=== PATIENT | female | born 1950 | race Caucasian/White ===

== ENCOUNTER 2017-06-26 18:43 | Emergency (ER) | payer MEDICARE, OTHER, SELFPAY ==
[2017-06-26 19:15] VITALS: BP 104/64; PULSE 73; RESP 18; TEMP 36.8; O2SAT 97; BMI 24.7
--- NOTE | 2017-06-26 19:36 | XR_ITS ---
XR chest 2V HISTORY: Ke ITS.REASON: worsening cough, pain, feeling feverish, nonsmoker ORDERING PHYSICIAN: Mingo Hernandez PATIENT AGE: 66 years COMPARISON: None available FINDINGS: The cardiomediastinal silhouette and pulmonary vascularity are within normal limits. The lungs are clear without infiltrates, suspicious nodules, or pleural effusions. A faint nodular opacity overlies the left first rib anteriorly could be due to summation artifact. Follow-up may confirm. There is increased density left paratracheal region at 4 and may be due to thyroid enlargement No acute bony abnormalities. IMPRESSION: No acute finding. Mild deviation of the trachea on the left possibly related to thyroid enlargement or nodule Faint 7 mm nodular opacity left apex which may be related to summation artifact. Follow-up may confirm and exclude developing nodule
--- NOTE | 2017-06-26 20:04 | HMH.EDUTC ---
[facility] [place] Clinical Impression: Asthmatic bronchitis Qualifiers: Asthma severity: mild Asthma persistence: intermittent Asthma complication type: uncomplicated Qualified Code(s): J45.20 - Mild intermittent asthma, uncomplicated Disposition: Home, Self-Care Condition on Discharge: Good Instructions: DI for Acute Bronchitis Additional Instructions: * No sign of a bacterial infection. I understand you want amoxicillin and I will give it to you only because you requested it. If this is viral, will not help you feel better. start antibiotic today since you have one with you. The prescription was sent to [facility] for you to garbage pick up worker tomorrow. Be sure to complete entire prescription even if feeling better unless someone tells you otherwise. * Monitor Temp. Feeling feverish and having a fever are not the same thing. * humidifier/vaporizer/hot steamy shower * Mucinex during the day for your cough and cough suppressant only at night. not D or DM, just PLAIN MUCINEX. Be sure to drink lots of water. Insurance may not cover a prescription of mucinex. Might be cheaper to get 400mg tablets and take 2 tablets morning, midday and evening all with lots of water. * Avoid tessalon perles as your cough is productive. Use mucinex instead. * Start steroid tomorrow since we gave you the first dose in clinic. Helps with inflammation therefore, cough and wheezing. Follow directions on package. Rvwd side effects. Pt reports they have taken them before. if you notice they increase your PVCs, stop taking them immediately. Prescriptions: Amoxicillin [Amoxicillin 500mg Cap] 500 mg PO TID #30 cap predniSONE [Deltasone 10mg tablet] 10 mg PO BID #9 tab Referrals: Pedrito Alexander MD [Primary Care Provider] - (Return to ER/[facility] for new or worsening symptoms. otherwise follow up with Dr. Alexander if no noticeable improvement over the next 2-3 days. ) Time of Disposition: 20:12 Medical Decision Making Vital Signs: 06/26/17 19:15 Temperature 98.3 F Temperature Source Temporal Artery Scan Pulse Rate [Left Radial] 73 Respiratory Rate 18 Blood Pressure [Right Arm] 104/64 Blood Pressure Mean [Right Arm] 77 02 Sat by Pulse Oximetry 97 Oxygen Delivery Method Room Air Orders (Tests/Meds): ED MEDICATIONS Discontinued Medications Generic Name Dose Route Start Last Admin Trade Name Freq PRN Reason Stop Dose Admin Prednisone 10 mg 03/03/18 20:05 Deltasone 5mg Tablet PO 06/26/17 20:06 ONCE ONE ORDERS Category Date Time Status CXR 2 view (NOT portable) [XR chest 2V] Stat Exams 06/26/17 19:36 Taken - Radiology Data #1 Image(s): Chest Image Reviewed: Yes I reviewed the patient's radiology image w/the ED provider Preliminary Findings: Normal/NAD Rvwd w/ Dr. Tidwell, ER . Discussed HPI, PMHx, exam, VS, CXR. Suggest steroids and if pt wants, amoxicillin, give it. Have pt follow up with primary care. - Dawson Inquiry Pt receiving controlled substance: No [facility] [place] - General Stated complaint: Coughing and back pain Time Seen by Provider: 06/26/17 19:15 Mode of Arrival: Ambulatory Source of Information: Patient Limitations: No Limitations Description of Symptoms (Recalled from Triage Doc. by RN): PT C/O COUGH AND CONGESTION WITH SORE THROAT WITH BACK PAIN. HEENT Symptoms (Recalled from RN notes): Yes (SORE THROAT) Resp Symptoms (Recalled from RN notes): Yes (COUGH CONGESTION) Skin Symptoms (Recalled from RN notes): No MS Symptoms (Recalled from RN notes): Yes (BACK PAIN) Functional Status (Recalled from RN notes): NA - History of Present Illness Provider Complaint: c/o cough and pain right side of back with cough and deep breath. Started w/ nonprod cough approx 2 weeks ago. Seemed to get better with old prescription of tessalon perles. Started back Wednesday. Called PCP, Dr. alexander. He called in unknown prescription but patient didn't take it due to it containing decongestant. Dx PVCs Fall 2016 and that makes them worse
--- NOTE | 2017-06-26 20:09 | ED_ITS ---
[facility] [place] Impression: Asthmatic bronchitis Qualifiers: Asthma severity: mild Asthma persistence: intermittent Asthma complication type : uncomplicated Qualified Code(s): J45.20 - Mild intermittent asthma, uncomplicated Disposition: Home, Self-Care Condition on Discharge: Good Instructions: DI for Acute Bronchitis Additional Instructions: * No sign of a bacterial infection. I understand you want amoxicillin and I will give it to you only because you requested it. If this is viral, will not help you feel better. start antibiotic today since you have one with you. The prescription was sent to [facility] for you to merchandise pickup/receiving associate tomorrow. Be sure to complete entire prescription even if feeling better unless someone tells you otherwise. * Monitor Temp. Feeling feverish and having a fever are not the same thing. * humidifier/vaporizer/hot steamy shower * Mucinex during the day for your cough and cough suppressant only at night. not D or DM, just PLAIN MUCINEX. Be sure to drink lots of water. Insurance may not cover a prescription of mucinex. Might be cheaper to get 400mg tablets and take 2 tablets morning, midday and evening all with lots of water. * Avoid tessalon perles as your cough is productive. Use mucinex instead. * Start steroid tomorrow since we gave you the first dose in clinic. Helps with inflammation therefore, cough and wheezing. Follow directions on package. Rvwd side effects. Pt reports they have taken them before. if you notice they increase your PVCs, stop taking them immediately. Prescriptions: Amoxicillin [Amoxicillin 500mg Cap] 500 mg PO TID #30 cap predniSONE [Deltasone 10mg tablet] 10 mg PO BID #9 tab Referrals: Pedrito Cruz MD [Primary Care Provider] - (Return to ER/[facility] for new or worsening symptoms. otherwise follow up with Dr. Cruz if no noticeable improvement over the next 2-3 days. ) Time of Disposition: 20:12 Medical Decision Making Vital Signs: 06/26/17 19:15 Temperature 98.3 F Temperature Source Temporal Artery Scan Pulse Rate [Left Radial] 73 Respiratory Rate 18 Blood Pressure [Right Arm] 104/64 Blood Pressure Mean [Right Arm] 77 02 Sat by Pulse Oximetry 97 Oxygen Delivery Method Room Air Orders (Tests/Meds): ED MEDICATIONS Discontinued Medications Generic Name Dose Route Start Last Admin Trade Name Freq PRN Reason Stop Dose Admin Prednisone 10 mg 03/03/18 20:05 Deltasone 5mg Tablet PO 06/26/17 20:06 ONCE ONE ORDERS Category Date Time Status CXR 2 view (NOT portable) [XR chest 2V] Stat Exams 06/26/17 19:36 Taken - Radiology Data #1 Image(s): Chest Image Reviewed: Yes I reviewed the patient's radiology image w/the ED provider Preliminary Findings: Normal/NAD Rvwd w/ Dr. Tidwell, ER . Discussed HPI, PMHx, exam, VS, CXR. Suggest steroids and if pt wants, amoxicillin, give it. Have pt follow up with primary care. - Dawson Inquiry Pt receiving controlled substance: No [facility] [place] - General Stated complaint: Coughing and back pain Time Seen by Provider: 06/26/17 19:15 Mode of Arrival: Ambulatory Source of Information: Patient Limitations: No Limitations Description of Symptoms (Recalled from Triage Doc. by RN): PT C/O COUGH AND CONGESTION WITH SORE THROAT WITH BACK PAIN. HEENT Symptoms (Recalled from RN notes): Yes (SORE THROAT) Resp Symptoms (Recalled from RN notes): Yes (COUGH CONGESTION) Ski
[2017-06-26 20:18] VITALS: BP 106/78; PULSE 72; RESP 18; TEMP 36.9; O2SAT 98
== END 2017-06-26 20:20 | disposition home or self-care (01) ==
PROVIDERS: Emergency Provider Nurse Practitioner Family; Family Provider Family Medicine; PCP Family Medicine
DX: J45.20 Mild intermittent asthma, uncomplicated (principal); K21.9 Gastro-esophageal reflux disease without esophagitis; E78.5 Hyperlipidemia, unspecified; M54.9 Dorsalgia, unspecified; Z88.2 Allergy status to sulfonamides; Z88.1 Allergy status to other antibiotic agents; Z88.6 Allergy status to analgesic agent
CPT/HCPCS: G0463; 71046; 99202

== ENCOUNTER → 2017-09-21 10:06 | Outpatient (CLI) | payer MEDICARE, OTHER, SELFPAY ==
--- NOTE | 2017-09-21 10:19 | XR_ITS ---
XR hip RT 2-3V w/pelvis HISTORY: ITS.REASON: RT THIGH PAIN ORDERING PHYSICIAN: Pedrito Cruz MD PATIENT AGE: 67 years COMPARISON: None FINDINGS: No fracture or dislocation is evident. No significant degenerative change. No lytic or blastic change. Unremarkable soft tissues. There are multiple pelvic phleboliths. IMPRESSION: Negative right hip
--- NOTE | 2017-09-21 10:20 | XR_ITS ---
EXAM: XR lumbar spine min 4V HISTORY: ITS.REASON: RT INGUINAL PAIN ORDERING PHYSICIAN: Pedrito Cruz MD PATIENT AGE: 67 years COMPARISON: None FINDINGS: Normal alignment. No fracture or dislocation. There are moderate facet hypertrophic/sclerotic changes at L4-L5 and L5-S1.. The disc spaces are fairly well-preserved. No bony destructive process. 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
== END ==
PROVIDERS: PCP Family Medicine; Visit Provider Family Medicine
DX: M54.5 Low back pain (principal); R10.31 Right lower quadrant pain; M79.651 Pain in right thigh
CPT/HCPCS: 72110; 73502

== ENCOUNTER → 2018-05-31 16:19 | Outpatient (CLI) | payer MEDICARE, OTHER, SELFPAY | LOC: LAB 16:20 → LAB.DROPOF 16:20 | PROVIDERS: Visit Provider Urology | DX: N39.0 Urinary tract infection, site not specified (principal) | CPT/HCPCS: 87086 ==

== ENCOUNTER → 2019-05-30 09:58 | Outpatient (POV) | payer MEDICARE, OTHER, SELFPAY | PROVIDERS: Visit Provider Dermatology | DX: Z00.00 Encounter for general adult medical examination without abnormal findings (principal) ==

== ENCOUNTER → 2019-09-12 08:30 | Outpatient (POV) | payer MEDICARE, OTHER, SELFPAY | PROVIDERS: PCP Physician Assistant; Visit Provider Physician Assistant | DX: Z00.00 Encounter for general adult medical examination without abnormal findings (principal) ==

== ENCOUNTER → 2019-11-09 10:12 | Outpatient (CLI) | payer MEDICARE, OTHER, SELFPAY ==
[2019-11-10 14:13] LABS: Covid-19 Nasal PCR Sendout Lex NOT DETECTED
== END ==
PROVIDERS: PCP Family Medicine; Visit Provider Family Medicine
DX: Z03.818 Encounter for observation for suspected exposure to other biological agents ruled out (principal)
CPT/HCPCS: U0004

== ENCOUNTER → 2020-05-14 10:12 | Outpatient (POV) | payer MEDICARE, OTHER, SELFPAY | PROVIDERS: Visit Provider Otolaryngology | DX: Z00.00 Encounter for general adult medical examination without abnormal findings (principal) ==

== ENCOUNTER → 2020-06-25 09:21 | Outpatient (POV) | payer MEDICARE, OTHER, SELFPAY | PROVIDERS: Visit Provider Otolaryngology | DX: Z00.00 Encounter for general adult medical examination without abnormal findings (principal) ==

== ENCOUNTER → 2020-07-01 15:26 | Outpatient (CLI) | payer MEDICARE, OTHER, SELFPAY ==
--- NOTE | 2020-07-01 15:34 | XR_ITS ---
PROCEDURE: XR CHEST 2V CLINICAL HISTORY: COUGH COMPARISON: CT CHW CT CHEST W/ CONTRAST from 10/08/2015 CR CXR CHEST(2 VIEWS-NOT PORTABLE) from 06/23/2016 CR CXR2V XR chest 2V from 06/26/2017 CR Chest from 09/18/2018 FINDINGS: The cardiomediastinal silhouette and pulmonary vascularity are within normal limits. The lungs are clear without infiltrates, suspicious nodules, or pleural effusions. Degenerative changes thoracic spine with mild kyphosis IMPRESSION: No acute findings. Dictated by: Mejia Hanson MD 07/02/2020 07:22 Mejia Hanson MD in OV 07/02/2020 07:22
== END ==
PROVIDERS: PCP Family Medicine; Visit Provider Family Medicine
DX: R05 Cough (principal)
CPT/HCPCS: 71046

== ENCOUNTER → 2020-08-07 14:52 | Outpatient (CLI) | payer MEDICARE, OTHER, SELFPAY ==
[2020-08-07 16:05] LABS: Coronavirus 19 IgG Antibody Positive (Negative); Coronavirus 19 IgM Antibody Negative (Negative)
== END ==
PROVIDERS: Visit Provider Urology
DX: N81.10 Cystocele, unspecified (principal); R31.9 Hematuria, unspecified; Z01.812 Encounter for preprocedural laboratory examination; Z20.822 Contact with and (suspected) exposure to COVID-19
CPT/HCPCS: 36415; 86328

== ENCOUNTER 2020-08-09 08:17 | Day surgery (SDC) | payer MEDICARE, OTHER, SELFPAY ==
[2020-08-09 08:43] VITALS: BP 140/81; PULSE 70; RESP 14; TEMP 36.5; O2SAT 98
[2020-08-09 08:48] VITALS: BMI 24.3
[2020-08-09 09:43] VITALS: BP 109/75; PULSE 55; RESP 18; TEMP 37.1; O2SAT 100
[2020-08-09 09:55] VITALS: BP 109/75; PULSE 55; RESP 18; O2SAT 100
--- NOTE | 2020-08-09 12:43 | P.OP_ITS ---
Date of procedure: 08/09/20 Pre-op Diagnosis:: Gross hematuria Post-op Diagnosis:: Same Procedure performed:: Cystourethroscopy Surgeon:: Jorge Jones MD Anesthesia: local Estimated blood loss (mL): 0 Clinical Note:: Patient is a 70-year-old white female with some recent grossly bloody urine. She presents for urologic management. She has not noticed any gross hematuria s gopal her office visit last month. Operative findings:: Bladder and urethra were within normal limits. There is no evidence for her recent gross hematuria. She does have a pessary which may be causing some vaginal irritation. Operative note:: Patient taken to the cystoscopy suite after informed consent was obtained. On the stretcher she was placed in the frog-leg position. She was prepped and draped in the standard surgical fashion and 2% lidocaine placed into the urethra. After few minutes the flexible cystoscope passed into the urethral meatus and into the bladder without difficulty. The bladder was examined in a systematic fashion. There is no evidence of mucosal abnormalities, stones, trabeculation or cellules. The ureteral orifices were in their normal anatomic position and of normal size. There was clear efflux of urine noted from each orifice. Bladder neck showed no abnormalities and the urethra was normal as well. Vaginal examination revealed a pessary in its proper position and no evidence of any external lesions or irritation. Patient tolerated procedure well without complication. We discussed the findings today and if she should experience recurrent hematuria she is to let me know. Condition: stable Disposition: same day Specimens:: None Complications:: None
== END 2020-08-09 09:56 | disposition home or self-care (01) ==
LOC: OUTP 08:20
PROVIDERS: PCP Family Medicine; Visit Provider Urology
PROC: (CPT 52000; principal; 2020-08-09 09:00)
DX: R31.9 Hematuria, unspecified (principal); Z96.0 Presence of urogenital implants; E78.5 Hyperlipidemia, unspecified; K21.9 Gastro-esophageal reflux disease without esophagitis; J45.909 Unspecified asthma, uncomplicated; I49.9 Cardiac arrhythmia, unspecified; Z79.899 Other long term (current) drug therapy; Z88.2 Allergy status to sulfonamides; Z88.5 Allergy status to narcotic agent; Z88.1 Allergy status to other antibiotic agents; Z88.8 Allergy status to other drugs, medicaments and biological substances
CPT/HCPCS: 52000

== ENCOUNTER 2020-11-15 09:05 | Emergency (ER) | payer MEDICARE, OTHER, SELFPAY ==
[2020-11-15 09:19] VITALS: BP 117/79; PULSE 73; RESP 19; TEMP 36.8; O2SAT 100; BMI 24.3
--- NOTE | 2020-11-15 09:32 | HMH.EDUTC ---
[facility] [place] Disposition Clinical Impression: Encounter for laboratory testing for COVID-19 virus Disposition: Home, Self-Care Condition on Discharge: Good Instructions: DI for COVID-19 (Suspected or Confirmed ), Coronavirus Disease 2019, Preventing the Spread of Coronavirus Discharge Instructions Additional Instructions: *Monitor Temp, Over the counter Motrin or Tylenol as directed/as needed Tylenol every 4 hours and Motrin every 6 hours (as long as your family doctor has told you that you can take it) for fever or pain. and straight to ER if unable to lower temp less than 101.0 after medication given *Warm salt water gargles may help to soothe the throat *Throat Lozenges *Warm fluids like tea with honey may help to soothe the throat *Sleep elevated *Humidifier/Vaporizer Follow up IMMEDIATELY for new or worsening symptoms or no Noticeable improvement over the next 48-72 hours. 911 for difficulty breathing or swallowing You were tested for today for COVID19 your test result should be back in the next 24-48 hours, you may call to the [facility] to see if your test results are back in the next 48 hours [phone] [facility] hours are 9am-9pm You was given a handout with instructions for Self Quarantine and Self isolation for while you wait on test results and what to do if they are positive If you are positive the Health Dept will be contacting you also Referrals: Pedrito Cruz MD [Primary Care Provider] - As needed Time of Disposition: 09:35 Medical Decision Making - Dawson Inquiry Pt receiving controlled substance: No Dawson was queried for this patient: No Vital Signs: 11/15/20 09:19 Temperature 98.3 F Temperature Source Oral Pulse Rate [Left Radial] 73 Respiratory Rate 19 Blood Pressure [Left Arm] 117/79 Blood Pressure Mean [Left Arm] 91 Blood Pressure Source [Left Arm] Automatic Cuff Blood Pressure Position [Left Arm] Sitting 02 Sat by Pulse Oximetry 100 Oxygen Delivery Method Room Air Orders (Tests/Meds): ORDERS Category Date Time Status Covid-19 Nasal PCR ([facility]) Routine Lab 11/15/20 09:18 Received [facility] [place] HPI - General Stated complaint: covid test Time Seen by Provider: 11/15/20 09:32 Mode of Arrival: Ambulatory Source of Information: Patient Limitations: No Limitations Description of Symptoms (Recalled from Triage Doc. by RN): Pt requesting COVID test d/t symptomatic family testing positive. Pt denies symptoms at this time. HEENT Symptoms (Recalled from RN notes): No Resp Symptoms (Recalled from RN notes): No Skin Symptoms (Recalled from RN notes): No MS Symptoms (Recalled from RN notes): No Functional Status (Recalled from RN notes): n/a - History of Present Illness Provider Complaint: Patient state that she was around some family earlier this week and they have since tested positive for COVID States that she is not having any symptoms but she has family coming in this evenind and wanted to make sure that [facility] didnt have it - Related Data Home Medications Medication Instructions Recorded Confirmed ezetimibe 10 mg tablet 10 mg PO DAILY 05/31/18 08/09/20 lansoprazole 30 mg capsule,delayed 30 mg PO BID 05/31/18 08/09/20 release polyethylene glycol 3350 17 17 g PO DAILY 05/31/18 08/09/20 gram/dose oral powder vitamins A,C,X-qcaq-dfniza 14,320 1 cap PO BID 05/31/18 08/09/20 unit-226 mg-200 unit capsule Allergies Allergy/AdvReac Type Severity Reaction Status Date / Time Sulfa (Sulfonamide Allergy Severe I-HIVES Verified 08/09/20 08:42 Antibiotics) morphine Allergy Mild HYPER Verified 08/09/20 08:42 soap Allergy Mild RASH WITH Verified 08/09/20 08:42 DIAL SOAP acetaminophen [From [place]] Allergy Verified 08/09/20 08:42 amoxicillin [From Augmentin] Allergy Verified 08/09/20 08:42 clavulanic acid Allergy Verified 08/09/20 08:42 [From Augmentin] doxycycline Allergy Verified 08/09/20 08:42 hydrocodone [From [place]] Allergy Verified 08/09/20 08:42 prednisone AdvReac M
[2020-11-15 09:40] VITALS: BP 117/79; PULSE 73; RESP 19; TEMP 36.8; O2SAT 100
== END 2020-11-15 09:42 | disposition home or self-care (01) ==
PROVIDERS: Emergency Provider Nurse Practitioner; PCP Family Medicine
DX: Z20.822 Contact with and (suspected) exposure to COVID-19 (principal)
CPT/HCPCS: G0463; 99202; U0003

== ENCOUNTER 2020-12-04 10:47 | Emergency (ER) | payer MEDICARE, OTHER, SELFPAY ==
[2020-12-04 11:15] VITALS: BP 113/62; PULSE 84; RESP 19; TEMP 37; O2SAT 99; BMI 24.3
--- NOTE | 2020-12-04 11:20 | HMH.EDUTC ---
[facility] [place] Clinical Impression: Encounter for laboratory testing for COVID-19 virus Disposition: Home, Self-Care Condition on Discharge: Good Instructions: DI for COVID-19 (Suspected or Confirmed ), Coronavirus Disease 2019, Preventing the Spread of Coronavirus Discharge Instructions Additional Instructions: *Monitor Temp, Over the counter Motrin or Tylenol as directed/as needed Tylenol every 4 hours and Motrin every 6 hours (as long as your family doctor has told you that you can take it) for fever or pain. and straight to ER if unable to lower temp less than 101.0 after medication given *Warm salt water gargles may help to soothe the throat *Throat Lozenges *Warm fluids like tea with honey may help to soothe the throat *Sleep elevated *Humidifier/Vaporizer Follow up IMMEDIATELY for new or worsening symptoms or no Noticeable improvement over the next 48-72 hours. 911 for difficulty breathing or swallowing You were tested for today for COVID19 your test result should be back in the next 24-48 hours, you may call to the [facility] to see if your test results are back in the next 48 hours [phone] [facility] hours are 9am-9pm You was given a handout with instructions for Self Quarantine and Self isolation for while you wait on test results and what to do if they are positive If you are positive the Health Dept will be contacting you also Referrals: Pedrito Cruz MD [Primary Care Provider] - As needed Time of Disposition: 11:27 Medical Decision Making - Dawson Inquiry Pt receiving controlled substance: No Dawson was queried for this patient: No Vital Signs: 12/04/20 11:15 Temperature 98.6 F Temperature Source Oral Pulse Rate [Left] 84 Respiratory Rate 19 Blood Pressure [Right Arm] 113/62 Blood Pressure Mean [Right Arm] 79 02 Sat by Pulse Oximetry 99 Orders (Tests/Meds): ORDERS Category Date Time Status Covid-19 Nasal PCR ([facility]) Routine Lab 12/04/20 10:54 Ordered [facility] [place] HPI - General Stated complaint: covid exposure Time Seen by Provider: 12/04/20 11:20 Mode of Arrival: Ambulatory Source of Information: Patient Limitations: No Limitations Description of Symptoms (Recalled from Triage Doc. by RN): pt was directly exposed to covid last week. pt is asymptomatic. HEENT Symptoms (Recalled from RN notes): No Resp Symptoms (Recalled from RN notes): No Skin Symptoms (Recalled from RN notes): No MS Symptoms (Recalled from RN notes): No Functional Status (Recalled from RN notes): na - History of Present Illness Provider Complaint: Patient states that she was around family member last week that has since tested positive for COVID States that she has been having a runny nose and scratchy throat but thought it was her allergies but still wanted to come in and get tested for COVID - Related Data Home Medications Medication Instructions Recorded Confirmed ezetimibe 10 mg tablet 10 mg PO DAILY 05/31/18 08/09/20 lansoprazole 30 mg capsule,delayed 30 mg PO BID 05/31/18 08/09/20 release polyethylene glycol 3350 17 17 g PO DAILY 05/31/18 08/09/20 gram/dose oral powder vitamins A,C,S-tkdo-nlcmvk 14,320 1 cap PO BID 05/31/18 08/09/20 unit-226 mg-200 unit capsule Allergies Allergy/AdvReac Type Severity Reaction Status Date / Time Sulfa (Sulfonamide Allergy Severe I-HIVES Verified 12/04/20 11:20 Antibiotics) morphine Allergy Mild HYPER Verified 12/04/20 11:20 soap Allergy Mild RASH WITH Verified 12/04/20 11:20 DIAL SOAP acetaminophen [From [place]] Allergy Verified 12/04/20 11:20 amoxicillin [From Augmentin] Allergy Verified 12/04/20 11:20 clavulanic acid Allergy Verified 12/04/20 11:20 [From Aug[place]] doxycycline Allergy Verified 12/04/20 11:20 hydrocodone [From [place]] Allergy Verified 12/04/20 11:20 prednisone AdvReac Mild INCREASED Verified 12/04/20 11:20 HEART RATE - Worker's Comp Is this a Worker's Comp case?: No H History - Hepatitis A Screen D
[2020-12-04 11:30] VITALS: BP 111/69; PULSE 85; RESP 16; TEMP 36.8
== END 2020-12-04 11:32 | disposition home or self-care (01) ==
PROVIDERS: Emergency Provider Nurse Practitioner; PCP Family Medicine
DX: Z20.822 Contact with and (suspected) exposure to COVID-19 (principal); K21.9 Gastro-esophageal reflux disease without esophagitis; E78.5 Hyperlipidemia, unspecified; J45.909 Unspecified asthma, uncomplicated; Z88.2 Allergy status to sulfonamides; Z88.5 Allergy status to narcotic agent
CPT/HCPCS: G0463; 99202; U0003

== ENCOUNTER 2021-02-02 08:54 | Emergency (ER) | payer MEDICARE, OTHER, SELFPAY ==
[2021-02-02 08:55] VITALS: BP 137/79; PULSE 76; RESP 18; TEMP 36.8; O2SAT 100; BMI 24.3
[2021-02-02 09:20] LABS: UTC Strep Screen (Rapid) Negative (Negative)
--- NOTE | 2021-02-02 09:30 | HMH.EDUTC ---
[facility] [place] Clinical Impression: Pharyngitis Qualifiers: Pharyngitis/tonsillitis etiology: unspecified etiology Qualified Code(s): J02.9 - Acute pharyngitis, unspecified Disposition: Home, Self-Care Condition on Discharge: Good Instructions: Sore Throat, DI for Pharyngitis/Tonsillopharyngitis -- Adult Additional Instructions: Drink plenty of fluids. Take tylenol for pain or fever. Take the medications as directed. Follow up with your regular doctor. GO TO THE ER FOR ANY WORSENING SYMPTOMS Gargling with warm salt water can help soothe a sore throat and break down secretions. It?s also known to help kill bacteria in the throat. Make a saltwater solution with a half-teaspoon of salt in a full glass of warm water. Gargle it to help reduce swelling and keep the throat clean. This should be done every three hours or so. Humidify the air. Use a cool-air humidifier to eliminate dry air that may further irritate a sore throat, being sure to clean the humidifier regularly so it doesn't grow mold or bacteria. Or sit for several minutes in a steamy bathroom. Try comforting foods and beverage. Warm liquids ? broth, caffeine-free tea or warm water with honey ? and cold treats such as ice pops can soothe a sore throat. Drink fluids. Fluids keep the throat moist and prevent dehydration. Avoid caffeine and alcohol, which can dehydrate you. Prescriptions: Azithromycin [Z-Amarjit 250mg Tab*] 250 mg PO UD DOSE PK #6 tab Transmission Status: Received by [facility] #[id number] Referrals: Pedrito Cruz MD [Primary Care Provider] - Time of Disposition: 09:40 Medical Decision Making - Medical Records Medical records reviewed: No: I reviewed the patient's medical records. - Dawson Inquiry Pt receiving controlled substance: No Vital Signs: 02/02/21 08:55 02/02/21 09:43 Temperature 98.3 F 98.3 F Temperature Source Oral Pulse Rate 76 Pulse Rate [Left] 76 Respiratory Rate 18 18 Blood Pressure 137/79 Blood Pressure [Right Arm] 137/79 Blood Pressure Mean [Right Arm] 98 02 Sat by Pulse Oximetry 100 - Lab Data Lab results reviewed: Yes: I reviewed the patient's lab results. Lab Results 02/02/21 09:14: Strep Scn Rapid Clinic Negative Orders (Tests/Meds): ORDERS Category Date Time Status Strep Screen Confirmation Stat Micro 02/02/21 09:14 Received Medical Decision Narrative: She refused any steroids today. She states that they make her nervous and make her heart rate. So, alternative treatments for tonsil swelling were suggested. [facility] [place] HPI - General Stated complaint: sore throat, headache,ear ache Time Seen by Provider: 02/02/21 09:34 Mode of Arrival: Ambulatory Source of Information: Patient Limitations: No Limitations Description of Symptoms (Recalled from Triage Doc. by RN): pt c/o a sore throat, GUAMAN, ear aches and swollen lymph nodes HEENT Symptoms (Recalled from RN notes): Yes (sore throat, GUAMAN and ears aching) Resp Symptoms (Recalled from RN notes): No Skin Symptoms (Recalled from RN notes): No MS Symptoms (Recalled from RN notes): No Functional Status (Recalled from RN notes): na - History of Present Illness Provider Complaint: She states that she has been having a sore throat since yesterday. She also has had some right ear pain. She has been vaccinated against covid-19. She denies any fever/chills/body aches. - Related Data Home Medications Medication Instructions Recorded Confirmed ezetimibe 10 mg tablet 10 mg PO DAILY 05/31/18 08/09/20 lansoprazole 30 mg capsule,delayed 30 mg PO BID 05/31/18 08/09/20 release polyethylene glycol 3350 17 17 g PO DAILY 05/31/18 08/09/20 gram/dose oral powder vitamins A,C,A-ygpd-zvpcnk 14,320 1 cap PO BID 05/31/18 08/09/20 unit-226 mg-200 unit capsule Previous Rx's Medication Instructions Recorded Azithromycin [Z-Amarjit 250mg Tab*] 250 mg PO UD DOSE PK #6 tab 02/02/21 Allergies Allergy/AdvReac Type Severi
[2021-02-02 09:43] VITALS: BP 137/79; PULSE 76; RESP 18; TEMP 36.8
== END 2021-02-02 09:50 | disposition home or self-care (01) ==
PROVIDERS: Emergency Provider Nurse Practitioner Family; PCP Family Medicine
DX: J02.9 Acute pharyngitis, unspecified (principal); J45.909 Unspecified asthma, uncomplicated; Z85.9 Personal history of malignant neoplasm, unspecified; K21.9 Gastro-esophageal reflux disease without esophagitis; E78.5 Hyperlipidemia, unspecified; Z20.822 Contact with and (suspected) exposure to COVID-19
CPT/HCPCS: 87880; 99203; C9803; G0463; U0003; U0005

== ENCOUNTER → 2021-06-24 09:26 | Outpatient (CLI) | payer MEDICARE, OTHER, SELFPAY ==
--- NOTE | 2021-06-24 09:31 | CT_ITS ---
FINAL REPORT CLINICAL HISTORY: EPIGASTRIC PAIN,CHANGE IN STOOL,MID BACK PAIN. eval liver and pancreatic mass 10min delay due to kidney mass? COMPARISON: September 18, 2018 FINDINGS: CT OF THE ABDOMEN AND PELVIS WITH CONTRAST Axial CT images of the abdomen and pelvis were obtained after the administration of oral and iv contrast. Coronal reformatted images were also obtained and reviewed.This study was performed with techniques to keep radiation doses as low as reasonably achievable (ALARA). Individualized dose reduction techniques using automated exposure control or adjustment of mA and/or kV according to the patient's size were employed. Abdomen: There is small scarring in the lung bases. The heart is normal in size. There are multiple low-attenuation masses in the liver which are favored to represent cysts. The largest is in the anterior liver dome measuring 12 mm and is stable. There is no evidence of biliary ductal dilatation. The gallbladder is presumed to be surgically absent. The spleen is unremarkable. No adrenal mass is present. The pancreas has an unremarkable appearance without evidence of a mass or pancreatic ductal dilatation. There is a mass in the upper pole of the right kidney measuring 18 mm and is stable. This is consistent with a cyst. The aorta is normal in caliber. There are mild vascular calcifications. There is no free fluid or adenopathy. Pelvis: The appendix normal. There is evidence of hysterectomy. The urinary bladder is unremarkable. There is descending and sigmoid diverticulosis. There is no evidence adenopathy. There is no evidence of bowel obstruction. IMPRESSION: Multiple low-attenuation masses in the liver favored to represent cysts. No pancreatic mass or pancreatic ductal dilatation is identified. 18 mm cyst in the upper pole of the right kidney, stable. Reviewed, Interpreted and Dictated by Prosper Mojica III, MD Transcribed by Harika Camara Authenticated by Prosper Mojica III, MD on 06/24/2021 11:02:04 AM [facility]
== END ==
PROVIDERS: PCP Family Medicine; Visit Provider Family Medicine
DX: R10.13 Epigastric pain (principal); R10.2 Pelvic and perineal pain; R19.4 Change in bowel habit; M54.6 Pain in thoracic spine; Z90.710 Acquired absence of both cervix and uterus; Z90.49 Acquired absence of other specified parts of digestive tract
CPT/HCPCS: 74177; Q9967

== ENCOUNTER → 2021-08-28 11:16 | Outpatient (CLI) | payer MEDICARE, OTHER, SELFPAY ==
[2021-08-28 11:45] LABS: Basophils # 0.2 K/mm3 (0-0.2); Basophils % 3.3 % (0.1-2.0); Eosinophils # 0.1 K/mm3 (0.0-0.4); Eosinophils % 1.7 % (0.1-12.0); Hematocrit 49.2 % (37.0-47.0); Lymphocytes # 1.3 K/mm3 (0.7-4.5); Lymphocytes % 29.3 % (10-50); Mean Corpuscular HGB Conc 32.6 g/dL (31.8-35.4); Mean Corpuscular Hemoglobin 29.2 pg (27.0-31.2); Mean Corpuscular Volume 89.7 fl (81-99); Mean Platelet Volume 8.1 fl (7.4-10.4); Monocytes # 0.4 K/mm3 (0.1-1.0); Monocytes % 8.1 % (1.7-9.3); Neutrophils # 2.6 K/mm3 (1.8-7.8); Neutrophils % 57.6 % (37.0-80.0); Platelet Count 186 K/mm3 (142-424); Red Blood Count 5.49 M/mm3 (4.20-5.40); Red Cell Distribution Width 13.2 % (11.5-17.5); White Blood Count 4.5 K/mm3 (4.8-10.8)
--- NOTE | 2021-08-28 11:45 | ECG_ITS ---
APPROVED REPORT Exam: Resting ECG HR:65 bpm ECG Measurements Heart Rate 65 AXES GA 137 P 67 QRSd 80 QRS 71 QT 399 T 48 QTc 410 Conclusion SINUS RHYTHM LOW QRS VOLTAGE [QRS DEFLECTION < 0.5/1.0 mV IN LIMB/CHEST LEADS] Previously noted late R wave progression ABNORMAL ECG UNCONFIRMED REPORT Electronically signed by : Pedrito Horton MD 08/30/2021 09:07:23
[2021-08-28 11:50] LABS: Chloride 105 mmol/L (98-107); Potassium 4.8 mmoL/L (3.5-5.1); Sodium 138 mmol/L (136-145)
[2021-08-28 11:52] LABS: Alanine Aminotransferase 26 U/L (12-78); Aspartate Amino Transferase 34 U/L (14-36); Blood Urea Nitrogen 26 mg/dl (7-17); Estimated Glomerular Filt Rate 70 ml/min (>60); GFR (African American) 85 ML/MIN (>60)
[2021-08-28 11:53] LABS: Albumin Level 4.1 g/dl (3.5-5.0); Albumin/Globulin Ratio 1.4 (1.1-1.8); Alkaline Phosphatase 74 U/L (38-126); Anion Gap 7.8 mEq/L (5-15); Bilirubin,Total 0.5 mg/dl (0.2-1.3); Calcium 10.3 mg/dl (8.4-10.2); Carbon Dioxide 30 mmol/L (22.0-30.0); Globulin 2.9 g/dL (1.3-3.2); Glucose 111 mg/dl (74-100)
[2021-08-28 12:08] LABS: Troponin I < 0.01 ng/ml (0.00-0.034)
[2021-08-28 12:25] LABS: Thyroid Stimulating Hormone 1.53 uIU/mL (0.465-4.68)
== END ==
PROVIDERS: PCP Nurse Practitioner Family; Visit Provider Nurse Practitioner Family
DX: R07.9 Chest pain, unspecified (principal); R20.0 Anesthesia of skin
CPT/HCPCS: 36415; 80053; 84443; 84484; 85025; 93005

== ENCOUNTER → 2021-09-03 13:19 | Outpatient (CLI) | payer MEDICARE, OTHER, SELFPAY ==
--- NOTE | 2021-09-03 13:24 | US_ITS ---
FINAL REPORT CLINICAL HISTORY: Numbness bilateral toes, bilateral rest pain. Hyperlipidemia FINDINGS: Complete ankle/brachial indices was obtained. The right MAUREEN is 1.17. The left MAUREEN is 1.27. IMPRESSION: ABIs are within normal limits bilaterally. Reviewed, Interpreted and Dictated by Prosper Mojica III, MD Transcribed by Karely Dawn Authenticated by Prosper Mojica III, MD on 09/03/2021 03:21:13 PM [facility]
== END ==
PROVIDERS: PCP Nurse Practitioner Family; Visit Provider Nurse Practitioner Family
DX: I70.213 Atherosclerosis of native arteries of extremities with intermittent claudication, bilateral legs (principal); R20.0 Anesthesia of skin; M79.662 Pain in left lower leg; M79.661 Pain in right lower leg; Z82.49 Family history of ischemic heart disease and other diseases of the circulatory system
CPT/HCPCS: 93923

== ENCOUNTER → 2021-11-21 09:24 | Outpatient (CLI) | payer MEDICARE, OTHER, SELFPAY ==
[2021-11-21 10:32] LABS: Chol/HDL Ratio 4.9 (1-3.5); Cholesterol 233 mg/dl (140-200); HDL Cholesterol 48 mg/dl (40-60); Triglycerides 172 mg/dl (30-150); VLDL Cholesterol 34 mg/dL (0-40)
[2021-11-21 10:42] LABS: Direct LDL Cholesterol 139.41 mg/dL (100-129)
[2021-11-22 09:12] LABS: C-Reactive Protein, Cardiac 0.32 mg/L (0.00-3.00)
== END ==
PROVIDERS: PCP Internal Medicine Adolescent Medicine; Visit Provider Internal Medicine Cardiovascular Disease
DX: E78.5 Hyperlipidemia, unspecified (principal)
CPT/HCPCS: 36415; 80061; 86141

== ENCOUNTER → 2022-05-01 11:23 | Outpatient (CLI) | payer MEDICARE, OTHER, SELFPAY ==
[2022-05-01 12:25] LABS: Alanine Aminotransferase 23 U/L (12-78); Albumin Level 4.6 g/dl (3.5-5.0); Albumin/Globulin Ratio 1.7 (1.1-1.8); Alkaline Phosphatase 74 U/L (38-126); Anion Gap 8.4 mEq/L (5-15); Aspartate Amino Transferase 33 U/L (14-36); Bilirubin,Total 0.5 mg/dl (0.2-1.3); Blood Urea Nitrogen 21 mg/dl (7-17); Calcium 9.7 mg/dl (8.4-10.2); Carbon Dioxide 32 mmol/L (22.0-30.0); Chloride 103 mmol/L (98-107); Chol/HDL Ratio 5.3 (1-3.5); Cholesterol 248 mg/dl (140-200); Estimated Glomerular Filt Rate 70 ml/min (>60); GFR (African American) 85 ML/MIN (>60); Globulin 2.7 g/dL (1.3-3.2); Glucose 95 mg/dl (74-100); HDL Cholesterol 47 mg/dl (40-60); Potassium 4.4 mmoL/L (3.5-5.1); Sodium 139 mmol/L (136-145); Total Protein,Serum 7.3 g/dl (6.3-8.2); Triglycerides 221 mg/dl (30-150); VLDL Cholesterol 44 mg/dL (0-40)
[2022-05-01 12:36] LABS: Direct LDL Cholesterol 137.66 mg/dL (100-129)
== END ==
PROVIDERS: PCP Nurse Practitioner Family; Visit Provider Internal Medicine Cardiovascular Disease
DX: E78.2 Mixed hyperlipidemia (principal)
CPT/HCPCS: 36415; 80053; 80061

== ENCOUNTER 2022-06-02 13:40 | Emergency (ER) | payer MEDICARE, OTHER, SELFPAY ==
--- NOTE | 2022-06-02 15:11 | EXP.UTC ---
Discharge Plan Disposition Patient Disposition: Home, Self-Care Condition: Good Prescriptions Prescriptions: New cephalexin 500 mg capsule 500 mg PO TID Qty: 30 0RF No Action ezetimibe [Zetia] 10 mg tablet 10 mg PO DAILY lansoprazole [Prevacid] 30 mg capsule,delayed release(DR/EC) 30 mg PO BID polyethylene glycol 3350 [Miralax] 17 gram/dose powder 17 g PO DAILY PreserVision AREDS 14,320-226-200 blys-hw-fdft capsule 1 cap PO BID azithromycin 250 MG tablet 250 mg PO UD DOSE PK Qty: 6 0RF Rx Instructions: Take two (2) tablets today, then one (1) tablet days #2 thru #5 Referrals Follow up/Referrals: Negra Buckner APRN [Primary Care Provider] - See instructions Activity Restrictions/Add. Instructions Additional Instructions/Restrictions: Drink plenty of fluids. Take tylenol for pain or fever. Follow up with your regular doctor. GO TO THE ER FOR ANY WORSENING SYMPTOMS Clinical Impressions Clinical Impression: Acute viral syndrome Instructions Patient Instructions: Coronavirus Disease 2019, Preventing the Spread of Coronavirus Discharge Instructions Discharge ED Provider: Wing Joseph [facility] [place] General Stated complaint: Covid test sore throat headache Time Seen by Provider: 06/02/22 15:11 History of Present Illness Provider Complaint: She is here to be checked for covid-19. She has been having sinus congestion, very runny nose and she has felt bad for the past 5 days. She saw her pcp yesterday and received a decadron (steroid) im injection. She is here today to be checked for covid and to get a different steroid injection. Related Data Home Medications Medication Instructions Recorded Confirmed ezetimibe 10 mg tablet (Zetia) 10 mg PO DAILY Cholesterol 05/31/18 08/09/20 lansoprazole 30 mg capsule,delayed 30 mg PO BID GERD 05/31/18 08/09/20 release (Prevacid) polyethylene glycol 3350 17 17 g PO DAILY constipation 05/31/18 08/09/20 gram/dose oral powder (Miralax) vitamins A,C,R-pbjl-rrlphm 4,296 1 cap PO BID Supplement 05/31/18 08/09/20 mcg-226 mg-90 mg capsule (PreserVision AREDS) Previous Rx's Medication Instructions Recorded azithromycin 250 mg tablet 250 mg PO UD DOSE PK #6 tabs 02/02/21 cephalexin 500 mg capsule 500 mg PO TID #30 caps 06/02/22 Allergies Allergy/AdvReac Type Severity Reaction Status Date / Time Sulfa (Sulfonamide Allergy Severe I-HIVES Verified 06/02/22 15:45 Antibiotics) morphine Allergy Mild HYPER Verified 06/02/22 15:45 soap Allergy Mild RASH WITH Verified 06/02/22 15:45 DIAL SOAP acetaminophen [From Downey] Allergy Verified 06/02/22 15:45 amoxicillin [From Augmentin] Allergy Verified 06/02/22 15:45 clavulanic acid Allergy Verified 06/02/22 15:45 [From Augmentin] doxycycline Allergy Verified 06/02/22 15:45 hydrocodone [From Downey] Allergy Verified 06/02/22 15:45 prednisone AdvReac Mild INCREASED Verified 06/02/22 15:45 HEART RATE PFSH PFS Disclaimer: The information contained in this section may have been updated after the patient was seen, as this information can be updated by other users. Social History Smoking Status: Never smoker alcohol intake: never substance use type: denies use current occupational status: retired Travel in the last 8 weeks: None household members: none housing: house caffeine: Yes ROS Obtained: Yes All systems reviewed & no additional complaints except as documented Constitutional Constitutional: Reports poor appetite Eyes Eyes: Reports system reviewed and no additional complaints, except as documented ENT Ears, Nose, Mouth, and Throat: Reports as per HPI Cardiovascular Cardiovascular: Reports system reviewed and no additional complaints, except as documented and Denies chest pain Respiratory Respiratory: Denies shortness of breath, Denies chest congestion, Reports
[2022-06-02 15:15] VITALS: BP 140/83; PULSE 70; RESP 20; TEMP 36.7; O2SAT 98; BMI 23.9
[2022-06-02 15:27] LABS: UTC Influenza A Antigen Negative (Negative); UTC Influenza B Antigen Negative (Negative)
[2022-06-02 16:28] VITALS: BP 140/83; PULSE 70; RESP 20; TEMP 36.7; O2SAT 98
== END 2022-06-02 16:27 | disposition home or self-care (01) ==
PROVIDERS: Emergency Provider Nurse Practitioner Family; PCP Nurse Practitioner Family
DX: B34.9 Viral infection, unspecified (principal); J02.9 Acute pharyngitis, unspecified; R51.9 Headache, unspecified
CPT/HCPCS: 87804; 96372; 99212; 99213; C9803; G0463; J1030; U0003; U0005

== ENCOUNTER 2022-07-15 10:55 | Emergency (ER) | payer MEDICARE, OTHER, SELFPAY ==
[2022-07-15 11:21] VITALS: BP 152/77; PULSE 61; RESP 20; TEMP 37; O2SAT 100; BMI 23.9
--- NOTE | 2022-07-15 11:27 | CT_ITS ---
FINAL REPORT TECHNIQUE: Thin section axial CT with IV contrast supplemented with multiplanar reconstruction under CT angiogram protocol. This study was performed with techniques to keep radiation doses as low as reasonably achievable (ALARA). Individualized dose reduction techniques using automated exposure control or adjustment of mA and/or kV according to the patient''s size were employed. NASCET criteria was utilized during interpretation. CLINICAL HISTORY: dizziness headache FINDINGS: The carotid bifurcations are widely patent. No cervical mass or adenopathy is identified. IMPRESSION: No evidence of significant carotid stenosis. Reviewed, Interpreted and Dictated by Tavon Ibarra MD Transcribed by Karely Dawn Authenticated and [facility]
--- NOTE | 2022-07-15 11:27 | CT_ITS ---
FINAL REPORT TECHNIQUE: Multiple axial CT angiography images were performed from the foramen magnum to the vertex before and during IV contrast administration. This study was performed with techniques to keep radiation doses as low as reasonably achievable (ALARA). Individualized dose reduction techniques using automated exposure control or adjustment of mA and/or kV according to the patient's size were employed. CLINICAL HISTORY: headache dizziness FINDINGS: There are normal intracranial branching patterns. No segmental stenosis is identified. IMPRESSION: No intracranial vascular abnormality. Reviewed, Interpreted and Dictated by Tavon Ibarra MD Transcribed by Karely Dawn Authenticated and [facility]
--- NOTE | 2022-07-15 11:28 | CT_ITS ---
FINAL REPORT TECHNIQUE: Axial CT images were performed through the head. Coronal reformatted images were submitted. This study was performed with techniques to keep radiation doses as low as reasonably achievable (ALARA). Individualized dose reduction techniques using automated exposure control or adjustment of mA and/or kV according to the patient's size were employed. CLINICAL HISTORY: headache, dizziness FINDINGS: There is mild atrophy. The ventricles are normal in size. There is no evidence of hemorrhage. There is no mass or edema identified. There is no abnormal extra-axial fluid seen. There is moderate abnormal attenuation in the right mastoid air cells consistent with chronic mastoiditis. IMPRESSION: No acute intracranial process. Chronic mastoiditis. Reviewed, Interpreted and Dictated by Tavon Ibarra MD Transcribed by Karely Dawn Authenticated and [facility]
--- NOTE | 2022-07-15 11:37 | HMH.EDGENADL ---
Discharge Plan Disposition Patient Disposition: Home, Self-Care Prescriptions Prescriptions: New ondansetron 4 mg tablet,disintegrating 4 mg PO Q8H PRN (Reason: Nausea) Qty: 15 0RF No Action ezetimibe [Zetia] 10 mg tablet 10 mg PO DAILY lansoprazole [Prevacid] 30 mg capsule,delayed release(DR/EC) 30 mg PO BID polyethylene glycol 3350 [Miralax] 17 gram/dose powder 17 g PO DAILY PreserVision AREDS 14,320-226-200 xcyv-sb-okpq capsule 1 cap PO BID azithromycin 250 MG tablet 250 mg PO UD DOSE PK Qty: 6 0RF Rx Instructions: Take two (2) tablets today, then one (1) tablet days #2 thru #5 cephalexin 500 mg capsule 500 mg PO TID Qty: 30 0RF Referrals Follow up/Referrals: Pedrito Horton MD [Primary Care Provider] - See instructions Activity Restrictions/Add. Instructions Additional Instructions/Restrictions: Return for worsening pain vomiting or any other concerns within 8 hours otherwise follow-up with your primary care physician within next few days Clinical Impressions Clinical Impression: Dizziness Discharge ED Provider: Johnny Montoya General Adult HPI General Chief complaint: Dizziness Stated complaint: AO@home 07/14 inhaled bleach, dizzy, headache Time Seen by Provider: 07/15/22 11:00 Mode of Arrival: Ambulatory Source of Information: Patient Limitations: No Limitations Description of Symptoms (Recalled from ER Triage Doc. by RN): pt to ed c/o quarter size rash to the right thigh and dizziness. pt states her basement was treated with bleach for mold yesterday and she is allergic to bleach. pt states she did not stay overnight in her home and was not directly exposed. History of Present Illness HPI narrative: 71-year-old female presents with dizziness and headache for 1 day. She says her basement was being treated with bleach for mold yesterday and she was allergic to breathe bleach and may have, through the vents. She does not have a difficulty breathing or wheezing however had his rash on her leg that has now resolved and since then has had lightheadedness. She feels more lightheaded when she sits up and she has a dull frontal headache. No numbness weakness or tingling arms or legs no vision changes. No chest pain. She does have mild epigastric pain however has history of gastritis. Related Data Home Medications Medication Instructions Recorded Confirmed ezetimibe 10 mg tablet (Zetia) 10 mg PO DAILY Cholesterol 05/31/18 08/09/20 lansoprazole 30 mg capsule,delayed 30 mg PO BID GERD 05/31/18 08/09/20 release (Prevacid) polyethylene glycol 3350 17 17 g PO DAILY constipation 05/31/18 08/09/20 gram/dose oral powder (Miralax) vitamins A,C,N-uwne-igiyab 4,296 1 cap PO BID Supplement 05/31/18 08/09/20 mcg-226 mg-90 mg capsule (PreserVision AREDS) Previous Rx's Medication Instructions Recorded azithromycin 250 mg tablet 250 mg PO UD DOSE PK #6 tabs 02/02/21 cephalexin 500 mg capsule 500 mg PO TID #30 caps 06/02/22 ondansetron 4 mg disintegrating 4 mg PO Q8H PRN Nausea #15 tabs 07/15/22 tablet Allergies Allergy/AdvReac Type Severity Reaction Status Date / Time Sulfa (Sulfonamide Allergy Severe I-HIVES Verified 06/02/22 15:45 Antibiotics) morphine Allergy Mild HYPER Verified 06/02/22 15:45 soap Allergy Mild RASH WITH Verified 06/02/22 15:45 DIAL SOAP acetaminophen [From Deputy] Allergy Verified 06/02/22 15:45 amoxicillin [From Augmentin] Allergy Verified 06/02/22 15:45 clavulanic acid Allergy Verified 06/02/22 15:45 [From Augmentin] doxycycline Allergy Verified 06/02/22 15:45 hydrocodone [From Deputy] Allergy Verified 06/02/22 15:45 prednisone AdvReac Mild INCREASED Verified 06/02/22 15:45 [facility] Disclaimer: The information contained in this section may have been updated after the patient was seen, as this information can be updated by other users. Social History (Reviewed 06/02/22 @ 16:26 by William
[2022-07-15 11:40] LABS: Basophils # 0.1 K/mm3 (0-0.2); Basophils % 1.4 % (0.1-2.0); Eosinophils # 0.1 K/mm3 (0.0-0.4); Eosinophils % 0.9 % (0.1-12.0); Hematocrit 49.9 % (37.0-47.0); Lymphocytes # 1.2 K/mm3 (0.7-4.5); Lymphocytes % 21.2 % (10-50); Mean Corpuscular HGB Conc 32.1 g/dL (31.8-35.4); Mean Corpuscular Hemoglobin 28.5 pg (27.0-31.2); Mean Corpuscular Volume 88.8 fl (81-99); Monocytes # 0.4 K/mm3 (0.1-1.0); Monocytes % 6.4 % (1.7-9.3); Neutrophils # 3.8 K/mm3 (1.8-7.8); Neutrophils % 70.2 % (37.0-80.0); Platelet Count 204 K/mm3 (142-424); Red Blood Count 5.62 M/mm3 (4.20-5.40); Red Cell Distribution Width 13.3 % (11.5-17.5); White Blood Count 5.5 K/mm3 (4.8-10.8)
[2022-07-15 11:45] LABS: Chloride 102 mmol/L (98-107); Potassium 4.2 mmoL/L (3.5-5.1); Sodium 138 mmol/L (136-145)
[2022-07-15 11:48] LABS: Alanine Aminotransferase 33 U/L (12-78); Albumin Level 4.4 g/dl (3.5-5.0); Albumin/Globulin Ratio 1.5 (1.1-1.8); Alkaline Phosphatase 78 U/L (38-126); Anion Gap 10.2 mEq/L (5-15); Aspartate Amino Transferase 37 U/L (14-36); Bilirubin,Total 0.4 mg/dl (0.2-1.3); Blood Urea Nitrogen 17 mg/dl (7-17); Carbon Dioxide 30 mmol/L (22.0-30.0); Creatinine Clearance Estimated 48 mL/min (50-200); Estimated Glomerular Filt Rate 98 ml/min (>60); GFR (African American) 119 ML/MIN (>60); Glucose 102 mg/dl (74-100); Lipase 210 U/L (23-300); Total Protein,Serum 7.4 g/dl (6.3-8.2)
--- NOTE | 2022-07-15 11:54 | ECG_ITS ---
APPROVED REPORT Exam: Resting ECG HR:57 bpm ECG Measurements Heart Rate 57 AXES MO 147 P 40 QRSd 80 QRS -17 QT 415 T 51 QTc 410 Conclusion SINUS BRADYCARDIA with short MO interval LEFT ATRIAL abnormality LOW QRS VOLTAGE IN PRECORDIAL LEADS [QRS DEFLECTION < 1.0 mV IN CHEST LEADS] Late R wave progression BORDERLINE ECG UNCONFIRMED REPORT Electronically signed by : Pedrito Horton MD 07/17/2022 16:34:41
[2022-07-15 12:00] VITALS: BP 122/70; PULSE 61; RESP 20; O2SAT 98
[2022-07-15 12:01] LABS: Troponin I < 0.01 ng/ml (0.00-0.034)
[2022-07-15 12:22] VITALS: BP 140/74; PULSE 68; O2SAT 96
[2022-07-15 13:00] VITALS: BP 122/72
--- NOTE | 2022-07-15 13:24 | PC.NURSE ---
PATIENT ASSISTED TO BATHROOM AND RETURNED TO BED. WARM BLANKET GIVEN. DAUGHTER IN LAW JUST ARRIVED AND SITTING IN ROOM
[2022-07-15 13:30] VITALS: BP 118/71; PULSE 84; RESP 18; O2SAT 95
[2022-07-15 13:37] VITALS: BP 118/79; PULSE 69; RESP 17; TEMP 36.6; O2SAT 98
== END 2022-07-15 13:39 | disposition home or self-care (01) ==
PROVIDERS: Emergency Provider Emergency Medicine; PCP Internal Medicine Adolescent Medicine
DX: R42 Dizziness and giddiness (principal); T59.4X1A Toxic effect of chlorine gas, accidental (unintentional), initial encounter; R51.9 Headache, unspecified
CPT/HCPCS: 70450; 70496; 70498; 80053; 83690; 84484; 85025; 93005; 96361; 96374; 99285; Q9967

== ENCOUNTER → 2022-08-28 11:02 | Outpatient (CLI) | payer MEDICARE, OTHER, SELFPAY ==
--- NOTE | 2022-08-28 11:08 | XR_ITS ---
FINAL REPORT CLINICAL HISTORY: CHRONIC COUGH COMPARISON: 07/01/2020 FINDINGS: TWO-VIEW CHEST The heart size is normal. The mediastinum is normal. The lungs are clear. There is no pneumothorax. IMPRESSION: No acute cardiopulmonary process. Reviewed, Interpreted and Dictated by Tavon Ibarra MD Transcribed by Karely Dawn Authenticated and [facility]
== END ==
PROVIDERS: PCP Nurse Practitioner Family; Visit Provider Nurse Practitioner Family
DX: R05.3 Chronic cough (principal)
CPT/HCPCS: 71046

== ENCOUNTER → 2022-09-02 08:12 | Outpatient (CLI) | payer MEDICARE, OTHER, SELFPAY | PROVIDERS: PCP Nurse Practitioner Family; Visit Provider Nurse Practitioner Family | DX: R05.3 Chronic cough (principal) | CPT/HCPCS: 94060 ==

== ENCOUNTER → 2022-11-03 09:05 | Outpatient (CLI) | payer MEDICARE, OTHER, SELFPAY ==
--- NOTE | 2022-11-03 09:09 | XR_ITS ---
FINAL REPORT CLINICAL HISTORY: THORACIC BACK PAIN FINDINGS: THORACIC SPINE Three views demonstrate no acute fracture. There is mild and moderate degenerative change with osteophytes. There is moderate thoracic kyphosis. IMPRESSION: Mild and moderate degenerative change with osteophytes. Moderate thoracic kyphosis. Reviewed, Interpreted and Dictated by Prosper Mojica III, MD Transcribed by Stacy Velasquez Authenticated and [facility]
== END ==
PROVIDERS: PCP Nurse Practitioner Family; Visit Provider Nurse Practitioner Family
DX: M54.6 Pain in thoracic spine (principal)
CPT/HCPCS: 72072

== ENCOUNTER → 2022-11-10 12:59 | Outpatient (CLI) | payer MEDICARE, OTHER, SELFPAY ==
--- NOTE | 2022-11-10 | CA_ITS ---
FINAL REPORT TECHNIQUE: Espinoza scale, color and spectral doppler images of the bilateral carotid arteries were obtained. CLINICAL HISTORY: .DIZZINESS COMPARISON: None FINDINGS: Peak systolic velocity in the right internal carotid artery is 86 cm/sec. The internal carotid to common carotid artery ratio is 1.39. There is less than 50% carotid artery stenosis and no significant plaque formation. The right vertebral artery is normal in direction. Peak systolic velocity in the left internal carotid artery is 98 cm/sec. The internal carotid to common carotid artery ratio is 1.28. There is less than 50% carotid artery stenosis and no significant plaque formation. The left vertebral artery is normal in direction. IMPRESSION: Less than 50% bilateral carotid artery stenosis. Normal peak systolic velocities and normal internal to common carotid artery ratios bilaterally. Reviewed, Interpreted and Dictated by Bianca Mcdonough MD Transcribed by Rachel Becerril Authenticated and [facility]
--- NOTE | 2022-11-10 | US_ITS ---
FINAL REPORT CLINICAL HISTORY: claudication COMPARISON: None FINDINGS: ANKLE-BRACHIAL PRESSURE INDICES Pressure indices are as follows: RIGHT LOWER EXTREMITY: Ankle-brachial pressure index: 1.3 Comments: Normal LEFT LOWER EXTREMITY: Ankle-brachial pressure index: 1.3 Comments: Normal IMPRESSION: No evidence of significant obstructive peripheral vascular disease of the lower extremities Reviewed, Interpreted and Dictated by Bianca Mcdonough MD Transcribed by Rachel Becerril Authenticated and [facility]
== END ==
PROVIDERS: PCP Nurse Practitioner Family; Visit Provider Nurse Practitioner Family
DX: R42 Dizziness and giddiness (principal); M79.661 Pain in right lower leg; M79.662 Pain in left lower leg; I70.213 Atherosclerosis of native arteries of extremities with intermittent claudication, bilateral legs
CPT/HCPCS: 93880; 93923

== ENCOUNTER → 2022-12-15 08:52 | Outpatient (CLI) | payer MEDICARE, OTHER, SELFPAY ==
[2022-12-15 09:53] LABS: Chloride 104 mmol/L (98-107); Potassium 4.4 mmoL/L (3.5-5.1); Sodium 141 mmol/L (136-145)
[2022-12-15 09:56] LABS: Alanine Aminotransferase 39 U/L (12-78); Albumin Level 3.7 g/dl (3.5-5.0); Albumin/Globulin Ratio 1.4 (1.1-1.8); Alkaline Phosphatase 84 U/L (38-126); Anion Gap 9.4 mEq/L (5-15); Aspartate Amino Transferase 31 U/L (14-36); Bilirubin,Total 0.4 mg/dl (0.2-1.3); Blood Urea Nitrogen 21 mg/dl (7-17); Carbon Dioxide 32 mmol/L (22.0-30.0); Cholesterol 178 mg/dl (140-200); Estimated Glomerular Filt Rate 70 ml/min (>60); GFR (African American) 85 ML/MIN (>60); Globulin 2.6 g/dL (1.3-3.2); Total Protein,Serum 6.3 g/dl (6.3-8.2); Triglycerides 147 mg/dl (30-150); VLDL Cholesterol 29 mg/dL (0-40)
[2022-12-15 09:57] LABS: Calcium 9.8 mg/dl (8.4-10.2); Chol/HDL Ratio 3.9 (1-3.5); Glucose 91 mg/dl (74-100); HDL Cholesterol 46 mg/dl (40-60)
[2022-12-15 10:07] LABS: Direct LDL Cholesterol 97.67 mg/dL (100-129)
== END ==
PROVIDERS: PCP Nurse Practitioner Family; Visit Provider Physician Assistant
DX: E78.2 Mixed hyperlipidemia (principal)
CPT/HCPCS: 36415; 80053; 80061

== ENCOUNTER → 2023-01-21 12:15 | Outpatient (CLI) | payer MEDICARE, OTHER, SELFPAY | PROVIDERS: PCP Internal Medicine; Visit Provider Internal Medicine | DX: J02.9 Acute pharyngitis, unspecified (principal) | CPT/HCPCS: 87070 ==

== ENCOUNTER → 2023-02-03 12:48 | Outpatient (CLI) | payer MEDICARE, OTHER, SELFPAY ==
[2023-02-03 10:44] LABS: Basophils # 0.1 K/mm3 (0-0.2); Basophils % 1.3 % (0.1-2.0); Eosinophils # 0.1 K/mm3 (0.0-0.4); Eosinophils % 1.3 % (0.1-12.0); Hematocrit 49.7 % (37.0-47.0); Hemoglobin 16.3 g/dL (12.2-16.2); Lymphocytes # 1.9 K/mm3 (0.7-4.5); Lymphocytes % 41.6 % (10-50); Mean Corpuscular HGB Conc 32.8 g/dL (31.8-35.4); Mean Corpuscular Hemoglobin 29.7 pg (27.0-31.2); Mean Corpuscular Volume 90.5 fl (81-99); Mean Platelet Volume 9.2 fl (7.4-10.4); Monocytes # 0.4 K/mm3 (0.1-1.0); Monocytes % 8.5 % (1.7-9.3); Neutrophils # 2.2 K/mm3 (1.8-7.8); Neutrophils % 47.4 % (37.0-80.0); Platelet Count 221 K/mm3 (142-424); Red Blood Count 5.49 M/mm3 (4.20-5.40); Red Cell Distribution Width 13.6 % (11.5-17.5); White Blood Count 4.5 K/mm3 (4.8-10.8)
[2023-02-03 12:30] LABS: Alanine Aminotransferase 31 U/L (12-78); Albumin Level 4.8 g/dl (3.5-5.0); Albumin/Globulin Ratio 1.4 (1.1-1.8); Alkaline Phosphatase 77 U/L (38-126); Anion Gap 13.9 mEq/L (5-15); Aspartate Amino Transferase 40 U/L (14-36); Bilirubin,Total 0.5 mg/dl (0.2-1.3); Blood Urea Nitrogen 22 mg/dl (7-17); Calcium 10.1 mg/dl (8.4-10.2); Carbon Dioxide 32 mmol/L (22.0-30.0); Chloride 101 mmol/L (98-107); Cholesterol 272 mg/dl (140-200); Estimated Glomerular Filt Rate 82 ml/min (>60); GFR (African American) 99 ML/MIN (>60); Globulin 3.5 g/dL (1.3-3.2); Glucose 88 mg/dl (74-100); HDL Cholesterol 54 mg/dl (40-60); Potassium 4.9 mmoL/L (3.5-5.1); Sodium 142 mmol/L (136-145); Total Protein,Serum 8.3 g/dl (6.3-8.2); Triglycerides 197 mg/dl (30-150); VLDL Cholesterol 39 mg/dL (0-40)
[2023-02-03 12:41] LABS: Direct LDL Cholesterol 156.93 mg/dL (100-129)
[2023-02-03 12:45] LABS: 25-OH Vitamin D, Total 34.5 ng/mL (30-100)
[2023-02-03 13:01] LABS: Thyroid Stimulating Hormone 2.74 uIU/mL (0.465-4.68)
[2023-02-03 13:38] LABS: Hemoglobin A1C 5.7 % (4.0-6.0)
== END ==
PROVIDERS: PCP Internal Medicine; Visit Provider Internal Medicine
DX: E55.9 Vitamin D deficiency, unspecified (principal); E78.5 Hyperlipidemia, unspecified; Z13.29 Encounter for screening for other suspected endocrine disorder; J02.9 Acute pharyngitis, unspecified; R73.9 Hyperglycemia, unspecified; Z68.23 Body mass index [BMI] 23.0-23.9, adult
CPT/HCPCS: 80053; 80061; 82306; 83036; 84439; 84443; 85025

== ENCOUNTER → 2023-03-12 12:11 | Outpatient (CLI) | payer MEDICARE, OTHER, SELFPAY ==
--- NOTE | 2023-03-12 12:22 | XR_ITS ---
FINAL REPORT CLINICAL HISTORY: thoracic back pain FINDINGS: THORACIC SPINE Two views demonstrate no acute fracture. The disc spaces are well preserved. There is no malalignment. IMPRESSION: No acute process. Reviewed, Interpreted and Dictated by Tavon Ibarra MD Transcribed by Karely Dawn Authenticated and [facility]
--- NOTE | 2023-03-12 12:22 | XR_ITS ---
FINAL REPORT CLINICAL HISTORY: cevicalgia FINDINGS: CERVICAL SPINE Three views demonstrate no acute fracture. The disc spaces are well preserved. There is no malalignment. IMPRESSION: No acute process. Reviewed, Interpreted and Dictated by Tavon Ibarra MD Transcribed by Karely Dawn Authenticated and [facility]
[2023-03-12 14:35] LABS: Basophils # 0.1 K/mm3 (0-0.2); Basophils % 1.1 % (0.1-2.0); Eosinophils # 0.1 K/mm3 (0.0-0.4); Eosinophils % 1.3 % (0.1-12.0); Hematocrit 51.5 % (37.0-47.0); Hemoglobin 16.4 g/dL (12.2-16.2); Lymphocytes # 1.4 K/mm3 (0.7-4.5); Lymphocytes % 29.2 % (10-50); Mean Corpuscular HGB Conc 31.9 g/dL (31.8-35.4); Mean Corpuscular Hemoglobin 29.4 pg (27.0-31.2); Mean Corpuscular Volume 92.2 fl (81-99); Mean Platelet Volume 9.2 fl (7.4-10.4); Monocytes # 0.4 K/mm3 (0.1-1.0); Monocytes % 8.3 % (1.7-9.3); Neutrophils % 60.1 % (37.0-80.0); Platelet Count 186 K/mm3 (142-424); Red Blood Count 5.58 M/mm3 (4.20-5.40); Red Cell Distribution Width 13.4 % (11.5-17.5); White Blood Count 4.9 K/mm3 (4.8-10.8)
[2023-03-12 17:31] LABS: Chloride 103 mmol/L (98-107); Sodium 138 mmol/L (136-145)
[2023-03-12 17:32] LABS: Potassium 4.7 mmoL/L (3.5-5.1)
[2023-03-12 17:34] LABS: Alanine Aminotransferase 33 U/L (12-78); Alkaline Phosphatase 80 U/L (38-126); Anion Gap 10.7 mEq/L (5-15); Aspartate Amino Transferase 42 U/L (14-36); Bilirubin,Total 0.5 mg/dl (0.2-1.3); Blood Urea Nitrogen 25 mg/dl (7-17); Carbon Dioxide 29 mmol/L (22.0-30.0); Estimated Glomerular Filt Rate 82 ml/min (>60); GFR (African American) 99 ML/MIN (>60)
[2023-03-12 17:35] LABS: Albumin Level 4.6 g/dl (3.5-5.0); Albumin/Globulin Ratio 1.6 (1.1-1.8); Calcium 9.8 mg/dl (8.4-10.2); Globulin 2.9 g/dL (1.3-3.2); Glucose 104 mg/dl (74-100); Magnesium 2.5 mg/dl (1.6-2.3); Total Protein,Serum 7.5 g/dl (6.3-8.2)
== END ==
PROVIDERS: PCP Nurse Practitioner Family; Visit Provider Nurse Practitioner Family
DX: M54.2 Cervicalgia (principal); M54.6 Pain in thoracic spine; M79.10 Myalgia, unspecified site; E87.5 Hyperkalemia; D72.819 Decreased white blood cell count, unspecified
CPT/HCPCS: 72040; 72072; 80053; 83735; 85025

== ENCOUNTER 2023-04-27 14:21 | Outpatient (POV) | payer MEDICARE, OTHER, SELFPAY | END 2023-04-27 23:59 | disposition home or self-care (01) | LOC: SC 14:22 | PROVIDERS: PCP Nurse Practitioner Family; Visit Provider Dermatology | DX: Z00.00 Encounter for general adult medical examination without abnormal findings (principal) ==

== ENCOUNTER 2023-05-26 08:39 | Outpatient (CLI) | payer MEDICARE, OTHER, SELFPAY ==
[2023-05-26 08:43] LABS: MANUAL DIFFERENTIAL MANUAL DIFFERENTIAL (MANUAL DIFF)
[2023-05-26 08:59] LABS: Basophils # 0.1 K/mm3 (0-0.2); Basophils % 2.3 % (0.1-2.0); Eosinophils # 0.1 K/mm3 (0.0-0.4); Eosinophils % 2.6 % (0.1-12.0); Hematocrit 47.4 % (37.0-47.0); Hemoglobin 15.9 g/dL (12.2-16.2); Lymphocytes # 2.4 K/mm3 (0.7-4.5); Lymphocytes % 46.8 % (10-50); Mean Corpuscular HGB Conc 33.6 g/dL (31.8-35.4); Mean Corpuscular Volume 89.4 fl (81-99); Mean Platelet Volume 8.1 fl (7.4-10.4); Monocytes # 0.4 K/mm3 (0.1-1.0); Monocytes % 7.2 % (1.7-9.3); Neutrophils # 2.1 K/mm3 (1.8-7.8); Neutrophils % 41.2 % (37.0-80.0); Platelet Count 193 K/mm3 (142-424); Red Cell Distribution Width 12.9 % (11.5-17.5); White Blood Count 5.1 K/mm3 (4.8-10.8)
[2023-05-26 09:41] LABS: Lymphocytes % 44 % (10-50); Monocytes % 5 % (2-9); Neutrophils % 46 % (42-76); Platelet Estimate Normal; RBC Morphology Normal; Total Cells Counted 100
[2023-05-26 09:52] LABS: Chloride 104 mmol/L (98-107); Potassium 4.4 mmoL/L (3.5-5.1); Sodium 139 mmol/L (136-145)
[2023-05-26 09:55] LABS: Alanine Aminotransferase 27 U/L (12-78); Albumin/Globulin Ratio 1.5 (1.1-1.8); Alkaline Phosphatase 70 U/L (38-126); Anion Gap 8.4 mEq/L (5-15); Aspartate Amino Transferase 33 U/L (14-36); Bilirubin,Total 0.6 mg/dl (0.2-1.3); Blood Urea Nitrogen 15 mg/dl (7-17); Carbon Dioxide 31 mmol/L (22.0-30.0); Estimated Glomerular Filt Rate 82 ml/min (>60); GFR (African American) 99 ML/MIN (>60); Globulin 2.6 g/dL (1.3-3.2); Total Protein,Serum 6.6 g/dl (6.3-8.2)
[2023-05-26 09:56] LABS: Calcium 10.1 mg/dl (8.4-10.2); Glucose 95 mg/dl (74-100)
[2023-05-28 08:44] LABS: Peripheral Smear Review Scanned Result
== END 2023-05-26 23:59 ==
LOC: LAB 08:40
PROVIDERS: PCP Nurse Practitioner Family; Visit Provider Nurse Practitioner Family
DX: R05.1 Acute cough (principal); D72.819 Decreased white blood cell count, unspecified; R74.8 Abnormal levels of other serum enzymes; R71.8 Other abnormality of red blood cells
CPT/HCPCS: 36415; 80053; 85007; 85014; 85018; 85048; 85049; 87070; 87205

== ENCOUNTER 2023-05-28 12:48 | Outpatient (CLI) | payer MEDICARE, OTHER, SELFPAY ==
[2023-05-28] MEDS: ALBUTEROL 0.083% 2.5 MG/3 ML NEB IH (13:30)
== END 2023-05-28 23:59 ==
LOC: RT 12:49
PROVIDERS: PCP Nurse Practitioner Family; Visit Provider Nurse Practitioner Family
DX: R05.1 Acute cough (principal)
CPT/HCPCS: 94060; 94640

== ENCOUNTER 2023-06-08 15:00 | Outpatient (CLI) | payer MEDICARE, OTHER, SELFPAY ==
[2023-06-20 09:28] LABS: Magnesium,RBC 6.7
== END 2023-06-08 23:59 ==
LOC: LAB.DROPOF 07-29 10:14
PROVIDERS: PCP Nurse Practitioner Family; Visit Provider Nurse Practitioner Family
DX: R25.3 Fasciculation (principal)
CPT/HCPCS: 83735

== ENCOUNTER 2023-06-09 09:03 | Outpatient (CLI) | payer MEDICARE, OTHER, SELFPAY ==
--- NOTE | 2023-06-09 09:07 | XR_ITS ---
FINAL REPORT CLINICAL HISTORY: cough, left sided chest pain COMPARISON: 08/28/2022 FINDINGS: Two views of the chest were obtained. The heart size and pulmonary vascularity are within normal limits. The mediastinum is normal. Mild right base opacities are favored to represent atelectasis. There is no pneumothorax. The bony thorax is intact. IMPRESSION: Mild right base opacities favor atelectasis. Reviewed, Interpreted and Dictated by Prosper Mojica III, MD Transcribed by Rachel Becerril Authenticated and [facility]
== END 2023-06-09 23:59 ==
PROVIDERS: PCP Nurse Practitioner Family; Visit Provider Nurse Practitioner Family
DX: R05.9 Cough, unspecified (principal); R07.89 Other chest pain
CPT/HCPCS: 71046

== ENCOUNTER 2023-06-17 06:09 | Outpatient (CLI) | payer MEDICARE, OTHER, SELFPAY ==
--- NOTE | 2023-06-17 06:15 | CT_ITS ---
FINAL REPORT TECHNIQUE: Axial images were obtained from the lung apex to the mid abdomen by computed tomography. Coronal reformatted images were obtained. This study was performed with techniques to keep radiation doses as low as reasonably achievable, (ALARA). Individualized dose reduction techniques using automated exposure control or adjustment of mA and/or kV according to the patient''s size were employed. CLINICAL HISTORY: Cough COMPARISON: None FINDINGS: There is no mediastinal mass or adenopathy. The heart size is normal. There is no pericardial or pleural effusion. Calcified granulomas are noted in the anterior left upper lobe. There is minimal scarring at the lung bases. There is a linear density along the minor fissure best seen on image 115 of series 3 which appears to represent scarring on the coronal images. Limited images of the upper abdomen demonstrate a small sliding-type hiatal hernia. There are benign-appearing cysts in the anterior right lobe of the liver measuring up to 1.3 cm. IMPRESSION: No acute process. Reviewed, Interpreted and Dictated by Tavon Ibarra MD Transcribed by Rachel Becerril Authenticated and [facility]
== END 2023-06-17 23:59 ==
LOC: RAD 06:10
PROVIDERS: PCP Nurse Practitioner Family; Visit Provider Nurse Practitioner Family
DX: R05.9 Cough, unspecified (principal)
CPT/HCPCS: 71250

== ENCOUNTER 2023-11-30 09:30 | Outpatient (CLI) | payer MEDICARE, OTHER, SELFPAY ==
[2023-11-30 09:56] LABS: Basophils # 0.1 K/mm3 (0-0.2); Eosinophils # 0.1 K/mm3 (0.0-0.4); Eosinophils % 1.3 % (0.1-12.0); Hematocrit 49.3 % (37.0-47.0); Lymphocytes # 1.9 K/mm3 (0.7-4.5); Lymphocytes % 40.4 % (10-50); Mean Corpuscular HGB Conc 32.4 g/dL (31.8-35.4); Mean Corpuscular Hemoglobin 30.6 pg (27.0-31.2); Mean Corpuscular Volume 94.3 fl (81-99); Mean Platelet Volume 8.4 fl (7.4-10.4); Monocytes # 0.4 K/mm3 (0.1-1.0); Monocytes % 8.9 % (1.7-9.3); Neutrophils # 2.3 K/mm3 (1.8-7.8); Neutrophils % 47.5 % (37.0-80.0); Platelet Count 194 K/mm3 (142-424); Red Blood Count 5.22 M/mm3 (4.20-5.40); Red Cell Distribution Width 13.5 % (11.5-17.5); White Blood Count 4.8 K/mm3 (4.8-10.8)
[2023-11-30 11:07] LABS: Alanine Aminotransferase 39 U/L (12-78); Albumin Level 3.9 g/dl (3.5-5.0); Albumin/Globulin Ratio 1.4 (1.1-1.8); Alkaline Phosphatase 56 U/L (38-126); Anion Gap 9.3 mEq/L (5-15); Aspartate Amino Transferase 44 U/L (14-36); Bilirubin,Total 0.5 mg/dl (0.2-1.3); Blood Urea Nitrogen 28 mg/dl (7-17); Calcium 9.7 mg/dl (8.4-10.2); Carbon Dioxide 31 mmol/L (22.0-30.0); Chloride 106 mmol/L (98-107); Estimated Glomerular Filt Rate 82 ml/min (>60); GFR (African American) 99 ML/MIN (>60); Globulin 2.7 g/dL (1.3-3.2); Glucose 96 mg/dl (74-100); Magnesium 2.5 mg/dl (1.6-2.3); Potassium 4.3 mmoL/L (3.5-5.1); Sodium 142 mmol/L (136-145); Total Protein,Serum 6.6 g/dl (6.3-8.2)
[2023-11-30 11:20] LABS: 25-OH Vitamin D, Total 32.4 ng/mL (30-100)
== END 2023-11-30 23:59 | disposition home or self-care (01) ==
LOC: LAB 09:33
PROVIDERS: PCP Nurse Practitioner Family; Visit Provider Nurse Practitioner Family
DX: E55.9 Vitamin D deficiency, unspecified (principal); J45.21 Mild intermittent asthma with (acute) exacerbation; R25.3 Fasciculation; R74.8 Abnormal levels of other serum enzymes; R10.31 Right lower quadrant pain
CPT/HCPCS: 36415; 80053; 82306; 83735; 85025

== ENCOUNTER 2023-12-07 07:52 | Outpatient (CLI) | payer MEDICARE, OTHER, SELFPAY ==
--- NOTE | 2023-12-07 07:55 | US_ITS ---
FINAL REPORT CLINICAL HISTORY: Right lower abdominal/pelvic pain COMPARISON: None FINDINGS: Sonographic images of the abdomen were obtained. The liver has an unremarkable appearance with normal echogenicity. The gallbladder is surgically absent. There is no evidence of biliary ductal dilatation. The common hepatic duct measures 6 mm, which is normal for patient's age. The pancreas is partially obscured. The spleen size is normal. The right kidney measures 10.3 cm in length. The left kidney measures 10.3 cm in length. There is a 3.1 cm right renal cyst. There is no evidence of hydronephrosis. The aorta has an unremarkable appearance. Limited images of the inferior vena cava are unremarkable. IMPRESSION: Right renal cyst. Reviewed, Interpreted and Dictated by Prosper Mojica III, MD Transcribed by Rachel Becerril Authenticated and [facility]
--- NOTE | 2023-12-07 08:47 | MR_ITS ---
FINAL REPORT CLINICAL HISTORY: New onset frontal headache FINDINGS: Multiplanar MR imaging of the brain was performed without contrast. There is mild age-appropriate atrophy. There are scattered foci of increased T2 signal in the cerebral white matter that have a nonspecific appearance but likely represent mild chronic ischemic/gliotic changes. There is no evidence of intracranial hemorrhage or mass. No abnormal ventricular dilatation is identified. No abnormal extra-axial fluid collection is seen. No abnormality is seen on the diffusion weighted images. The posterior fossa and brainstem are unremarkable. Normal major vessel vascular flow voids are seen. IMPRESSION: Age-appropriate atrophy and mild chronic ischemic/gliotic changes. No acute intracranial abnormality. Reviewed, Interpreted and Dictated by Prosper Mojica III, MD Transcribed by Karely Dawn Authenticated and [facility]
== END 2023-12-07 23:59 | disposition home or self-care (01) ==
LOC: RAD 07:55
PROVIDERS: PCP Nurse Practitioner Family; Visit Provider Nurse Practitioner Family
DX: R10.31 Right lower quadrant pain (principal); R51.9 Headache, unspecified
CPT/HCPCS: 70551; 76700

== ENCOUNTER 2024-02-01 09:21 | Outpatient (CLI) | payer MEDICARE, OTHER, SELFPAY ==
[2024-02-01 10:24] LABS: Chol/HDL Ratio 4.3 (1-3.5); Cholesterol 200 mg/dl (140-200); HDL Cholesterol 47 mg/dl (40-60); Triglycerides 120 mg/dl (30-150); VLDL Cholesterol 24 mg/dL (0-40)
[2024-02-01 10:35] LABS: Direct LDL Cholesterol 111.59 mg/dL (100-129)
== END 2024-02-01 23:59 | disposition home or self-care (01) ==
LOC: LAB 09:29
PROVIDERS: PCP Nurse Practitioner Family
DX: E78.2 Mixed hyperlipidemia (principal)
CPT/HCPCS: 36415; 80061

== ENCOUNTER 2024-03-20 13:52 | Outpatient (CLI) | payer MEDICARE, OTHER, SELFPAY ==
[2024-03-20 13:30] LABS: Basophils # 0.1 K/mm3 (0-0.2); Basophils % 1.4 % (0.1-2.0); Eosinophils # 0.1 K/mm3 (0.0-0.4); Eosinophils % 1.2 % (0.1-12.0); Hematocrit 46.8 % (37.0-47.0); Hemoglobin 16.1 g/dL (12.2-16.2); Lymphocytes # 1.5 K/mm3 (0.7-4.5); Lymphocytes % 29.2 % (10-50); Mean Corpuscular HGB Conc 34.4 g/dL (31.8-35.4); Mean Corpuscular Hemoglobin 30.2 pg (27.0-31.2); Mean Platelet Volume 9.6 fl (7.4-10.4); Monocytes # 0.4 K/mm3 (0.1-1.0); Monocytes % 8.6 % (1.7-9.3); Neutrophils % 59.5 % (37.0-80.0); Platelet Count 168 K/mm3 (142-424); Red Blood Count 5.32 M/mm3 (4.20-5.40); Red Cell Distribution Width 13.3 % (11.5-17.5); White Blood Count 5.1 K/mm3 (4.8-10.8)
[2024-03-20 14:12] LABS: Albumin Level 4.4 g/dl (3.5-5.0); Chloride 103 mmol/L (98-107); Sodium 141 mmol/L (136-145)
[2024-03-20 14:13] LABS: Potassium 4.4 mmoL/L (3.5-5.1)
[2024-03-20 14:15] LABS: Alanine Aminotransferase 36 U/L (12-78); Albumin/Globulin Ratio 1.6 (1.1-1.8); Alkaline Phosphatase 64 U/L (38-126); Amylase 67 U/L (30-110); Anion Gap 13.4 mEq/L (5-15); Aspartate Amino Transferase 39 U/L (14-36); Bilirubin,Total 0.6 mg/dl (0.2-1.3); Blood Urea Nitrogen 16 mg/dl (7-17); Calcium 9.9 mg/dl (8.4-10.2); Carbon Dioxide 29 mmol/L (22.0-30.0); Estimated Glomerular Filt Rate 82 ml/min (>60); GFR (African American) 99 ML/MIN (>60); Globulin 2.7 g/dL (1.3-3.2); Glucose 84 mg/dl (74-100); Lipase 209 U/L (23-300); Total Protein,Serum 7.1 g/dl (6.3-8.2)
== END 2024-03-20 23:59 | disposition home or self-care (01) ==
LOC: LAB.DROPOF 13:52
PROVIDERS: PCP Nurse Practitioner Family; Visit Provider Nurse Practitioner Family
DX: R11.2 Nausea with vomiting, unspecified (principal)
CPT/HCPCS: 80053; 82150; 83690; 85025

== ENCOUNTER 2024-03-21 09:36 | Outpatient (CLI) | payer MEDICARE, OTHER, SELFPAY | END 2024-03-21 23:59 | disposition home or self-care (01) | LOC: LAB 09:37 | PROVIDERS: PCP Nurse Practitioner Family; Visit Provider Nurse Practitioner Family | DX: R05.1 Acute cough (principal) | CPT/HCPCS: 87070; 87205 ==

== ENCOUNTER 2024-05-15 10:26 | Outpatient (CLI) | payer MEDICARE, OTHER, SELFPAY ==
--- NOTE | 2024-05-15 10:27 | CT_ITS ---
FINAL REPORT TECHNIQUE: Multiple axial CT sections were performed through the temporal bones appear coronal reconstruction images were performed.This study was performed with techniques to keep radiation doses as low as reasonably achievable (ALARA). Individualized dose reduction techniques using automated exposure control or adjustment of mA and/or kV according to the patient's size were employed. CLINICAL HISTORY: chronic mastoiditis FINDINGS: FINDINGS: RIGHT TEMPORAL BONE: There is abnormal soft tissue in the right mastoid air cells. The middle ear cavity is well-pneumatized. The ossicles are unremarkable. The scutum is intact. Incidental note is made of moderately advanced changes of osteoarthritis at the right temporomandibular joint. LEFT TEMPORAL BONE: The mastoid air cells are normally pneumatized. The ossicles are unremarkable. The middle ear cavity is well-pneumatized. The scutum is intact. 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 Reviewed, Interpreted and Dictated by Tavon Ibarra MD Transcribed by Ne Wiley Authenticated and [facility]
== END 2024-05-15 23:59 | disposition home or self-care (01) ==
LOC: RAD 10:27
PROVIDERS: PCP Nurse Practitioner Family; Visit Provider Nurse Practitioner
DX: H70.11 Chronic mastoiditis, right ear (principal)
CPT/HCPCS: 70486

== ENCOUNTER 2024-06-11 19:10 | Observation (INO) | payer MEDICARE, OTHER, SELFPAY ==
[2024-06-11 19:19] VITALS: BP 109/41; PULSE 65; RESP 18; TEMP 36.8; O2SAT 100; BMI 23.0
[2024-06-11 19:49] LABS: Basophils # 0.1 K/mm3 (0-0.2); Basophils % 0.5 % (0.1-2.0); Eosinophils # 0.2 K/mm3 (0.0-0.4); Eosinophils % 1.7 % (0.1-12.0); Hematocrit 31.4 % (37.0-47.0); Hemoglobin 9.8 g/dL (12.2-16.2); Lymphocytes # 1.4 K/mm3 (0.7-4.5); Lymphocytes % 14.8 % (10-50); Mean Corpuscular HGB Conc 31.2 g/dL (31.8-35.4); Mean Corpuscular Hemoglobin 28.2 pg (27.0-31.2); Mean Corpuscular Volume 90.2 fl (81-99); Mean Platelet Volume 9.7 fl (7.4-10.4); Monocytes # 0.9 K/mm3 (0.1-1.0); Monocytes % 9.6 % (1.7-9.3); Neutrophils # 6.7 K/mm3 (1.8-7.8); Neutrophils % 72.9 % (37.0-80.0); Platelet Count 418 K/mm3 (142-424); Red Blood Count 3.48 M/mm3 (4.20-5.40); Red Cell Distribution Width 14.6 % (11.5-17.5); White Blood Count 9.2 K/mm3 (4.8-10.8)
--- NOTE | 2024-06-11 19:53 | CT_ITS ---
PROCEDURE INFORMATION: Exam: CTA Neck With Contrast Exam date and time: 06/11/2024 8:13 PM Age: 73 years old Clinical indication: Other: Intermittent b/l blurry vision TECHNIQUE: Imaging protocol: Computed tomographic angiography of the neck with contrast. Exam focused on the cervical segments of the vasculature. 3D rendering (Not supervised by radiologist): MIP and/or 3D reconstructed images were created by the technologist. Radiation optimization: All CT scans at this facility use at least one of these dose optimization techniques: automated exposure control; mA and/or kV adjustment per patient size (includes targeted exams where dose is matched to clinical indication); or iterative reconstruction. Contrast material: ISOVUE 370; Contrast volume: 80 ml; Contrast route: INTRAVENOUS (IV); COMPARISON: CT ANGIO NECK 07/15/2022 12:15 PM FINDINGS: Right common carotid artery: No stenosis. No dissection or occlusion. Right internal carotid artery: No stenosis of the extracranial segment. No dissection or occlusion. Right external carotid artery: Minimal atherosclerotic narrowing at the origin without flow-limiting stenosis. Left common carotid artery: Minimal atherosclerosis at the carotid bulb without flow-limiting dependent stenosis. No dissection or occlusion. Left internal carotid artery: No stenosis of the extracranial segment. No dissection or occlusion. Left external carotid artery: No occlusion or stenosis of the origin. Right vertebral artery: No stenosis. No dissection or occlusion. Left vertebral artery: Dominant vessel. No stenosis. No dissection or occlusion. Lymph nodes: Calcified prevascular mediastinal lymph node. Soft tissues: Unremarkable. Bones/joints: No acute fracture. Median sternotomy. Partially visualized loculated thin-walled substernal gas and fluid collection. IMPRESSION: 1. No flow-limiting stenosis or occlusion. No dissection. 2. Partially visualized loculated thin-walled substernal gas and fluid collection. Recommend dedicated CT chest further evaluation. REFERENCES: NASCET CRITERIA. The degree of stenosis in the cervical segment of the internal carotid artery is based on NASCET criteria. Normal is no stenosis. Mild is less than 50% stenosis. Moderate is 50-69% stenosis. Severe is 70% to 99% stenosis. Total occlusion is no detectable patent lumen.
--- NOTE | 2024-06-11 19:53 | CT_ITS ---
PROCEDURE INFORMATION: Exam: CT Head Without Contrast Exam date and time: 06/11/2024 8:11 PM Age: 73 years old Clinical indication: Other: Intermittent b/l blurry vision; Additional info: Intermittant bilateral blurry vision TECHNIQUE: Imaging protocol: Computed tomography of the head without contrast. Radiation optimization: All CT scans at this facility use at least one of these dose optimization techniques: automated exposure control; mA and/or kV adjustment per patient size (includes targeted exams where dose is matched to clinical indication); or iterative reconstruction. COMPARISON: MR HEAD/BRAIN WO CON 12/07/2023 8:50 AM FINDINGS: Brain: No acute intracranial hemorrhage, midline shift, or mass effect. Diffuse brain parenchymal volume loss. Mild hypodensities within the cerebral white matter most consistent with chronic small-vessel ischemic changes. Cerebral ventricles: No ventriculomegaly. Paranasal sinuses: Visualized sinuses are unremarkable. No fluid levels. Mastoid air cells: Chronic moderate right mastoid effusion. Bones: Unremarkable. No acute fracture. Soft tissues: Unremarkable. IMPRESSION: No acute intracranial findings.
--- NOTE | 2024-06-11 19:53 | CT_ITS ---
PROCEDURE INFORMATION: Exam: CTA Abdomen and Pelvis With Contrast Exam date and time: 06/11/2024 8:19 PM Age: 73 years old Clinical indication: Other: Bright red blood per rectum TECHNIQUE: Imaging protocol: Computed tomographic angiography of the abdomen and pelvis with contrast. Exam focused on the arteries. 3D rendering (Not supervised by radiologist): MIP and/or 3D reconstructed images were created by the technologist. Radiation optimization: All CT scans at this facility use at least one of these dose optimization techniques: automated exposure control; mA and/or kV adjustment per patient size (includes targeted exams where dose is matched to clinical indication); or iterative reconstruction. Contrast material: ISOVUE 370; Contrast volume: 80 ml; Contrast route: INTRAVENOUS (IV); COMPARISON: CT ABDOMEN PELVIS W CON 06/24/2021 9:52 AM FINDINGS: Lungs: Mild bibasilar atelectasis. Pleural spaces: Trace right pleural effusion. Heart: Status post mitral valve repair. Mild cardiomegaly. Diaphragm: Small hiatal hernia. Aorta: No aortic aneurysm. No aortic dissection. Celiac trunk and mesenteric arteries: No occlusion or significant stenosis. Renal arteries: No occlusion or significant stenosis. Right iliac arteries: No occlusion or significant stenosis. Left iliac arteries: No occlusion or significant stenosis. Liver: Unchanged 1.2 cm cyst in the medial segment of the left hepatic lobe. Unchanged subcentimeter low-density lesions in the right hepatic lobe which are too small to characterize. Gallbladder and biliary ducts: Status post cholecystectomy. No significant biliary ductal dilitation. Pancreas: Unremarkable. No mass. No ductal dilation. Spleen: Unremarkable. No splenomegaly. Adrenal glands: Unremarkable. No mass. Kidneys and ureters: Unchanged 1.4 cm right upper pole simple renal cyst. No other renal lesions. No hydronephrosis. Stomach and bowel: Distal colonic diverticulosis without diverticulitis. No dilated or thickened bowel loops. No evidence of active bleeding. Appendix: No evidence of appendicitis. Intraperitoneal space: Unremarkable. No free air. No significant fluid collection. Lymph nodes: Unremarkable. No enlarged lymph nodes. Urinary bladder: Unremarkable. No mass. Reproductive: Status post hysterectomy. No adnexal masses. Bones/joints: Status post sternotomy. Lumbar spine facet arthropathy. Mild degenerative change of the bilateral hips and sacroiliac joints. Soft tissues: Unremarkable. IMPRESSION: 1. No evidence of active GI bleeding. 2. No acute intra-abdominal findings.
--- NOTE | 2024-06-11 19:53 | CT_ITS ---
PROCEDURE INFORMATION: Exam: CTA Head With Contrast, Arteriography Exam date and time: 06/11/2024 8:13 PM Age: 73 years old Clinical indication: Other: Intermittent b/l blurry vision TECHNIQUE: Imaging protocol: Computed tomographic angiography of the head with contrast. Exam focused on the arteries. 3D rendering (Not supervised by radiologist): MIP and/or 3D reconstructed images were created by the technologist. Radiation optimization: All CT scans at this facility use at least one of these dose optimization techniques: automated exposure control; mA and/or kV adjustment per patient size (includes targeted exams where dose is matched to clinical indication); or iterative reconstruction. Contrast material: ISOVUE 370; Contrast volume: 80 ml; Contrast route: INTRAVENOUS (IV); COMPARISON: CT ANGIO HEAD 06/11/2024 8:13 PM FINDINGS: ANTERIOR CIRCULATION: Right internal carotid artery: Minimal atherosclerotic narrowing of the intracranial segment without flow-limiting stenosis. No aneurysm. Right middle cerebral artery: No occlusion or significant stenosis. No aneurysm. Right anterior cerebral artery: No occlusion or significant stenosis. No aneurysm. Left internal carotid artery: Minimal atherosclerotic narrowing of the intracranial segment without flow-limiting stenosis. No aneurysm. Left middle cerebral artery: No occlusion or significant stenosis. No aneurysm. Left anterior cerebral artery: No occlusion or significant stenosis. No aneurysm. POSTERIOR CIRCULATION: Right vertebral artery: No occlusion or significant stenosis. No aneurysm. Left vertebral artery: No occlusion or significant stenosis. No aneurysm. Basilar artery: No occlusion or significant stenosis. No aneurysm. Right posterior cerebral artery: No occlusion or significant stenosis. No aneurysm. Left posterior cerebral artery: No occlusion or significant stenosis. No aneurysm. Brain: No definite mass, mass effect, or midline shift. Cerebral ventricles: No ventriculomegaly. Bones/joints: Unremarkable. No acute fracture. Soft tissues: Unremarkable. IMPRESSION: No large vessel stenosis or occlusion.
[2024-06-11 19:54] LABS: Albumin Level 4.1 g/dl (3.5-5.0); Chloride 102 mmol/L (98-107); Sodium 138 mmol/L (136-145)
--- NOTE | 2024-06-11 19:56 | PC.NURSE ---
Spoke with jadyn mccallum in [place], [place] about obtaining discharge notes, reports, and paperwork from this facility. they are faxing it at this time.
--- NOTE | 2024-06-11 19:57 | HMH.EDGENADL ---
Discharge Plan Disposition Patient Disposition: Admitted Clinical Impressions Clinical Impression: GI bleed, Post-operative state, Blurry vision Discharge ED Provider: Rylan Celaya General Adult HPI General Chief complaint: Abdominal Pain Stated complaint: [facility] sent for bloody stool,blurred vis Time Seen by Provider: 06/11/24 19:20 Mode of Arrival: Ambulatory Source of Information: Patient Limitations: No Limitations Description of Symptoms (Recalled from ER Triage Doc. by RN): Patient presents ambulatory to triage. States she had an open mitral valve replacement on May.[address] [facility]. States she was originally seen in [place], but no providers would perform the repair. Patient states her case was complicated by Atrial Fibrillation. States she was started on Eliquis. States yesterday she had diarrhea yesterday and once this morning. States this evening, she had a bowel movement and noted bright red blood in her stool. Denies nausea and vomiting. Denied fever. States she was discharged home yesterday. Drove half way home yesterday and finished today. Patient endorses incisional pain from her sternotomy, but denies cardiac chest pain. History of Present Illness HPI narrative: Patient is a 73-year-old female past medical history of recent open mitral valve annuloplasty at [facility], paroxysmal atrial fibrillation started on anticoagulant recently discharged home 2 days ago who presents to the emergency department for evaluation of multiple complaints. The most concerning to her is that she has had 2 bloody bowel movements upon arrival home, there is blood in the water in the bowl however the stool appears normal. She has never had this happen before. She has been compliant with her anticoagulants. Over the last week in the hospital she has had intermittent blurry vision for which they did not do anything for). She had intermittent headache previously but does not have any currently. She wears corrective vision with glasses. No focal weakness, no blurry vision currently. No difficulty of speech. No other acute complaints at this time. No trauma. Related Data Home Medications ?Medication ?Instructions ?Recorded ?Confirmed ezetimibe 10 mg tablet (Zetia) 10 mg PO DAILY Cholesterol 05/31/18 04/07/24 polyethylene glycol 3350 17 17 g PO DAILY constipation 05/31/18 04/07/24 gram/dose oral powder (Miralax) sodium chloride 5 % eye drops 1 drp ophthalmic (eye) HS 01/21/23 04/07/24 (Sissy 128) rosuvastatin 20 mg tablet 20 mg PO DAILY 03/20/24 04/07/24 sucralfate 1 gram tablet 1 g PO BID 03/20/24 04/07/24 Previous Rx's ?Medication ?Instructions ?Recorded lansoprazole 30 mg delayed 30 mg PO BID 90 days #180 tabs 04/28/24 release,disintegrating tablet (Prevacid SoluTab) azelastine 137 mcg (0.1 %) nasal 1 spray intranasal ONCE nasal 05/02/24 spray inflamation #30 mL Allergies Allergy/AdvReac Type Severity Reaction Status Date / Time Sulfa (Sulfonamide Allergy Severe I-HIVES Verified 05/02/24 09:37 Antibiotics) cephalexin Allergy Mild Verified 05/02/24 09:37 morphine Allergy Mild HYPER Verified 05/02/24 09:37 soap Allergy Mild RASH WITH Verified 05/02/24 09:37 DIAL SOAP acetaminophen (From [place]) Allergy Verified 05/02/24 09:37 amoxicillin (From Augmentin) Allergy Verified 05/02/24 09:37 clavulanic acid (From Allergy Verified 05/02/24 09:37 Augmentin) doxycycline Allergy Verified 05/02/24 09:37 hydrocodone (From [place]) Allergy Verified 05/02/24 09:37 azithromycin AdvReac Intermediate Verified 05/02/24 09:37 prednisone AdvReac Mild INCREASED Verified 05/02/24 09:37 HEART RATE PFSH PFS Disclaimer: The information contained in this section may have been updated after the patient was seen, as this information can be updated by other users. Medical History (Updated 06/11/24 @ 22:02 by Rylan Celaya MD) Irritation of nose Otalgia, right ear Tinnitus Otalgia, bilateral Reactive airway disease Reactive airway disease with acute exacerbation Surgical History (Updated 06/11/24 @ 22:02 by Rylan Celaya MD) S/P colonoscopic polypectomy H/O breast biopsy History of repair of hiatal hernia History of hysterectomy History of cholecystectomy Family History Mother Stroke Congestive heart failure Father Heart attack Social History Smoking Status: Never smoker alcohol intake: never substance use type: denies use current occupational status: retired Travel in the last 8 weeks: None household members: none housing: house caffeine: Yes Have you lived/traveled outside [place] in past 30 days?: No Contact w/someone who lives/traveled outside US past 30 days?: No Exposure to someone with infectious disease in past 14 days?: No Do you have a fever (greater than 100.4 F or 38 C)?: No Have you tested positive for COVID-19: No Exposed to someone with COVID-19 in past 14 days?: No Do you have a sore throat?: No Do you have a cough?: No Do you have any weakness?: No Do you have any diarrhea?: No Are you experiencing any unusual bleeding?: No Do you have any muscle aches/pain?: No Do you have any abdominal pain?: No Are you experiencing loss of taste or smell?: No Other Medical History Have you received the Flu Vaccine for this season: Yes Have you received the Pneumonia Vaccine: No ROS Obtained: Yes Systems reviewed as appropriate & no additional complaints except as documented Physical Exam General General appearance: alert and in no apparent distress Head Head exam: atraumatic and normocephalic Eye Eye exam: Present PERRL and EOMI ENT ENT exam: Present mucous membranes moist Neck Neck exam: Present normal inspection Chest Chest inspection: Present normal inspection and symmetric chest wall rise Respiratory Respiratory exam: Present normal lung sounds bilaterally; Absent respiratory distress Cardiovascular Cardiovascular exam: Present regular rate and normal rhythm Abdominal Exam Abdominal exam: Present soft; Absent tenderness, guarding or rebound Bimanual exam: Present other ([employer]ch[employer] present, sacral wound dressing in place, no bleeding external hemorrhoids.) Extremities Exam Extremities exam: Present normal inspection Neurological Exam Neurological exam: Present alert Psychiatric Psychiatric exam: Present normal affect Skin Skin exam: Present warm and dry Medical Decision Making Medical Records Screening: Per USPSTF and CDC recommendations, given the prevalence of disease in our region, it is our hospital?s policy to screen for HIV and viral Hepatitis for all patients aged 18 and over and those with ongoing risk factors. [place] Inquiry Pt receiving controlled substance: No Vital Signs: 06/11/24 19:19 Temperature 98.3 F Temperature Source Oral Pulse Rate [Radial] 65 Respiratory Rate 18 Blood Pressure [R Arm] 109/41 L Blood Pressure Mean [R Arm] 63 Blood Pressure Source [R Arm] Automatic Cuff 02 Sat by Pulse Oximetry 100 Oxygen Delivery Method Room Air Lab Data Lab Results 06/11/24 19:40: WBC 9.2, RBC 3.48 L, Hgb 9.8 L, Hct 31.4 L, MCV 90.2, MCH 28.2, MCHC 31.2 L, RDW 14.6, Plt Count 418, MPV 9.7, Neut % (Auto) 72.9, Lymph % (Auto) 14.8, [place] % (Auto) 9.6 H, Eos % (Auto) 1.7, Baso % (Auto) 0.5, Neut # (Auto) 6.7, Lymph # (Auto) 1.4, [place] # (Auto) 0.9, Eos # (Auto) 0.2, Baso # (Auto) 0.1, Sodium 138, Potassium 3.7, Chloride 102, Carbon Dioxide 29, Anion Gap 10.7, BUN 28 H, Creatinine 0.80, Estimated Creat Clear 45, Estimated GFR 70, Est GFR ( Amer) 85, Glucose 110 H, Calcium 9.2, Total Bilirubin 0.2, AST 30, ALT 35, Alkaline Phosphatase 76, Total Protein 6.6, Albumin 4.1, Globulin 2.5, Albumin/Globulin Ratio 1.6, HCV Ab SONIA w/Rflx PCR Qn Negative, HIV Ag/Ab Combo Qual Negative 06/11/24 20:05: Blood Type A Positive, Antibody Screen Negative 06/11/24 19:40 06/11/24 19:40 Orders (Tests/Meds): ED MEDICATIONS Discontinued Medications Generic Name Dose Route Start Last Admin Trade Name Freq PRN Reason Stop Dose Admin Iopamidol 80 ml 06/11/24 20:09 06/11/24 20:11 Iopamidol-370 (76%);100ml Bottle IV 06/11/24 20:10 80 ml ONCE ONE Administration Iopamidol 80 ml 06/11/24 20:11 06/11/24 20:12 Iopamidol-370 (76%);100ml Bottle IV 06/11/24 20:12 80 ml ONCE ONE Administration Sodium Chloride 50 ml 06/11/24 20:09 06/11/24 20:11 0.9 % Sodium Chloride 50 Ml Vial IV 06/11/24 20:10 50 ml ONCE ONE Administration Sodium Chloride 10 ml 06/11/24 20:09 06/11/24 20:11 Sodium Chloride 0.9% 10ml Syr (Rad Only) IV 06/11/24 20:10 10 ml ONCE ONE Administration Sodium Chloride 50 ml 06/11/24 20:11 06/11/24 20:12 0.9 % Sodium Chloride 50 Ml Vial IV 06/11/24 20:12 50 ml ONCE ONE Administration ORDERS Category Date Time Status Type and Screen Stat BBK 06/11/24 20:[address] angio abdomen pelvis Stat Cat Scan 06/11/24 19:[address] angio head Stat Cat Scan 06/11/24 19:[address] angio neck Stat Cat Scan 06/11/24 19:[address] head/brain wo con Stat Cat Scan 06/11/24 19:53 Completed CBC w/Auto Diff [Complete Blood Count Auto Diff] Stat Lab 06/11/24 19:40 Completed CMP [Comprehensive Metabolic Panel] Stat Lab 06/11/24 19:40 Completed Diarrhea 23 Panel, PCR Stat Lab 06/11/24 20:56 Ordered HIV Combo Stat Lab 06/11/24 19:40 Completed Hepatitis C Ab Qual. W/ RFX Stat Lab 06/11/24 19:40 Completed Medical Decision Narrative: In summary patient is 73-year-old female past medical history described above who presents emergency department for evaluation of bright red blood per rectum in the setting of recent open mitral valve replacement on anticoagulation. Patient is hemodynamically stable nontoxic-appearing upon arrival, afebrile. Differential diagnosis includes medication adverse reaction, infectious colitis, among others. With respect to this workup be conducted with hematologic labs CTA of the abdomen and pelvis. With the specter of blurry vision she does not have any currently, it is bilateral per report and she has a nonfocal neurologic exam currently. Screening for critical posterior circulation problems will be conducted with noncontrasted CT scan head and CT of the head and neck. Type and screen will be obtained. Initial workup reviewed by me, patient has acute anemia however has undergone recent major surgery so unknown new baseline postop from 2 weeks ago. Clinically she is not in hemorrhagic shock as her pulse is in the 60s and 70s, she appears well compensated currently although she is beta blocked which may be masking her blood loss. This also may be contributing to her intermittent blurry vision. She has type and screen but will defer transfusion at this time. No MARTIN or critical electrolyte abnormality. Noncontrasted CT scan of the head no acute intracranial findings. CTA head and neck no flow limiting stenosis, there is a partially visualized thin-walled substernal gas and fluid collection, I suspect that this is routine postoperative findings therefore additional contrast dedicated imaging will be deferred at this time given that her chest pain is no worse than normal and she was just discharged 48 hours ago. The case was discussed with Dr. Mullen regarding management, he agrees she is appropriate for this institution from a cardiac standpoint. We will hold Eliquis for now. She does not have any clinical signs of decompensated GI bleed I will hold off discussion with gastroenterology and they can consult in the morning. CTA abdomen pelvis no acute intra-abdominal findings or active GI bleed. Given this case discussed with hospital medicine regarding management patient be admitted to their service for continued evaluation at this time. Critical Care Critical Care Time Critical Care Time: No
[2024-06-11 19:58] LABS: Alanine Aminotransferase 35 U/L (12-78); Alkaline Phosphatase 76 U/L (38-126); Aspartate Amino Transferase 30 U/L (14-36); Bilirubin,Total 0.2 mg/dl (0.2-1.3); Blood Urea Nitrogen 28 mg/dl (7-17); Calcium 9.2 mg/dl (8.4-10.2); Carbon Dioxide 29 mmol/L (22.0-30.0); Creatinine Clearance Estimated 45 mL/min (50-200); Estimated Glomerular Filt Rate 70 ml/min (>60); GFR (African American) 85 ML/MIN (>60); Glucose 110 mg/dl (74-100); Total Protein,Serum 6.6 g/dl (6.3-8.2)
--- NOTE | 2024-06-11 20:08 | PC.NURSE ---
Patient to radiology
[2024-06-11 20:09] LABS: Anion Gap 10.7 mEq/L (5-15); Potassium 3.7 mmoL/L (3.5-5.1)
[2024-06-11] MEDS: 0.9 % SODIUM CHLORIDE 50 ML VIAL IV ×2 (20:11→20:12)
[2024-06-11] MEDS: SODIUM CHLORIDE 0.9% 10ML SYR (RAD ONLY) 10 ML IV (20:11)
[2024-06-11] MEDS: IOPAMIDOL-370 (76%);100ML BOTTLE 80 ML IV ×2 (20:11→20:12)
[2024-06-11 20:18] LABS: Albumin/Globulin Ratio 1.6 (1.1-1.8); Globulin 2.5 g/dL (1.3-3.2)
[2024-06-11 20:59] LABS: HIV Combo NEGATIVE (Negative)
[2024-06-11 21:08] LABS: Hepatitis C Ab Qual. W/ RFX NEGATIVE (Negative)
[2024-06-11 21:59] VITALS: PULSE 66; RESP 17; O2SAT 96
[2024-06-11 22:02] LABS: Microscopic, Urine URINE MICROSCOPIC (MICROSCOPIC)
[2024-06-11 22:11] LABS: Appearance,Urine CLEAR (Clear); Bilirubin,Urine Negative (Negative); Blood, Urine 1+ (Negative); Color,Urine YELLOW (Yellow); Glucose,Urine (UA) Negative (Negative); Ketones,Urine Negative (Negative); Leukocyte Esterase,Urine TRACE (Negative); Nitrate,Urine Negative (Negative); PH,Urine 6.5 (5.0-8.5); Protein,Urine Negative (Negative); Specific Gravity, Urine <= 1.005 (1.005-1.030); Urobilinogen,Urine 0.2 EU/dl (0.2)
[2024-06-11 22:23] LABS: Bacteria,Urine Trace /lpf
--- NOTE | 2024-06-11 22:42 | PC.NURSE ---
Patient arrived to floor via wheelchair from ED at 22:42.
[2024-06-11 22:45] VITALS: BP 108/52; PULSE 61; RESP 20; TEMP 37.2; O2SAT 97
--- NOTE | 2024-06-11 22:54 | P.HP_ITS ---
<Statement entered by Gage Goetz MD - 06/13/24 14:24> I personally examined the patient and agree with the plan of care outlined by the ASSISTANT ACTIVITIES DIRECTOR. History of Present Illness *Admission Date: 06/11/24 *Reason for visit:: Bright Red Blood Per Rectum *History of present illness: This is a 73-year-old female with past medical history of mitral valve regurgitation who recently underwent mitral valve repair at the [facility] in [facility] on 05/30/2024. Hospitalization was complicated with new onset A-fib with RVR. During hospitalization she was placed on metoprolol amiodarone and Eliquis for treatment for A-fib. She reports that she was discharged today and as soon as she got home from the hospital noticed bright red blood per rectum. She reports 2 episodes of this. Bright red blood mixed with some stool noted. She also reports some dizziness and blurry vision over the course of the last day or 2. Also reports diarrhea last night prior to discharge. Last dose of Eliquis at 10 AM on 06/11/2024 Emergency department workup mostly unremarkable except for mild anemia with a hemoglobin of 9. On our records, hemoglobin was 16 in February 2024. On discharge summary from the [facility], noted to have ABLA secondary to valve replacement but no hemoglobin/hematocrit value noted on discharge summary. Other than mild transient dizziness, and BRBPR, patient has no other complaints. Endorses chest soreness from sternotomy wire which is approximated and intact. Given the above-mentioned problems, she is admitted to the hospitalist [facility] Disclaimer: The information contained in this section may have been updated after the patient was seen, as this information can be updated by other users. Medical History (Updated 06/11/24 @ 23:18 by VU Choe) Irritation of nose Otalgia, right ear Tinnitus Otalgia, bilateral Reactive airway disease Reactive airway disease with acute exacerbation Surgical History (Updated 06/11/24 @ 22:02 by Rylan Celaya MD) S/P colonoscopic polypectomy H/O breast biopsy History of repair of hiatal hernia History of hysterectomy History of cholecystectomy Family History Mother Stroke Congestive heart failure Father Heart attack Social History Smoking Status: Never smoker alcohol intake: never substance use type: denies use current occupational status: retired Travel in the last 8 weeks: None household members: none housing: house caffeine: Yes Have you lived/traveled outside US in past 30 days?: No Contact w/someone who lives/traveled outside US past 30 days?: No Exposure to someone with infectious disease in past 14 days?: No Do you have a fever (greater than 100.4 F or 38 C)?: No Have you tested positive for COVID-19: No Exposed to someone with COVID-19 in past 14 days?: No Do you have a sore throat?: No Do you have a cough?: No Do you have any weakness?: No Do you have any diarrhea?: No Are you experiencing any unusual bleeding?: No Do you have any muscle aches/pain?: No Do you have any abdominal pain?: No Are you experiencing loss of taste or smell?: No Other Medical History Have you received the Flu Vaccine for this season: Yes Have you received the Pneumonia Vaccine: No Review of Systems Review of Systems Review of systems:: pertinent systems reviewed and negative unless documented below Review of systems (narrative): Negative except for HPI Meds Home Medications and Allergies Home Medications ?Medication ?Instructions ?Recorded ?Confirmed ?Type ezetimibe 10 mg tablet (Zetia) 10 mg PO DAILY Cholesterol 05/31/18 04/07/24 History polyethylene glycol 3350 17 17 g PO DAILY constipation 05/31/18 04/07/24 History gram/dose oral powder (Miralax) sodium chloride 5 % eye drops 1 drp ophthalmic (eye) HS 01/21/23 04/07/24 History (Sissy 128) rosuvastatin 20 mg tablet 20 mg PO DAILY 03/20/24 04/07/24 History sucralfate 1 gram tablet 1 g PO BID 03/20/24 04/07/24 History lansoprazole 30 mg delayed 30 mg PO BID 90 days #180 tabs 04/28/24 Rx release,disintegrating tablet (Prevacid SoluTab) azelastine 137 mcg (0.1 %) nasal 1 spray intranasal ONCE nasal 05/02/24 05/02/24 Rx spray inflamation #30 mL New Prescriptions to Start Prescriptions: Allergies Allergy/AdvReac Type Severity Reaction Status Date / Time Sulfa (Sulfonamide Allergy Severe I-HIVES Verified 05/02/24 09:37 Antibiotics) cephalexin Allergy Mild Verified 05/02/24 09:37 morphine Allergy Mild HYPER Verified 05/02/24 09:37 soap Allergy Mild RASH WITH Verified 05/02/24 09:37 DIAL SOAP acetaminophen (From [place]) Allergy Verified 05/02/24 09:37 amoxicillin (From Augmentin) Allergy Verified 05/02/24 09:37 clavulanic acid (From Allergy Verified 05/02/24 09:37 Augmentin) doxycycline Allergy Verified 05/02/24 09:37 hydrocodone (From [place]) Allergy Verified 05/02/24 09:37 azithromycin AdvReac Intermediate Verified 05/02/24 09:37 prednisone AdvReac Mild INCREASED Verified 05/02/24 09:37 HEART RATE Exam Data for Last 24 hours Vital signs and Labs for Last 24 Hours: Temp Pulse Resp BP Pulse Ox O2 Del Method 98.3 F 65 18 109/41 L 100 Room Air 06/11/24 19:19 06/11/24 19:19 06/11/24 19:19 06/11/24 19:19 06/11/24 19:19 06/11/24 19:19 Laboratory Results - last 24 hr 06/11/24 19:40: WBC 9.2, RBC 3.48 L, Hgb 9.8 L, Hct 31.4 L, MCV 90.2, MCH 28.2, MCHC 31.2 L, RDW 14.6, Plt Count 418, MPV 9.7, Neut % (Auto) 72.9, Lymph % (Auto) 14.8, [place] % (Auto) 9.6 H, Eos % (Auto) 1.7, Baso % (Auto) 0.5, Neut # (Auto) 6.7, Lymph # (Auto) 1.4, [place] # (Auto) 0.9, Eos # (Auto) 0.2, Baso # (Auto) 0.1, Sodium 138, Potassium 3.7, Chloride 102, Carbon Dioxide 29, Anion Gap 10.7, BUN 28 H, Creatinine 0.80, Estimated Creat Clear 45, Estimated GFR 70, Est GFR ( Amer) 85, Glucose 110 H, Calcium 9.2, Total Bilirubin 0.2, AST 30, ALT 35, Alkaline Phosphatase 76, Total Protein 6.6, Albumin 4.1, Globulin 2.5, Albumin/Globulin Ratio 1.6, HCV Ab SONIA w/Rflx PCR Qn Negative, HIV Ag/Ab Combo Qual Negative 06/11/24 20:05: Blood Type A Positive, Antibody Screen Negative 06/11/24 21:58: Urine Color Yellow, Urine Appearance Clear, Urine pH 6.5, Ur Specific [place] <= 1.005, Urine Protein Negative, Urine Glucose (UA) Negative, Urine Ketones Negative, Urine Blood 1+ A, Urine Nitrate Negative, Urine Bilirubin Negative, Urine Urobilinogen 0.2, Ur Leukocyte Esterase Trace, Urine RBC 5-10, Urine WBC 3-5, Ur Squamous Epith Cells 3-5, Urine Bacteria Trace I & O for Last 24 hours: Intake & Output 06/08/24 06/09/24 06/10/24 06/11/24 23:59 23:59 23:59 23:59 Weight 58.967 kg Constitutional Constitutional: no acute distress *Routine HEENT Exam Head: Present normocephalic Eye: Present EOMI and PERRL ENT: Present mucous membranes moist *Routine Neck Exam Neck: Present supple; Absent lymphadenopathy *Routine Respiratory Exam Respiratory: Present CTA bilaterally *Routine Cardiovascular Exam Cardiovascular: Present RRR *Routine Abdominal Exam Abdominal: Present soft and normoactive bowel sounds; Absent tenderness *Routine Rectal Exam Rectal:: deferred *Routine Genitalia Exam Genitalia:: deferred *Routine Extremities Exam Extremities: Absent cyanosis, clubbing or edema *Routine Skin Exam Comments: Sternotomy incision noted with edges approximated *Routine Neurological Exam Neurological: Present alert and oriented X3 Assessment and Plan *Assessment and plan (1) Hematochezia: Status: Acute Category: Medical Code(s): K92.1 - Melena (2) Mitral regurgitation: Status: Acute Category: Medical Code(s): I34.0 - Nonrheumatic mitral (valve) insufficiency (3) Anemia: Status: Acute Category: Medical Code(s): D64.9 - Anemia, unspecified (4) Atrial fibrillation: Status: Acute Category: Medical Code(s): I48.91 - Unspecified atrial fibrillation Plan #Hematochezia Patient reports 2 episodes of BRBPR at home. No witnessed episodes here. Patient does have pictures of blood that is mixed with stool. Small amount enough to cover the bottom of the toilet Denies any abdominal pain. CTA negative. Recently started on Eliquis for atrial fibrillation, last dose 06/11/2024 at 10 AM Will hold Eliquis now GI consult in a.m. N.p.o. Maintenance IV fluids Hemodynamically stable at this time. Lactic acid negative. Patient is very anxious about having procedures done this shortly after having mitral valve repair. Request that we speak with her surgeons at the [facility] tomorrow before deciding course of action. Will relay to dayshift attending. Cardiology consult for a.m. to evaluate for medical optimization for possible GI procedure #Atrial fibrillation Currently normal sinus rhythm with a heart rate of 60 Continue patient's amiodarone and metoprolol Hold Eliquis at this time surveillance monitor #Anemia Hemoglobin of 9.6 with prior baseline here of 16 Discharge summary without labs noted. Will get last set of labs/records from the [facility] now Transfuse trigger for hemoglobin less than 8 Spoke at length about blood transfusion with patient and although she is anxious about receiving them if needed, understands that receiving blood products will be cardioprotective as well as aid in overall outcome of lower GI bleed
[2024-06-11 22:56] VITALS: BP 105/54; PULSE 61; RESP 16; TEMP 36.9; O2SAT 95; BMI 23.0
[2024-06-11 23:41] VITALS: PULSE 60
[2024-06-12] VITALS (7 sets, daily range): BP systolic 88–116; BP diastolic 36–66; PULSE 56–126; RESP 16–18; TEMP 36.6–36.8; O2SAT 96–100; BMI 23.0
[2024-06-12 01:58] LABS: Basophils # 0.1 K/mm3 (0-0.2); Basophils % 0.8 % (0.1-2.0); Eosinophils # 0.2 K/mm3 (0.0-0.4); Eosinophils % 2.1 % (0.1-12.0); Hemoglobin 8.9 g/dL (12.2-16.2); Lymphocytes # 1.3 K/mm3 (0.7-4.5); Mean Corpuscular HGB Conc 31.8 g/dL (31.8-35.4); Mean Corpuscular Hemoglobin 28.2 pg (27.0-31.2); Mean Corpuscular Volume 88.6 fl (81-99); Mean Platelet Volume 10.2 fl (7.4-10.4); Monocytes # 0.7 K/mm3 (0.1-1.0); Monocytes % 10.2 % (1.7-9.3); Neutrophils % 68.3 % (37.0-80.0); Platelet Count 365 K/mm3 (142-424); Red Blood Count 3.16 M/mm3 (4.20-5.40); Red Cell Distribution Width 14.6 % (11.5-17.5); White Blood Count 7.3 K/mm3 (4.8-10.8)
--- NOTE | 2024-06-12 04:19 | PC.NURSE ---
Addendum entered by Charito Yates RN 06/12/24 06:07: Late Entry (for 05:32): Blood bank notified about patient's request to postpone blood transfusion. Current Entry: Thus far, patient has not reported having an urge to defecate (stool sample remains uncollected thus far). However, patient reports passing gas and has voided a couple times this shift. Auscultation of her bowels and lungs were within normal findings upon assessment this shift. Heart auscultation irregular. Monitoring on telemetry. Admission assessment and home medication reconciliation was completed during this shift. Home medications in patient room drawer. Patient requires standby assistance during ambulation in room/to the bathroom due to reported dizziness. Sternal incision from recent mitral valve procedure ([facility] visit) was observed this shift and is intact. Patient has been using a pillow to splint her chest during coughing and while raising upright in bed. She has a pressure area on her bottom; dressing in place. She has remained NPO since arrival to the second floor. Call light within reach. Visitor remains at the bedside. Addendum entered by Charito Yates RN 06/12/24 05:55: Fresh set of vital signs taken and documented accordingly. Addendum entered by Charito Yates RN 06/12/24 05:32: Kash WOMACK notified me [id number] at this time that the patient requested to postpone [her] blood transfusion for dayshift. I followed up with the patient and she stated to me directly that she wanted to postpone the transfusion because she wants [facility] to be consulted before proceeding with the additional interventions. Patient is currently resting supine in bed without further complaints. Addendum entered by Charito Yates RN 06/12/24 05:12: Informed consent obtained from the patient, I as a witness at the bedside. Charge nurse (Venecia Bueno RN) obtained a larger-bore IV site in the right antecubital (20G). Patient hooked to automatic datascope on her left side for vital sign monitoring. Kash WOMACK currently at the bedside consulting with the patient per patient request and anxiety. Original Note: Patient's blood pressure taken via automatic datascope for the 04:00 vital sign assessment was 92/36. I proceeded to take a manual blood pressure reading, and it was 91/42. Kash WOMACK was paged at 04:05 to notify her about the hypotensive blood pressure readings. Kash WOMACK consulted the patient at the bedside at this time about receiving blood products. She stated to me [id number] that she is going to go ahead and order 1 unit of blood to be administered, because the patient appears symptomatic and anxious about her [the patient's] situation. Pending new orders. Type/cross match previously performed per Blood Bank. Informed consent to be obtained.
[2024-06-12 04:56] LABS: Basophils # 0.1 K/mm3 (0-0.2); Basophils % 0.7 % (0.1-2.0); Eosinophils # 0.2 K/mm3 (0.0-0.4); Eosinophils % 1.8 % (0.1-12.0); Hematocrit 27.9 % (37.0-47.0); Hemoglobin 8.9 g/dL (12.2-16.2); Lymphocytes # 1.4 K/mm3 (0.7-4.5); Lymphocytes % 16.8 % (10-50); Mean Corpuscular HGB Conc 31.9 g/dL (31.8-35.4); Mean Corpuscular Hemoglobin 28.4 pg (27.0-31.2); Mean Corpuscular Volume 89.1 fl (81-99); Mean Platelet Volume 10.3 fl (7.4-10.4); Monocytes # 0.8 K/mm3 (0.1-1.0); Monocytes % 9.6 % (1.7-9.3); Neutrophils # 5.8 K/mm3 (1.8-7.8); Neutrophils % 70.5 % (37.0-80.0); Platelet Count 376 K/mm3 (142-424); Red Blood Count 3.13 M/mm3 (4.20-5.40); Red Cell Distribution Width 14.6 % (11.5-17.5); White Blood Count 8.2 K/mm3 (4.8-10.8)
[2024-06-12 05:04] LABS: Chloride 106 mmol/L (98-107); Sodium 136 mmol/L (136-145)
[2024-06-12 05:05] LABS: Potassium 3.8 mmoL/L (3.5-5.1)
[2024-06-12 05:08] LABS: Anion Gap 7.8 mEq/L (5-15); Blood Urea Nitrogen 19 mg/dl (7-17); Calcium 8.9 mg/dl (8.4-10.2); Carbon Dioxide 26 mmol/L (22.0-30.0); Creatinine Clearance Estimated 45 mL/min (50-200); Estimated Glomerular Filt Rate 82 ml/min (>60); GFR (African American) 99 ML/MIN (>60); Glucose 93 mg/dl (74-100)
[2024-06-12] MEDS: AMIODARONE 200MG TABLET 200 MG PO (08:40)
[2024-06-12] MEDS: METOPROLOL SUCCINATE XL 25MG TABLET 25 MG PO (08:40)
--- NOTE | 2024-06-12 09:27 | HMH.PHAINT1 ---
Pharmacy Intervention Comments: MEDICATION RECONCILIATION COMPLETED ON PATIENT USING EXTERNAL FILL HISTORY FROM PHARMACY, LIST FROM PCP OFFICE, AND LIST FROM [facility]. -SALIMA JOVEL, PHARMD
--- NOTE | 2024-06-12 12:56 | P.CONCA_ITS ---
History of Present Illness History of Present Illness Consult date: 06/12/24 Requesting physician: Radha Hewitt Consult reason: pre-op evaluation Chief complaint: BRBPR History of present illness: 73-year-old white female typically follows with Dr. Sutton with [facility] in [facility]. Patient was just discharged from [facility] yesterday after a 2-week admission for mitral valve disease. Patient had severe prolapse in the P2 segment requiring thoracotomy with ring annuloplasty. Successful surgery but she did develop postoperative atrial fibrillation and was started on metoprolol amiodarone and Eliquis. She had a pre-surgical left heart cath which showed nonobstructive disease and she also has normal ejection fraction. As mentioned patient was on her way home from discharge yesterday when she felt GI distress. At home she had some loose stools and bright red blood per rectum. She does admit to prior internal hemorrhoids. She presented to the emergency department here for evaluation. On arrival she has hemoglobin of 8.9. Patient's family who is with her pulled up records from [facility] and said it was 8.8 prior to discharge yesterday. She is in no distress and denies abdominal discomfort at this time. She has not had a bowel movement since admission. Her Eliquis is on hold. We are consulted to evaluate whether she would be acceptable risk for colonoscopy if deemed necessary by GI. Patient denies orthopnea, she has no lower extremity edema. Her [facility] cardiology records were reviewed in detail. [facility] Disclaimer: The information contained in this section may have been updated after the patient was seen, as this information can be updated by other users. Medical History UTI (urinary tract infection) Irritation of nose Otalgia, right ear Tinnitus Otalgia, bilateral Reactive airway disease Reactive airway disease with acute exacerbation Surgical History H/O mitral valve repair S/P colonoscopic polypectomy H/O breast biopsy History of repair of hiatal hernia History of hysterectomy History of cholecystectomy Family History Mother Stroke Congestive heart failure Father Heart attack Social History Smoking Status: Never smoker alcohol intake: never substance use type: denies use current occupational status: retired Travel in the last 8 weeks: None household members: none housing: house caffeine: Yes Have you lived/traveled outside US in past 30 days?: No Contact w/someone who lives/traveled outside US past 30 days?: No Exposure to someone with infectious disease in past 14 days?: No Do you have a fever (greater than 100.4 F or 38 C)?: No Have you tested positive for COVID-19: No Exposed to someone with COVID-19 in past 14 days?: No Do you have a sore throat?: No Do you have a cough?: No Do you have any weakness?: No Do you have any diarrhea?: No Are you experiencing any unusual bleeding?: No Do you have any muscle aches/pain?: No Do you have any abdominal pain?: No Are you experiencing loss of taste or smell?: No Review of Systems Constitutional Constitutional: Denies fatigue and Denies weakness Eyes Eyes: Denies loss of vision ENT Ears, Nose, Mouth, and Throat: Denies hearing loss and Denies vertigo *Cardiovascular Cardiovascular: Denies chest pain, Denies dyspnea and Denies syncope *Respiratory Respiratory: Denies cough and Denies dyspnea *Gastrointestinal Gastrointestinal: Denies change in stool character, Reports diarrhea, Reports hematochezia, Denies nausea and Denies vomiting *Musculoskeletal Musculoskeletal: Denies muscle weakness Integumentary/Breasts Skin/Breast: Denies changing lesions *Neurologic Neurologic: Denies loss of vision, Denies syncope, Denies vertigo and Denies weakness Endocrine Endocrine: Denies fatigue Exam Data for Last 24 hours Vital signs and Labs for Last 24 Hours: Temp Pulse Resp BP Pulse Ox O2 Del Method 98.3 F 69 16 106/61 L 96 Room Air 06/12/24 08:00 06/12/24 08:00 06/12/24 08:00 06/12/24 08:00 06/12/24 08:00 06/12/24 06:45 Laboratory Results - last 24 hr 06/11/24 19:40: WBC 9.2, RBC 3.48 L, Hgb 9.8 L, Hct 31.4 L, MCV 90.2, MCH 28.2, MCHC 31.2 L, RDW 14.6, Plt Count 418, MPV 9.7, Neut % (Auto) 72.9, Lymph % (Auto) 14.8, [place] % (Auto) 9.6 H, Eos % (Auto) 1.7, Baso % (Auto) 0.5, Neut # (Auto) 6.7, Lymph # (Auto) 1.4, [place] # (Auto) 0.9, Eos # (Auto) 0.2, Baso # (Auto) 0.1, Sodium 138, Potassium 3.7, Chloride 102, Carbon Dioxide 29, Anion Gap 10.7, BUN 28 H, Creatinine 0.80, Estimated Creat Clear 45, Estimated GFR 70, Est GFR ( Amer) 85, Glucose 110 H, Calcium 9.2, Total Bilirubin 0.2, AST 30, ALT 35, Alkaline Phosphatase 76, Total Protein 6.6, Albumin 4.1, Globulin 2.5, Albumin/Globulin Ratio 1.6, HCV Ab SONIA w/Rflx PCR Qn Negative, HIV Ag/Ab Combo Qual Negative 06/11/24 20:05: Blood Type A Positive, Antibody Screen Negative, Crossmatch ( AHG) See Detail 06/11/24 21:58: Urine Color Yellow, Urine Appearance Clear, Urine pH 6.5, Ur Specific [place] <= 1.005, Urine Protein Negative, Urine Glucose (UA) Negative, Urine Ketones Negative, Urine Blood 1+ A, Urine Nitrate Negative, Urine Bilirubin Negative, Urine Urobilinogen 0.2, Ur Leukocyte Esterase Trace, Urine RBC 5-10, Urine WBC 3-5, Ur Squamous Epith Cells 3-5, Urine Bacteria Trace 06/12/24 01:50: WBC 7.3, RBC 3.16 L, Hgb 8.9 L, Hct 28.0 L, MCV 88.6, MCH 28.2, MCHC 31.8, RDW 14.6, Plt Count 365, MPV 10.2, Neut % (Auto) 68.3, Lymph % (Auto) 18.0, [place] % (Auto) 10.2 H, Eos % (Auto) 2.1, Baso % (Auto) 0.8, Neut # (Auto) 5.0, Lymph # (Auto) 1.3, [place] # (Auto) 0.7, Eos # (Auto) 0.2, Baso # (Auto) 0.1 06/12/24 04:20: WBC 8.2, RBC 3.13 L, Hgb 8.9 L, Hct 27.9 L, MCV 89.1, MCH 28.4, MCHC 31.9, RDW 14.6, Plt Count 376, MPV 10.3, Neut % (Auto) 70.5, Lymph % (Auto) 16.8, [place] % (Auto) 9.6 H, Eos % (Auto) 1.8, Baso % (Auto) 0.7, Neut # (Auto) 5.8, Lymph # (Auto) 1.4, [place] # (Auto) 0.8, Eos # (Auto) 0.2, Baso # (Auto) 0.1, Sodium 136, Potassium 3.8, Chloride 106, Carbon Dioxide 26, Anion Gap 7.8, BUN 19 H D, Creatinine 0.70, Estimated Creat Clear 45, Estimated GFR 82, Est GFR ( Amer) 99, Glucose 93, Calcium 8.9, Blood Type Confirm A Positive I & O for Last 24 hours: Intake & Output 06/09/24 06/10/24 06/11/24 06/12/24 23:59 23:59 23:59 23:59 Intake Total 0 / 0 Output Total 0 / 0 300 / 300 Balance 0 / 0 -300 / -300 Weight 130 lb 1.6 oz 130 lb 1.6 oz Constitutional Constitutional: no acute distress and cooperative *Routine HEENT Exam Eye: Present PERRL *Routine Respiratory Exam Respiratory: Present CTA bilaterally; Absent accessory muscle use, wheezes or crackles *Routine Cardiovascular Exam Cardiovascular: Present RRR, Normal S1 and Normal S2; Absent murmur, gallop or rubs *Routine Abdominal Exam Abdominal: Present soft and normoactive bowel sounds; Absent tenderness *Routine Extremities Exam Extremities: Present pulses intact; Absent cyanosis or edema *Routine Skin Exam Skin: Present intact; Absent erythema or wounds *Routine Neurological Exam Neurological: Present alert and oriented X3 Routine Psychiatric Exam Psychiatric: Present cooperative Meds Home Medications and Allergies Home Medications ?Medication ?Instructions ?Recorded ?Confirmed ?Type ezetimibe 10 mg tablet (Zetia) 10 mg PO DAILY 05/31/18 06/11/24 History polyethylene glycol 3350 17 17 g PO DAILY 05/31/18 06/11/24 History gram/dose oral powder (Miralax) sodium chloride 5 % eye drops 1 drp ophthalmic (eye) HS 01/21/23 06/11/24 History (Sissy 128) rosuvastatin 20 mg tablet 20 mg PO DAILY 03/20/24 06/11/24 History sucralfate 1 gram tablet 1 g PO BID 03/20/24 06/11/24 History lansoprazole 30 mg delayed 30 mg PO BID 90 days #180 tabs 04/28/24 06/11/24 Rx release,disintegrating tablet (Prevacid SoluTab) amiodarone 200 mg tablet 200 mg PO DAILY 06/11/24 06/11/24 History apixaban 5 mg tablet (Eliquis) 5 mg PO BID 06/11/24 06/11/24 History aspirin 81 mg chewable tablet 81 mg PO DAILY 06/11/24 06/11/24 History metoprolol succinate 25 mg 25 mg PO DAILY 06/11/24 06/11/24 History tablet,extended release 24 hr azelastine 137 mcg (0.1 %) nasal 1 spray intranasal DAILY 06/12/24 06/12/24 History spray New Prescriptions to Start Prescriptions: Allergies Allergy/AdvReac Type Severity Reaction Status Date / Time Sulfa (Sulfonamide Allergy Severe I-HIVES Verified 05/02/24 09:37 Antibiotics) cephalexin Allergy Mild Verified 05/02/24 09:37 morphine Allergy Mild HYPER Verified 05/02/24 09:37 soap Allergy Mild RASH WITH Verified 05/02/24 09:37 DIAL SOAP acetaminophen (From [place]) Allergy Verified 05/02/24 09:37 amoxicillin (From Augmentin) Allergy Verified 05/02/24 09:37 clavulanic acid (From Allergy Verified 05/02/24 09:37 Augmentin) doxycycline Allergy Verified 05/02/24 09:37 hydrocodone (From [place]) Allergy Verified 05/02/24 09:37 azithromycin AdvReac Intermediate Verified 05/02/24 09:37 prednisone AdvReac Mild INCREASED Verified 05/02/24 09:37 HEART RATE Assessment and Plan *Assessment and plan (1) Atrial fibrillation: Status: Acute Category: Medical Code(s): I48.91 - Unspecified atrial fibrillation (2) Mitral regurgitation: Status: Acute Category: Medical Code(s): I34.0 - Nonrheumatic mitral (valve) insufficiency (3) Post-operative state: Status: Acute Category: Surgical Code(s): Z98.890 - Other specified postprocedural states (4) GI bleed: Status: Acute Category: Medical Code(s): K92.2 - Gastrointestinal hemorrhage, unspecified Plan Pre-Op -Patient is acceptable risk from CV standpoint for colonoscopy and EGD if GI decides to proceed with this Status post mitral valve ring repair 05/2024 -Op report reviewed, she had excellent results and normal postop echo -She has no murmur on exam, she is euvolemic Paroxysmal atrial fibrillation -New diagnosis post thoracotomy -Sinus rhythm here, continue amiodarone and metoprolol -Hold Eliquis with active GI bleeding GI bleed -Bright red blood per rectum with history of internal hemorrhoids, likely exacerbated by initiation of Eliquis -Further plans per GI-consider colonoscopy versus reducing or holding Eliquis
--- NOTE | 2024-06-12 16:32 | P.CONS_ITS ---
History of Present Illness *Admission Date: 06/11/24 *History of present illness: This is a 73-year-old female with past medical history of mitral valve regurgitation who recently underwent mitral valve repair at the [facility] in [facility] on 05/30/2024. Hospitalization was complicated with new onset A-fib with RVR. During hospitalization she was placed on metoprolol amiodarone and Eliquis for treatment for A-fib. She reports that she was discharged today and as soon as she got home from the hospital noticed bright red blood per rectum. She reports 2 episodes of this. Bright red blood mixed with some stool noted. She also reports some dizziness and blurry vision over the course of the last day or 2. Also reports diarrhea last night prior to discharge. Last dose of Eliquis at 10 AM on 06/11/2024 Emergency department workup mostly unremarkable except for mild anemia with a hemoglobin of 9. On our records, hemoglobin was 16 in February 2024. On discharge summary from the [facility], noted to have ABLA secondary to valve replacement but no hemoglobin/hematocrit value noted on discharge summary. Other than mild transient dizziness, and BRBPR, patient has no other complaints. Endorses chest soreness from sternotomy wire which is approximated and intact. Given the above-mentioned problems, she is admitted to the hospitalist The patient reports no abdominal pain. Her last colonoscopy was in [place] (Dr. Mejia) 3 years ago. [facility] Disclaimer: The information contained in this section may have been updated after the patient was seen, as this information can be updated by other users. Medical History UTI (urinary tract infection) Irritation of nose Otalgia, right ear Tinnitus Otalgia, bilateral Reactive airway disease Reactive airway disease with acute exacerbation Surgical History H/O mitral valve repair S/P colonoscopic polypectomy H/O breast biopsy History of repair of hiatal hernia History of hysterectomy History of cholecystectomy Family History Mother Stroke Congestive heart failure Father Heart attack Social History Smoking Status: Never smoker alcohol intake: never substance use type: denies use current occupational status: retired Travel in the last 8 weeks: None household members: none housing: house caffeine: Yes Have you lived/traveled outside US in past 30 days?: No Contact w/someone who lives/traveled outside US past 30 days?: No Exposure to someone with infectious disease in past 14 days?: No Do you have a fever (greater than 100.4 F or 38 C)?: No Have you tested positive for COVID-19: No Exposed to someone with COVID-19 in past 14 days?: No Do you have a sore throat?: No Do you have a cough?: No Do you have any weakness?: No Do you have any diarrhea?: No Are you experiencing any unusual bleeding?: No Do you have any muscle aches/pain?: No Do you have any abdominal pain?: No Are you experiencing loss of taste or smell?: No Review of Systems Constitutional Constitutional: Denies weakness Eyes Eyes: Denies loss of vision ENT Ears, Nose, Mouth, and Throat: Denies vertigo *Cardiovascular Cardiovascular: Denies syncope *Neurologic Neurologic: Denies loss of vision, Denies syncope, Denies vertigo and Denies weakness Meds Home Medications and Allergies Home Medications ?Medication ?Instructions ?Recorded ?Confirmed ?Type ezetimibe 10 mg tablet (Zetia) 10 mg PO DAILY 05/31/18 06/11/24 History polyethylene glycol 3350 17 17 g PO DAILY 05/31/18 06/11/24 History gram/dose oral powder (Miralax) sodium chloride 5 % eye drops 1 drp ophthalmic (eye) HS 01/21/23 06/11/24 History (Sissy 128) rosuvastatin 20 mg tablet 20 mg PO DAILY 03/20/24 06/11/24 History sucralfate 1 gram tablet 1 g PO BID 03/20/24 06/11/24 History lansoprazole 30 mg delayed 30 mg PO BID 90 days #180 tabs 04/28/24 06/11/24 Rx release,disintegrating tablet (Prevacid SoluTab) amiodarone 200 mg tablet 200 mg PO DAILY 06/11/24 06/11/24 History apixaban 5 mg tablet (Eliquis) 5 mg PO BID 06/11/24 06/11/24 History aspirin 81 mg chewable tablet 81 mg PO DAILY 06/11/24 06/11/24 History metoprolol succinate 25 mg 25 mg PO DAILY 06/11/24 06/11/24 History tablet,extended release 24 hr azelastine 137 mcg (0.1 %) nasal 1 spray intranasal DAILY 06/12/24 06/12/24 History spray New Prescriptions to Start Prescriptions: Allergies Allergy/AdvReac Type Severity Reaction Status Date / Time Sulfa (Sulfonamide Allergy Severe I-HIVES Verified 05/02/24 09:37 Antibiotics) cephalexin Allergy Mild Verified 05/02/24 09:37 morphine Allergy Mild HYPER Verified 05/02/24 09:37 soap Allergy Mild RASH WITH Verified 05/02/24 09:37 DIAL SOAP acetaminophen (From [place]) Allergy Verified 05/02/24 09:37 amoxicillin (From Augmentin) Allergy Verified 05/02/24 09:37 clavulanic acid (From Allergy Verified 05/02/24 09:37 Augmentin) doxycycline Allergy Verified 05/02/24 09:37 hydrocodone (From [place]) Allergy Verified 05/02/24 09:37 azithromycin AdvReac Intermediate Verified 05/02/24 09:37 prednisone AdvReac Mild INCREASED Verified 05/02/24 09:37 HEART RATE Exam (Inpt) Vital signs and Labs for Last 24 Hours: Temp Pulse Resp BP Pulse Ox O2 Del Method 98.2 F 56 L 16 88/43 L 99 Room Air 06/12/24 16:00 06/12/24 16:00 06/12/24 16:00 06/12/24 16:00 06/12/24 16:00 06/12/24 16:00 Laboratory Results - last 24 hr 06/11/24 19:40: WBC 9.2, RBC 3.48 L, Hgb 9.8 L, Hct 31.4 L, MCV 90.2, MCH 28.2, MCHC 31.2 L, RDW 14.6, Plt Count 418, MPV 9.7, Neut % (Auto) 72.9, Lymph % (Auto) 14.8, [place] % (Auto) 9.6 H, Eos % (Auto) 1.7, Baso % (Auto) 0.5, Neut # (Auto) 6.7, Lymph # (Auto) 1.4, [place] # (Auto) 0.9, Eos # (Auto) 0.2, Baso # (Auto) 0.1, Sodium 138, Potassium 3.7, Chloride 102, Carbon Dioxide 29, Anion Gap 10.7, BUN 28 H, Creatinine 0.80, Estimated Creat Clear 45, Estimated GFR 70, Est GFR ( Amer) 85, Glucose 110 H, Calcium 9.2, Total Bilirubin 0.2, AST 30, ALT 35, Alkaline Phosphatase 76, Total Protein 6.6, Albumin 4.1, Globulin 2.5, Albumin/Globulin Ratio 1.6, HCV Ab SONIA w/Rflx PCR Qn Negative, HIV Ag/Ab Combo Qual Negative 06/11/24 20:05: Blood Type A Positive, Antibody Screen Negative, Crossmatch (AHG) See Detail 06/11/24 21:58: Urine Color Yellow, Urine Appearance Clear, Urine pH 6.5, Ur Specific [place] <= 1.005, Urine Protein Negative, Urine Glucose (UA) Negative, Urine Ketones Negative, Urine Blood 1+ A, Urine Nitrate Negative, Urine Bilirubin Negative, Urine Urobilinogen 0.2, Ur Leukocyte Esterase Trace, Urine RBC 5-10, Urine WBC 3-5, Ur Squamous Epith Cells 3-5, Urine Bacteria Trace 06/12/24 01:50: WBC 7.3, RBC 3.16 L, Hgb 8.9 L, Hct 28.0 L, MCV 88.6, MCH 28.2, MCHC 31.8, RDW 14.6, Plt Count 365, MPV 10.2, Neut % (Auto) 68.3, Lymph % (Auto) 18.0, [place] % (Auto) 10.2 H, Eos % (Auto) 2.1, Baso % (Auto) 0.8, Neut # (Auto) 5.0, Lymph # (Auto) 1.3, [place] # (Auto) 0.7, Eos # (Auto) 0.2, Baso # (Auto) 0.1 06/12/24 04:20: WBC 8.2, RBC 3.13 L, Hgb 8.9 L, Hct 27.9 L, MCV 89.1, MCH 28.4, MCHC 31.9, RDW 14.6, Plt Count 376, MPV 10.3, Neut % (Auto) 70.5, Lymph % (Auto) 16.8, [place] % (Auto) 9.6 H, Eos % (Auto) 1.8, Baso % (Auto) 0.7, Neut # (Auto) 5.8, Lymph # (Auto) 1.4, [place] # (Auto) 0.8, Eos # (Auto) 0.2, Baso # (Auto) 0.1, Sodium 136, Potassium 3.8, Chloride 106, Carbon Dioxide 26, Anion Gap 7.8, BUN 19 H D, Creatinine 0.70, Estimated Creat Clear 45, Estimated GFR 82, Est GFR ( Amer) 99, Glucose 93, Calcium 8.9, Blood Type Confirm A Positive I & O for Labs for Last 24 Hours: Intake & Output 06/09/24 06/10/24 06/11/24 06/12/24 23:59 23:59 23:59 23:59 Intake Total 0 / 0 Output Total 0 / 0 300 / 300 Balance 0 / 0 -300 / -300 Weight 130 lb 1.6 oz 130 lb 1.6 oz GI: Present soft Comments:: Normoactive bowel sounds, soft, nontender, nondistended Results Labs 06/12/24 04:20 06/12/24 04:20 Labs: Laboratory Results - last 24 hr 06/11/24 19:40: WBC 9.2, RBC 3.48 L, Hgb 9.8 L, Hct 31.4 L, MCV 90.2, MCH 28.2, MCHC 31.2 L, RDW 14.6, Plt Count 418, MPV 9.7, Neut % (Auto) 72.9, Lymph % (Auto) 14.8, [place] % (Auto) 9.6 H, Eos % (Auto) 1.7, Baso % (Auto) 0.5, Neut # (Auto) 6.7, Lymph # (Auto) 1.4, [place] # (Auto) 0.9, Eos # (Auto) 0.2, Baso # (Auto) 0.1, Sodium 138, Potassium 3.7, Chloride 102, Carbon Dioxide 29, Anion Gap 10.7, BUN 28 H, Creatinine 0.80, Estimated Creat Clear 45, Estimated GFR 70, Est GFR ( Amer) 85, Glucose 110 H, Calcium 9.2, Total Bilirubin 0.2, AST 30, ALT 35, Alkaline Phosphatase 76, Total Protein 6.6, Albumin 4.1, Globulin 2.5, Albumin/Globulin Ratio 1.6, HCV Ab SONIA w/Rflx PCR Qn Negative, HIV Ag/Ab Combo Qual Negative 06/11/24 20:05: Blood Type A Positive, Antibody Screen Negative, Crossmatch (AHG) See Detail 06/11/24 21:58: Urine Color Yellow, Urine Appearance Clear, Urine pH 6.5, Ur Specific [place] <= 1.005, Urine Protein Negative, Urine Glucose (UA) Negative, Urine Ketones Negative, Urine Blood 1+ A, Urine Nitrate Negative, Urine Bilirubin Negative, Urine Urobilinogen 0.2, Ur Leukocyte Esterase Trace, Urine RBC 5-10, Urine WBC 3-5, Ur Squamous Epith Cells 3-5, Urine Bacteria Trace 06/12/24 01:50: WBC 7.3, RBC 3.16 L, Hgb 8.9 L, Hct 28.0 L, MCV 88.6, MCH 28.2, MCHC 31.8, RDW 14.6, Plt Count 365, MPV 10.2, Neut % (Auto) 68.3, Lymph % (Auto) 18.0, [place] % (Auto) 10.2 H, Eos % (Auto) 2.1, Baso % (Auto) 0.8, Neut # (Auto) 5.0, Lymph # (Auto) 1.3, [place] # (Auto) 0.7, Eos # (Auto) 0.2, Baso # (Auto) 0.1 06/12/24 04:20: WBC 8.2, RBC 3.13 L, Hgb 8.9 L, Hct 27.9 L, MCV 89.1, MCH 28.4, MCHC 31.9, RDW 14.6, Plt Count 376, MPV 10.3, Neut % (Auto) 70.5, Lymph % (Auto) 16.8, [place] % (Auto) 9.6 H, Eos % (Auto) 1.8, Baso % (Auto) 0.7, Neut # (Auto) 5.8, Lymph # (Auto) 1.4, [place] # (Auto) 0.8, Eos # (Auto) 0.2, Baso # (Auto) 0.1, Sodium 136, Potassium 3.8, Chloride 106, Carbon Dioxide 26, Anion Gap 7.8, BUN 19 H D, Creatinine 0.70, Estimated Creat Clear 45, Estimated GFR 82, Est GFR ( Amer) 99, Glucose 93, Calcium 8.9, Blood Type Confirm A Positive Assessment and Plan *Assessment and plan (1) Hematochezia: Status: Acute Category: Medical Code(s): K92.1 - Melena (2) GI bleed: Status: Acute Category: Medical Code(s): K92.2 - Gastrointestinal hemorrhage, unspecified (3) Anemia associated with acute blood loss: Status: Acute Category: Medical Code(s): D62 - Acute posthemorrhagic anemia Plan 1. Hematochezia. The patient is on Eliquis and this bleeding is new. She did have some bleeding many many years ago but not like this. I do suspect diverticular hemorrhage. Colonic diverticular bleeding is the most common cause of brisk rectal bleeding accounting for 30-50% of cases of significant rectal bleeding. Bleeding from diverticulosis occurs in approximately 15% of patients that have diverticulosis. In this 15 % of patients the bleeding is massive in approximately one third. This subset of persons are hospitalized and often require medical and frequently surgical intervention. Many patients with diverticular hemorrhage are older in age and often have other contributing medical conditions. Bleeding does stop spontaneously in 75% of cases but there is still an appreciable risk of rebleeding in the future which is approximately 25-30%. I do feel that colonoscopy should be performed for this and other potential etiologies. This may help with any recurrent hemorrhage. During active bleeding, it is best to consider CTA to look for bleeding blush and sometimes requirement of interventional radiology with [facility]. The patient has been cleared by cardiology. She is still not certain that she wants to move forward with this but I would recommend diagnostic etiology to ascertain etiology and risk stratification.
[2024-06-12 17:48] LABS: Hematocrit 31.9 % (37.0-47.0)
[2024-06-12 17:58] LABS: Hemoglobin 10.1 g/dL (12.2-16.2)
[2024-06-12] MEDS: PEG-ELECTROLYTE SOLN 4000ML BOTTLE 2000 ML PO ×2 (18:08→23:25)
--- NOTE | 2024-06-12 18:16 | EXP.PN ---
Subjective *Date: 06/12/24 *Time: 18:16 Interval history: No further episodes of bleeding today. Patient adamantly refused colonoscopy today, but agreeable to it after speaking to her son and [facility]. N.p.o. at midnight for colonoscopy in the morning. Exam Data for Last 24 hours Vital signs and Labs for Last 24 Hours: Temp Pulse Resp BP Pulse Ox O2 Del Method 98.2 F 56 L 16 88/43 L 99 Room Air 06/12/24 16:00 06/12/24 16:00 06/12/24 16:00 06/12/24 16:00 06/12/24 16:00 06/12/24 16:00 Laboratory Results - last 24 hr 06/11/24 19:40: WBC 9.2, RBC 3.48 L, Hgb 9.8 L, Hct 31.4 L, MCV 90.2, MCH 28.2, MCHC 31.2 L, RDW 14.6, Plt Count 418, MPV 9.7, Neut % (Auto) 72.9, Lymph % (Auto) 14.8, [place] % (Auto) 9.6 H, Eos % (Auto) 1.7, Baso % (Auto) 0.5, Neut # (Auto) 6.7, Lymph # (Auto) 1.4, [place] # (Auto) 0.9, Eos # (Auto) 0.2, Baso # (Auto) 0.1, Sodium 138, Potassium 3.7, Chloride 102, Carbon Dioxide 29, Anion Gap 10.7, BUN 28 H, Creatinine 0.80, Estimated Creat Clear 45, Estimated GFR 70, Est GFR ( Amer) 85, Glucose 110 H, Calcium 9.2, Total Bilirubin 0.2, AST 30, ALT 35, Alkaline Phosphatase 76, Total Protein 6.6, Albumin 4.1, Globulin 2.5, Albumin/Globulin Ratio 1.6, HCV Ab SONIA w/Rflx PCR Qn Negative, HIV Ag/Ab Combo Qual Negative 06/11/24 20:05: Blood Type A Positive, Antibody Screen Negative, Crossmatch (AHG) See Detail 06/11/24 21:58: Urine Color Yellow, Urine Appearance Clear, Urine pH 6.5, Ur Specific [place] <= 1.005, Urine Protein Negative, Urine Glucose (UA) Negative, Urine Ketones Negative, Urine Blood 1+ A, Urine Nitrate Negative, Urine Bilirubin Negative, Urine Urobilinogen 0.2, Ur Leukocyte Esterase Trace, Urine RBC 5-10, Urine WBC 3-5, Ur Squamous Epith Cells 3-5, Urine Bacteria Trace 06/12/24 01:50: WBC 7.3, RBC 3.16 L, Hgb 8.9 L, Hct 28.0 L, MCV 88.6, MCH 28.2, MCHC 31.8, RDW 14.6, Plt Count 365, MPV 10.2, Neut % (Auto) 68.3, Lymph % (Auto) 18.0, [place] % (Auto) 10.2 H, Eos % (Auto) 2.1, Baso % (Auto) 0.8, Neut # (Auto) 5.0, Lymph # (Auto) 1.3, [place] # (Auto) 0.7, Eos # (Auto) 0.2, Baso # (Auto) 0.1 06/12/24 04:20: WBC 8.2, RBC 3.13 L, Hgb 8.9 L, Hct 27.9 L, MCV 89.1, MCH 28.4, MCHC 31.9, RDW 14.6, Plt Count 376, MPV 10.3, Neut % (Auto) 70.5, Lymph % (Auto) 16.8, [place] % (Auto) 9.6 H, Eos % (Auto) 1.8, Baso % (Auto) 0.7, Neut # (Auto) 5.8, Lymph # (Auto) 1.4, [place] # (Auto) 0.8, Eos # (Auto) 0.2, Baso # (Auto) 0.1, Sodium 136, Potassium 3.8, Chloride 106, Carbon Dioxide 26, Anion Gap 7.8, BUN 19 H D, Creatinine 0.70, Estimated Creat Clear 45, Estimated GFR 82, Est GFR ( Amer) 99, Glucose 93, Calcium 8.9, Blood Type Confirm A Positive 06/12/24 16:52: Hgb 10.1 L D, Hct 31.9 L I & O for Last 24 hours: Intake & Output 06/09/24 06/10/24 06/11/24 06/12/24 23:59 23:59 23:59 23:59 Intake Total 0 / 0 Output Total 0 / 0 300 / 300 Balance 0 / 0 -300 / -300 Weight 59.012 kg 59.012 kg Constitutional Constitutional: no acute distress *Routine HEENT Exam Head: Present normocephalic Eye: Present EOMI and PERRL ENT: Present mucous membranes moist *Routine Neck Exam Neck: Present supple; Absent lymphadenopathy *Routine Respiratory Exam Respiratory: Present CTA bilaterally *Routine Cardiovascular Exam Cardiovascular: Present RRR *Routine Abdominal Exam Abdominal: Present soft and normoactive bowel sounds; Absent tenderness *Routine Extremities Exam Extremities: Absent cyanosis, clubbing or edema *Routine Skin Exam Skin: Present warm; Absent rash *Routine Neurological Exam Neurological: Present alert and oriented X3 Assessment and Plan *Assessment and plan (1) Hematochezia: Status: Acute Category: Medical Code(s): K92.1 - Melena (2) Mitral regurgitation: Status: Acute Category: Medical Code(s): I34.0 - Nonrheumatic mitral (valve) insufficiency (3) Anemia: Status: Acute Category: Medical Code(s): D64.9 - Anemia, unspecified (4) Atrial fibrillation: Status: Acute Category: Medical Code(s): I48.91 - Unspecified atrial fibrillation Plan Clarissa Celaya is a 73-year-old female who was recently discharged from [facility] s/p mitral valve repair and started on Eliquis for new onset A-fib, presented with 2 episodes of hematochezia at home, and admitted for acute on chronic anemia. #Hematochezia #Acute on chronic anemia Patient reports 2 episodes of BRBPR at home. No witnessed episodes here. Patient does have pictures of blood that is mixed with stool. Small amount enough to cover the bottom of the toilet Denies any abdominal pain. CTA negative. Recently started on Eliquis for atrial fibrillation, last dose 06/11/2024 at 10 AM ? Initial hemoglobin 9.8, 8.9 today. However, 16.1 in February 2024. Obtained OSH records, no hemoglobin level stated. ? However, given significant drop over 3 months, GI was consulted and recommended colonoscopy. Cardiology consulted, patient is acceptable risk for colonoscopy. ? Patient initially refused colonoscopy, adamantly stating that since she has not had any bleeding today and that CTA was negative that she does not have a bleed. However, after speaking to her son and then to [facility] patient was agreeable to colonoscopy tomorrow. ? N.p.o. at midnight, bowel prep overnight. ? IV Protonix 40 mg twice daily for now, though patient refused. ? Transfuse hemoglobin if less than 7. 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
--- NOTE | 2024-06-12 22:19 | PC.NURSE ---
Addendum entered by Charito Yates RN 06/12/24 23:21: Kash WOMACK was paged at this time to obtain an order for Zofran. Patient requested to take Zofran before finishing the rest of her GoLytely bowel prep in case it makes [her] sick. Original Note: Informed consent for anticipated colonoscopy in the morning has been obtained and signed by the patient, I as a witness. Patient does not have any further questions or concerns regarding procedure at this time. Second half of GoLytely bowel prep (2000 mL) will be resumed at around 23:30 this shift per BANNER order. NPO after midnight. Patient reports having multiple bowel movements today, denies visible blood in stool.
[2024-06-12] MEDS: ONDANSETRON 4MG/2ML VIAL 4 MG IV (23:25)
[2024-06-13] VITALS (19 sets, daily range): BP systolic 87–134; BP diastolic 42–78; PULSE 60–71; RESP 14–17; TEMP 36.4–37; O2SAT 95–100; BMI 23.4
--- NOTE | 2024-06-13 04:48 | PC.NURSE ---
Patient remains alert and oriented x4. She was observed to have eyes closed, respirations even and unlabored on room air, and no apparent distress for the majority of the night. She was up to the chair earlier yesterday evening; her visitor has remained at the bedside. Auscultation of her heart (appeared regular, normal sinus rhythm on telemetry), lungs (although diminished), and bowels were within normal findings this shift. She has had multiple, loose bowel movements, denying any visible blood. Patient continues to use a pillow for splinting her sternal incision. She refused her Protonix dose this shift; stating that she is afraid to take a new medication due to her plethora of allergies and fear. GoLytely bowel prep consumed, pre-medicated with Zofran. She has not had any other complaints this shift. At this time, the patient is resting in bed. Vital signs stable. No acute changes noted thus far. Call light within reach.
[2024-06-13 05:51] LABS: Basophils # 0.1 K/mm3 (0-0.2); Basophils % 1.3 % (0.1-2.0); Eosinophils # 0.1 K/mm3 (0.0-0.4); Eosinophils % 2.4 % (0.1-12.0); Hematocrit 29.7 % (37.0-47.0); Hemoglobin 9.5 g/dL (12.2-16.2); Lymphocytes # 1.1 K/mm3 (0.7-4.5); Lymphocytes % 20.9 % (10-50); Mean Corpuscular Hemoglobin 28.7 pg (27.0-31.2); Mean Corpuscular Volume 89.7 fl (81-99); Mean Platelet Volume 9.9 fl (7.4-10.4); Monocytes # 0.7 K/mm3 (0.1-1.0); Monocytes % 12.1 % (1.7-9.3); Neutrophils # 3.3 K/mm3 (1.8-7.8); Neutrophils % 62.6 % (37.0-80.0); Platelet Count 388 K/mm3 (142-424); Red Blood Count 3.31 M/mm3 (4.20-5.40); Red Cell Distribution Width 14.6 % (11.5-17.5); White Blood Count 5.4 K/mm3 (4.8-10.8)
[2024-06-13 06:00] LABS: Albumin Level 3.7 g/dl (3.5-5.0); Chloride 107 mmol/L (98-107); Potassium 4.3 mmoL/L (3.5-5.1); Sodium 141 mmol/L (136-145)
[2024-06-13 06:02] LABS: Alanine Aminotransferase 43 U/L (12-78); Aspartate Amino Transferase 52 U/L (14-36); Blood Urea Nitrogen 13 mg/dl (7-17); Creatinine Clearance Estimated 46 mL/min (50-200); Estimated Glomerular Filt Rate 82 ml/min (>60); GFR (African American) 99 ML/MIN (>60)
[2024-06-13 06:03] LABS: Albumin/Globulin Ratio 1.6 (1.1-1.8); Alkaline Phosphatase 81 U/L (38-126); Anion Gap 9.3 mEq/L (5-15); Bilirubin,Total 0.4 mg/dl (0.2-1.3); Calcium 9.2 mg/dl (8.4-10.2); Carbon Dioxide 29 mmol/L (22.0-30.0); Globulin 2.3 g/dL (1.3-3.2); Glucose 90 mg/dl (74-100); Magnesium 2.3 mg/dl (1.6-2.3)
--- NOTE | 2024-06-13 06:39 | PC.NURSE ---
Patient left floor with pre-op at 06:59.
--- NOTE | 2024-06-13 06:57 | EXP.ANES.CKL ---
[facility] Disclaimer: The information contained in this section may have been updated after the patient was seen, as this information can be updated by other users. Medical History UTI (urinary tract infection) Irritation of nose Otalgia, right ear Tinnitus Otalgia, bilateral Reactive airway disease Reactive airway disease with acute exacerbation Surgical History H/O mitral valve repair S/P colonoscopic polypectomy H/O breast biopsy History of repair of hiatal hernia History of hysterectomy History of cholecystectomy Family History Mother Stroke Congestive heart failure Father Heart attack Social History Smoking Status: Never smoker alcohol intake: never substance use type: denies use current occupational status: retired Travel in the last 8 weeks: None household members: none housing: house caffeine: Yes Have you lived/traveled outside US in past 30 days?: No Contact w/someone who lives/traveled outside US past 30 days?: No Exposure to someone with infectious disease in past 14 days?: No Do you have a fever (greater than 100.4 F or 38 C)?: No Have you tested positive for COVID-19: No Exposed to someone with COVID-19 in past 14 days?: No Do you have a sore throat?: No Do you have a cough?: No Do you have any weakness?: No Do you have any diarrhea?: No Are you experiencing any unusual bleeding?: No Do you have any muscle aches/pain?: No Do you have any abdominal pain?: No Are you experiencing loss of taste or smell?: No [facility] Anesthesia Checklist Patient Identification Patient Identification: Arm Band, Family and Verbal (Name & ) Structural Data Admitted From: Inpatient (-[id number]) Planned Operative Procedure/s: Colonoscopy Consent for Planned Operative Procedure(s) Verified: Yes Verified Documents: Surgical Consent and History and Physical NPO Status Verified Time NPO: 04:30 Chart Verification Results Verified: CBC, BMP, ECG and Chest Xray Additional verifications Patient : No Anesthesia Reactions: No Cardiovascular Assessment Heart Sounds: S1 & S2 Pulse Rhythm: Irregular Peripheral Edema: No Airway Assessment Mallampati Score:: Class II C-Spine Mobility Assessed: Yes (Limited flexion & extension) TMJ Mobility Assessed: Yes Dentition: Good Dentition (Nothing loose per pt.) Neurological Assessment Level of Consciousness: Awake, Alert, Appropriate and Follows Commands Hx Seizures: No Numbness or tingling in extremities: No Anesthesia Plan Anesthesia Risk discussed: Yes Anesthesia Plan: Verified ASA Class: III Anesthesia Type: MAC
--- NOTE | 2024-06-13 07:19 | P.PCN_ITS ---
[facility] Procedure Note Date: 06/13/24 Time: 07:45 Procedure Note:: Colonoscopy Procedure Report: Colonoscopy with cold snare polypectomy Endoscopist: Andreas Marin II, MD Referring physician: IVONE Harrington/Sherwin Wilson MD, [address] [facility], [place], [address] Date of Procedure: June 13, 2024 Equipment: Olympus 190 variable stiffness pediatric colonoscope Sedation: MAC sedation Indication: Mrs. Clement is a 73-year-old female who is hospitalized after GI bleeding. The patient did have mitral valve regurgitation and recently underwent mitral valve repair at [facility] on 05/30/2024. She did have a new onset of atrial fibrillation and was placed on metoprolol, amiodarone and Eliquis. On her way home driving from [place], she got very close to home and felt the urge to have diarrhea. When she got home she passed a large amount of bright red blood/hematochezia. She had no abdominal pain. She had a second bout where she passed blood with stool. The patient did come to the hospital emergency department. Her hemoglobin and hematocrit were 9.8 and 31.4. Her hemoglobin and hematocrit were 16.1 and 46.8 on 03/20/2024. Her abdominal CT scan/CTA did not show any evidence of active GI bleeding and there was distal colonic diverticulosis without diverticulitis. The patient's last colonoscopy was 2 to 3 years ago ([facility]) and she does have a personal history of adenomatous polyps. The patient has had no further bleeding since hospital admission. She reports no change in bowel habits. Procedure: Prior to the procedure, a history and physical exam was performed, and patient's medications and allergies were reviewed. The risks, benefits and alternatives of the sedation and procedure were discussed with the patient. All questions were answered and informed consent was obtained. The patient was brought to the procedure room. Patient identification and proposed procedure were verified by the physician and the nurse. The patient was placed in a left lateral decubitus position and the scope was passed under direct vision. Throughout the procedure, the patient's blood pressure, pulse, and oxygen saturations were monitored continuously. The colonoscopy was accomplished without difficulty. The patient tolerated the procedure well. Findings: On digital rectal examination there was normal rectal tone. There were no external hemorrhoids. The colonoscope was introduced through the anal canal to the rectum and advanced to the cecum. The ileocecal valve and appendiceal orifice were identified. The scope was advanced a short distance into the ileum which appeared grossly normal. The scope was then withdrawn into the colon. The cecum, ascending and transverse colon and mucosa were grossly normal. There were scattered diverticuli throughout the colon but more predominantly in the descending and sigmoid colon (LEFT colon). There were 2 diminutive polyps (ascending x 1 (4 mm) and sigmoid x 1 (3 mm)). These were both removed via cold snare polypectomy. The rectum itself was normal. Upon retroflexion within the rectum there were grade 1-2 internal hemorrhoids. The preparation was excellent throughout with [place] Preparation Score of 9. The cecal time was 12 minutes. Impression: 1. Diminutive colonic polyps x 2 2. Pandiverticulosis 3. Grade 1-2 internal hemorrhoids Plan: I do strongly suspect that the patient had a diverticular hemorrhage based upon colonoscopy findings. Colonic diverticular bleeding is the most common cause of brisk rectal bleeding accounting for 30-50% of cases of significant rectal bleeding. Bleeding from diverticulosis occurs in approximately 15% of patients that have diverticulosis. In this 15 % of patients the bleeding is massive in approximately one third. Many patients with diverticular hemorrhage are older in age and often have other contributing medical conditions and this patient had been on Eliquis. Bleeding does stop spontaneously in 75% of cases but there is still an appreciable risk of rebleeding in the future which is approximately 25- 30%.
--- NOTE | 2024-06-13 08:25 | PC.NURSE ---
pt returned from surgery.
--- NOTE | 2024-06-13 08:39 | PC.NURSE ---
spoke to hospitalist regarding pt request for breakfast tray. dietary will bring it up.
[2024-06-13] MEDS: AMIODARONE 200 MG PO (09:25)
[2024-06-13] MEDS: PAT OWN MED ***METOPROLOL SUCCINATE XL 25MG 25 MG PO (09:26)
[2024-06-13] MEDS: PANTOPRAZOLE 40MG VIAL 40 MG IV ×2 (09:59→21:08)
--- NOTE | 2024-06-13 10:32 | PC.NURSE ---
pt ambulated to the bathroom and back. gait steady.
--- NOTE | 2024-06-13 12:17 | P.PN_ITS ---
Subjective Subjective Date: 06/13/24 Time: 09:30 Interval history: Colonoscopy yesterday noted hemorrhoids, diverticula, no further bleeding. Hgb up over night. Pt asymptomatic. Exam Data for Last 24 hours Vital signs and Labs for Last 24 Hours: Temp Pulse Resp BP Pulse Ox O2 Del Method O2 Flow Rate 97.9 F 67 16 96/50 L 99 Room Air 5 06/13/24 11:06/13/24 11:06/13/24 11:06/13/24 11:06/13/24 11:06/13/24 11:06/13/24 07:22 Laboratory Results - last 24 hr 06/12/24 16:52: Hgb 10.1 L D, Hct 31.9 L 06/13/24 05:38: WBC 5.4 D, RBC 3.31 L, Hgb 9.5 L, Hct 29.7 L, MCV 89.7, MCH 28.7, MCHC 32.0, RDW 14.6, Plt Count 388, MPV 9.9, Neut % (Auto) 62.6, Lymph % (Auto) 20.9, [place] % (Auto) 12.1 H, Eos % (Auto) 2.4, Baso % (Auto) 1.3, Neut # (Auto) 3.3, Lymph # (Auto) 1.1, [place] # (Auto) 0.7, Eos # (Auto) 0.1, Baso # (Auto) 0.1, Sodium 141, Potassium 4.3, Chloride 107, Carbon Dioxide 29, Anion Gap 9.3, BUN 13 D, Creatinine 0.70, Estimated Creat Clear 46, Estimated GFR 82, Est GFR ( Amer) 99, Glucose 90, Calcium 9.2, Magnesium 2.3, Total Bilirubin 0.4, AST 52 H D, ALT 43, Alkaline Phosphatase 81, Total Protein 6.0 L, Albumin 3.7, Globulin 2.3, Albumin/Globulin Ratio 1.6 I & O for Last 24 hours: Intake & Output 06/10/24 06/11/24 06/12/24 06/13/24 23:59 23:59 23:59 23:59 Intake Total 480 / 2680 2200 / 2200 Output Total 0 / 0 300 / 300 0 / 0 Balance 0 / 0 180 / 2380 2200 / 2200 Weight 130 lb 1.6 oz 130 lb 1.6 oz 132 lb 8 oz Constitutional Constitutional: no acute distress and cooperative *Routine HEENT Exam Eye: Present PERRL *Routine Respiratory Exam Respiratory: Present CTA bilaterally; Absent accessory muscle use, wheezes or crackles *Routine Cardiovascular Exam Cardiovascular: Present RRR, Normal S1 and Normal S2; Absent murmur, gallop or rubs *Routine Abdominal Exam Abdominal: Present soft; Absent tenderness *Routine Extremities Exam Extremities: Present pulses intact; Absent cyanosis or edema *Routine Skin Exam Skin: Present intact; Absent erythema or wounds *Routine Neurological Exam Neurological: Present alert and oriented X3 Routine Psychiatric Exam Psychiatric: Present cooperative Progress Note: A&P Assessment and plan (1) Hematochezia: Status: Acute (2) Mitral regurgitation: Status: Acute (3) Anemia: Status: Acute (4) Atrial fibrillation: Status: Acute Assessment and Plan Assessment and Plan for All Diagnoses:: GI bleed -Bright red blood per rectum with history of internal hemorrhoids, likely exacerbated by initiation of Eliquis -Colonoscopy today: Colonic polyps, saleem diverticulitis, grade 1-2 internal hemorrhoids. GI doctor suspects the patient had a diverticular hemorrhage based on these findings. She has an appreciable risk of rebleeding in the future which is approximately 25 to 30%. -I discussed with patient her [id number] score of 3 (female, age) carries a 3.2% yearly risk of CVA. -I discussed in detail with patient and her family that she has 3 choices: Resume Eliquis 5mg BID and monitor for bleeding, try reduced dose of 2.5mg BID and monitor for bleeding, or hold OAC. After all questions answered, patient and her family would like to try Eliquis 2.5mg BID for now and will f/u with her Senior Games Technician, Dr. Sutton after discharge to make a buttermaker plan. Status post mitral valve ring repair 05/2024 -Op report reviewed, she had excellent results and normal postop echo -She has no murmur on exam, she is euvolemic Paroxysmal atrial fibrillation -New diagnosis post thoracotomy 05/2024 -Sinus rhythm here, continue amiodarone and metoprolol -Resume Eliquis at 2.5mg BID dosing as discussed above. *Pt is CV stable for DC home. She needs Eliquis 2.5mg BID at discharge and close f/u with her Senior Games Technician Dr. Sutton in [place]. Please advise if we can be of further assistance this admission. Thank you.
--- NOTE | 2024-06-13 17:43 | P.PN_ITS ---
Subjective *Date: 06/13/24 *Time: 19:42 Interval history: Denies any chest pain. Went down for colonoscopy today. Found to have no active bleeding. Colonoscopy positive for diverticuli and hemorrhoids. Hemoglobin remained stable. Stable on room air. Tolerating p.o. intake after colonoscopy. Discussed resuming anticoagulation. Will monitor overnight. Medical Exam Vital signs and Labs for Last 24 Hours: Vital Signs Temp Pulse Pulse Resp BP Pulse Ox O2 Del Method 06/13/24 17:00 Room Air 06/13/24 16:00 97.6 F 60 14 109/52 L 98 Room Air 06/13/24 15:00 Room Air 06/13/24 13:00 Room Air 06/13/24 12:20 97.8 F 68 16 103/78 L 99 06/13/24 11:25 97.9 F 67 16 96/50 L 99 Room Air 06/13/24 11:00 Room Air 06/13/24 10:25 68 16 105/55 L 99 Room Air 06/13/24 09:55 65 16 102/51 L 97 Room Air 06/13/24 09:25 97.6 F 66 16 122/65 99 Room Air 06/13/24 09:10 66 14 123/59 L 99 Room Air 06/13/24 09:00 Room Air 06/13/24 09:00 67 99 Room Air 06/13/24 08:55 65 14 126/61 98 Room Air 06/13/24 08:40 67 16 126/57 L 99 Room Air 06/13/24 08:25 97.9 F 66 16 120/63 99 Room Air 06/13/24 08:11 64 16 98/56 L 100 Room Air 06/13/24 08:01 67 16 117/48 L 100 Room Air 06/13/24 07:51 98.1 F 62 17 87/42 L 100 Room Air 06/13/24 07:22 Nasal Cannula 06/13/24 05:00 Room Air 06/13/24 04:00 65 06/13/24 04:00 97.8 F 71 14 134/68 97 Room Air 06/13/24 03:00 Room Air 06/13/24 01:00 Room Air 06/13/24 00:00 65 06/13/24 00:00 98.6 F 65 16 108/52 L 95 Room Air 06/12/24 23:00 Room Air 06/12/24 21:00 Room Air 06/12/24 20:00 63 18 100 Room Air 06/12/24 20:00 60 06/12/24 20:00 97.8 F 63 18 116/66 100 Room Air 06/12/24 18:41 Room Air O2 Flow Rate 06/13/24 17:00 06/13/24 16:00 06/13/24 15:00 06/13/24 13:00 06/13/24 12:20 06/13/24 11:25 06/13/24 11:00 06/13/24 10:25 06/13/24 09:55 06/13/24 09:25 06/13/24 09:10 06/13/24 09:00 06/13/24 09:00 06/13/24 08:55 06/13/24 08:40 06/13/24 08:25 06/13/24 08:11 06/13/24 08:01 06/13/24 07:51 06/13/24 07:22 5 06/13/24 05:00 06/13/24 04:00 06/13/24 04:00 06/13/24 03:00 06/13/24 01:00 06/13/24 00:00 06/13/24 00:00 06/12/24 23:00 06/12/24 21:00 06/12/24 20:00 06/12/24 20:00 06/12/24 20:00 06/12/24 18:41 Intake and Output 06/13/24 06/13/24 06/13/24 07:59 15:59 23:59 Intake Total 2200 / 2480 280 / 2480 Output Total 0 / 200 200 / 200 0 / 200 Balance 2200 / 2280 80 / 2280 0 / 2280 Intake: Intake, Oral Amount 2200 / 2480 280 / 2480 Output: Output, Urine Amount 0 / 200 200 / 200 0 / 200 Other: Number of Unmeasured Voids 1 Number of Bowel Movements 1 Weight 60.101 kg Patient Weight 06/13/24 23:59 Weight 60.101 kg Laboratory Results - last 24 hr 06/12/24 16:52: Hgb 10.1 L D, Hct 31.9 L 06/13/24 05:38: WBC 5.4 D, RBC 3.31 L, Hgb 9.5 L, Hct 29.7 L, MCV 89.7, MCH 28.7, MCHC 32.0, RDW 14.6, Plt Count 388, MPV 9.9, Neut % (Auto) 62.6, Lymph % (Auto) 20.9, [place] % (Auto) 12.1 H, Eos % (Auto) 2.4, Baso % (Auto) 1.3, Neut # (Auto) 3.3, Lymph # (Auto) 1.1, [place] # (Auto) 0.7, Eos # (Auto) 0.1, Baso # (Auto) 0.1, Sodium 141, Potassium 4.3, Chloride 107, Carbon Dioxide 29, Anion Gap 9.3, BUN 13 D, Creatinine 0.70, Estimated Creat Clear 46, Estimated GFR 82, Est GFR ( Amer) 99, Glucose 90, Calcium 9.2, Magnesium 2.3, Total Bilirubin 0.4, AST 52 H D, ALT 43, Alkaline Phosphatase 81, Total Protein 6.0 L, Albumin 3.7, Globulin 2.3, Albumin/Globulin Ratio 1.6 I & O for Labs for Last 24 Hours: Intake & Output 06/10/24 06/11/24 06/12/24 06/13/24 23:59 23:59 23:59 23:59 Intake Total 480 / 2680 2480 / 2480 Output Total 0 / 0 300 / 300 200 / 200 Balance 0 / 0 180 / 2380 2280 / 2280 Weight 59.012 kg 59.012 kg 60.101 kg Constitutional: Present no acute distress, average body habitus and cooperative Head: Present atraumatic ENT: Present normal exam Respiratory: Present normal respiratory effort; Absent rhonchi, wheezes or crackles Cardiac: Present Reg Rate and Rhythm Comment:: Healing midsternal scar GI: Present soft and normal bowel sounds; Absent distention or tenderness Extremities: Present normal inspection and full ROM Skin: Present intact; Absent erythema Neuro: Present Grossly Intact, alert, awake, oriented x 3 and moves all extremities Assessment and Plan *Assessment and plan (1) Hematochezia: Status: Acute Category: Medical Code(s): K92.1 - Melena (2) Mitral regurgitation: Status: Acute Category: Medical Code(s): I34.0 - Nonrheumatic mitral (valve) insufficiency (3) Anemia: Status: Acute Category: Medical Code(s): D64.9 - Anemia, unspecified (4) Atrial fibrillation: Status: Acute Category: Medical Code(s): I48.91 - Unspecified atrial fibrillation (5) H/O mitral valve replacement: Status: Acute Category: Surgical Code(s): Z95.2 - Presence of prosthetic heart valve Plan Clarissa Clement is a 73-year-old female who was recently discharged from [facility] s/p mitral valve repair and started on Eliquis for new onset A-fib, presented with 2 episodes of hematochezia at home, and admitted for acute on c hronic anemia. Taken for colonoscopy today. Found to have no active bleeding. Will monitor overnight. If hemoglobin remained stable, plan to discharge in the morning. Problems addressed as follows: #Hematochezia #Acute on chronic anemia -Prior to admission patient reported 2 episodes of bright red blood per rectum. -No further bleeding since admission - Recently started on Eliquis for atrial fibrillation, last dose 06/11/2024 at 10 AM ? Initial hemoglobin 9.8, 9.5 today. No transfusion during admission. Transfusion threshold hemoglobin less than 7. - GI took patient for colonoscopy today, found to have diverticuli and hemorrhoids. Suspect hemorrhoids are the source of bleeding. ? IV Protonix 40 mg twice daily for now along with sucralfate 4 times a day -Resume Eliquis. Monitor for bleeding. CBC, CMP, magnesium ordered for the morning. If hemoglobin stable, will discharge tomorrow #Atrial fibrillation, paroxysmal #Mitral valve ring/status post mitral valve ring repair 05/2024 -Cardiology consult, assisting with care. Recommend resuming Eliquis at 2.5 mg twice daily and following with her java enterprise architect (Dr. Sutton) after discharge to discuss further long-term plan - her [id number] score of 3 (female, age) carries a 3.2% yearly risk of CVA. -Follow with [facility] and her PCP per their recommendations for postop management - Sinus rhythm here, continue amiodarone and metoprolol Full code DVT prophylaxis: Eliquis 2.5 mg twice daily
--- NOTE | 2024-06-13 18:39 | PC.NURSE ---
pt has done well today. I have educated her on medications. She has ambulated multiple times independently. denies any pain.
[2024-06-13] MEDS: APIXABAN 5MG TABLET 2.5 MG PO (21:07)
[2024-06-13] MEDS: SODIUM CHLORIDE 0.9% 10ML VIAL 10 ML IV (21:08)
[2024-06-14] VITALS: BP 106/57; PULSE 60; PULSE 61; RESP 16; TEMP 36.4; O2SAT 94
[2024-06-14 04:00] VITALS: BP 107/56; PULSE 63; PULSE 70; RESP 16; TEMP 36.8; O2SAT 94; BMI 22.8
--- NOTE | 2024-06-14 05:19 | PC.NURSE ---
Pt is alert and oriented x4 and currently tolerating RA well. Pt is NSR on telemetry. This nurse did change dressing to pt coccyx. Pt denies pain and did ambulate multiple times at the beginning of this shift.
[2024-06-14 07:03] LABS: Basophils # 0.1 K/mm3 (0-0.2); Basophils % 1.3 % (0.1-2.0); Eosinophils # 0.2 K/mm3 (0.0-0.4); Eosinophils % 3.4 % (0.1-12.0); Hemoglobin 9.2 g/dL (12.2-16.2); Lymphocytes % 21.4 % (10-50); Mean Corpuscular HGB Conc 31.7 g/dL (31.8-35.4); Mean Corpuscular Hemoglobin 28.4 pg (27.0-31.2); Mean Corpuscular Volume 89.5 fl (81-99); Mean Platelet Volume 9.9 fl (7.4-10.4); Monocytes # 0.6 K/mm3 (0.1-1.0); Monocytes % 13.3 % (1.7-9.3); Neutrophils # 2.8 K/mm3 (1.8-7.8); Neutrophils % 60.2 % (37.0-80.0); Platelet Count 340 K/mm3 (142-424); Red Blood Count 3.24 M/mm3 (4.20-5.40); Red Cell Distribution Width 14.6 % (11.5-17.5); White Blood Count 4.7 K/mm3 (4.8-10.8)
[2024-06-14 07:11] LABS: Albumin Level 3.3 g/dl (3.5-5.0); Chloride 105 mmol/L (98-107)
[2024-06-14 07:12] LABS: Sodium 139 mmol/L (136-145)
[2024-06-14 07:14] LABS: Alanine Aminotransferase 31 U/L (12-78); Alkaline Phosphatase 71 U/L (38-126); Aspartate Amino Transferase 32 U/L (14-36); Bilirubin,Total 0.2 mg/dl (0.2-1.3); Blood Urea Nitrogen 14 mg/dl (7-17); Carbon Dioxide 31 mmol/L (22.0-30.0); Creatinine Clearance Estimated 45 mL/min (50-200); Estimated Glomerular Filt Rate 70 ml/min (>60); GFR (African American) 85 ML/MIN (>60)
[2024-06-14 07:15] LABS: Albumin/Globulin Ratio 1.4 (1.1-1.8); Calcium 8.9 mg/dl (8.4-10.2); Globulin 2.3 g/dL (1.3-3.2); Glucose 93 mg/dl (74-100); Magnesium 2.2 mg/dl (1.6-2.3); Total Protein,Serum 5.6 g/dl (6.3-8.2)
--- NOTE | 2024-06-14 07:38 | P.DS_ITS ---
General Admission date:: 06/11/24 Discharge date: 06/14/24 HPI HPI HPI: This is a 73-year-old female with past medical history of mitral valve regurgitation who recently underwent mitral valve repair at the [facility] in [facility] on 05/30/2024. Hospitalization was complicated with new onset A-fib with RVR. During hospitalization she was placed on metoprolol amiodarone and Eliquis for treatment for A-fib. She reports that she was discharged today and as soon as she got home from the hospital noticed bright red blood per rectum. She reports 2 episodes of this. Bright red blood mixed with some stool noted. She also reports some dizziness and blurry vision over the course of the last day or 2. Also reports diarrhea last night prior to discharge. Last dose of Eliquis at 10 AM on 06/11/2024 Emergency department workup mostly unremarkable except for mild anemia with a hemoglobin of 9. On our records, hemoglobin was 16 in February 2024. On discharge summary from the [facility], noted to have ABLA secondary to valve replacement but no hemoglobin/hematocrit value noted on discharge summary. Other than mild transient dizziness, and BRBPR, patient has no other complaints. Endorses chest soreness from sternotomy wire which is approximated and intact. Given the above-mentioned problems, she is admitted to the hospitalist The patient reports no abdominal pain. Her last colonoscopy was in [place] (Dr. Mejia) 3 years ago. Hospital Course Hospital Course Hospital Course: Clarissa Clement is a 73-year-old female who was recently discharged from [facility] s/p mitral valve repair and started on Eliquis for new onset A-fib, presented with 2 episodes of hematochezia at home, and admitted for acute on chronic anemia. Taken for colonoscopy during admission, found to have no active bleeding. Did have diverticuli, hemorrhoids, and some small polyps. Monitored overnight for stability of hemoglobin. Cardiology was consulted and assisted with care as well along with GI. Stable to discharge home with further management as an outpatient. Problems addressed as follows: #Hematochezia #Acute on chronic anemia -Prior to admission patient reported 2 episodes of bright red blood per rectum. No further bleeding since admission. Recently started on Eliquis for atrial fibrillation, last dose 06/11/2024 at 10 AM. Initial hemoglobin 9.8. remained stable between 9.2 and 9.5 during admission. No transfusions needed. GI was consulted and took patient for colonoscopy where she was found to have diverticuli, hemorrhoids, and small polyps. Suspect hemorrhoids are the source of her bleeding. Plan to continue pantoprazole during admission, transition back to lansoprazole at discharge per her home regimen. Okay to resume her Eliquis at a decreased dose. No signs of bleeding during admission. Follow-up as an outpatient for further management #Atrial fibrillation, paroxysmal #Mitral valve ring/status post mitral valve ring repair 05/2024 -Cardiology consulted, Recommend resuming Eliquis at 2.5 mg twice daily and following with her seismic computer (Dr. Sutton) after discharge to discuss further long-term plan. Her [id number] score of 3 (female, age) carries a 3.2% yearly risk of CVA. Follow with [facility] and her PCP per their recommendations for postop management. Sinus rhythm here, continue amiodarone and metoprolol Exam Data for Last 24 hours Vital signs and Labs for Last 24 Hours: Temp Pulse Resp BP Pulse Ox O2 Del Method O2 Flow Rate 98.2 F 63 16 107/56 L 94 L Room Air 5 06/14/24 04:00 06/14/24 04:00 06/14/24 04:00 06/14/24 04:00 06/14/24 04:00 06/14/24 06:39 06/13/24 07:22 Laboratory Results - last 24 hr 06/14/24 06:39: WBC 4.7 L, RBC 3.24 L, Hgb 9.2 L, Hct 29.0 L, MCV 89.5, MCH 28.4, MCHC 31.7 L, RDW 14.6, Plt Count 340, MPV 9.9, Neut % (Auto) 60.2, Lymph % (Auto) 21.4, [place] % (Auto) 13.3 H, Eos % (Auto) 3.4, Baso % (Auto) 1.3, Neut # (Auto) 2.8, Lymph # (Auto) 1.0, [place] # (Auto) 0.6, Eos # (Auto) 0.2, Baso # (Auto) 0.1, Sodium 139, Potassium 4.0, Chloride 105, Carbon Dioxide 31 H, Anion Gap 7.0, BUN 14, Creatinine 0.80, Estimated Creat Clear 45, Estimated GFR 70, Est GFR ( Amer) 85, Glucose 93, Calcium 8.9, Magnesium 2.2, Total Bilirubin 0.2, AST 32 D, ALT 31 D, Alkaline Phosphatase 71, Total Protein 5.6 L, Albumin 3.3 L D, Globulin 2.3, Albumin/Globulin Ratio 1.4 I & O for Last 24 hours: Intake & Output 06/11/24 06/12/24 06/13/24 06/14/24 23:59 23:59 23:59 23:59 Intake Total 480 / 2680 2840 / 3080 240 / 240 Output Total 0 / 0 300 / 300 200 / 200 0 / 0 Balance 0 / 0 180 / 2380 2640 / 2880 240 / 240 Weight 59.012 kg 59.012 kg 60.101 kg 58.559 kg Constitutional Constitutional: no acute distress, thin, chronically ill appearing and cooperative *Routine HEENT Exam Head: Present normocephalic Eye: Present EOMI and PERRL ENT: Present mucous membranes moist *Routine Neck Exam Neck: Present supple; Absent lymphadenopathy Routine Chest/Breast/Axilla Exam Comments: Healing sternotomy scar *Routine Respiratory Exam Respiratory: Present CTA bilaterally *Routine Cardiovascular Exam Cardiovascular: Present RRR and murmur *Routine Abdominal Exam Abdominal: Present soft and normoactive bowel sounds; Absent tenderness *Routine Rectal Exam Patient deferred: visual exam *Routine Exam Patient deferred: external exam *Routine Extremities Exam Extremities: Absent cyanosis, clubbing or edema *Routine Skin Exam Skin: Present warm; Absent rash *Routine Neurological Exam Neurological: Present alert, oriented X3 and moving all extremities; Absent altered mental status Results Data Completed and Pending Labs on day of discharge: Labs from last 24 hours 06/14/24 06:39 WBC 4.7 L RBC 3.24 L Hgb 9.2 L Hct 29.0 L MCV 89.5 MCH 28.4 MCHC 31.7 L RDW 14.6 Plt Count 340 MPV 9.9 Neut % (Auto) 60.2 Lymph % (Auto) 21.4 [place] % (Auto) 13.3 H Eos % (Auto) 3.4 Baso % (Auto) 1.3 Neut # (Auto) 2.8 Lymph # (Auto) 1.0 [place] # (Auto) 0.6 Eos # (Auto) 0.2 Baso # (Auto) 0.1 Sodium 139 Potassium 4.0 Chloride 105 Carbon Dioxide 31 H Anion Gap 7.0 BUN 14 Creatinine 0.80 Estimated Creat Clear 45 Estimated GFR 70 Est GFR ( Amer) 85 Glucose 93 Calcium 8.9 Magnesium 2.2 Total Bilirubin 0.2 AST 32 D ALT 31 D Alkaline Phosphatase 71 Total Protein 5.6 L Albumin 3.3 L D Globulin 2.3 Albumin/Globulin Ratio 1.4 DS: Diagnosis Discharge Diagnosis (1) Hematochezia: Status: Acute Code(s): K92.1 - Melena (2) Mitral regurgitation: Status: Acute Code(s): I34.0 - Nonrheumatic mitral (valve) insufficiency (3) Anemia: Status: Acute Code(s): D64.9 - Anemia, unspecified (4) Atrial fibrillation: Status: Acute Code(s): I48.91 - Unspecified atrial fibrillation (5) H/O mitral valve replacement: Status: Acute Code(s): Z95.2 - Presence of prosthetic heart valve Meds Home Medications and Allergies Home Medications ?Medication ?Instructions ?Recorded ?Confirmed ?Type ezetimibe 10 mg tablet (Zetia) 10 mg PO DAILY 05/31/18 06/11/24 History polyethylene glycol 3350 17 17 g PO DAILY 05/31/18 06/11/24 History gram/dose oral powder (Miralax) sodium chloride 5 % eye drops 1 drp ophthalmic (eye) HS 01/21/23 06/11/24 History (Sissy 128) rosuvastatin 20 mg tablet 20 mg PO DAILY 03/20/24 06/11/24 History sucralfate 1 gram tablet 1 g PO BID 03/20/24 06/11/24 History lansoprazole 30 mg delayed 30 mg PO BID 90 days #180 tabs 04/28/24 06/11/24 Rx release,disintegrating tablet (Prevacid SoluTab) amiodarone 200 mg tablet 200 mg PO DAILY 06/11/24 06/11/24 History aspirin 81 mg chewable tablet 81 mg PO DAILY 06/11/24 06/11/24 History metoprolol succinate 25 mg 25 mg PO DAILY 06/11/24 06/11/24 History tablet,extended release 24 hr azelastine 137 mcg (0.1 %) nasal 1 spray intranasal DAILY 06/12/24 06/12/24 History spray apixaban 5 mg tablet (Eliquis) 2.5 mg (1/2 x 5 mg) PO BID 30 days 06/14/24 06/11/24 Rx #0 tabs New Prescriptions to Start Prescriptions: Allergies Allergy/AdvReac Type Severity Reaction Status Date / Time Sulfa (Sulfonamide Allergy Severe I-HIVES Verified 05/02/24 09:37 Antibiotics) cephalexin Allergy Mild Verified 05/02/24 09:37 morphine Allergy Mild HYPER Verified 05/02/24 09:37 soap Allergy Mild RASH WITH Verified 05/02/24 09:37 DIAL SOAP acetaminophen (From [place]) Allergy Verified 05/02/24 09:37 amoxicillin (From Augmentin) Allergy Verified 05/02/24 09:37 clavulanic acid (From Allergy Verified 05/02/24 09:37 Augmentin) doxycycline Allergy Verified 05/02/24 09:37 hydrocodone (From [place]) Allergy Verified 05/02/24 09:37 azithromycin AdvReac Intermediate Verified 05/02/24 09:37 prednisone AdvReac Mild INCREASED Verified 05/02/24 09:37 HEART RATE Discharge Plan Disposition Patient Disposition: Home, Self-Care Condition: Fair Follow up Plan Follow up with: Andreas Marin II, MD [Staff Physician] - 07/13/24 11:00 am Wing Sanabria MD [Referring] - 07/07/24 2:45 pm Jeane Hodge APRN [Primary Care Provider] - 06/21/24 11:30 am Prescriptions/Medication Reconciliation: Continued ezetimibe [Zetia] 10 mg tablet 10 mg PO DAILY polyethylene glycol 3350 [Miralax] 17 gram/dose powder 17 g PO DAILY rosuvastatin 20 mg tablet 20 mg PO DAILY sucralfate 1 gram tablet 1 g PO BID sodium chloride [Sissy 128] 5 % drops 1 drp ophthalmic (eye) HS lansoprazole [Prevacid SoluTab] 30 mg tablet,disintegrat, delay rel 30 mg PO BID 90 Days Qty: 180 2RF amiodarone 200 mg Tablet 200 mg PO DAILY aspirin 81 mg Tablet,Chewable 81 mg PO DAILY metoprolol succinate 25 mg Tablet Extended Release 24 Hr 25 mg PO DAILY azelastine 137 mcg (0.1 %) spray,non-aerosol 1 spray intranasal DAILY Rx Instructions: administer into each nostril Changed Eliquis 5 mg Tablet 2.5 mg PO BID 30 Days Qty: 0 0RF Problem Reconciliation Problems Reviewed?: Yes Patient Discharge Instructions ACTIVITY: Continue current activity DIET: continue same diet Patient Instructions: DI for Diverticulitis, DI for Gastrointestinal Bleeding Print Language: Urdu Providers Primary Care Provider: Jeane Hodge Admit Provider: Gage Goetz Attending Provider: Gage Goetz
[2024-06-14 07:47] VITALS: BP 114/53; PULSE 67; RESP 18; TEMP 36.6; O2SAT 99
[2024-06-14 08:00] VITALS: PULSE 70
[2024-06-14] MEDS: PANTOPRAZOLE 40MG VIAL 40 MG IV (09:18)
[2024-06-14] MEDS: APIXABAN 5MG TABLET 2.5 MG PO (09:18)
[2024-06-14] MEDS: SODIUM CHLORIDE 0.9% 10ML VIAL 10 ML IV (09:18)
[2024-06-14] MEDS: AMIODARONE 200 MG PO (09:36)
[2024-06-14] MEDS: PAT OWN MED ***METOPROLOL SUCCINATE XL 25MG 25 MG PO (09:37)
--- NOTE | 2024-06-15 10:31 | SW/DCPLANNER ---
Spoke with patient on the phone. Patient stated that she is doing well. Patient stated that she is aware of her upcoming appointments. Patient stated that her appointments were written down in her book. Patient stated that she would prefer to see Dr. Hodge and let her look at her bedsore than to let Dr Barnes look at it. Patient stated that she has no concerns or questions at this time and that she didnt have nay new medicine prescribed to her. Sushil Schroeder
== END 2024-06-14 10:37 | disposition home or self-care (01) ==
LOC: ER 19:32 → 2ND 22:00
PROVIDERS: Internal Medicine Gastroenterology; Nurse Practitioner Acute Care; Admitting Provider Student in an Organized Health Care Education/Training Program; Emergency Provider Emergency Medicine; PCP Nurse Practitioner Family; Visit Provider Student in an Organized Health Care Education/Training Program
PROC: 0DJD8ZZ Inspection of Lower Intestinal Tract, Via Natural or Artificial Opening Endoscopic (ICD-10-PCS; CPT 45378; principal; 2024-06-13 07:30)
DX: K92.1 Melena (principal); K92.2 Gastrointestinal hemorrhage, unspecified; D62 Acute posthemorrhagic anemia; I34.0 Nonrheumatic mitral (valve) insufficiency; I48.0 Paroxysmal atrial fibrillation; D64.9 Anemia, unspecified; Z95.2 Presence of prosthetic heart valve; Z98.890 Other specified postprocedural states; Z79.82 Long term (current) use of aspirin; Z79.899 Other long term (current) drug therapy; Z82.3 Family history of stroke; Z82.49 Family history of ischemic heart disease and other diseases of the circulatory system; Z90.49 Acquired absence of other specified parts of digestive tract
CPT/HCPCS: 45385; 36415; 70450; 70496; 70498; 74174; 80048; 80053; 81001; 83735; 85014; 85018; 85025; 86803; 86850; 87086; 87389; 88305; 99285; G0378; J2405; Q9967

== ENCOUNTER 2024-06-21 12:40 | Outpatient (CLI) | payer MEDICARE, OTHER, SELFPAY ==
--- NOTE | 2024-06-21 12:45 | XR_ITS ---
FINAL REPORT CLINICAL HISTORY: s/p Open heart surgery COMPARISON: 06/09/2023 FINDINGS: 2 views of the chest were obtained . The heart is normal in size. There has been interval mitral valve replacement. The mediastinum is within normal limits. The lungs are clear. There is no effusion pneumothorax. Osseous structures are unremarkable. IMPRESSION: Postoperative changes without acute cardiopulmonary process. Reviewed, Interpreted and Dictated by Belinda Srivastava MD Transcribed by Mimi Bar Authenticated and [facility]
[2024-06-21 13:06] LABS: Basophils # 0.1 K/mm3 (0-0.2); Basophils % 1.3 % (0.1-2.0); Eosinophils # 0.2 K/mm3 (0.0-0.4); Eosinophils % 2.9 % (0.1-12.0); Hematocrit 37.9 % (37.0-47.0); Hemoglobin 11.7 g/dL (12.2-16.2); Lymphocytes # 1.3 K/mm3 (0.7-4.5); Lymphocytes % 22.9 % (10-50); Mean Corpuscular HGB Conc 30.9 g/dL (31.8-35.4); Mean Corpuscular Hemoglobin 27.5 pg (27.0-31.2); Mean Corpuscular Volume 89.2 fl (81-99); Mean Platelet Volume 10.4 fl (7.4-10.4); Monocytes # 0.6 K/mm3 (0.1-1.0); Monocytes % 10.6 % (1.7-9.3); Neutrophils # 3.4 K/mm3 (1.8-7.8); Neutrophils % 62.1 % (37.0-80.0); Platelet Count 297 K/mm3 (142-424); Red Blood Count 4.25 M/mm3 (4.20-5.40); Red Cell Distribution Width 14.2 % (11.5-17.5); White Blood Count 5.5 K/mm3 (4.8-10.8)
[2024-06-21 13:30] LABS: Albumin Level 4.3 g/dl (3.5-5.0); Chloride 103 mmol/L (98-107)
[2024-06-21 13:31] LABS: Potassium 4.3 mmoL/L (3.5-5.1); Sodium 140 mmol/L (136-145)
[2024-06-21 13:33] LABS: Alanine Aminotransferase 33 U/L (12-78); Anion Gap 12.3 mEq/L (5-15); Aspartate Amino Transferase 36 U/L (14-36); Blood Urea Nitrogen 16 mg/dl (7-17); Carbon Dioxide 29 mmol/L (22.0-30.0); Estimated Glomerular Filt Rate 82 ml/min (>60); GFR (African American) 99 ML/MIN (>60)
[2024-06-21 13:34] LABS: Albumin/Globulin Ratio 1.9 (1.1-1.8); Alkaline Phosphatase 84 U/L (38-126); Bilirubin,Total 0.5 mg/dl (0.2-1.3); Calcium 9.6 mg/dl (8.4-10.2); Globulin 2.3 g/dL (1.3-3.2); Glucose 102 mg/dl (74-100); Iron 46 ug/dL (37-170); Total Protein,Serum 6.6 g/dl (6.3-8.2)
[2024-06-21 13:43] LABS: Total Iron Binding Capacity 342 ug/dL (265-497)
[2024-06-21 13:51] LABS: Free T4 (Free Thyroxine) 1.44 ng/dl (0.78-2.19)
[2024-06-21 14:05] LABS: Thyroid Stimulating Hormone 2.56 uIU/mL (0.465-4.68)
[2024-06-21 14:09] LABS: Ferritin 97.3 ng/ml (11.1-264)
== END 2024-06-21 23:59 | disposition home or self-care (01) ==
LOC: LAB 12:42
PROVIDERS: PCP Internal Medicine; Visit Provider Internal Medicine
DX: Z13.29 Encounter for screening for other suspected endocrine disorder (principal); Z95.2 Presence of prosthetic heart valve; D62 Acute posthemorrhagic anemia; D64.9 Anemia, unspecified
CPT/HCPCS: 36415; 71046; 80053; 82728; 83540; 83550; 84439; 84443; 85025

== ENCOUNTER 2024-06-23 11:44 | Outpatient (CLI) | payer MEDICARE, OTHER, SELFPAY ==
--- NOTE | 2024-06-23 11:50 | ECG_ITS ---
APPROVED REPORT Exam: Resting ECG HR:65 bpm ECG Measurements Heart Rate 65 AXES [place] 147 P 78 QRSd 86 QRS 89 QT 405 T 67 QTc 416 Conclusion SINUS RHYTHM NONSPECIFIC T-WAVE ABNORMALITY BORDERLINE ECG UNCONFIRMED REPORT Electronically signed by : Pedrito Horton MD 06/24/2024 13:28:00
== END 2024-06-23 23:59 | disposition home or self-care (01) ==
LOC: RT 11:45
PROVIDERS: PCP Internal Medicine; Visit Provider Internal Medicine
DX: R94.31 Abnormal electrocardiogram [ECG] [EKG] (principal); Z95.2 Presence of prosthetic heart valve
CPT/HCPCS: 93005

== ENCOUNTER 2024-07-12 15:00 | Outpatient (CLI) | payer MEDICARE, OTHER, SELFPAY ==
[2024-07-12 17:17] LABS: Basophils # 0.1 K/mm3 (0-0.2); Basophils % 1.2 % (0.1-2.0); Eosinophils # 0.1 K/mm3 (0.0-0.4); Eosinophils % 1.5 % (0.1-12.0); Hematocrit 41.4 % (37.0-47.0); Hemoglobin 13.1 g/dL (12.2-16.2); Lymphocytes # 1.1 K/mm3 (0.7-4.5); Lymphocytes % 16.8 % (10-50); Mean Corpuscular HGB Conc 31.6 g/dL (31.8-35.4); Mean Corpuscular Hemoglobin 27.5 pg (27.0-31.2); Mean Corpuscular Volume 86.8 fl (81-99); Mean Platelet Volume 11.6 fl (7.4-10.4); Monocytes # 0.8 K/mm3 (0.1-1.0); Monocytes % 12.2 % (1.7-9.3); Neutrophils # 4.4 K/mm3 (1.8-7.8); Neutrophils % 67.8 % (37.0-80.0); Platelet Count 249 K/mm3 (142-424); Red Blood Count 4.77 M/mm3 (4.20-5.40); White Blood Count 6.5 K/mm3 (4.8-10.8)
[2024-07-12 18:22] LABS: Free T4 (Free Thyroxine) 1.46 ng/dl (0.78-2.19)
[2024-07-12 18:36] LABS: Thyroid Stimulating Hormone 2.19 uIU/mL (0.465-4.68)
[2024-07-12 19:28] LABS: Iron 42 ug/dL (37-170)
[2024-07-12 19:37] LABS: Total Iron Binding Capacity 380 ug/dL (265-497)
== END 2024-07-12 23:59 | disposition home or self-care (01) ==
LOC: LAB.DROPOF 07-13 12:50
PROVIDERS: PCP Internal Medicine; Visit Provider Internal Medicine
DX: Z13.29 Encounter for screening for other suspected endocrine disorder (principal); D50.9 Iron deficiency anemia, unspecified
CPT/HCPCS: 83540; 83550; 84439; 84443; 85025

== ENCOUNTER 2024-07-25 09:58 | Outpatient (RCR) | payer MEDICARE, OTHER, SELFPAY | END 2024-10-12 11:00 | disposition home or self-care (01) | LOC: CR 09:58 | PROVIDERS: Visit Provider Internal Medicine Cardiovascular Disease | DX: I48.91 Unspecified atrial fibrillation (principal); I34.0 Nonrheumatic mitral (valve) insufficiency; Z95.2 Presence of prosthetic heart valve | CPT/HCPCS: 93798 ==

== ENCOUNTER 2024-08-29 11:10 | Outpatient (CLI) | payer MEDICARE, OTHER, SELFPAY ==
[2024-08-29 11:14] LABS: Hemoglobin 15.1 g/dL (12.2-16.2); Mean Corpuscular Hemoglobin 26.5 pg (27.0-31.2); Mean Corpuscular Volume 82.6 fl (81-99); Red Blood Count 5.69 M/mm3 (4.20-5.40); White Blood Count 5.8 K/mm3 (4.8-10.8)
[2024-08-29 11:15] LABS: Basophils # 0.1 K/mm3 (0-0.2); Basophils % 1.2 % (0.1-2.0); Eosinophils # 0.1 Kmm3 (0.0-0.4); Immature Granulocytes # 0.01 10^3uL; Immature Granulocytes % 0.2 %; Lymphocytes # 1.3 K/mm3 (0.7-4.5); Lymphocytes % 22.9 % (10-50); Mean Corpuscular HGB Conc 32.1 g/dL (31.8-35.4); Mean Platelet Volume 10.4 fl (7.4-10.4); Monocytes # 0.6 K/mm3 (0.1-1.0); Monocytes % 9.5 % (1.7-9.3); Neutrophils # 3.8 K/mm3 (1.8-7.8); Neutrophils % 65.2 % (37.0-80.0); Nucleated Red Blood Cells # 0 10^3/uL; Nucleated Red Blood Cells % 0 %; Platelet Count 211 K/mm3 (142-424); Red Cell Distribution Width 16.3 % (11.5-17.5); Red Cell Distribution Width-SD 48.7 fL
[2024-08-29 11:30] LABS: Chloride 104 mmol/L (98-107)
[2024-08-29 11:31] LABS: Albumin Level 4.7 g/dl (3.5-5.0); Potassium 4.4 mmoL/L (3.5-5.1); Sodium 138 mmol/L (136-145)
[2024-08-29 11:33] LABS: Alanine Aminotransferase 51 U/L (12-78); Alkaline Phosphatase 69 U/L (38-126); Anion Gap 7.4 mEq/L (5-15); Aspartate Amino Transferase 47 U/L (14-36); Bilirubin,Total 0.5 mg/dl (0.2-1.3); Blood Urea Nitrogen 24 mg/dl (7-17); Carbon Dioxide 31 mmol/L (22.0-30.0); Estimated Glomerular Filt Rate 70 ml/min (>60); GFR (African American) 84 ML/MIN (>60)
[2024-08-29 11:34] LABS: Albumin/Globulin Ratio 1.7 (1.1-1.8); Chol/HDL Ratio 2.8 (1-3.5); Cholesterol 174 mg/dl (140-200); Globulin 2.8 g/dL (1.3-3.2); Glucose 99 mg/dl (74-100); HDL Cholesterol 62 mg/dl (40-60); Magnesium 2.3 mg/dl (1.6-2.3); Total Protein,Serum 7.5 g/dl (6.3-8.2); Triglycerides 110 mg/dl (30-150); VLDL Cholesterol 22 mg/dL (0-40)
[2024-08-29 12:07] LABS: Thyroid Stimulating Hormone 3.15 uIU/mL (0.465-4.68)
[2024-08-29 12:12] LABS: Ferritin 29.8 ng/ml (11.1-264)
[2024-08-29 12:22] LABS: Troponin I < 0.01 ng/ml (0.00-0.034)
[2024-08-29 13:19] LABS: Direct LDL Cholesterol 84.76 mg/dL (100-129)
[2024-08-29 14:59] LABS: Hemoglobin A1C 5.4 % (4.0-6.0)
== END 2024-08-29 23:59 | disposition home or self-care (01) ==
LOC: LAB.DROPOF 11:10
PROVIDERS: PCP Nurse Practitioner Family; Visit Provider Nurse Practitioner Family
DX: D64.9 Anemia, unspecified (principal); R07.9 Chest pain, unspecified; E78.5 Hyperlipidemia, unspecified; R73.9 Hyperglycemia, unspecified; I48.91 Unspecified atrial fibrillation
CPT/HCPCS: 80053; 80061; 82728; 83036; 83735; 84443; 84481; 84484; 85025

== ENCOUNTER 2024-09-20 08:42 | Outpatient (CLI) | payer MEDICARE, OTHER, SELFPAY ==
--- NOTE | 2024-09-20 09:00 | CA_ITS ---
FINAL REPORT TECHNIQUE: Espinoza scale, color and spectral doppler images of the bilateral carotid arteries were obtained. CLINICAL HISTORY: DIZZINESS,RUBI,HLD COMPARISON: 11/10/2022 FINDINGS: Peak systolic velocity in the right internal carotid artery is 65 cm/sec. The internal carotid to common carotid artery ratio is 1.2. There is no significant carotid artery stenosis and mild plaque formation. The right vertebral artery is normal in direction. Peak systolic velocity in the left internal carotid artery is 72 cm/sec. The internal carotid to common carotid artery ratio is 1.3. There is mild carotid artery stenosis and no significant plaque formation. The left vertebral artery is normal in direction. IMPRESSION: No ultrasound evidence of hemodynamically significant carotid artery stenosis. Normal peak systolic velocities and normal internal to common carotid artery ratios bilaterally. Reviewed, Interpreted and Dictated by Tavon Ibarra MD Transcribed by Vivi Molina Authenticated and [facility]
--- NOTE | 2024-09-20 12:05 | XR_ITS ---
FINAL REPORT CLINICAL HISTORY: cough, post mitral valve repair COMPARISON: 06/21/2024 FINDINGS: CHEST 2 VIEWS PA AND LATERAL The heart is normal in size. The mediastinum is unremarkable. The lungs are clear. Midline row of skin nasra are identified. There is no pneumothorax. IMPRESSION: No acute process. Reviewed, Interpreted and Dictated by Tavon Ibarra MD Transcribed by Karely Dawn Authenticated and . [facility]
== END 2024-09-20 23:59 | disposition home or self-care (01) ==
PROVIDERS: PCP Nurse Practitioner Family; Visit Provider Nurse Practitioner Family
DX: H53.139 Sudden visual loss, unspecified eye (principal); E78.5 Hyperlipidemia, unspecified; I65.29 Occlusion and stenosis of unspecified carotid artery; R05.1 Acute cough; Z98.890 Other specified postprocedural states
CPT/HCPCS: 71046; 93880

== ENCOUNTER 2024-09-20 14:29 | Outpatient (CLI) | payer MEDICARE, OTHER, SELFPAY ==
[2024-09-20 12:58] LABS: Coronavirus 19, PCR Not Detected (NotDetected); Influenza A, PCR Not Detected (NotDetected); Influenza B, PCR Not Detected (NotDetected); Respiratory Syncytial Virus Not Detected (NotDetected)
[2024-09-20 18:13] LABS: Human Rhinovirus Detected (NotDetected)
== END 2024-09-20 23:59 | disposition home or self-care (01) ==
LOC: LAB.DROPOF 14:29
PROVIDERS: PCP Nurse Practitioner Family; Visit Provider Nurse Practitioner Family
DX: R50.9 Fever, unspecified (principal)
CPT/HCPCS: 87631

== ENCOUNTER 2024-10-09 08:45 | Outpatient (CLI) | payer MEDICARE, OTHER, SELFPAY ==
--- OUTSIDE RECORDS SUMMARY | 2024-10-09 08:48 | XMS_ITS | Encounter Summary ---
Author Organization Healthcare Address [address] [place] [address] Care Team Providers Care Arborist Climber Name Role Phone Pcp, No Primary Care Provider Unavailabl e Encounter Details Date Type Department Care Team (Late st Contact Info) Description 07/17/2024 Ophth Exam [facility] [address] [place] [phone] Eh Tamez MD [address] [place] [id number] Social History Tobacco Use Types Packs/Day Years Used Date Smoking Tobacco: Never Assessed Comments Unknown Sex and Gender Information Value Date Recorded Sex Assigned at Not on file Legal Sex Female 6:40 PM EDT Gender Identity Not on file Sexual Orientation Not on file documented as of this encounter Functional Status * Calculated C-SSRS Risk Score (Lifetime/Recent) Answer Date of Assessment Author No Risk Indicated 07/17/2024 7:25 PM EDT Jackie Cooley RN * Question Answer Date of Assessment Author 1. Wish to be (Past 1 Month) No 025 7:25 PM EDT Jackie Cooley RN 2. Non-Specific Active Suici janessa Thoughts (Past 1 Month) No 07/17/2024 7:25 PM EDT Duong Cooley RN 6. Suicidal Behavior (Lifetime) No 7:25 PM EDT Jackie Cooley RN documented as of this encounter Plan of Treatment Not on file documented as of this encounter Visit Diagnoses Not on filedocumented in this encounter Care Teams Arborist Climber Relationship Specialty Start Date End Date Pcp, No [address] [place] [address] PCP - General Family Medicine 07/17/24 documented as of this encounter
--- OUTSIDE RECORDS SUMMARY | 2024-10-09 08:48 | XMS_ITS ---
Laboratory report Created on: September 01, 2024 REGIS SHELLEY : 1950 Sex: Female Author Organization Unknown PROBLEMS Problems List Code Description RESULTS Laboratory Orders Date Order Code Test 2024-08-29 [id number] TRIIODOTHYRONINE (T3), FREE Laboratory Results Date LOINC Test Value Unit Reference Range Interpre tation 2024-08-29 3051-0 TRIIODOTHYRONINE (T3), FREE 3 PG/ML 2.0-4.4
--- OUTSIDE RECORDS SUMMARY | 2024-10-09 08:48 | XMS_ITS | Clinical Summary ---
Author Organization [facility] Address [address] 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 Phone Pcp, No Primary Care Provider Unavailabl e Allergies Active Allergy Reactions Criticality Noted Date Comments Acetaminophen Unknown - Patient states they do not know rxn details,Other - please document in the comment field Low 08/13/2023 Amoxicillin Anxiety Low 08/13/2023 Amoxicillin-Pot Clavulanate Nausea And Vomiting,Vomiting 01/22/2017 Vomiting Headache Continuous sneezing Vomiting Headache Continuous sneezing Azithromycin Anxiety,Hallucinat ions High 08/13/2023 Hyper Cephalexin Unknown - Patient states they do not know rxn details Low 12/31/2022 UTI, Blood in stool Clavulanic Acid Anxiety,Hallucinat ions Medium 08/13/2023 Dexlansoprazole Other - please document in the comment field Low 12/14/2023 Worked but had side effects of leg pain Doxycycline Rash Low 01/22/2017 Blood in stool Garlic Cough,Other - please document in the comment field Medium 06/02/2024 anything with garlic Hydrocodone Rash Low 01/11/2020 Hyper Hydrocodone-Acetaminophen Itching,Nausea And Vomiting,Vomiting Medium 06/23/2018 Morphine Rash Low 06/30/2012 Hypersensitivity Prednisone Other - please document in the comment field,Palpitations Low 06/30/2012 Heart racing Soap Rash Low 08/13/2023 Sulfa Drugs Hives High 06/30/2012 Encounters Date Type Department Care Team Description [facility] [address] [place] [phone] None, None 07/17/2024 7:17 PM EDT - 07/18/2024 12:08 AM EDT Emergency [facility] Emergency Department [address] [place] [address] Cameron Huang MD Grace, Patrick M, MD Visual disturbance of one eye (Primary Dx) Discharge Disposition: Home or Self Care 07/17/2024 Ophth Exam [facility] [address] [place] [phone] Eh Tamez MD 07/17/2024 Travel from Last 3 Months Social History Tobacco Use Types Packs/Day Years Used Date Smoking Tobacco: Never Assessed Comments Unknown Sex and Gender Information Value Date Recorded Sex Assigned at Not on file Legal Sex Female 6:40 PM EDT Gender Identity Not on file Sexual Orientation Not on file Last Filed Vital Signs Vital Sign Reading Time Taken Comments Blood Pressure 129/85 07/18/2024 12:07 AM EDT Pulse 64 07/18/2024 12:07 AM EDT Temperature 36.7 C (98.1 F) 07/18/2024 12:07 AM EDT Respiratory Rate 16 07/18/2024 12:07 AM EDT Oxygen Saturation 97% 07/18/2024 12:07 AM EDT Inhaled Oxygen Concentration - - Weight 54 kg (119 lb 0.8 oz) 07/17/2024 7:26 PM EDT Height 160 cm (5' 3 ) 07/17/2024 7:26 PM EDT Body Mass Index 21.09 07/17/2024 7:26 PM EDT Plan of Treatment Health Maintenance Due Date Last Done Comments [facility]-Depression Screening 1950 [facility]-Medicare Annual Wellness (AWV) 1950 [facility]-/Child/Adol SDOH Screenings 1950 [facility]- SDOH Screenings 1966 [facility]-Adult SDOH Screenings 1966 [facility]-Pneumococcal Vaccine: 50+ Years (1 of 1 - PCV) 1998 [facility]-Zoster Vaccines (1 of 2) 1998 [facility]-DTaP,Tdap,and Td Vaccines (1 - Tdap) 02/28/2004 02/27/2004, 06/27/1996 [facility]-Bone Density Scan 07/08/2023 07/07/2021 [facility]-RSV Vaccine: 60+ Years or (1 - 1-dose 75+ series) 07/21/2023 [id number] Vaccine ( season) 2023 05/19/2023, 01/28/2022, 03/12/2021, Additional history exists [facility]-Influenza Vaccine (Season Ended) 2024 02/17/2020 [facility]-Hepatitis C Screening Completed 07/17/2024 HPV Vaccines Aged Out No longer eligi ble based on patient's age to complete this topic [facility]-HIB Vaccines Aged Out No longer e ligible based on patient's age to complete this topic [facility]-Hepatitis A Vaccines Aged Out No longer eligible based on patient's age to complete this topic [facility]-IPV Vaccines Aged Out No longer e ligible based on patient's age to complete this topic [facility]-Rotavirus Vaccines Aged Out No lo nger eligible based on patient's age to complete this topic Procedures Procedure Name Priority Date/Time Associated Diagnosis Comments CT ANGIO NECK STAT 07/17/2024 7:[address] ANGIO HEAD STAT 07/17/2024 7:[address] HEAD WO IV CONTRAST STAT 7:47 PM EDT ED HIV 1/2 ANTIBODY/ANTIGEN SCREEN WITH REFLEX TO HIV I/II DIFFERENTIATION STAT 07/17/2024 6:53 PM EDT ED PROTOCOL HIV 1/2 ANTIBODY/ANTIGEN SCREEN W/REFLEX TO HIV 1/2 ANTIBODY DIFFERENTIATION STAT 07/17/2024 6:53 PM EDT HEPATITIS C ANTIBODY - ED W/REFLEX TO HCV QUANT PCR STAT 07/17/2024 6:53 PM EDT CBC WITH AUTO DIFFERENTIAL STAT 07/17/2024 6:53 PM EDT BASIC METABOLIC PANEL, PLASMA STAT 07/17/2024 6:53 PM EDT from Last 3 Months Results * CT Angio Neck (07/17/2024 7:47 PM EDT) Anatomical Region Laterality Modality Carotid Artery Computed Tomogra phy Impressions 07/17/2024 9:14 PM EDT 1. No acute intracranial abnormality. 2. CTA of the head and neck without evidence of significant extracranial or intracranial arterial stenosis, or acute large artery occlusion. 3. Right mastoid effusion. The right middle ear cavity remains aerated. Correlate for any focal symptoms. CRITICAL RESULT: No. COMMUNICATION: Per this written report. Drafted by Tuan Matta MD on 07/17/2024 9:06 PM Final report signed by Tuan Matta MD on 07/17/2024 9:14 PM Narrative 07/17/2024 9:14 PM EDT CLINICAL INDICATION: Neuro deficit, acute, stroke suspected TECHNIQUE: Routine contiguous axial CT images of the head were obtained without contrast administration. Contrast-enhanced CT angiogram of the head and neck was obtained after administration of intravenous iodinated contrast using 0.6 mm axial slice thickness with multiplanar reformations and maximum intensity projections. In addition, 3D images were created and reviewed. AI Utilization: None Total DLP (Dose-Length Product): 1128.43 mGy.cm (accession [id number]), 1128.43 mGy.cm (accession [id number]), 1128.43 mGy.cm (accession [id number]). Please note: The reported value represents the total of one or more individual components during the CT acquisition on this date and at this time, and as such, the same value may appear in more than one CT report depending on the interpreting/reporting physicians. COMPARISON: None. FINDINGS: CT Head without: The CSF spaces appear clear. No midline shift, or attenuation of the basilar cisterns. Chronic appearing cerebral and cerebellar volume loss. Mild periventricular white matter microvascular changes. No evidence of acute large territory infarct. No acute intracranial hemorrhage. The calvarium and the skull base are without acute findings. Right mastoid effusion, right middle ear cavity remains aerated. Left mastoid, middle ear cavity, and the paranasal sinuses are aerated. Extracranial soft tissues without acute findings. CTA Head: There is normal vascular anatomy. Mild calcific atherosclerotic disease of the carotid siphons without significant stenosis. There is no evidence of significant arterial stenosis, occlusion, dissection, or pseudoaneurysm. The intracranial venous structures are also fairly well opacified and appear patent. CTA Neck: There is normal vascular anatomy. There is no evidence of significant arterial stenosis, occlusion, dissection, or pseudoaneurysm. There is 0% stenosis of the ICA origins by NASCET criteria. Procedure Note Tuan Matta MD - 07/17/2024 CLINICAL INDICATION: Neuro deficit, acute, stroke suspected TECHNIQUE: Routine contiguous axial CT images of the head were obtained withoutcontrast administration. Contrast-enhanced CT angiogram of the head and neck was obtained afteradministration of intravenous iodinated contrast using 0.6 mm axial slicethickness with multiplanar reformations and maximum intensity projections.In addition, 3D images were created and reviewed. AI Utilization: None Total DLP (Dose-Length Product): 1128.43 mGy.cm (accession [id number]),1128.43 mGy.cm (accession [id number]), 1128.43 mGy.cm (accession [id number]).Please note: The reported value represents the total of one or moreindividual components during the CT acquisition on this date and at thistime, and as such, the same value may appear in more than one CT reportdepending on the interpreting/reporting physicians. COMPARISON: None. FINDINGS: CT Head without: The CSF spaces appear clear. No midline shift, or attenuation of the basilar cisterns. Chronic appearing cerebral and cerebellar volume loss. Mild periventricular white matter microvascular changes. No evidence of acute large territory infarct. No acute intracranial hemorrhage. The calvarium and the skull base are without acute findings. Right mastoid effusion, right middle ear cavity remains aerated. Left mastoid, middle ear cavity, and the paranasal sinuses are aerated. Extracranial soft tissues without acute findings. CTA Head: There is normal vascular anatomy. Mild calcific atherosclerotic disease ofthe carotid siphons without significant stenosis. There is no evidence ofsignificant arterial stenosis, occlusion, dissection, or pseudoaneurysm.The intracranial venous structures are also fairly well opacified andappear patent. CTA Neck: There is normal vascular anatomy. There is no evidence of significantarterial stenosis, occlusion, dissection, or pseudoaneurysm. There is 0%stenosis of the ICA origins by NASCET criteria. IMPRESSION: 1. No acute intracranial abnormality. 2. CTA of the head and neck without evidence of significant extracranialor intracranial arterial stenosis, or acute large artery occlusion. 3. Right mastoid effusion. The right middle ear cavity remains aerated.Correlate for any focal symptoms. CRITICAL RESULT: No. COMMUNICATION: Per this written report. Drafted by Tuan Matta MD on 07/17/2024 9:06 PM Final report signed by Tuan Matta MD on 07/17/2024 9:14 PM us Yin Johnson IMG CT PROCEDURES Final Result * CT Head wo IV Contrast (07/17/2024 7:47 PM EDT) Anatomical Region Laterality Modality Head Computed Tomogra phy Impressions 07/17/2024 9:14 PM EDT 1. No acute intracranial abnormality. 2. CTA of the head and neck without evidence of significant extracranial or intracranial arterial stenosis, or acute large artery occlusion. 3. Right mastoid effusion. The right middle ear cavity remains aerated. Correlate for any focal symptoms. CRITICAL RESULT: No. COMMUNICATION: Per this written report. Drafted by Tuan Matta MD on 07/17/2024 9:06 PM Final report signed by Tuan Matta MD on 07/17/2024 9:14 PM Narrative 07/17/2024 9:14 PM EDT CLINICAL INDICATION: Neuro deficit, acute, stroke suspected TECHNIQUE: Routine contiguous axial CT images of the head were obtained without contrast administration. Contrast-enhanced CT angiogram of the head and neck was obtained after administration of intravenous iodinated contrast using 0.6 mm axial slice thickness with multiplanar reformations and maximum intensity projections. In addition, 3D images were created and reviewed. AI Utilization: None Total DLP (Dose-Length Product): 1128.43 mGy.cm (accession [id number]), 1128.43 mGy.cm (accession [id number]), 1128.43 mGy.cm (accession [id number]). Please note: The reported value represents the total of one or more individual components during the CT acquisition on this date and at this time, and as such, the same value may appear in more than one CT report depending on the interpreting/reporting physicians. COMPARISON: None. FINDINGS: CT Head without: The CSF spaces appear clear. No midline shift, or attenuation of the basilar cisterns. Chronic appearing cerebral and cerebellar volume loss. Mild periventricular white matter microvascular changes. No evidence of acute large territory infarct. No acute intracranial hemorrhage. The calvarium and the skull base are without acute findings. Right mastoid effusion, right middle ear cavity remains aerated. Left mastoid, middle ear cavity, and the paranasal sinuses are aerated. Extracranial soft tissues without acute findings. CTA Head: There is normal vascular anatomy. Mild calcific atherosclerotic disease of the carotid siphons without significant stenosis. There is no evidence of significant arterial stenosis, occlusion, dissection, or pseudoaneurysm. The intracranial venous structures are also fairly well opacified and appear patent. CTA Neck: There is normal vascular anatomy. There is no evidence of significant arterial stenosis, occlusion, dissection, or pseudoaneurysm. There is 0% stenosis of the ICA origins by NASCET criteria. Procedure Note Tuan Matta MD - 07/17/2024 CLINICAL INDICATION: Neuro deficit, acute, stroke suspected TECHNIQUE: Routine contiguous axial CT images of the head were obtained withoutcontrast administration. Contrast-enhanced CT angiogram of the head and neck was obtained afteradministration of intravenous iodinated contrast using 0.6 mm axial slicethickness with multiplanar reformations and maximum intensity projections.In addition, 3D images were created and reviewed. AI Utilization: None Total DLP (Dose-Length Product): 1128.43 mGy.cm (accession [id number]),1128.43 mGy.cm (accession [id number]), 1128.43 mGy.cm (accession [id number]).Please note: The reported value represents the total of one or moreindividual components during the CT acquisition on this date and at thistime, and as such, the same value may appear in more than one CT reportdepending on the interpreting/reporting physicians. COMPARISON: None. FINDINGS: CT Head without: The CSF spaces appear clear. No midline shift, or attenuation of the basilar cisterns. Chronic appearing cerebral and cerebellar volume loss. Mild periventricular white matter microvascular changes. No evidence of acute large territory infarct. No acute intracranial hemorrhage. The calvarium and the skull base are without acute findings. Right mastoid effusion, right middle ear cavity remains aerated. Left mastoid, middle ear cavity, and the paranasal sinuses are aerated. Extracranial soft tissues without acute findings. CTA Head: There is normal vascular anatomy. Mild calcific atherosclerotic disease ofthe carotid siphons without significant stenosis. There is no evidence ofsignificant arterial stenosis, occlusion, dissection, or pseudoaneurysm.The intracranial venous structures are also fairly well opacified andappear patent. CTA Neck: There is normal vascular anatomy. There is no evidence of significantarterial stenosis, occlusion, dissection, or pseudoaneurysm. There is 0%stenosis of the ICA origins by NASCET criteria. IMPRESSION: 1. No acute intracranial abnormality. 2. CTA of the head and neck without evidence of significant extracranialor intracranial arterial stenosis, or acute large artery occlusion. 3. Right mastoid effusion. The right middle ear cavity remains aerated.Correlate for any focal symptoms. CRITICAL RESULT: No. COMMUNICATION: Per this written report. Drafted by Tuan Matta MD on 07/17/2024 9:06 PM Final report signed by Tuan Matta MD on 07/17/2024 9:14 PM us Yin Johnson IMG CT PROCEDURES Final Result * CT Angio Head (07/17/2024 7:47 PM EDT) Anatomical Region Laterality Modality [place] of [place] Computed Tomogr aphy Impressions 07/17/2024 9:14 PM EDT 1. No acute intracranial abnormality. 2. CTA of the head and neck without evidence of significant extracranial or intracranial arterial stenosis, or acute large artery occlusion. 3. Right mastoid effusion. The right middle ear cavity remains aerated. Correlate for any focal symptoms. CRITICAL RESULT: No. COMMUNICATION: Per this written report. Drafted by Tuan Matta MD on 07/17/2024 9:06 PM Final report signed by Tuan Matta MD on 07/17/2024 9:14 PM Narrative 07/17/2024 9:14 PM EDT CLINICAL INDICATION: Neuro deficit, acute, stroke suspected TECHNIQUE: Routine contiguous axial CT images of the head were obtained without contrast administration. Contrast-enhanced CT angiogram of the head and neck was obtained after administration of intravenous iodinated contrast using 0.6 mm axial slice thickness with multiplanar reformations and maximum intensity projections. In addition, 3D images were created and reviewed. AI Utilization: None Total DLP (Dose-Length Product): 1128.43 mGy.cm (accession [id number]), 1128.43 mGy.cm (accession [id number]), 1128.43 mGy.cm (accession [id number]). Please note: The reported value represents the total of one or more individual components during the CT acquisition on this date and at this time, and as such, the same value may appear in more than one CT report depending on the interpreting/reporting physicians. COMPARISON: None. FINDINGS: CT Head without: The CSF spaces appear clear. No midline shift, or attenuation of the basilar cisterns. Chronic appearing cerebral and cerebellar volume loss. Mild periventricular white matter microvascular changes. No evidence of acute large territory infarct. No acute intracranial hemorrhage. The calvarium and the skull base are without acute findings. Right mastoid effusion, right middle ear cavity remains aerated. Left mastoid, middle ear cavity, and the paranasal sinuses are aerated. Extracranial soft tissues without acute findings. CTA Head: There is normal vascular anatomy. Mild calcific atherosclerotic disease of the carotid siphons without significant stenosis. There is no evidence of significant arterial stenosis, occlusion, dissection, or pseudoaneurysm. The intracranial venous structures are also fairly well opacified and appear patent. CTA Neck: There is normal vascular anatomy. There is no evidence of significant arterial stenosis, occlusion, dissection, or pseudoaneurysm. There is 0% stenosis of the ICA origins by NASCET criteria. Procedure Note Tuan Matta MD - 07/17/2024 CLINICAL INDICATION: Neuro deficit, acute, stroke suspected TECHNIQUE: Routine contiguous axial CT images of the head were obtained withoutcontrast administration. Contrast-enhanced CT angiogram of the head and neck was obtained afteradministration of intravenous iodinated contrast using 0.6 mm axial slicethickness with multiplanar reformations and maximum intensity projections.In addition, 3D images were created and reviewed. AI Utilization: None Total DLP (Dose-Length Product): 1128.43 mGy.cm (accession [id number]),1128.43 mGy.cm (accession [id number]), 1128.43 mGy.cm (accession [id number]).Please note: The reported value represents the total of one or moreindividual components during the CT acquisition on this date and at thistime, and as such, the same value may appear in more than one CT reportdepending on the interpreting/reporting physicians. COMPARISON: None. FINDINGS: CT Head without: The CSF spaces appear clear. No midline shift, or attenuation of the basilar cisterns. Chronic appearing cerebral and cerebellar volume loss. Mild periventricular white matter microvascular changes. No evidence of acute large territory infarct. No acute intracranial hemorrhage. The calvarium and the skull base are without acute findings. Right mastoid effusion, right middle ear cavity remains aerated. Left mastoid, middle ear cavity, and the paranasal sinuses are aerated. Extracranial soft tissues without acute findings. CTA Head: There is normal vascular anatomy. Mild calcific atherosclerotic disease ofthe carotid siphons without significant stenosis. There is no evidence ofsignificant arterial stenosis, occlusion, dissection, or pseudoaneurysm.The intracranial venous structures are also fairly well opacified andappear patent. CTA Neck: There is normal vascular anatomy. There is no evidence of significantarterial stenosis, occlusion, dissection, or pseudoaneurysm. There is 0%stenosis of the ICA origins by NASCET criteria. IMPRESSION: 1. No acute intracranial abnormality. 2. CTA of the head and neck without evidence of significant extracranialor intracranial arterial stenosis, or acute large artery occlusion. 3. Right mastoid effusion. The right middle ear cavity remains aerated.Correlate for any focal symptoms. CRITICAL RESULT: No. COMMUNICATION: Per this written report. Drafted by Tuan Matta MD on 07/17/2024 9:06 PM Final report signed by Tuan Matta MD on 07/17/2024 9:14 PM Yin Johnson IM CT PROCEDURES Final Result * ED HIV 1/2 Antibody/Antigen Screen w/Reflex to HIV 1/2 Differentiation (07/17/2024 6:53 PM EDT) HIV 1 & 2 Antibody/Antigen Screen Non Reactive Non Reactive 07/17/2024 7:52 PM EDT [facility] Comment:Screening for HIV 1 & 2 antibodies, and P24 antigen is NONREACTIVE. No confirmatory testing is required. Blood Venous blood specimen / Unknown Venipuncture / Unknown 07/17/2024 6:53 PM EDT 07/17/2024 7:10 PM EDT us Yin Johnson LAB BLOOD ORDERABLES Final Resul t Performing Organization Address City/[facility]/ZIP Co de Phone Number [facility] [address] [place] [address] * Hepatitis C Antibody - ED (07/17/2024 6:53 PM EDT) Pathologist [facility] Hepatitis C Antibody Negative Negative 07/17/2024 7:52 PM EDT [facility] Blood Venous blood specimen / Unknown Venipuncture / Unknown 07/17/2024 6:53 PM EDT 07/17/2024 7:11 PM EDT us Yin Johnson LAB BLOOD ORDERABLES Final Resul t Performing Organization Address City/[facility] Co de Phone Number [facility] [address] [place] [address] * CBC w/diff (07/17/2024 6:53 PM EDT) [facility] WBC Count 5.62 3.70 - 10.30 10*3/uL LAB HEMATOLOGY METHOD 07/17/2024 7:07 PM EDT [facility] RBC Count 5.00 3.90 - 5.20 10*6/uL LAB HEMATOLOGY METHOD 07/17/2024 7:07 PM EDT [facility] HGB 13.3 11.2 - 15.7 g/dL LAB HEMATOLOGY METHOD 07/17/2024 7:07 PM EDT [facility] HCT 42.3 34.0 - 45.0 % LAB HEMATOLOGY METHOD 07/17/2024 7:07 PM EDT [facility] Platelet Count 235 155 - 369 10*3/uL LAB HEMATOLOGY METHOD 07/17/2024 7:07 PM EDT [facility] MCV 85 79 - 98 fL LAB HEMATOLOGY METHOD 07/17/2024 7:07 PM EDT [facility] MCH 26.6 26.0 - 32.0 pg LAB HEMATOLOGY METHOD 07/17/2024 7:07 PM EDT [facility] MCHC 31.4 30.7 - 35.5 g/dL LAB HEMATOLOGY METHOD 07/17/2024 7:07 PM EDT [facility] RDW 14.1 11.5 - 14.5 % LAB HEMATOLOGY METHOD 07/17/2024 7:07 PM EDT [facility] MPV 10.7 8.8 - 12.5 fL LAB HEMATOLOGY METHOD 07/17/2024 7:07 PM EDT [facility] nRBC 0.0 <=0.0 per 100 WBCs LAB HEMATOLOGY METHOD 07/17/2024 7:07 PM EDT [facility] Differential Type Automated LAB HEMATOLOGY METHOD 07/17/2024 7:07 PM EDT [facility] Neutrophils % 48 % LAB HEMATOLOGY METHOD 07/17/2024 7:07 PM EDT [facility] Lymphocytes % 37 % LAB HEMATOLOGY METHOD 07/17/2024 7:07 PM EDT [facility] Monocytes % 12 % LAB HEMATOLOGY METHOD 07/17/2024 7:07 PM EDT [facility] Eosinophils % 2 % LAB HEMATOLOGY METHOD 07/17/2024 7:07 PM EDT [facility] Basophils % 1 % LAB HEMATOLOGY METHOD 07/17/2024 7:07 PM EDT [facility] Immature Granulocytes % 0 % LAB HEMATOLOGY METHOD 07/17/2024 7:07 PM EDT [facility] Neutrophils Absolute 2.71 1.60 - 6.10 10*3/uL LAB HEMATOLOGY METHOD 07/17/2024 7:07 PM EDT [facility] Lymphocytes Absolute 2.05 1.20 - 3.90 10*3/uL LAB HEMATOLOGY METHOD 07/17/2024 7:07 PM EDT [facility] Monocytes Absolute 0.66 0.30 - 0.90 10*3/uL LAB HEMATOLOGY METHOD 07/17/2024 7:07 PM EDT [facility] Eosinophils Absolute 0.10 0.00 - 0.50 10*3/uL LAB HEMATOLOGY METHOD 07/17/2024 7:07 PM EDT [facility] Basophils Absolute 0.08 0.00 - 0.10 10*3/uL LAB HEMATOLOGY METHOD 07/17/2024 7:07 PM EDT [facility] Immature Granulocytes Absolute 0.02 0.00 - 0.06 10*3/uL LAB HEMATOLOGY METHOD 07/17/2024 7:07 PM EDT [facility] Blood Venous blood specimen / Unknown Venipuncture / Unknown 07/17/2024 6:53 PM EDT 07/17/2024 7:04 PM EDT Narrative [facility] - 07/17/2024 7:07 PM EDT Therapeutic decision making should be based on absolute values, rather than percentages. us Yin Johnson LAB BLOOD ORDERABLES Final Resul t [facility] [address] [place] [address] * BMP (07/17/2024 6:53 PM EDT) Glucose, Plasma 92 74 - 99 mg/dL 07/17/2024 7:24 PM EDT [facility] BUN, Plasma 23 8 - 23 mg/dL 07/17/2024 7:24 PM EDT [facility] Creatinine, Plasma 0.84 0.60 - 1.10 mg/dL 07/17/2024 7:24 PM EDT [facility] BUN/Creatinine Ratio 27 07/17/2024 7:24 PM EDT [facility] Sodium, Plasma 140 136 - 145 mmol/L 07/17/2024 7:24 PM EDT [facility] Potassium, Plasma 4.6 3.6 - 4.9 mmol/L 07/17/2024 7:24 PM EDT [facility] Chloride, Plasma 102 97 - 107 mmol/L 07/17/2024 7:24 PM EDT [facility] CO2, Plasma 28 22 - 29 mmol/L 07/17/2024 7:24 PM EDT [facility] Anion Gap 10 6 - 16 mmol/L 07/17/2024 7:24 PM EDT [facility] Total Calcium, Plasma 10.1 8.9 - 10.2 mg/dL 07/17/2024 7:24 PM EDT [facility] eGFRcr 72.6 mL/min/1.7 3m*2 07/17/2024 7:24 PM EDT [facility] Comment:Reported eGFRcr in m L/min/1.73m2 is based the CKD-EPI 2020 equation that does not use a race coefficient. 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
--- OUTSIDE RECORDS SUMMARY | 2024-10-09 08:49 | XMS_ITS | Data Portability ---
Author Organization ILEANA - ELLEN Walls [facility] Address [address] [facility] [address] [place] [address] Care Team Providers Care Avionics Systems Repairer Name Role Phone EMILIANA BARROS Business Practices Officer KIM GARVIN Neurologist GISELA FERMIN Referring Provider [phone] RHODA TURK Primary Care Provider Assessment No assessment recorded. Plan of Treatment Reminders Order Date Submit Date Provider Last Modified By Organization Details Last Modified Time Details Appointments None recorded. Lab None recorded. Referral None recorded. Procedures None recorded. Surgeries None recorded. Imaging None recorded. Medication Orders ipratropium bromide 42 mcg (0.06 %) nasal spray 2023 024 [facility] #[id number], [address] [place], [id number], 4 16:26:51 levofloxaci n 500 mg tablet 2023 024 [place] [employer] #[id number], [address], [place], [id number], 4 13:07:11 Patient TargetsNo targets recorded. Patient Instructions Encounter Date Encounter Id Patient Instructions Last Modified By Organization Details Last Modified Time 03/09/2023 [id number] 1. Audiogram obtained in office today. He has slight asymmetry mild-moderate loss with type C tympanograms bilaterally ,results discussed with patient. 2. Recommended RMT Tube Placement in Office Full risks, complications, and benefits of non-operative intervention have been thoroughly discussed. Understanding was expressed, informed consent given, and we will proceed with the discussed treatment plan. There were no questions for me at the end of the office visit. 3. F/u for In Office RMT Tube Placement michael Not available 03/09/2023 17:40:54 I had a long discussion with and Mrs. Clement regarding goals, risks, potential complications as well as proposed benefits regarding the ear tube placement. Possible operative/postoper ative complications we discussed included, but were not limited to: postoperative infection, bleeding, failure to correct problem, retention of tubes, tympanic membrane damage including possible perforation and potential anesthesia issues. They stated understanding and would like to proceed. michael Not available 03/09/2023 17:41:53 04/06/2023 [id number] 1. Right myringotomy with tube (Paparella) placement performed in office today. Full risks, complications, and benefits of operative versus non-operative intervention have been thoroughly discussed. Understanding was expressed, informed consent given, and we will proceed with the discussed operative treatment plan. There were no questions for me at the end of the office visit. 2. Follow up in 2-3 months. [email or web address] Not available 04/06/2023 10:10:29 Reason for Referral None Reported. Results Created Date Observation Date Name Description Value Unit Range Abnormal Flag Note LastModifiedBy Organization Detail LastModifiedTime 03/11/2003/09/2023 audio gram No observ ation record ed. BARCODE Not Available 2022 08:39:49 03/11/20 23 07/15/2022 CT, head + neck, w/o contr ast No observ ation record ed. BARCODE Not Available 2022 09:17:10 06/11/19 24 06/09/2023 XR, chest , 2 view No observ ation record ed. [email or web address] [facility] (Med Record) [address], [place], [address], 06/11/2023 11:05:50 06/24/19 24 06/17/2023 CT, chest , w/o contr ast No observ ation record ed. [email or web address] [place] [address], [place], [address], 06/25/2023 08:53:57 Result Notes None recorded. Problems Name Problem SNOMED Code Status Onset Date Resolution Date Notes Provider Name and Address Organization Details Recorded Time Neuropath y 698820191 Active 2014 From Automated Load;Provi brittany: Michelle, Quinton;Sta tus: Active Not Available [facility] 6 09:01:13 Pain of temporoma ndibular joint 45263834 Active 2015 From Automated Load;Provi brittany: Emiliana Barros;St atus: Active Not Available [facility] 6 09:01:13 Xerostomi a 27540864 Active 2015 From Automated Load;Provi brittany: Emiliana Barros;St atus: Active Not Available [facility] 6 09:01:13 Sj gren's syndrome 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 Procedures Surgical History Date Name Laterality Status Provider Name and Address Organization Details Recorded Time 024 Airway Resistance completed Yoly Hanna [facility] 08/20/2023 13:38:12 024 Diffusion Capacity completed Yoly TEJEDA Cary [facility] 08/20/2023 13:38:08 024 Lung Volumes, Plethysmography completed Yoly TEJEDA Valerio [facility] 08/20/2023 13:38:10 024 Spirometry completed Yoly TEJEDA Valerio [facility] 08/20/2023 13:38:07 024 Pulmonary Function Testing completed AMMON Troy MD [facility] [place], [address], [facility] 08/20/2023 13:45:28 024 Nasolaryngoscopy completed EMILIANA BARROS MD [facility] [place], [address], [facility] 05/25/2023 16:26:40 023 Tympanostomy w/Tube, local completed Wendi Ferro [facility] 04/06/2023 10:01:22 023 Tympanogram completed PIHLLIP WALLIS, [facility] [address] [place] [address] [place], [address], [facility] 03/09/2023 15:34:03 023 Audiogram completed PHILLIP WALLIS, [facility] [address] [place] [address], [address], [facility] 03/09/2023 15:34:01 023 Nasolaryngoscopy completed EMILIANA BARROS MD [facility] [place], [address], [facility] 05/05/2022 17:21:30 018 Electromyography (EMG) with Nerve Conduction Study (NCV) completed KIM GARVIN MD [facility] [place], [address], [facility] 03/28/2018 09:01:23 018 Laryngoscopy Flex completed EMILIANA BARRSO MD [facility] [place], [address], [facility] 06/28/2017 09:51:23 018 Tympanostomy w/Tube, local completed EMILIANA BARROS MD [facility] [place], [address], [facility] 05/31/2017 11:34:03 018 Nasopharyngoscopy completed EMILIANA BARROS MD [address] [place] [address], [address], [facility] 05/19/2017 11:05:05 017 Injection Joint/Bursa, Major, w/o US completed ERIC REY MD [address] [place], [address], [facility] 10/06/2016 09:45:44 Hernia repair w/mesh completed Yelitza enne [facility] 05/19/2017 10:51:40 Total hysterectomy completed Cheyen ne [facility] 05/19/2017 10:51:52 Cholecystectomy completed Precious Johnson [facility] 03/02/2019 14:05:47 Imaging Results None recorded. Procedure Notes None recorded. Medical Equipment None Reported. Allergies Allergen ID Allergen Name Allergen Category Reaction Reaction Severity Criticality Documentation Date Start Date Code Code System Note Provider Name and Address Organization Details Recorded Time prednison e medicatio n Not available Not available Not available 03/19/20162013 8640 RxNorm Comme nt: Creat ed By: Adal wooten;C reate d Date: 2013 2:24: 15 PM; Not Available [facility] 6 12:12:25 440558 Substance with sulfonami de structure and antibacte rial mechanism of action (substanc e) medicatio n Not available Not available Not available 03/20/20162013 57003 8003 SNOMED Comme nt: Creat ed By: Adal Cano any;C reate d Date: 2013 2:23: 40 PM; Not Available [facility] 6 02:54:37 632123 morphine sulfate medicatio n Not available Not available Not available 03/20/20162013 89076 RxNorm Comme nt: Creat ed By: Adal wooten;C reate d Date: 2013 2:24: 33 PM; Not Available [facility] 6 10:25:04 326005 doxycycli ne Not available Not available Not available Not available 03/02/2019 3640 RxNorm Precious Johnson [facility] 9 14:03:57 356063 hydrocodo ne Not available Not available Not available Not available 03/02/2019 5489 Rx[facility] 9 14:04:12 275226 amoxicill in medicatio n Not available Not available Not available 03/02/2019 723 RxNorm [facility] 9 14:04:20 Medications Name Sig Start Date Stop Date Status Note LastModified by Organization Details LastModified Time Depo-Medr ol 40 mg/mL suspensio n for injection Take 1 mL by injectio n route. 06/28 completed Not Available Not Available Not Available sucralfat e 1 gram tablet Take 1 tablet every day by oral route. 03/02 completed Not Available Not Available Not Available Floxin 0.3 % ear drops INSTILL 3 DROPS INTO AFFECTED EAR(S) BY OTIC ROUTE 2 TIMES PER DAY for 7 days 06/28 completed Not Available Not Available Not Available Eye-Vites tablet Take by oral route. 02/28 completed Not Available Not Available Not Available Salagen (pilocarp ine) 5 mg tablet Three times a day 10/06 completed Duration : 90 days;Jeremias quency: tid;Medi cation Descript ion: pilocarp ine; Dosage:1 ; Route:or al; refills: 3; Quantity :90 tablet Not Available Not Available Not Available pravastat in 20 mg tablet Take 1 tablet every day by oral route. active Not Available Not Available No t Available levofloxa stacy 500 mg tablet Take 1 tablet every 24 hours by oral route for 7 days. 08/19 completed Not Available Not Available Not Available ipratropi um bromide 42 mcg (0.06 %) nasal spray spray 2 sprays in each nostril up to qid prn 2023 active Not Available Not Available Not Avai lable Tums 200 mg (as calcium carbonate 500 mg) chewable tablet 02/28 completed Medicati on Descript ion: calcium carbonat e; Route:or al; refills: 0; Quantity :3 tablet, chewable Not Available Not Available Not Available ezetimibe 10 mg tablet Take 1 tablet every day by oral route. active Not Available Not Available No t Available lansopraz ole 30 mg delayed release,d isintegra ting tablet Take 1 tablet every day by oral route. 05/05 completed Not Available Not Available Not Available Vytorin 10 mg-40 mg tablet Daily 02/28 completed Frequenc y: daily;Me dication Descript ion: ezetimib e-simvas tatin; Dosage:1 ; Route:or al; refills: 0 Not Available Not Available Not Available Vitamin D3 active Not Available Not Available Not Available Miralax active Medicati on Descript ion: polyethy li glycol 3350; Route:or al; refills: 0 Not Available Not Available Not Available Tums Extra Strength Smoothies active Not Available Not Available No t Available Calcium 500 + D (D3) 02/28 completed Not Available Not Available Not Available Vagifem 10 mcg vaginal tablet Every week 03/09 completed Frequenc y: Every week;Med ication Descript ion: estradio l topical; Dosage:1 ; Route:va ginal; refills: 0 Not Available Not Available Not Available Dexilant 60 mg capsule, delayed release Take 1 capsule every day by oral route for 56 days. active Not Available Not Available No t Available nitrofura ntoin 100 mg tablet Take 1 tablet twice a day by oral route. 03/02 completed Not Available Not Available Not Available PreserVis ion AREDS-2 active Not Available Not Available Not Available Flonase Allergy Relief 50 mcg/actua tion nasal spray,fabian pension 2 sprays each nostril once daily 2022 active not using currentl y Not Available Not Available Not Available Vitals Date Recorded Systolic blood pressure Diastolic blood pressure Provider Name and Address Organization Details Last Updated DateTime 05/25/2023 126 mm[Hg] 73 mm[Hg] Delores Riley [facility] 05/25/2023 14:47:08 Date Recorded Body height Body mass index (BMI) Body weight Provider Name and Address Organization Details Last Updated DateTime 05/25/2023 160.02 cm 24.1 kg/m2 47391.56 g Ifrah Hayes [facility] 05/25/2023 14:41:13 Date Recorded Body height Body mass index (BMI) Body weight Oxygen saturation Oxygen saturation in Arterial blood by Pulse oximetry Heart rate Systolic blood pressure Diastolic blood pressure Provider Name and Address Organization Details Last Updated DateTime 4 156.21 cm 25.1 kg/m2 41608.9 7 g 99 % 99 % 64 /min 126 mm[Hg] 79 mm[Hg] Yoly Driscoll [facility] 4 13:10:39 Date Recorded Body height Body mass index (BMI) Body weight Body temperature Heart rate Systolic blood pressure Diastolic blood pressure Provider Name and Address Organization Details Last Updated DateTime 3 160.02 cm 24.5 kg/m2 39125.5 5 g 97 [degF] 60 /min 131 mm[Hg] 74 mm[Hg] Wendi Ferro [facility] 3 15:50:13 Date Recorded Body height Body mass index (BMI) Body weight Body temperature Heart rate Systolic blood pressure Diastolic blood pressure Provider Name and Address Organization Details Last Updated DateTime 3 160.02 cm 24.2 kg/m2 82629.6 6 g 97 [degF] 65 /min 106 mm[Hg] 75 mm[Hg] Esperanza Clearyden [facility] 3 09:35:02 Social History Question Answer Notes LastModified by Organizat ion Details LastModified Time Tobacco Smoking Status Never Smoker [facility] 10/06/2016 09:28:54 Live Alone Or With Others? With Others Information not available 03/09/2018 Marital Status elsa Informat ion not available 03/09/2018 What Was The Date Of Your Most Recent Tobacco Screening? 03/09/2018 Information n ot available 06/13/2019 Sex: Unknown Functional Status Question Answer Note LastModified by Organization D etails LastModified Time What is your level of alcohol consumption? None [email or web address] Information not available 02/28/2018 What is your occupation? Retired Information not available 03/09/2018 Mental Status None recorded. Family History Relationship Description Onset Age of this Age Resolved Age Notes LastModified by Organization Details LastModified Time Sister Diabetes mellitus cethington Not available 05/19 10:51:22 Sister [facility] Not available 08:05:22 Sister Hypertensive disorder inefordner Not available 08:05:38 Mother Alzheimer's disease inefordner Not available 08:05:19 Mother Cerebrovascu lar accident ineedgertonner Not available 03/09/2018 08:05:44 Father Heart disease inefordner Not available 08:05:32 Brother Heart disease awinefordner Not available 08:05:32 Brother Hypertensive disorder awineedgertonner Not available 08:05:38 Medical History Condition Response Diabetes N Bleeding Disorder N Arthritis Y Kidney Stones Y High Cholesterol Y Emphysema N Heart Disease Y Acid Reflux (GERD) Y Rheumatoid Arthritis N Hypertension N Asthma N COPD N Gynecological HistoryNo gynecological history recorded. Obstetrics History GPAL:G 0 P 0 0 0 0 Past Encounters Encounter ID Performer Location Encounter Start Date Encounter Closed Date Diagnosis/Indication Diagnosis SNOMED-CT Code Diagnosis ICD10 Code Diagnosis Note [id number] [facility] [place] [address] 07/27/2016 22:29:03 07/27/2016 22:29:03 [id number] ERIC REY MD [facility] [address] [place] [address] 10/06/2016 09:22:40 10/06/2016 10:02:20 Greater trochanteric pain syndrome 3814484 M70.62 very symptomati c , left hip .unable to sleep on her sides.loca l care has failed to help. I injected the bursa with 40 mg depomedrol w/o complicati ons.exerci ses reviewed. 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 She has a biopsy proven Positive focus score with h/o sicca symptoms, h/o puntal plugs in eyes. we are holding off on the Plaquenil , with h/o macular degenerati on. Obtain the labs , ESR /CBC . Other issues nodule, so far benign in the thyroid , lung , kidney and breast . Clinically , no lymphadeno surjit . [id number] ERIC REY MD [facility] [place] [address] 04/05/2017 09:24:01 04/05/2017 10:07:52 Primary Sj gren's syndrome 758874258 M35.00 Primary sjogren's syndrome. She has a biopsy proven Positive focus score with h/o sicca symptoms, h/o puntal plugs in eyes. we are holding off on the Plaquenil , with h/o macular degenerati on. The sicca symptoms are controlled on OTC meds.No adenopathy noted. MSK is stable.ski n is stable. Continue to hold of katy DMARDS with PAC's avoid the cholinergi c drugs. Other issues:nod ule, so far benign in the thyroid , lung , kidney and breast . PAC's followed by cardiology . Hip bursitis- post steroid injection and stable. [id number] EMILIANA BARROS MD ENT [place] [address] 05/19/2017 10:35:56 05/19/2017 11:59:40 Unilateral chronic serous otitis 649622058 H65.21 causing a conductive component to her hearing loss on that side. Nasopharyn goscopy performed to rule out a nasopharyn x neoplasm which was not present. I recommend an ear tube placement. She agrees. We'll schedule that next week. Mixed cond uctive and sensorineural hearing loss of right ear 6734466454 9105 H90.A31 audiogram reviewed Sensorineu ral hearing loss in left ear 9270178924 9109 H90.A22 [id number] PHILLIP MARTI ENT [place] [address] 05/19/2017 11:17:25 05/19/2017 12:03:51 Mixed conductive AND sensorineural hearing loss 19763747 H90.A31 [id number] EMILIANA BARROS MD ENT SB [address] [place] [address] 1 05/31/2017 10:40:44 05/31/2017 11:40:12 Unilateral chronic serous otitis 700621828 H65.21 right side. tube placed today. floxin otic. f/u 1 mo [id number] [place] [address] [place], [place] [address] 06/28/2017 09:22:53 06/28/2017 11:19:19 Unilateral chronic serous otitis 033344100 H65.21 tube placed on the right side about a month ago. Hearing improved. Audiogram performed and reviewed. Improvemen t in the conductive component to the hearing loss on the right side. Follow-up 6 months Throat irritation 452685 007 R07.0 with cough likely secondary to postnasal drainage. Improving with prednisone . Continue. Laryngeal and hypopharyn geal exam is normal [id number] PHILLIP MARTI ENT [facility] [address] [place] [address] 1 06/28/2017 09:51:26 06/28/2017 10:39:26 Mixed conductive AND sensorineural hearing loss 33345666 H90.A31 [id number] ERIC REY MD RHEUMATOL OGY [place] [address] 1 10/22/2017 10:00:44 10/25/2017 09:39:58 Generalized osteoarthritis 610029375 M15.9 chronic diffuse. no synovitis. ROM is fair. strength is good. maintain symptomati c care. hold off on steroid injections . Greater tr ochanteric pain syndrome 9115844 M70.62 chronic. seems to be fair. once again, no indication s for repeat steroid injection. exercises reviewed. Primary Sj gren's syndrome 558793496 M35.00 Primary sjogren's syndrome. She has a biopsy proven Positive focus score with h/o sicca symptoms, h/o puntal plugs in eyes. we are holding off on the Plaquenil , with h/o macular degenerati on. Other issues nodule, so far benign in the thyroid , lung , kidney and breast . Clinically , no lymphadeno surjit . overall, continue to follow clinically . repeat labs. [id number] EMILIANA BARROS MD ENT [address] [place], [place] [address] 12/31/2017 08:51:52 12/31/2017 10:06:00 Unilateral chronic serous otitis 129123565 H65.21 resolved with tube placement in May. Tube has now extruded and tympanic membrane looks normal. No fluid present. Follow-up as needed [id number] ERIC REY MD [facility] [address] [place] [address] 02/28/2018 08:52:45 02/28/2018 09:56:05 Generalized osteoarthritis 849853895 M15.9 chronic diffuse process, but age appropriat e. No features of inflammato ry process. modest reduction in hips again normal for the age. maintain symptomati c care. No indication s for steroid injections . Greater tr ochanteric pain syndrome 9705793 M70.62 chronic and seems to be fair. once again, no indication s for repeat steroid injection. exercises reviewed. 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 She has a biopsy proven Positive focus score with h/o sicca symptoms, h/o puntal plugs in eyes. No synovitis. No effusions. No adenopathy . I do not see indication s for the Plaquenil , with h/o macular degenerati on. Other issues : thyroid nodules. she has some features suggestive of peripheral neuropathy .Question of right lumbar radiculopa thy.I think would benefit from a NCV studies lower extremitie s.she is also having polyuria, and diabetic evaluation might be worth while. Would suggest to fu with her PCP to go over these concerns. [id number] KIM GARVIN MD NEUROLOGY [facility] [address] [place] [address] 03/09/2018 07:46:28 03/09/2018 08:51:47 Pain in right lower limb 271165473 M79.512 [id number] KIM GARVIN MD NEUROLOGY [facility] [address] [place] [address] 03/28/2018 08:24:43 03/28/2018 09:58:50 Lumbar radiculopathy 277077045 M54.16 [id number] JESSE AMADO MD SURGERY SCHEDULE [address] [place] [address] 06/08/2018 08:35:48 06/08/2018 08:39:16 [id number] WYATT ADAMES MD [facility] [address] [place] [address] 03/02/2019 13:30:11 03/13/2019 13:35:34 Cystocele 330050253 N81.10 [id number] [place] [address] [place] [address] 05/05/2022 15:11:50 05/05/2022 17:22:08 Otalgia of right ear 0017758854 H92.01 Exam is normal. Has a history of needing tubes for fluid. May be having eustachian tube spasms. Nasolaryng oscopy performed, no abnormalit ies causing referred otalgia. Will try Flonase daily. F/u 1mo Pain in throat 583239122 R07.0 likely secondary to post-nasal drainage and right ETD Dysfunctio n of right eustachian tube 5525039647 518146 H69.91 [id number] [place] [address] [place] [address] 06/16/2022 10:05:56 06/16/2022 10:31:51 Otalgia of right ear 7918829069 H92.01 Has a history of needing tubes for fluid. Exam is normal with no fluid present. Did not use Flonase but resolved on its own. F/u prn Dysfunctio n of right eustachian tube 2594338216 176674 H69.91 [id number] MD ILEANA BULL III ENT [address] [place] [address] 03/09/2023 14:38:08 03/10/2023 07:43:13 Referred otalgia of right ear 9165977806 565111 H92.01 Pain in throat 629628038 R07.0 Chronic cough 50018854 R 05.3 Chronic ri ght mastoiditis 2720791719 197454 H70.11 Asymmetric al sensorineural hearing loss 435881812 H90.5 Retraction of tympanic membrane 91509102 H73.899 right [id number] FELICITY LINDA ER, AUD, CCA-[facility] OR E[facility] [address] [place] [address] 03/09/2023 15:28:20 03/09/2023 16:07:20 Otalgia of right ear 3506521929 H92.01 Dysfunctio n of bilateral eustachian tubes 5069299872 262356 H69.93 Bilateral tinnitus 75504 38601 102 H93.13 [id number] HANG PRIEST III, MD [place] ENT [address] [place] [address] 04/06/2023 08:49:35 04/06/2023 10:27:00 Pain in throat 426542346 R07.0 Chronic cough 37364442 R 05.3 Chronic ri ght mastoiditis 9229465613 231420 H70.11 Asymmetric al sensorineural hearing loss 018868157 H90.5 Retraction of tympanic membrane 57587528 H73.891 Ear pressu re sensation 308601760 H93.8X9 Dysfunctio n of bilateral eustachian tubes 6192519117 820011 H69.93 04/06/2023 - RMT performed in office. Bilateral tinnitus 99315 79150 102 H93.13 Serous heron tis media of right ear 8768960852 874409 H65.91 04/06/2023 - RMT performed in office. Referred o talgia of right ear 5260778453 159340 H92.01 [id number] EMILIANA BARROS MD ENT [address] [place] [address] 05/25/2023 14:10:32 05/26/2023 07:31:31 Serous otitis media of right ear [id number] H65.91 Right myringotom y with tube (Paparella ) placement performed by Dr. Priest 04/06/23 for this. Tube is in good position. She had the impression that placing the tube was the source of her cough and drainage. Would have no connection to her cough and drainage although she noticed it worsened after tube was placed. Cough [id number] R05.9 Nasolaryng oscopy performed, no obvious infection. May have a low-grade sinus infection or bronchitis . Will do Atrovent for drainage. Rx 1 week of levofloxac in. Recommend consulting w/ pulmonary if not improved. [id number] NIGEL YUMIKO MARTIN MD PULMONARY [address] [facility], [address] [place] [address] 08/20/2023 12:57:00 08/20/2023 14:14:30 Cough [id number] R05.9 Chronic cough which is primarily nocturnal and postprandi al in this patient with known history of reflux disease, hiatal hernia and a previous diagnosis of gastritis. Etiology likely secondary to persistent refractory gastroesop hageal reflux disease. Favor continuati on of protopop inhibitor therapy, no indication for inhaler therapy at this time. We have also discussed the importance of reflux precaution s and a reflux diet. I have also discussed with her the fact that she would benefit from a repeat gastrointe stinal evaluation and likely a repeat endoscopy/ H. pylori testing. I plan to see her back in reevaluati on in [facility] 3 to 4 months Health Concerns Section Related Observation LastModified by Organization Detai ls LastModified Time None Recorded Concern Status LastModified by Organization Details LastModified Time None Recorded Advance Directives Directive None Recorded Payers Insurance Date Sequence Insurance Name Policy Number Policy Caballero Covered Member ID Caballero Member ID Guarantor Name 08/17/2023 1 [place] Clarissa P Gaunce [id number] Clarissa P Gaunce 04/21/2018 2 () [id number] Clarissa P Gaunce 06/23/2023 1 [place] Clarissa P Gaunce [id number] Clarissa P Gaunce 08/21/2023 2 () Clarissa P Gaunce [id number] Clarissa P Gaunce Notes Date Note Type Note Provider Name and Address Organization Details Recorded Time 03/09/2023 text/html Clarissa comes in t luis for consultation at the request of for an evaluation of otalgia and dizziness. She reports having pain that shoots down the right side of her neck. She also has a sore throat about 3 times per week since she had Covid in November. She does has chronic cough that has lasted for years. She does also have chronic mastoiditis. She does often have phlegm in her throat. She often does have post nasal drainage. 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 She did have a tube placed in her right ear in the past and had great results while it was placed. HANG PRIEST III, MD [address] [place] [address], [phone], [facility] 03/09/2023 17:41:57 04/06/2023 text/html Clarissa is a 72 ye ar old female who visits us in office today to follow up on her right ear. Clarissa states that she continues to have pain and pressure in her right ear today. She is interested in having a tube placed in order to relieve her symptoms. HANG PRIEST III, MD [address] [place] [address], [phone], [facility] 04/06/2023 10:16:45 05/25/2023 text/html Ref: Rhodaanibal huynh, APRNChief Complaint: CoughTimin04/06/23D uration:Location:[facility] rity:Quality: productiveContext: Right myringotomy with tube (Paparella) placement performed for serous R OM 04/06/[address] 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 She has been coughing for several years. She states that her cough is mostly occurring at night and after meals especially heavy meals. She does not drink alcoholic beverages or caffeinated beverages but she does admit that heavier meals tend to aggravate her cough. Her cough is generally productive of clear secretions especially in the diamond sorter hours. She denies any fever, chills, any unintended weight loss or other constitutional complaints. She does not have any significant purulent sputum production, hemoptysis, wheezes associated with her cough. She does not have any sudden hearing difficulties. She does not have any chest pains or anginal equivalents and she denies any lower extremity edema, orthopnea or paroxysmal nocturnal dyspnea. She has had gastritis in the past and has a hiatal hernia for which she underwent a hernia repair. Unfortunately, a recent CT scan of the chest shows a persistent sliding small hiatal hernia. There is no evidence of cardiopulmonary disease. PFTs are normal. She is currently on 40 bronchodilator therapy but does not abide by reflux precautions and/or a reflux diet AMMON TREJO MD [address] [place] [address], [phone], [facility] 08/20/2023 13:59:06 OBGyn Episode No OBEpisode recorded.
--- NOTE | 2024-10-09 09:00 | MR_ITS ---
FINAL REPORT CLINICAL HISTORY: Transient vision loss, worse in the right eye COMPARISON: None FINDINGS: Multiple projection images of the brain arterial vasculature were obtained without and with contrast. raw data images were also reviewed. The internal carotid arteries are patent. The middle cerebral arteries and visualized proximal branches are patent. The anterior cerebral arteries are patent. The intracranial vertebral arteries are patent. The basilar artery is patent. The posterior cerebral arteries are patent. No evidence of segmental stenosis. No evidence of aneurysm. IMPRESSION: No major vessel occlusion. Reviewed, Interpreted and Dictated by Tavon Ibarra MD Transcribed by Rachel Becerril Authenticated and [facility]
[2024-10-09 09:12] LABS: Blood Urea Nitrogen 23 mg/dl (7-17); Estimated Glomerular Filt Rate 70 ml/min (>60); GFR (African American) 84 ML/MIN (>60)
[2024-10-09] MEDS: 0.9 % SODIUM CHLORIDE 50 ML VIAL IV (09:42)
[2024-10-09] MEDS: GADOTERIDOL INJ 10ML SYRINGE 10 ML IV (09:42)
== END 2024-10-09 23:59 | disposition home or self-care (01) ==
LOC: RAD 08:46
PROVIDERS: PCP Nurse Practitioner Family; Visit Provider Nurse Practitioner Family
DX: H53.129 Transient visual loss, unspecified eye (principal)
CPT/HCPCS: 36415; 70546; 82565; 84520; A9576

== ENCOUNTER 2024-11-10 11:13 | Outpatient (CLI) | payer MEDICARE, OTHER, SELFPAY ==
--- OUTSIDE RECORDS SUMMARY | 2017-06-17 09:00 | XMS_ITS | Encounter Summary ---
Author Organization [facility] Address [address] [place] [address] Care Team Providers Care Powersaw Supervisor Name Role Phone Pedrito Cruz MD Primary Care Provider + Reason for Visit * Diagnostic Imaging (Routine) - Closed Specialty Diagnoses / Procedures Referred By Tamika t Referred To Contact Radiology Diagnoses Solitary thyroid nodule Procedures US Thyroid Gloria Smith MD [address] [address] Phone: tel: fax: [facility] ENDOCRINOLOG[facility] [address] [phone] Phone: tel: fax: Referral ID Status Reason Start Date Expiration Date Visits Re quested Visits Authorized [id number] Closed 06/17/2017 06/17/2018 1 1 Encounter Details Date Type Department Care Team (Latest Contact Info) Description 06/17/2017 8:00 AM EST Hospital Encounter [facility] ENDOCRINOLOG[facility] [address] [phone] Solitary thyroid nodule Social History [...] Description 01/05/2025 11:15 AM EDT Office Visit [facility] CARDIOLOGY [address] [address] [place] [address] Wing Sanabria MD [address] [facility] [address] [place] [address] documented as of this encounter Procedures Procedure [...] nodule documented in this encounter Care Teams Powersaw Supervisor Relationship Specialty Start Date End Date Pedrito Cruz MD PCP - General 06/10/15 11/19/21 documented as of this encounter
--- OUTSIDE RECORDS SUMMARY | 2018-06-23 11:08 | XMS_ITS | Encounter Summary ---
Author Organization [facility] Address [address] [place] [address] Care Team Providers Care Computer Systems Security Analyst Name Role Phone Pedrito Cruz MD Primary Care Provider + Reason for Visit * Diagnostic Imaging (Routine) - Closed Specialty Diagnoses / Procedures Referred By Contac t Referred To Contact Radiology Diagnoses Solitary thyroid nodule Procedures US Thyroid Gloria Smith MD [address] [address] Phone: tel: fax: [facility] ENDOCRINOLOGY [address] [phone] Phone: tel: fax: Referral ID Status Reason Start Date Expiration Date Visits Re quested Visits Authorized [id number] Closed 06/23/2018 06/23/2019 1 1 Encounter Details Date Type Department Care Team (Late st Contact Info) Description 06/23/2018 10:08 AM EST Hospital Encounter [facility] ENDOCRINOLOGY [facility] [phone] Social History Tobacco Use Types Packs/Day [...] Description 01/05/2025 11:15 AM EDT Office Visit [facility] CARDIOLOGY [address] [facility] [address] [place] [address] Wing Sanabria MD 1720 [facility] [address] [place] [address] documented as of this encounter Procedures Procedure [...] on filedocumented in this encounter Care Teams Computer Systems Security Analyst Relationship Specialty Start Date End Date Pedrito Cruz MD PCP - General 06/10/15 11/19/21 documented as of this encounter
--- OUTSIDE RECORDS SUMMARY | 2019-06-28 10:02 | XMS_ITS | Encounter Summary ---
[facility] Address [address] [place] [address] Care Team Providers Care Ammonia Box Tender Name Role Phone Pedrito Cruz MD Primary Care Provider + Reason for Visit * Diagnostic Imaging (Routine) - Closed Specialty Diagnoses / Procedures Referred By Contac t Referred To Contact Radiology Diagnoses Solitary thyroid nodule Procedures US Thyroid Gloria Smith MD 3087 [facility] [address] [place] [address] Phone: tel: fax: [facility] ENDOCRINOLOGY [address] [address] Phone: tel: fax: Referral ID Status Reason Start Date Expiration Date Visits Re quested Visits Authorized [id number] Closed 06/28/2019 06/27/2020 1 1 Encounter Details Date Type Department Care Team (Late st Contact Info) Description 06/28/2019 9:02 AM EST Hospital Encounter [facility] ENDOCRINOLOGY [address] [phone] Social History Tobacco Use Types [...] Description 01/05/2025 11:15 AM EDT Office Visit [facility] [address] [facility] [address] [place] [address] Wing Sanabria MD 1720 [facility] [address] [place] [address] documented as of this encounter Procedures Procedure [...] on filedocumented in this encounter Care Teams Am[place]ia Box Tender Relationship Specialty Start Date End Date Pedrito Cruz MD PCP - General 06/10/15 11/19/21 documented as of this encounter
--- OUTSIDE RECORDS SUMMARY | 2020-08-14 10:02 | XMS_ITS | Encounter Summary ---
[facility] Address [address] [place] [address] Care Team Providers Care Tool Chaser Name Role Phone Pedrito Cruz MD Primary Care Provider + Reason for Visit * Diagnostic Imaging (Routine) - Closed Specialty Diagnoses / Procedures Referred By Contac t Referred To Contact Radiology Diagnoses Solitary thyroid nodule Procedures US Thyroid Gloria Smith MD [address] [place] [address] Phone: tel: fax: [facility] ENDOCRINOLOGY [address] [place] [address] Phone: tel: fax: Referral ID Status Reason Start Date Expiration Date Visits Re quested Visits Authorized [id number] Closed 08/14/2020 08/14/2021 1 1 Encounter Details Date Type Department Care Team (Late st Contact Info) Description 08/14/2020 10:02 AM EDT Hospital Encounter [facility] [address] [facility] [address] [place] [phone] Social History Tobacco Use Types Packs/Day [...] Description 01/05/2025 11:15 AM EDT Office Visit [facility]IOLOGY [address] [place] [address] Wing Sanabria MD [address] [place] [address] documented as of this encounter Procedures Procedure [...] on filedocumented in this encounter Care Teams Tool Chaser Relationship Specialty Start Date End Date Pedrito Cruz MD PCP - General 06/10/15 11/19/21 documented as of this encounter
--- OUTSIDE RECORDS SUMMARY | 2021-07-07 10:24 | XMS_ITS | Encounter Summary ---
Author Organization [facility] Address [address] [place] [address] Care Team Providers Care Precipitation Equipment Tender Name Role Phone Pedrito Cruz MD Primary Care Provider + Reason for Referral * Diagnostic Imaging (Routine) - Closed Specialty Diagnoses / Procedures Referred By Contact Referred To Contact Obstetrics and Gynecology Diagnoses Osteopenia after menopause Screening for osteoporosis Procedures DEXA Bone Density Axial Vinicius Lantigua MD [address] [facility] [address] [place] [address] Phone: tel: fax: [facility] OBGYN [address] [facility] [address] [place] [address] Phone: tel: fax: Referral ID Status Reason Start Date Expiration Date Visits Re quested Visits Authorized [id number] Closed 07/07/2021 07/07/2022 1 1 Reason for Visit * Diagnostic Imaging (Routine) - Closed Specialty Diagnoses / Procedures Referred By Contact Referred To Contact Obstetrics and Gynecology Diagnoses Osteopenia after menopause Screening for osteoporosis Procedures DEXA Bone Density Axial Vinicius Lantigua MD [address] [facility] [address] [place] [address] Phone: tel: fax: [facility] OBGYN [address] [facility] [address] [place] [address] Phone: tel: fax: Referral ID Status Reason Start Date Expiration Date Visits Re quested Visits Authorized [id number] Closed 07/07/2021 07/07/2022 1 1 Encounter Details Date Type Department Care Team (Latest Contact Info) Description 07/07/2021 10:24 AM EDT Hospital Encounter [facility] OBGYN [address] [facility] [address] [place] [address] Osteopenia after menopause; Screening for osteoporosis Social [...] Description 01/05/2025 11:15 AM EDT Office Visit [facility] CARDIOLOGY [address]20 [facility] [address] [place] [address] Wing Sanabria MD [address] [facility] [address] [place] [address] documented as of this encounter Procedures Procedure [...] osteoporosis documented in this encounter Care Teams Precipitation Equipment Tender Relationship Specialty Start Date End Date Pedrito Cruz MD PCP - General 06/10/15 11/19/21 documented as of this encounter
--- OUTSIDE RECORDS SUMMARY | 2021-07-08 09:07 | XMS_ITS | Encounter Summary ---
[facility] [address] [place] [address] Care Team Providers Care Slumber Room Attendant Name Role Phone Pedrito Cruz MD Primary Care Provider + Encounter Details Date Type Department Care Team (Late st Contact Info) Description 07/08/2021 9:07 AM EDT Hospital Encounter [facility] PULMONARY & CRITICAL CARE MEDICINE [address] [place] [phone] Social History Tobacco Use Types Packs/Day Years [...] Department Care Team (Late Contact Info) Description 01/05/2025 11:15 AM EDT Office Visit [facility] CARDIOLOGY [address] [facility] [address] [place] [address] Wing Sanabria MD [address] [facility] [address] [place] [address] documented as of this encounter Procedures Procedure [...] on filedocumented in this encounter Care Teams Slumber Room Attendant Relationship Specialty Start Date End Date Pedrito Cruz MD PCP - General 06/10/15 11/19/21 documented as of this encounter
--- OUTSIDE RECORDS SUMMARY | 2021-09-12 11:17 | XMS_ITS | Encounter Summary ---
[facility] Address [address] [place] [address] Care Team Providers Care Wastewater Analyst Name Role Phone Pedrito Cruz MD Primary Care Provider + Reason for Visit * Diagnostic Imaging (Routine) - Closed Specialty Diagnoses / Procedures Referred By Contprice t Referred To Contact Radiology Diagnoses Thyroid nodule Procedures US Thyroid Gloria Smith MD [address] [place] [address] Phone: tel: fax: [facility] ENDOCRINOLOGY [address] [facility] [address] [place] [phone] Phone: tel: fax: Referral ID Status Reason Start Date Expiration Date Visits Re quested Visits Authorized [id number] Closed 09/12/2021 09/12/2022 1 1 Encounter Details Date Type Department Care Team (Late st Contact Info) Description 09/12/2021 11:17 AM EDT Hospital Encounter [facility] ENDOCRINOLOGY [address] [facility] [address] [place] [phone] Social History Tobacco Use Types Packs/Day [...] Visit [facility] CARDIOLOGY [address] [facility] [address] [place] [address] Wing Sanabria MD 1720 [facility] [address] [place] [address] documented as of this encounter Procedures Procedure [...] on filedocumented in this encounter Care Teams Wastewater Analyst Relationship Specialty Start Date End Date Pedrito Cruz MD PCP - General 06/10/15 11/19/21 documented as of this encounter
--- OUTSIDE RECORDS SUMMARY | 2022-12-31 10:05 | XMS_ITS | Encounter Summary ---
Author Organization [facility] Address [address] [place] [address] Care Team Providers Care Turkey Boner Name Role Phone NaveenCandidaJeanejudi SHRESTHA Primary Care Provider [phone] Reason for Visit * Diagnostic Imaging (Routine) - Closed Specialty Diagnoses / Procedures Referred By Tamika bush Referred To Contact Radiology Diagnoses Thyroid nodule Procedures US Thyroid Gloria Smith MD [address] [place] [address] Phone: tel: fax: [facility] ENDOCRINOLOG[facility] [address] [phone] Phone: tel: fax: Referral ID Status Reason Start Date Expiration Date Visits Re quested Visits Authorized [id number] Closed 12/31/2022 12/31/2023 1 1 Encounter Details Date Type Department Care Team (Late st Contact Info) Description 12/31/2022 10:05 AM EDT Hospital Encounter [facility] ENDOCRINOLOG[facility] [address] [place] [phone] Social History Tobacco Use Types Packs/Day [...] Description 01/05/2025 11:15 AM EDT Office Visit [facility] [address] [place] [address] Wing Sanabria MD [address] [place] [address] documented as of this encounter Procedures Procedure [...] on filedocumented in this encounter Care Teams Turkey Boner Relationship Specialty Start Date End Date Jeane Hodge APRN PCP - General Internal Medicine 12/10/22 04/06/23 documented as of this encounter
--- OUTSIDE RECORDS SUMMARY | 2024-01-05 10:12 | XMS_ITS | Encounter Summary ---
Author Organization [facility] Address [address] [place] [address] Care Team Providers Care Truck Mechanic Apprentice Name Role Phone Jeane Hodge HENRIETTA Primary Care Provider [phone] Reason for Visit * Diagnostic Imaging (Routine) - Closed Specialty Diagnoses / Procedures Referred By Tamika bush Referred To Contact Radiology Diagnoses Thyroid nodule Procedures US Thyroid Gloria Smith MD [address] [employer] [address] [place] [address] Phone: tel: fax: Referral ID Status Reason Start Date Expiration Date Visits Re quested Visits Authorized [id number] Closed 01/05/2024 01/04/2025 1 1 Encounter Details Date Type Department Care Team (Late st Contact Info) Description 01/05/2024 10:12 AM EDT Hospital Encounter [facility] ENDOCRINOLOGY [address] [place] [phone] Social History Tobacco Use Types Packs/Day Years [...] [facility] CARDIOLOGY [address] [place] [address] Wing Sanabria MD [address] [place] [address] documented as of this encounter Procedures Procedure [...] on filedocumented in this encounter Care Teams Truck Mechanic Apprentice Relationship Specialty Start Date End Date Jeane Hodge APRN [address] [place] [address] PCP - General Internal Medicine 04/07/23 07/06/24 documented as of this encounter
--- OUTSIDE RECORDS SUMMARY | 2024-11-10 11:15 | XMS_ITS | Encounter Summary ---
[facility] Address [address] [place] [address] Care Team Providers Care Theatrical Performer Name Role Phone Fracisco Barnes Primary Care Provider + Reason for Visit * Reason Onset Date Comments Results 09/27/2024 Encounter Details Date Type Department Care Team (Late st Contact Info) Description 09/27/2024 Results Follow-Up [facility] [address] [facility] [address] [place] [address] Mary Duarte, ANNABELLE Results Social History Tobacco Use Types Packs/Day Years [...] on file documented as of this encounter Miscellaneous Notes * Telephone Encounter - Mary Duarte, ANNABELLE - 09/27/2024 2:53 PM EDT ----- Message from Tova Klein sent at 09/27/2024 12:18 PM EDT ----- Holter did not show any atrial fibrillation. Remain off metoprolol and amiodarone and Eliquis. ----- Message ----- From: Wing Sanabria MD Sent: 09/22/2024 8:53 AM EDT To: Tova Klein APRN Pt called informed of the above results, verbalized understanding. documented in this encounter Plan of Treatment Upcoming Encounters Date Type Department Care Team (Late st Contact Info) Description 01/05/2025 11:15 AM EDT Office Visit [facility] [address] [facility] [address] [place] [address] Wing Sanabria MD [address] [facility] [address] [address] documented as of this encounter Visit Diagnoses Not on filedocumented in this encounter Care Teams Theatrical Performer Relationship Specialty Start Date End Date Fracisco Barnes DO [address] [place] [address] [place] [address] PCP - General Internal Medicine 07/07/24 documented as of this encounter
--- NOTE | 2024-11-10 11:16 | XR_ITS ---
FINAL REPORT CLINICAL HISTORY: Chest pain Patient states checking for loose sternal wire & eval of lungs COMPARISON: 09/20/2024 FINDINGS: CHEST 2 VIEWS No acute pulmonary density is evident. There is no evidence of effusion or other pleural disease. The heart and mediastinum are unremarkable. There are surgical changes of mitral valve replacement. The sternotomy wires remain intact, similar in appearance to prior exam. IMPRESSION: Postsurgical changes as above. Sternotomy wires remain intact, similar in appearance to prior exam. Reviewed, Interpreted and Dictated by Belinda Srivastava MD Transcribed by Dara Gaona Authenticated and [facility]
--- OUTSIDE RECORDS SUMMARY | 2024-11-10 11:16 | XMS_ITS | Clinical Summary ---
Author Organization [facility] Address [address] [place] [address] Care Team Providers Care Plant Tender Name Role Phone Pcp, No Primary Care [...] Low 08/13/2023 [facility] Hives High 06/30/2012 Social History Tobacco Use Types Packs/Day Years [...] Screening 1950 [facility]-Medicare Annual Wellness (AWV) 1948 [facility]-Infant/Child/Adol SDOH Screenings 1948 [facility]- SDOH Screenings 1966 [facility]-Adult SDOH Screenings 1966 [facility]-Pneumococcal Vaccine: 50+ Years (1 of 1 - PCV) 1998 [facility]-Zoster Vaccines (1 of 2) 1998 [facility]-DTaP,Tdap,and Td Vaccines (1 - Tdap) 02/28/2004 02/27/2004, 06/27/1996 [facility]-Bone Density Scan 07/08/2023 07/07/2021 [facility]-RSV Vaccine: 60+ Years or (1 - 1-dose 75+ series) 07/21/2023 [id number] Vaccine ( - season) 2023 05/19/2023, 01/28/2022, 03/12/2021, Additional history exists [facility]-Influenza Vaccine (#1) 2024 02/17/2020 [facility]-Hepatitis C Screening Completed 07/17/2024 [...] Procedure Name Priority Date/Time Associated Diagnosis Comments HEPATITIS C ANTIBODY - ED W/REFLEX TO HCV QUANT PCR STAT 07/17/2024 6:53 PM EDT from Last 3 Months or Most Recently Relevant to Health Maintenance Results * Hepatitis C Antibody - ED (07/17/2024 6:53 PM EDT) Hepatitis C Antibody Negative Negative 07/17/2024 7:52 PM EDT [facility] Blood Venous blood specimen / Unknown Venipuncture / Unknown 07/17/2024 6:53 PM EDT 07/17/2024 7:11 PM EDT us Yin Johnson LAB BLOOD ORDERABLES Final Resul t [facility] [address] [place] [address] from Last 3 Months or Most Recently Relevant to [place] [address] [place] [id number] MEDICARE [facility] Care Teams Plant Tender Relationship Specialty Start Date End Date Pcp, [place] [address] PCP - General Family Medicine 07/17/24
--- OUTSIDE RECORDS SUMMARY | 2024-11-10 11:16 | XMS_ITS | Encounter Summary ---
Author Organization [facility] Address [address] [place] [address] Care Team Providers Care Underwriting Internship Name Role Phone Pcp, No Primary Care Provider Unavailabl e Encounter Details Date Type Department Care Team (Late st Contact Info) Description 07/17/2024 Ophth Exam [facility] [address] [place] [phone] Eh Tamez MD [address] [place] [address] Social History Tobacco Use Types Packs/Day [...] on filedocumented in this encounter Care Teams Underwriting Internship Relationship Specialty Start Date End Date Pcp, No [address] [place] [address] PCP - General Family Medicine 07/17/24 documented as of this encounter
--- OUTSIDE RECORDS SUMMARY | 2024-11-10 11:16 | XMS_ITS | Clinical Summary ---
Author Organization [facility] Address [address] [place] [address] Care Team Providers Care Part Time Receptionist Name Role Phone Wing Sanabria MD Unavailable [phone] Social History Tobacco Use Types Packs/Day Years Used Date Smoking Tobacco: Never Assessed Comments Unknown Sex and Gender Information Value Date Recorded Sex Assigned at Not on file Legal Sex Female 8:48 AM EST Gender Identity Not on file Sexual Orientation Not on file Plan of Treatment Health Maintenance Due Date Last Done Comments Lipid Monitoring 1965 Tetanus Vaccination (Every 10 Years) 1966 Hepatitis C Virus (HCV) Screening 1969 Pneumococcal Vaccine: 50+ Ye ars (1 of 1 - PCV) 1998 Zoster-RZV(Shingrix) (1 of 2) 1998 Fall Risk Assessment 2013 RSV Vaccines (1 - 1-dose 75+ series) 07/21/2023 COVID-19 Vaccine ( - 2023- season) 2023 Advance Care Planning 04/26/2024 Depression Screening 04/26/2024 Influenza Vaccination (#1) 2024 Osteoporosis Screening 07/07/2026 07/07/2021, 2021 Insurance [place] [id number] MEDICARE Care Teams Part Time Receptionist Relationship Specialty Start Date End Date Wing Sanabria MD [address] [place] [address] Cardiology 04/13/24
--- OUTSIDE RECORDS SUMMARY | 2024-11-10 11:16 | XMS_ITS | Encounter Summary ---
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
--- OUTSIDE RECORDS SUMMARY | 2024-11-10 11:16 | XMS_ITS | Clinical Summary ---
Author Organization [facility] Address [address] [place] [address] Care Team Providers Care Rn House Supervisor Name Role Phone Fracisco Barnes Primary Care Provider + Allergies Active Allergy Reactions Criticality Noted Date Comments Acetaminophen Irritability,Mental Status Change 08/13/2023 Amoxicillin Irritability 08/13/2023 Amoxicillin-Pot Clavulanate Nausea And Vomiting 01/22/2017 Vomiting Headache Continuous sneezing Azithromycin Irritability,Mental Status Change High 08/13/2023 Hyper Cephalexin Other (See Comments) Low 12/31/2022 UTI, Blood in stool Clavulanic Acid Irritability,Mental Status Change 08/13/2023 Dexlansoprazole Other (See Comments) 12/14/2023 Worked but had side effects of leg pain Doxycycline Other (See Comments) 01/22/2017 Blood in stool Garlic Cough,Other (See Comments) Medium 06/02/2024 anything with garlic Garlic Oil GI Intolerance Medium 06/02/2024 anything with garlic Hydrocodone Other (See Comments) 01/11/2020 Hyper Hydrocodone-Acetaminophe n Itching,Nausea And Vomiting 06/23/2018 Morphine Other (See Comments) Low 06/30/2012 Hypersensitivity Prednisone Palpitations Low 01/22/2017 Soap Rash Low 08/13/2023 Sulfa Antibiotics Hives High 01/22/2017 Medications polyethylene glycol (MIRALAX) powder Take 17 g by mouth Daily. Active lansoprazole (PREVACID SOLUTAB) 30 MG disintegrating tablet 2 (Two) Times a Day. Active sodium chloride (SETH 128) 2 % ophthalmic solution Administer 1 drop to both eyes As Needed. Active budesonide-formote rol (Symbicort) 160-4.5 MCG/ACT inhaler Inhale 2 puffs. 4 025 Active albuterol sulfate HFA 108 (90 Base) MCG/ACT inhaler Inhale 2 puffs Every 4 (Four) Hours As Needed for Wheezing. Active rosuvastatin (CRESTOR) 20 MG tablet Take 1 tablet by mouth Daily. 90 tablet 3 4 Active ezetimibe (ZETIA) 10 MG tablet Take 1 tablet by mouth Daily. 90 tablet 3 5 Active acetaminophen (TYLENOL) 325 MG tablet Take 1-2 tablets by mouth Every 6 (Six) Hours As Needed. 5 Active ondansetron ODT (ZOFRAN-ODT) 4 MG disintegrating tablet Take 1 tablet by mouth Every 8 (Eight) Hours As Needed. 5 Active sucralfate (CARAFATE) 1 g tablet Take 1 tablet by mouth 2 (Two) Times a Day Before Meals. 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 FNA 2015 - benign ([facility]) Prediabetes 03/23/2016 Renal cyst 03/12/2016 Lung nodules 03/10/2016 Thyroid nodule 03/10/2016 Sjogren's syndrome 05/21/2015 Xerostomia 05/07/2015 Resolved Problems Problem Noted Date Diagnosed Date Resolved Date Female dyspareunia 07/07/2021 Screening for osteoporosis 07/07/2021 1 06/04/2023 Vaginal vault prolapse 02/20/202004/03 Pelvic pressure in female 02/20/2020 Prediabetes 06/17/2017 04/03/2024 PVC (premature ventricular contraction) 02/11/2017 04/03/2024 Hypoglycemia 03/10/2016 04/03/2024 JOHNSON (dyspnea on exertion) 03/10/2016 Arthralgia of temporomandibular joint 05/07/2015 04/03/2024 Elbow joint pain 04/15/2015 04/03/2024 Lack of energy 04/15/2015 04/03/2024 Neuropathy 04/15/2015 04/03/2024 Abnormal liver enzymes 01/01/201404/03 Encounters Date Type Department Care Team Description 09/27/2024 Results Follow-Up [facility] [address] [facility] [address] [place] [address] Mary Duarte RN Results 09/04/2024 10:30 AM EDT Ancillary Procedure [facility] [address] [facility] [address] [place] [address] Paroxysmal atrial fibrillation, post-operative 05/202409/04/2024 Travel 08/24/2024 Telephone [facility] [address] [facility] [address] [place] [address] Wing Sanabria MD Advice Only 08/14/2024 1:00 PM EDT Office Visit [facility] [address] [facility] [address] [place] [address] Tova Klein APRN S/P mitral valve repair (Primary Dx); Paroxysmal atrial fibrillation, post-operative 05/2024; Nonrheumatic mitral valve regurgitation 08/14/2024 Travel from Last 3 Months Immunizations Immunization Administration Dates Next Due FLUAD TRI 65YR+ 02/17/2020 Family History Medical History Relation Name Comments Heart attack Brother alin christina heart a ttack age 57, stint age 61 Heart disease Brother alin christina same a s above Hypertension Brother alin christina Heart attack Father zachary christina Alzheimer's disease Mother dolly navarro cker Heart failure Mother dolly navarrocker Stroke Mother dolly navarrocker Breast cancer Niece Colon cancer Other FAMILY HX Diabetes Other FAMILY HX Hypertension Other FAMILY HX Liver disease Other FAMILY HX Breast cancer Paternal Aunt Cancer Sister 3 briana whiterison colon cancer Diabetes Sister 3 briana christina scott Hyperlipidemia Sister 3 briana christina scott pass ed away kidney failure age 69 Hypertension Sister 3 briana christina scott Kidney disease Sister 3 briana christina scott kidn ey failure age 69 Obesity Sister 3 briana scott Ovarian cancer Neg Hx Relation Name Status Comments Brother alin christina Alive Father zachary christina Alive at a ge 56 of severe heart attack Maternal Grandfather Maternal Grandmother Mother dolly weir Alive Niece Alive Other FAMILY HX Paternal Aunt Paternal Grandfather Paternal Grandmother Sister 1 Sister 2 Sister 3 briana scott Social History Tobacco Use Types Packs/Day Years Used Date Smoking Tobacco: Never Passive Smoke Exposure: Never Smokeless Tobacco: Never Tobacco Cessation:Counseling Given: Not Answered Alcohol Use Standard Drinks/Week Comments No 0 [...] file Not on file Not on file Last Filed Vital Signs Vital Sign Reading Time Taken Comments Blood Pressure 116/68 08/14/2024 12:56 PM EDT Pulse 59 08/14/2024 12:56 PM EDT Temperature 36.3 C (97.3 F) 04/20/2024 2:27 PM EST Respiratory Rate 13 04/20/2024 2:27 PM EST Oxygen Saturation 97% 08/14/2024 12:56 PM EDT Inhaled Oxygen Concentration - - Weight 58 kg (127 lb 12.8 oz) 08/14/2024 12:56 P M EDT Height 158.8 cm (5' 2.52 ) 08/14/2024 12:56 PM E DT Body Mass Index 22.99 08/14/2024 12:56 PM EDT Plan of Treatment Upcoming Encounters Date Type Department Care Team (Late st Contact Info) Description 01/05/2025 11:15 AM EDT Office Visit [facility] [address] [place] [address] Wing Sanabria MD [address] [place] [address] Health Maintenance Due Date Last Done Comments DIABETIC FOOT EXAM 1960 URINE MICROALBUMIN-CREATININ E RATIO (uACR) 1960 Pneumococcal Vaccine 50+ (1 of 2 - PCV) 07/21/1967 COLOGUARD 1993 COLON CANCER SCREENING 5 YEA R SIGMOIDOSCOPY 1993 CT COLONOGRAPHY 1993 FIT Testing (1 year) 1993 ZOSTER VACCINE (1 of 2) 1998 TDAP/TD VACCINES (3 - Tdap) 02/26/2014 02/27/2004, 0 06/27/1996 ANNUAL WELLNESS VISIT 01/22/2017 FECAL OCCULT BLOOD TEST 09/19/2019 09/18/2018 DXA SCAN 07/08/2023 07/07/2021, 07/05/2017 RSV Vaccine - Adults (1 - 1- dose 75+ series) 07/21/2023 COVID-19 Vaccine ( - 2023-2 5 season) 2023 05/19/2023, 01/28/2022, 03/12/2021, Additional history exists LIPID PANEL 02/04/2024 02/03/2023, 11/25, 05/01/2022, Additional history exists DIABETIC EYE EXAM 06/16/2024 06/16/2023, , 01/05/2023, Additional history exists HEMOGLOBIN A1C 07/04/2024 01/05/2024, 01/24, 12/31/2022, Additional history exists INFLUENZA VACCINE 01/24/2025 02/17/2020, , 02/17/2020 COLONOSCOPY 01/22/2032 01/21/2022, 12/26, 11/23/2019, Additional history exists COLORECTAL CANCER SCREENING 01/22/2032 MAMMOGRAM Discontinued 03/16/2024, 02/25, 03/16/2023, Additional history exists HEPATITIS C SCREENING Completed 07/17/2024 , 01/01/2014, 12/05/2013 Procedures Procedure Name Priority Date/Time Associated Diagnosis Comments SCANNED - LABS 09/21/2024 HOLTER MONITOR >48 HOURS UP TO 7 DAYS INTERP ONLY Routine 09/04/2024 10:26 AM EDT Paroxysmal atrial fibrillation, post-operative 05/2024 SCANNED EKG 08/29/2024 MAMMO SCREENING DIGITAL TOMOSYNTHESIS BILATERAL W CAD Routine 03/16/2024 10:58 AM EST Visit for screening mammogram POCT GLYCOSYLATED HEMOGLOBIN (HGB A1C) Routine 01/05/2024 10:13 AM EDT Prediabetes SCANNED - EYE EXAM 06/16/2023 DEXA BONE DENSITY AXIAL Routine 07/07/2021 11:11 AM EDT Osteopenia after menopause Screening for osteoporosis from Last 3 Months or Most Recently Relevant to Health Maintenance Results * LABS SCANNED (09/21/2024) us Wing Sanabria MD LAB BLOOD ORDERABLES Final Res ult * HOLTER MONITOR >48 HOURS UP TO 7 DAYS INTERP ONLY (09/04/2024 10:26 AM EDT) Heart rate (average) 75 CV SUBSTITUTED RESULTING AGENCY Heart rate minimum 62 CV SUBSTITUTED RESULTING AGENCY Heart rate maximum 142 CV SUBSTITUTED RESULTING AGENCY Anatomical Region Laterality Modality Other Narrative 09/22/2024 8:53 AM EDT The patient was monitored for 4 days 12 hours and 32 minutes Average HR: 75. Min HR: 62. Max HR: 142. 169 pacs no runs No pvcs Study Description Monitor placed on patient by Patient on 09/07/2024 . Instructions were provided to patient on use of holter monitor and duration of monitoring. The monitor was scanned on 09/22/2024. The patient was monitored for 4 days 12 hours and 32 minutes. Indications for this exam include Paroxysmal atrial fibrillation. Average HR: 75. Min HR: 62. Max HR: 142. Tova Klein APRN [facility] ORD ERABLES Final Result * ECG Scan (08/29/2024) Wing Sanabria MD ECG ORDERABLES Final Result * Mammo Screening Digital Tomosynthesis Bilateral With CAD (03/16/2024 10:58 AM EST) Anatomical Region Laterality Modality Breast N/A Mammography 03/21/2024 3:05 PM EST Impressions 03/21/2024 3:08 PM EST Benign screening mammogram. RECOMMENDATION: Continue annual screening mammography. BI-RADS CATEGORY 2, BENIGN. CAD was utilized. The standard false-negative rate of mammography is between 10% and 25%. Complex patterns or increased breast density will markedly elevate the false-negative rate of mammography. A letter, in lay terminology, with the results of this exam will be mailed to the patient. This report was finalized on 03/21/2024 3:[address] Price Ennis MD. Narrative 03/21/2024 3:08 PM EST DIGITAL SCREENING MAMMOGRAM WITH TOMOSYNTHESIS HISTORY: Screening Mammography. Low dose full field digital breast tomosynthesis imaging was performed with 2D and 3D acquisitions consisting of bilateral CC and MLO views. Examination is compared to prior examination dating back to 06/11/2015. Examination is read in conjunction with computer aided detection. FINDINGS: There are scattered areas of fibroglandular density. No suspicious masses, microcalcifications or areas of architectural distortion are identified. Left breast postbiopsy changes are stable. Jeane Hodge APRN IMG MAMMOGRAPHY ORDERABLES F inal Result * POC Glycosylated Hemoglobin (Hb A1C) (01/05/2024 10:13 AM EDT) Hemoglobin A1C 5.5 4.5 - 5.7 % [facility] Lot Number [id number] [facility] Expiration Date 09/19/2025 [facility] Blood 01/05/2024 10:1 3 AM EDT Gloria Preston MD POINT OF CARE TEST ORDERABLES Final Result [facility]
[address] [place] [phone], * SCANNED - EYE EXAM (06/16/2023) Anatomical Region Laterality Modality Other Gloria Preston MD CHART REVIEW TABS Final Res ult * DEXA Bone Density Axial (07/07/2021 11:11 AM EDT) Anatomical Region Laterality Modality Wrist, Hip, L-spine N/A Bone Density Narrative 07/21/2021 10:48 AM EDT Bone Density Scan Findings Consistent with Osteopenia Would recommend Calcium , Vitamin D and Weight Bearing Exercises Follow Up Repeat Study in 2 Years Vinicius Lantigua MD Vinicius Lantigua MD IMG DXA ORDERABLES Final R esult from Last 3 Months or Most Recently Relevant to [place] [address] [facility] [place] [address] MEDICARE A & B Care Teams Rn House Supervisor Relationship Specialty Start Date End Date Fracisco Barnes DO [address] [place] [address] [place] [address] PCP - General Internal Medicine 07/07/24
== END 2024-11-10 23:59 | disposition home or self-care (01) ==
LOC: RAD 11:14
PROVIDERS: PCP Nurse Practitioner Family; Visit Provider Nurse Practitioner Family
DX: R07.89 Other chest pain (principal); Z98.890 Other specified postprocedural states
CPT/HCPCS: 71046

== ENCOUNTER 2024-11-14 07:54 | Outpatient (CLI) | payer MEDICARE, OTHER, SELFPAY ==
--- OUTSIDE RECORDS SUMMARY | 2017-06-17 09:00 | XMS_ITS | Encounter Summary ---
Author Organization [facility] Address [address] [place] [address] Care Team Providers Care Gold Assayer Name Role Phone Pedrito Cruz MD Primary Care Provider + Reason for Visit * Diagnostic Imaging (Routine) - Closed Specialty Diagnoses / Procedures Referred By Tamika t Referred To Contact Radiology Diagnoses Solitary thyroid nodule Procedures US Thyroid Gloria Smith MD [address] [address] Phone: tel: fax: [facility] ENDOCRINOLOGY [address] [phone] Phone: tel: fax: Referral ID Status Reason Start Date Expiration Date Visits Re quested Visits Authorized [id number] Closed 06/17/2017 06/17/2018 1 1 Encounter Details Date Type Department Care Team (Latest Contact Info) Description 06/17/2017 8:00 AM EST Hospital Encounter [facility] ENDOCRINOLOGY [address] [phone] Solitary thyroid nodule Social History Tobacco [...] Care Team (Late st Contact Info) Description 01/05/2025 11:15 AM EDT Office Visit [facility] CARDIOLOGY [address] [place] [address] Wing Sanabria MD [address] [facility] [address] [place] [address] documented as of this encounter Procedures Procedure [...] nodule documented in this encounter Care Teams Gold Assayer Relationship Specialty Start Date End Date Pedrito Cruz MD PCP - General 06/10/15 11/19/21 documented as of this encounter
--- OUTSIDE RECORDS SUMMARY | 2018-06-23 11:08 | XMS_ITS | Encounter Summary ---
Author Organization [facility] Address [address] [place] [address] Care Team Providers Care Piece Dyer Name Role Phone Pedrito Cruz MD Primary Care Provider + Reason for Visit * Diagnostic Imaging (Routine) - Closed Specialty Diagnoses / Procedures Referred By Contac t Referred To Contact Radiology Diagnoses Solitary thyroid nodule Procedures US Thyroid Gloria Smith MD [address] [address] Phone: tel: fax: [facility] ENDOCRINOLOG[facility] [address] [phone] Phone: tel: fax: Referral ID Status Reason Start Date Expiration Date Visits Re quested Visits Authorized [id number] Closed 06/23/2018 06/23/2019 1 1 Encounter Details Date Type Department Care Team (Late st Contact Info) Description 06/23/2018 10:08 AM EST Hospital Encounter [facility] END[facility] [address] [phone] Social History Tobacco Use Types [...] Description 01/05/2025 11:15 AM EDT Office Visit [facility] CARDIOLOGY [address] [facility] [address] [place] [address] Wing Sanabria MD 1720 [facility] [address] [place] [address] documented as of this encounter Procedures Procedure [...] on filedocumented in this encounter Care Teams Piece Dyer Relationship Specialty Start Date End Date Pedrito Cruz MD PCP - General 06/10/15 11/19/21 documented as of this encounter
--- OUTSIDE RECORDS SUMMARY | 2019-06-28 10:02 | XMS_ITS | Encounter Summary ---
Author Organization [facility] Address [address] [place] [address] Care Team Providers Care Commutator Tester Name Role Phone Pedrito Cruz MD Primary Care Provider + Reason for Visit * Diagnostic Imaging (Routine) - Closed Specialty Diagnoses / Procedures Referred By Contac t Referred To Contact Radiology Diagnoses Solitary thyroid nodule Procedures US Thyroid Gloria Smith MD [address] [facility] [address] [place] [address] Phone: tel: fax: [facility] ENDOCRINOLOGY [address] [phone] Phone: tel: fax: Referral ID Status Reason Start Date Expiration Date Visits Re quested Visits Authorized [id number] Closed 06/28/2019 06/27/2020 1 1 Encounter Details Date Type Department Care Team (Late st Contact Info) Description 06/28/2019 9:02 AM EST Hospital Encounter [facility] ENDOCRINOLOGY [address] [phone] Social History Tobacco Use Types [...] Description 01/05/2025 11:15 AM EDT Office Visit [facility]IOLOGY [address] [place] [address] Wing Sanabria MD 1720 [facility] [address] [place] [address] documented as of this encounter Procedures Procedure [...] on filedocumented in this encounter Care Teams Commutator Tester Relationship Specialty Start Date End Date Pedrito Cruz MD PCP - General 06/10/15 11/19/21 documented as of this encounter
--- OUTSIDE RECORDS SUMMARY | 2020-08-14 10:02 | XMS_ITS | Encounter Summary ---
Author Organization [facility] Address [address] [place] [address] Care Team Providers Care Community Engagement Coordinator Name Role Phone Pedrito Cruz MD Primary Care Provider + Reason for Visit * Diagnostic Imaging (Routine) - Closed Specialty Diagnoses / Procedures Referred By Contac t Referred To Contact Radiology Diagnoses Solitary thyroid nodule Procedures US Thyroid Gloria Smith MD [address] [place] [address] Phone: tel: fax: [facility] ENDOCRINOLOGY [address] [place] [address] Phone: tel: fax: Referral ID Status Reason Start Date Expiration Date Visits Re quested Visits Authorized [id number] Closed 08/14/2020 08/14/2021 1 1 Encounter Details Date Type Department Care Team (Late st Contact Info) Description 08/14/2020 10:02 AM EDT Hospital Encounter [facility] [address] [facility] [address] [place] [phone] Social History Tobacco Use Types Packs/Day [...] AM EDT Office Visit [facility]ARDIOLOGY [address] [place] [address] Wing Sanabria MD [address] [place] [address] documented as of this encounter Procedures Procedure [...] on filedocumented in this encounter Care Teams Community Engagement Coordinator Relationship Specialty Start Date End Date Pedrito Cruz MD PCP - General 06/10/15 11/19/21 documented as of this encounter
--- OUTSIDE RECORDS SUMMARY | 2021-07-07 10:24 | XMS_ITS | Encounter Summary ---
Author Organization [facility] Address [address] [place] [address] Care Team Providers Care Grades 9 Thru 12 Visiting Teacher Name Role Phone Pedrito Cruz MD Primary Care Provider + Reason for Referral * Diagnostic Imaging (Routine) - Closed Specialty Diagnoses / Procedures Referred By Contact Referred To Contact Obstetrics and Gynecology Diagnoses Osteopenia after menopause Screening for osteoporosis Procedures DEXA Bone Density Axial Vinicius Lantigua MD [address] [facility] [address] [place] [address] Phone: tel: fax: [facility] OBGYN [address] [facility] [address] [place] [address] Phone: tel: fax: Referral ID Status Reason Start Date Expiration Date Visits Re quested Visits Authorized [id number] Closed 07/07/2021 07/07/2022 1 1 Reason for Visit * Diagnostic Imaging (Routine) - Closed Specialty Diagnoses / Procedures Referred By Contact Referred To Contact Obstetrics and Gynecology Diagnoses Osteopenia after menopause Screening for osteoporosis Procedures DEXA Bone Density Axial Vinicius Lantigua MD [address] [facility] [address] [place] [address] Phone: tel: fax: [facility] OBGYN [address] [facility] [address] [place] [address] Phone: tel: fax: Referral ID Status Reason Start Date Expiration Date Visits Re quested Visits Authorized [id number] Closed 07/07/2021 07/07/2022 1 1 Encounter Details Date Type Department Care Team (Latest Contact Info) Description 07/07/2021 10:24 AM EDT Hospital Encounter [facility] OBGYN [address] [facility] [address] [place] [address] Osteopenia after menopause; Screening for osteoporosis Social [...] Description 01/05/2025 11:15 AM EDT Office Visit [facility] CARDIOLOGY [address] [facility] [address] [place] [address] Wing Sanabria MD 1720 [facility] [address] [place] [address] documented as of this encounter Procedures Procedure [...] osteoporosis documented in this encounter Care Teams Grades 9 Thru 12 Visiting Teacher Relationship Specialty Start Date End Date Pedrito Cruz MD PCP - General 06/10/15 11/19/21 documented as of this encounter
--- OUTSIDE RECORDS SUMMARY | 2021-07-08 09:07 | XMS_ITS | Encounter Summary ---
[facility] Address [address] [place] [address] Care Team Providers Care Security Analyst Name Role Phone Pedrito Cruz MD Primary Care Provider + Encounter Details Date Type Department Care Team (Late st Contact Info) Description 07/08/2021 9:07 AM EDT Hospital Encounter [facility] PULMONARY & CRITICAL CARE MEDICINE [address] [place] [phone] Social History Tobacco Use Types Packs/Day Years [...] [facility] CARDIOLOGY [address] [facility] [address] [place] [address] Wing Sanabria MD [address]20 [facility] [address] [place] [address] documented as of this encounter Procedures Procedure [...] on filedocumented in this encounter Care Teams Security Analyst Relationship Specialty Start Date End Date Pedrito Cruz MD PCP - General 06/10/15 11/19/21 documented as of this encounter
--- OUTSIDE RECORDS SUMMARY | 2021-09-12 11:17 | XMS_ITS | Encounter Summary ---
[facility] Address [address] [place] [address] Care Team Providers Care Roll Contour Grinder Name Role Phone Pedrito Cruz MD Primary Care Provider + Reason for Visit * Diagnostic Imaging (Routine) - Closed Specialty Diagnoses / Procedures Referred By Contprice t Referred To Contact Radiology Diagnoses Thyroid nodule Procedures US Thyroid Gloria Smith MD [address] [place] [address] Phone: tel: fax: [facility] ENDOCRINOLOGY [address] [facility] [address] [place] [phone] Phone: tel: fax: Referral ID Status Reason Start Date Expiration Date Visits Re quested Visits Authorized [id number] Closed 09/12/2021 09/12/2022 1 1 Encounter Details Date Type Department Care Team (Late st Contact Info) Description 09/12/2021 11:17 AM EDT Hospital Encounter [facility] ENDOCRINOLOGY [address] [facility] [address] [place] [phone] Social History Tobacco Use Types Packs/Day [...] Visit [facility] CARDIOLOGY [address] [facility] [address] [place] [address] Wing Sanabria MD 1720 [facility] [address] [place] [address] documented as of this encounter Procedures Procedure Name Priority Date/Time Associated Diagnosis Comments US THYROID Routine 09/12/2021 11:17 AM EDT Thyroid nodule documented in this encounter Results * US Thyroid (09/12/2021 11:17 AM EDT) Narrative SYSTEMGENERATED, DOCUMENTATION - 09/12/2021 11:17 AM EDT Please see performing physician's note for result. us Gloria Prestno MD IMG US ORDERABLES Final Result documented in this encounter Visit Diagnoses Not on filedocumented in this encounter Care Teams Roll Contour Grinder Relationship Specialty Start Date End Date Pedrito Cruz MD PCP - General 06/10/15 11/19/21 documented as of this encounter
--- OUTSIDE RECORDS SUMMARY | 2022-12-31 10:05 | XMS_ITS | Encounter Summary ---
[facility] Organization [facility] Address [address] [place] [address] Care Team Providers Care Trimmer Press Clippings Name Role Phone Naveen Jeane SHRESTHA Primary Care Provider [phone] Reason for Visit * Diagnostic Imaging (Routine) - Closed Specialty Diagnoses / Procedures Referred By Tamika bush Referred To Contact Radiology Diagnoses Thyroid nodule Procedures US Thyroid Gloria Smith MD [address] [place] [address] Phone: tel: fax: [facility] ENDOCRINOLOGY [address] [phone] Phone: tel: fax: Referral ID Status Reason Start Date Expiration Date Visits Re quested Visits Authorized [id number] Closed 12/31/2022 12/31/2023 1 1 Encounter Details Date Type Department Care Team (Late st Contact Info) Description 12/31/2022 10:05 AM EDT Hospital Encounter [facility] ENDOCRINOLOGY [facility] [address] [place] [phone] Social History Tobacco Use Types Packs/Day [...] Description 01/05/2025 11:15 AM EDT Office Visit [facility]OLOGY [address] [facility] [facility] [address] [place] [address] Wing Sanabria MD [address] [place] [address] documented as of this encounter Procedures Procedure [...] on filedocumented in this encounter Care Teams Trimmer Press Clippings Relationship Specialty Start Date End Date Jeane Hodge APRN PCP - General Internal Medicine 12/10/22 04/06/23 documented as of this encounter
--- OUTSIDE RECORDS SUMMARY | 2024-01-05 10:12 | XMS_ITS | Encounter Summary ---
[facility] Address [address] [place] [address] Care Team Providers Care Institutional Research Coordinator Name Role Phone Jeane Hodge HENRIETTA Primary Care Provider [phone] Reason for Visit * Diagnostic Imaging (Routine) - Closed Specialty Diagnoses / Procedures Referred By Tamika bush Referred To Contact Radiology Diagnoses Thyroid nodule Procedures US Thyroid Gloria Smith MD [address] [employer] [address] [place] [address] Phone: tel: fax: Referral ID Status Reason Start Date Expiration Date Visits Re quested Visits Authorized [id number] Closed 01/05/2024 01/04/2025 1 1 Encounter Details Date Type Department Care Team (Late st Contact Info) Description 01/05/2024 10:12 AM EDT Hospital Encounter [facility] ENDOCRINOLOGY [address] [place] [phone] Social History Tobacco Use Types Packs/Day Years [...] Description 01/05/2025 11:15 AM EDT Office Visit [facility] CARDIOLOGY [address] [place] [address] Wing Sanabria MD [address] [place] [address] documented as of this encounter Procedures Procedure [...] on filedocumented in this encounter Care Teams Institutional Research Coordinator Relationship Specialty Start Date End Date Jeane Hodge APRN [address] [place] [address] PCP - General Internal Medicine 04/07/23 07/06/24 documented as of this encounter
--- OUTSIDE RECORDS SUMMARY | 2024-11-14 07:56 | XMS_ITS | Encounter Summary ---
Author Organization Healthcare Address [address] [place] [address] Care Team Providers Care [place] Leverman Name Role Phone Pcp, No Primary Care Provider Unavailabl e Encounter Details Date Type Department Care Team (Late st Contact Info) Description 07/17/2024 Ophth Exam [facility] [address] [place] [phone] Eh Tamez MD [address] [place] [id number] Social History Tobacco Use Types Packs/Day [...] on filedocumented in this encounter Care Teams [place] Leverman Relationship Specialty Start Date End Date Pcp, No [address] [place] [address] PCP - General Family Medicine 07/17/24 documented as of this encounter
--- OUTSIDE RECORDS SUMMARY | 2024-11-14 07:56 | XMS_ITS | Encounter Summary ---
Author Organization [facility] Address [address] [place] [address] Care Team Providers Care Jewel Stringer Name Role Phone Fracisco Barnes DO Primary Care Provider + Encounter Details Date Type Department Care Team (Late Contact Info) Description 03/02/2014 External CPT II CLINICAL INFORMATICIST - [facility] Social History Tobacco Use [...] Visit [facility] [address] [facility] [address] [place] [address] Wing Sanabria MD [address] [facility] [address] [place] [address] documented as of this encounter Visit Diagnoses Not on filedocumented in this encounter Care Teams Jewel Stringer Relationship Specialty Start Date End Date Fracisco Barnes DO [address] [place] [address] PCP - General Internal Medicine 07/07/24 documented as of this encounter
--- OUTSIDE RECORDS SUMMARY | 2024-11-14 07:56 | XMS_ITS | Clinical Summary ---
Author Organization [facility] Address [address] [place] [address] Care Team Providers Care First Cook Name Role Phone Fracisco Barnes Primary Care [...] (Symbicort) 160-4.5 MCG/ACT inhaler Inhale 2 puffs. 12/29/19 24 025 Active albuterol sulfate HFA 108 (90 Base) MCG/ACT inhaler Inhale 2 puffs Every 4 (Four) Hours As Needed for Wheezing. Active rosuvastatin (CRESTOR) 20 MG tablet Take 1 tablet by mouth Daily. 90 tablet 3 02/03/20 24 Active ezetimibe (ZETIA) 10 MG tablet Take 1 tablet by mouth Daily. 90 tablet 3 04/27/19 25 Active acetaminophen (TYLENOL) 325 MG tablet Take 1-2 tablets by mouth Every 6 (Six) Hours As Needed. 06/10/19 25 Active ondansetron ODT (ZOFRAN-ODT) 4 MG disintegrating tablet Take 1 tablet by mouth Every 8 (Eight) Hours As Needed. 06/10/19 25 Active sucralfate (CARAFATE) 1 g tablet Take 1 tablet by mouth 2 (Two) Times a Day Before Meals. 05/17/19 25 025 Active Problems Problem Noted Date Diagnosed Date [...] hypoechoic solid nodule. FNA 2015 - benign ([facility]) Prediabetes 03/23/2016 Renal cyst 03/12/2016 Lung nodules [...] Department Care Team Description 09/27/2024 Results Follow-Up [facility] [address] [facility] [address] [place] [address] Mary Duarte RN Results 09/04/2024 10:30 AM EDT Ancillary Procedure [facility] [address] [facility] [address] [place] [address] Paroxysmal atrial fibrillation, post-operative 05/202409/04/2024 Travel 08/24/2024 Telephone [facility] [address] [facility] [address] [place] [address] Wing Sanabria MD Advice Only from Last 3 Months Immunizations Immunization Administration Dates Next Due FLUAD TRI 65YR+ 02/17/2020 Family History Medical History Relation Name Comments Heart attack Brother alin christina heart a ttack age 57, stint age 61 Heart disease Brother alin christina same a s above Hypertension Brother alin christina Heart attack Father zachary christina Alzheimer's disease Mother dolly bass sanford tu cker Heart failure Mother dolly christina destin Stroke Mother dolly bass christina destin Breast cancer Niece Colon cancer Other FAMILY HX Diabetes Other FAMILY HX Hypertension Other FAMILY HX Liver disease Other FAMILY HX Breast cancer Paternal Aunt Cancer Sister 3 briana scott colon cancer Diabetes Sister 3 briana scott Hyperlipidemia Sister 3 brinaa scott pass ed away kidney failure age 69 Hypertension Sister 3 briana scott Kidney disease Sister 3 briana scott kidn ey failure age 69 Obesity [...] Description 01/05/2025 11:15 AM EDT Office Visit [facility] [address] [place] [address] Wing Sanabria MD [address] [place] [address] Health Maintenance Due Date Last Done Comments [...] 1- dose 75+ series) 07/21/2023 COVID-19 Vaccine (6 - 2023-2 5 season) 2023 05/19/2023, 01/28/2022, [...] Hemoglobin A1C 5.5 4.5 - 5.7 % [facility] Lot Number [id number] [facility] Expiration Date 09/19/2025 [facility] Blood 01/05/2024 10:1 3 AM EDT Gloria Preston MD POINT OF CARE TEST ORDERABLES Final Result [facility]
[address] [place] [address], [place] [phone] * SCANNED - EYE EXAM (06/16/2023) Anatomical [...] Relevant to [place] [address] [facility] [place] [address] MEDICARE A & B Care Teams First Cook Relationship Specialty Start Date End Date Fracisco Barnes DO [address] [place] [address] PCP - General Internal Medicine 07/07/24
--- OUTSIDE RECORDS SUMMARY | 2024-11-14 07:56 | XMS_ITS | Clinical Summary ---
Author Organization [facility] Address [address] [place] [address] Care Team Providers Care Chemical Engineer Name Role Phone Wing Sanabria MD Unavailable [phone] Social History Tobacco Use Types Packs/Day Years [...] Screening 07/07/2026 07/07/2021, 2021 Insurance [place] [id number] MEDICARE Care Teams Chemical Engineer Relationship Specialty Start Date End Date Wing Sanabria MD [address] [place] [address] Cardiology 04/13/24
--- OUTSIDE RECORDS SUMMARY | 2024-11-14 07:56 | XMS_ITS | Encounter Summary ---
Author Organization [facility] Address [address] [place] [address] Care Team Providers Care Senior Net Engineer Name Role Phone Fracisco Barnes Primary Care Provider + Reason for Visit * Reason Onset Date Comments Results 09/27/2024 Encounter Details Date Type Department Care Team (Late st Contact Info) Description 09/27/2024 Results Follow-Up [facility] [address] [facility] [address] [place] [address] Mary Duarte, ANNABELLE Results Social [...] Description 01/05/2025 11:15 AM EDT Office Visit [facility] [address] [facility] [address] [place] [address] Wing Sanabria MD [address] [facility] [address] [address] documented as of this encounter Visit Diagnoses Not on filedocumented in this encounter Care Teams Senior Net Engineer Relationship Specialty Start Date End Date Fracisco Barnes DO [address] [place] [address] PCP - General Internal Medicine 07/07/24 documented as of this encounter
--- OUTSIDE RECORDS SUMMARY | 2024-11-14 07:56 | XMS_ITS | Clinical Summary ---
Author Organization [facility] Address [address] [place] [address] Care Team Providers Care Rubber And Pounder Name Role Phone Pcp, No Primary Care [...] or (1 - 1-dose 75+ series) 07/21/2023 [id number] Vaccine ( - season) 2023 05/19/2023, 01/28/2022, [...] Antibody Negative Negative 07/17/2024 7:52 PM EDT [facility] Blood Venous blood specimen / Unknown Venipuncture / Unknown 07/17/2024 6:53 PM EDT 07/17/2024 7:11 PM EDT us Yin Johnson LAB BLOOD ORDERABLES Final Resul t [facility] [address] [place] [address] from Last 3 Months or Most Recently Relevant [place] [address] [place] [address] MEDICARE [facility] Care Teams Rubber And Pounder Relationship Specialty Start Date End Date Pcp, [place] [address] PCP - General Family Medicine 07/17/24
--- NOTE | 2024-11-14 08:00 | CT_ITS ---
FINAL REPORT TECHNIQUE: Axial imaging of the chest was obtained without contrast. Reformatted images were also obtained and reviewed.This study was performed with techniques to keep radiation doses as low as reasonably achievable, (ALARA). Individualized dose reduction technique using automated exposure control or adjustment of mA and/or kV according to the patient's size were employed. CLINICAL HISTORY: scarring of lung COMPARISON: 06/17/2023 FINDINGS: There is no axillary adenopathy. Patient is status post CABG. There is no hilar or mediastinal mass or adenopathy. Heart size is normal. There is no pericardial or pleural effusion. Limited images of the upper abdomen are unremarkable. There is stable lingular and right lower lobe scarring. A nodule is seen along the major fissure on coronal image 24 accounting for vague right midlung density measuring 3 mm which is stable from prior exam. IMPRESSION: No acute findings. Stable scarring and tiny benign-appearing perifissural nodule. Reviewed, Interpreted and Dictated by Belinda Srivastava MD Transcribed by Mimi Bar Authenticated and [facility]
== END 2024-11-14 23:59 | disposition home or self-care (01) ==
LOC: RAD 07:55
PROVIDERS: PCP Nurse Practitioner Family; Visit Provider Nurse Practitioner Family
DX: J98.4 Other disorders of lung (principal); R91.1 Solitary pulmonary nodule; Z95.1 Presence of aortocoronary bypass graft
CPT/HCPCS: 71250

== ENCOUNTER 2025-02-05 14:21 | Outpatient (CLI) | payer MEDICARE, OTHER, SELFPAY ==
--- OUTSIDE RECORDS SUMMARY | 2017-06-17 09:00 | XMS_ITS | Encounter Summary ---
Author Organization [facility] Address [address] [place] [phone] Care Team Providers Care Mushroom Press Operator Name Role Phone Pedrito Cruz MD Primary Care Provider + Reason for Visit * Diagnostic Imaging (Routine) - Closed Specialty Diagnoses / Procedures Referred By Contac t Referred To Contact Radiology Diagnoses Solitary thyroid nodule Procedures US Thyroid Gloria Smith MD [address] [place] [address] Phone: tel: fax: [facility] ENDOCRINOLOGY [address] [place] [phone] Phone: tel: fax: Referral ID Status Reason Start Date Expiration Date Visits Re quested Visits Authorized [id number] Closed 06/17/2017 06/17/2018 1 1 Encounter Details Date Type Department Care Team (Latest Contact Info) Description 06/17/2017 8:00 AM EST Hospital Encounter [facility] ENDOCRINOLOGY [address] [place] [phone] Solitary thyroid nodule Social History Tobacco [...] Care Team (Late st Contact Info) Description 06/27/2025 9:30 AM EST Office Visit [facility] NEUROLOGY [address] [facility] [address] [place] [phone] Марина Nichols, CUTTING INSPECTOR [address] [facility] [address] [place] [address] 03/15/2026 9:30 AM EST Office Visit [facility] CARDIOLOGY [address] [facility] [address] [place] [phone] Wing Sanabria MD [address] [facility] [address] [place] [address] documented as of this encounter Procedures Procedure [...] nodule documented in this encounter Care Teams Mushroom Press Operator Relationship Specialty Start Date End Date Pedrito Cruz MD PCP - General 06/10/15 11/19/21 documented as of this encounter
--- OUTSIDE RECORDS SUMMARY | 2018-06-23 11:08 | XMS_ITS | Encounter Summary ---
Author Organization [facility] Address [address] [place] [phone] Care Team Providers Care Machine Rough Rounder Name Role Phone Pedrito Cruz MD Primary Care Provider + Reason for Visit * Diagnostic Imaging (Routine) - Closed Specialty Diagnoses / Procedures Referred By Contac t Referred To Contact Radiology Diagnoses Solitary thyroid nodule Procedures US Thyroid Gloria Smith MD [address] [place] [address] Phone: tel: fax: [facility]CRINOLOG[facility] [address] [facility] [address] [place] [phone] Phone: tel: fax: Referral ID Status Reason Start Date Expiration Date Visits Re quested Visits Authorized [id number] Closed 06/23/2018 06/23/2019 1 1 Encounter Details Date Type Department Care Team (Late st Contact Info) Description 06/23/2018 10:08 AM EST Hospital Encounter [facility] ENDOCRINOLOGY [address] [place] [phone] Social History Tobacco Use Types Packs/Day [...] Description 06/27/2025 9:30 AM EST Office Visit [facility] NEUROLOGY [address] [facility] [address] [place] [phone] Марина Nichols, HENRIETTA 2101 [facility] [address] [place] [address] 03/15/2026 9:30 AM EST Office Visit [facility] CARDIOLOGY [address] [facility] [address] [place] [phone] Wing Sanabria MD 1720 [facility] [address] [place] [address] documented as of this encounter Procedures Procedure [...] on filedocumented in this encounter Care Teams Machine Rough Rounder Relationship Specialty Start Date End Date Pedrito Cruz MD PCP - General 06/10/15 11/19/21 documented as of this encounter
--- OUTSIDE RECORDS SUMMARY | 2019-06-28 10:02 | XMS_ITS | Encounter Summary ---
Author Organization [facility] Address [address] [place] [phone] Care Team Providers Care Physician Representative Name Role Phone Pedrito Cruz MD Primary Care Provider + Reason for Visit * Diagnostic Imaging (Routine) - Closed Specialty Diagnoses / Procedures Referred By Contac t Referred To Contact Radiology Diagnoses Solitary thyroid nodule Procedures US Thyroid Gloria Smith MD [address] [place] [address] Phone: tel: fax: [facility] [address] [facility] [address] [place] [phone] Phone: tel: fax: Referral ID Status Reason Start Date Expiration Date Visits Re quested Visits Authorized [id number] Closed 06/28/2019 06/27/2020 1 1 Encounter Details Date Type Department Care Team (Late st Contact Info) Description 06/28/2019 9:02 AM EST Hospital Encounter [facility] ENDOCR[facility] [address] [place] [phone] Social History Tobacco Use Types Packs/Day [...] Description 06/27/2025 9:30 AM EST Office Visit [facility] NEUROLOGY 2101 [facility] [address] [place] [phone] Марина Nichols, APPRENTICE PAINTER HAND 2101 [facility] [address] [place] [address] 03/15/2026 9:30 AM EST Office Visit [facility] CARDIOLOGY 1720 [facility] [address] [place] [phone] Wing Sanabria MD 1720 [facility] [address] [place] [address] documented as of this encounter Procedures Procedure [...] on filedocumented in this encounter Care Teams Physician Representative Relationship Specialty Start Date End Date Pedrito Cruz MD PCP - General 06/10/15 11/19/21 documented as of this encounter
--- OUTSIDE RECORDS SUMMARY | 2020-08-14 10:02 | XMS_ITS | Encounter Summary ---
Author Organization [facility] Address [address] [place] [phone] Care Team Providers Care Blower Feeder Dyed Raw Stock Name Role Phone Pedrito Cruz MD Primary Care Provider + Reason for Visit * Diagnostic Imaging (Routine) - Closed Specialty Diagnoses / Procedures Referred By Contac t Referred To Contact Radiology Diagnoses Solitary thyroid nodule Procedures US Thyroid Gloria Smith MD [address] [place] [address] Phone: tel: fax: [facility] ENDOCRINOLOG[facility] [address] [place] [phone] Phone: tel: fax: Referral ID Status Reason Start Date Expiration Date Visits Re quested Visits Authorized [id number] Closed 08/14/2020 08/14/2021 1 1 Encounter Details Date Type Department Care Team (Late st Contact Info) Description 08/14/2020 10:02 AM EDT Hospital Encounter [facility] [address] [facility] [address] [place] [phone] Social History Tobacco Use Types Packs/Day [...] Description 06/27/2025 9:30 AM EST Office Visit [facility] NE[facility] [address] [facility] [address] [place] [address] Марина Nichols, SOCIAL MEDIA MARKETING MANAGER [address] [facility] [address] [place], [place] [phone] 03/15/2026 9:30 AM EST Office Visit [facility] CARDIOLOGY [address] [facility] [address] [place] [phone] Wing Sanabria MD [address] [facility] [address] [place], [place] [phone] documented as of this encounter Procedures Procedure [...] on filedocumented in this encounter Care Teams Blower Feeder Dyed Raw Stock Relationship Specialty Start Date End Date Pedrito Cruz MD PCP - General 06/10/15 11/19/21 documented as of this encounter
--- OUTSIDE RECORDS SUMMARY | 2021-07-07 10:24 | XMS_ITS | Encounter Summary ---
Author Organization [facility] Address [address] [place] [address] Care Team Providers Care Employment Appeals Examiner Name Role Phone Pedrito Cruz MD Primary Care Provider + Reason for Referral * Diagnostic Imaging (Routine) - Closed Specialty Diagnoses / Procedures Referred By Contact Referred To Contact Obstetrics and Gynecology Diagnoses Osteopenia after menopause Screening for osteoporosis Procedures DEXA Bone Density Axial Vinicius Lantigua MD [address]00 [facility] [address] [place] [address] Phone: tel: fax: [facility] OBGYN [address] [address] Phone: tel: fax: Referral ID Status Reason Start Date Expiration Date Visits Re quested Visits Authorized [id number] Closed 07/07/2021 07/07/2022 1 1 Reason for Visit * Diagnostic Imaging (Routine) - Closed Specialty Diagnoses / Procedures Referred By Contact Referred To Contact Obstetrics and Gynecology Diagnoses Osteopenia after menopause Screening for osteoporosis Procedures DEXA Bone Density Axial Vinicius Lantigua MD [address] [facility] [address] [place] [address] Phone: tel: fax: [facility] O[facility] [address] [facility] [address] [place] [address] Phone: tel: fax: Referral ID Status Reason Start Date Expiration Date Visits Re quested Visits Authorized [id number] Closed 07/07/2021 07/07/2022 1 1 Encounter Details Date Type Department Care Team (Latest Contact Info) Description 07/07/2021 10:24 AM EDT Hospital Encounter [facility] [address] [facility] [address] [place] [address] Osteopenia after menopause; Screening for osteoporosis Social [...] Description 06/27/2025 9:30 AM EST Office Visit [facility] NEUROLOGY 2101 [facility] [address] [place] [address] Марина Nichols, HENRIETTA 2101 [facility] [address] [place] [address] 03/15/2026 9:30 AM EST Office Visit [facility] CARDIOLOGY 1720 [facility] [address] [place] [address] Wing Sanabria MD [address]20 [facility] [address] [facility] [address] [place] [address] documented as of this encounter Procedures Procedure [...] Study in 2 Years Vinicius Lantigua MD Vinicisu Lantigua MD IMG DXA ORDERABLES Final R esult documented in this encounter Visit Diagnoses Diagnosis Osteopenia after menopause Screening for osteoporosis Special screening for osteoporosis documented in this encounter Care Teams Employment Appeals Examiner Relationship Specialty Start Date End Date Pedrito Cruz MD PCP - General 06/10/15 11/19/21 documented as of this encounter
--- OUTSIDE RECORDS SUMMARY | 2021-07-08 09:07 | XMS_ITS | Encounter Summary ---
[facility] [address] [place] [address] Care Team Providers Care Data Management Engineer Name Role Phone Pedrito Cruz MD Primary Care Provider + Encounter Details Date Type Department Care Team (Late Contact Info) Description 07/08/2021 9:07 AM EDT Hospital Encounter [facility] PULMONARY & CRITICAL CARE MEDICINE [address] [place] [address] Social History Tobacco Use Types [...] Department Care Team (Late Contact Info) Description 06/27/2025 9:30 AM EST Office Visit [facility] NEUROLOGY [address] [facility] [place] [address] Марина Nichols, SHIP SUPERINTENDENT [address] [facility] [address] [place] [phone] 03/15/2026 9:30 AM EST Office Visit [facility] CARDIOLOGY [address] [place] [address] Wing Sanabria MD [address] [place] [address] documented as of this encounter Procedures Procedure [...] on filedocumented in this encounter Care Teams Data Management Engineer Relationship Specialty Start Date End Date Pedrito Cruz MD PCP - General 06/10/15 11/19/21 documented as of this encounter
--- OUTSIDE RECORDS SUMMARY | 2021-09-12 11:17 | XMS_ITS | Encounter Summary ---
Author Organization [facility] Address [address] [place] [phone] Care Team Providers Care Director Of Home Care Hospice Name Role Phone Pedrito Cruz MD Primary Care Provider + Reason for Visit * Diagnostic Imaging (Routine) - Closed Specialty Diagnoses / Procedures Referred By Contac t Referred To Contact Radiology Diagnoses Thyroid nodule Procedures US Thyroid Gloria Smith MD [address] [place] [address] Phone: tel: fax: [facility] ENDOCRINOLOGY [address] [facility] [address] [place] [phone] Phone: tel: fax: Referral ID Status Reason Start Date Expiration Date Visits Re quested Visits Authorized [id number] Closed 09/12/2021 09/12/2022 1 1 Encounter Details Date Type Department Care Team (Late st Contact Info) Description 09/12/2021 11:17 AM EDT Hospital Encounter [facility] ENDOCRINOLOGY [address] [facility] [address] [place] [phone] Social History Tobacco Use Types Packs/Day [...] Office Visit [facility] NEUROLOGY [address] [facility] [address] [place] [address] Марина Nichols, BLOW PIT OPERATOR 2101 [facility] [address] [place], [place] [address] 03/15/2026 9:30 AM EST Office Visit [facility] CARDIOLOGY [address] [facility] [address] [place] [phone] Wing Sanabria MD 1720 [facility] [address] [place] [address] documented as of this encounter Procedures Procedure [...] on filedocumented in this encounter Care Teams Director Of Home Care Hospice Relationship Specialty Start Date End Date Pedrito Cruz MD PCP - General 06/10/15 11/19/21 documented as of this encounter
--- OUTSIDE RECORDS SUMMARY | 2022-12-31 10:05 | XMS_ITS | Encounter Summary ---
Author Organization [facility] Address [address] [place] [address] Care Team Providers Care Workers' Compensation Claims Supervisor Name Role Phone Jeane Hodge HENRIETTA Primary Care Provider [phone] Reason for Visit * Diagnostic Imaging (Routine) - Closed Specialty Diagnoses / Procedures Referred By Contac t Referred To Contact Radiology Diagnoses Thyroid nodule Procedures US Thyroid Gloria Smith MD [address] [place] [address] Phone: tel: fax: [facility]CRINOLOGY [address] [facility] [address] [place] [phone] Phone: tel: fax: Referral ID Status Reason Start Date Expiration Date Visits Re quested Visits Authorized [id number] Closed 12/31/2022 12/31/2023 1 1 Encounter Details Date Type Department Care Team (Late st Contact Info) Description 12/31/2022 10:05 AM EDT Hospital Encounter [facility] [address] [facility] [address] [place] [phone] Social History Tobacco Use Types Packs/Day [...] Description 06/27/2025 9:30 AM EST Office Visit [facility] NEUROLOGY [address] [facility] [address] [place] [phone] Марина Nichols, HENRIETTA [address] [facility] [address] [place], [place] [phone] 03/15/2026 9:30 AM EST Office Visit [facility] CARDIOLOGY [address] [facility] [address] [place] [phone] Wing Sanabria MD [address] [facility] [address] [place] [address] documented as of this encounter Procedures Procedure [...] on filedocumented in this encounter Care Teams Workers' Compensation Claims Supervisor Relationship Specialty Start Date End Date Jeane Hodge APRN PCP - General Internal Medicine 12/10/22 04/06/23 documented as of this encounter
--- OUTSIDE RECORDS SUMMARY | 2024-01-05 10:12 | XMS_ITS | Encounter Summary ---
Author Organization [facility] Address [address] [place] [address] Care Team Providers Care Signal Circuit Designer Name Role Phone Jeane Hodge HENRIETTA Primary Care Provider [phone] Reason for Visit * Diagnostic Imaging (Routine) - Closed Specialty Diagnoses / Procedures Referred By Contac t Referred To Contact Radiology Diagnoses Thyroid nodule Procedures US Thyroid Gloria Smith MD [address] [email or web address] [facility] [address] [place] [address] Phone: tel: fax: Referral ID Status Reason Start Date Expiration Date Visits Re quested Visits Authorized [id number] Closed 01/05/2024 01/04/2025 1 1 Encounter Details Date Type Department Care Team (Late st Contact Info) Description 01/05/2024 10:12 AM EDT Hospital Encounter [facility] ENDOCRINOLOGY [address] [address] [place] [phone] Social History Tobacco Use Types Packs/Day Years [...] Description 06/27/2025 9:30 AM EST Office Visit [facility] NEUROLOGY [address] [facility] [address] [place] [address] Марина Nichols APRN [address] [facility] [address] [place] [address] 03/15/2026 9:30 AM EST Office Visit [facility] CARDIOLOGY [address] [facility] [address] [place] [address] Wing Sanabria MD [address] [facility] [address] [place], [place] [phone] documented as of this encounter Procedures Procedure [...] on filedocumented in this encounter Care Teams Signal Circuit Designer Relationship Specialty Start Date End Date Jeane Hodge, HENRIETTA [address] [place] [address] PCP - General Internal Medicine 04/07/23 07/06/24 documented as of this encounter
[2025-02-05 18:01] LABS: Hematocrit 46.8 % (37.0-47.0); Hemoglobin 15.0 g/dL (12.2-16.2); Immature Granulocytes % 0.3 %; Mean Corpuscular HGB Conc 32.1 g/dL (31.8-35.4); Mean Corpuscular Hemoglobin 28.5 pg (27.0-31.2); Mean Corpuscular Volume 89.0 fl (81-99); Nucleated Red Blood Cells % 0 %; Platelet Count 208 K/mm3 (142-424); Red Blood Count 5.26 M/mm3 (4.20-5.40); Red Cell Distribution Width-SD 44.9 fL; White Blood Count 6.1 K/mm3 (4.8-10.8)
[2025-02-05 19:34] LABS: Thyroid Stimulating Hormone 1.63 uIU/mL (0.465-4.68)
[2025-02-05 19:38] LABS: Ferritin 31.9 ng/ml (11.1-264)
--- OUTSIDE RECORDS SUMMARY | 2025-02-06 14:24 | XMS_ITS | Clinical Summary ---
Author Organization [facility] Address [address] [place] [address] Care Team Providers Care Radio Equipment Installer Name Role Phone Pcp, No Primary Care [...] or (1 - 1-dose 75+ series) 07/21/2023 [id number] Vaccine ( - season) 2024 05/19/2023, 01/28/2022, 03/12/2021, Additional history exists UKY-Influenza [...] Antibody Negative Negative 07/17/2024 7:52 PM EDT [facility] Blood Venous blood specimen / Unknown Venipuncture / Unknown 07/17/2024 6:53 PM EDT 07/17/2024 7:11 PM EDT us Yin Johnson LAB BLOOD ORDERABLES Final Resul t [facility] [address] [place] [address] from Last 3 Months or Most Recently Relevant to [place] [address] MEDICARE [facility] Care Teams Radio Equipment Installer Relationship Specialty Start Date End Date Pcp, [place] [address] PCP - General Family Medicine 07/17/24
--- OUTSIDE RECORDS SUMMARY | 2025-02-06 14:24 | XMS_ITS | Clinical Summary ---
Author Organization [facility] Address [address] [place] [address] Care Team Providers Care Block Out Machine Operator Name Role Phone Fracisco Barnes DO Primary Care Provider + Allergies Active Allergy [...] 160-4.5 MCG/ACT inhaler Inhale 2 puffs. 4 Active ezetimibe (ZETIA) 10 MG tablet Take 1 tablet by mouth Daily. 90 tablet 3 5 Active acetaminophen (TYLENOL) 325 MG tablet Take 1-2 tablets by mouth Every 6 (Six) Hours As Needed. 5 Active multivitamin with minerals (OCUVITE-LUTEIN PO) Active mupirocin (BACTROBAN) 2 % ointment APPLY TOPICALLY TO THE AFFECTED AREA THREE TIMES DAILY FOR 7 DAYS 5 Active fluticasone (Flonase Allergy Relief) 50 MCG/ACT nasal spray 2 sprays by Each Nare route Daily. 5 Active Active Problems Problem Noted Date Diagnosed [...] x 1.1 cm hypoechoic solid nodule. FNA 2016 - benign ([facility]) Prediabetes 03/23/2016 Renal cyst 03/12/2016 Lung nodules [...] Encounters Date Type Department Care Team Description 12/01/2024 10:30 AM EDT Office Visit [facility] [address] [facility] [address] [place] [address] Wing Sanabria MD Nonrheumatic mitral valve regurgitation (Primary Dx); Mixed hyperlipidemia; Precordial pain 12/01/2024 Travel from Last 3 Months Immunizations Immunization [...] sanford tu cker Heart failure Mother dolly contrerasanibal christina destin Stroke Mother dolly bass sanford destin Breast cancer Niece Colon cancer Other [...] failure age 69 Obesity Sister 3 briana byrdon Ovarian cancer Neg Hx Relation Name Status Comments Brother alin christina Alive Father zachary christina Alive at a ge 56 of severe heart attack Maternal Grandfather Maternal Grandmother Mother odlly bass christina destin Alive Niece Alive Other FAMILY HX Paternal Aunt Paternal Grandfather Paternal Grandmother Sister 1 Sister 2 Sister 3 briana scott Social History Tobacco Use Types Packs/Day Years Used Date Smoking Tobacco: Never Passive Smoke Exposure: Never Smokeless Tobacco: Never Tobacco Cessation:Counseling Given: No Alcohol Use Standard Drinks/Week Comments No 0 [...] Sign Reading Time Taken Comments Blood Pressure 108/72 12/01/2024 10:34 AM EDT Pulse 80 12/01/2024 10:34 AM EDT Temperature 36.3 C (97.3 F) 04/20/2024 2:27 PM EST Respiratory Rate 13 04/20/2024 2:27 PM EST Oxygen Saturation 100% 12/01/2024 10: 34 AM EDT Inhaled Oxygen Concentration - - Weight 58.4 kg (128 lb 12.8 oz) 025 10:34 AM EDT Height 63 cm (2' 0.8 ) 12/01/2024 10:34 AM EDT Body Mass Index 147.2 12/01/2024 10:34 AM EDT Plan of Treatment Upcoming Encounters Date Type Department Care Team (Late st Contact Info) Description 06/27/2025 9:30 AM EST Office Visit [facility] [address] [facility] [address] [place] [address] Марина Nichols, BACK UP MACHINE OPERATOR [address] [facility] [address] [place] [address] 03/15/2026 9:30 AM EST Office Visit [facility] [address] [facility] [address] [place] [phone] Wing Sanabria MD [address] [facility] [address] [place] [address] Health Maintenance Due Date Last Done Comments Pneumococcal Vaccine 50+ (1 of 2 - [...] (1 - 1- dose 75+ series) 07/21/2023 INFLUENZA VACCINE 11/24/2024 02/17/2020, , 02/17/2020 COVID-19 Vaccine (5 - 2024-2 6 season) 2024 05/19/2023, 01/28/2022, 03/12/2021, Additional history exists LIPID PANEL 01/04/2026 01/04/2025, 12/25, 02/03/2023, Additional history exists COLONOSCOPY 06/13/2034 06/13/2024, 12/26, 01/21/2022, Additional history exists COLORECTAL CANCER SCREENING 06/13/2034 HEMOGLOBIN A1C Discontinued 01/05/2024, 01/24, 12/31/2022, Additional history exists MAMMOGRAM Discontinued 03/21/2024, 02/25, 03/16/2023, Additional history exists HEPATITIS C SCREENING Completed 07/17/2024 , 01/01/2014, 12/05/2013 Procedures Procedure Name Priority Date/Time Associated Diagnosis Comments MAMMO SCREENING DIGITAL TOMOSYNTHESIS BILATERAL W CAD Routine 03/16/2024 10:58 AM EST Visit for screening mammogram POCT GLYCOSYLATED HEMOGLOBIN (HGB A1C) Routine 01/05/2024 10:13 AM EDT Prediabetes DEXA BONE DENSITY AXIAL Routine 07/07/2021 11:11 AM EDT Osteopenia after menopause Screening for osteoporosis from Last 3 Months or Most Recently Relevant to Health Maintenance Results * Mammo Screening Digital Tomosynthesis Bilateral With [...] Hemoglobin A1C 5.5 4.5 - 5.7 % [facility] Lot Number [id number] [facility] Expiration Date 09/19/2025 [facility] Blood 01/05/2024 10:1 3 AM EDT Gloria Preston MD POINT OF CARE TEST ORDERABLES Final Result [facility]
[address] [place] [address], * DEXA Bone Density Axial (07/07/2021 11:11 [...] Relevant to [place] [id number] [facility] [place] [address] MEDICARE A & B Care Teams Block Out Machine Operator Relationship Specialty Start Date End Date Fracisco Barnes DO [address] [place] [address] [place] [address] PCP - General Internal Medicine 07/07/24
--- OUTSIDE RECORDS SUMMARY | 2025-02-06 14:24 | XMS_ITS | Clinical Summary ---
Author Organization [facility] Address [address] [place] [address] Care Team Providers Care Armhole Baster Hand Name Role Phone Wing Sanabria MD Unavailable [phone] Social History Tobacco Use Types Packs/Day Years [...] Vaccines (1 - 1-dose 75+ series) 07/21/2023 Advance Care Planning 04/26/2024 Depression Screening 04/26/2024 COVID-19 Vaccine ( - 2023-25 season) 2024 Influenza Vaccination (#1) 2024 Osteoporosis Screening 07/07/2026 07/07/2021, 2021 Insurance [place] [id number] MEDICARE Care Teams Armhole Baster Hand Relationship Specialty Start Date End Date Wing Sanabria MD [address] [place] [address] Cardiology 04/13/24
--- OUTSIDE RECORDS SUMMARY | 2025-02-06 14:25 | XMS_ITS | Encounter Summary ---
Author Organization [facility] Address [address] [place] [address] Care Team Providers Care Community Health Representative Name Role Phone Fracisco Barnes Primary Care Provider + Encounter Details Date Type Department Care Team (Late st Contact Info) Description 03/02/2014 External CPT II [facility] Social History Tobacco Use [...] Description 06/27/2025 9:30 AM EST Office Visit [facility] [address] [facility] [address] [place] [address] Марина Nichols, HENRIETTA [address] [facility] [address] [place] [address] 03/15/2026 9:30 AM EST Office Visit [facility] [address] [facility] [address] [place] [address] Wing Sanabria MD [address] [facility] [address] [place] [address] documented as of this encounter Visit Diagnoses Not on filedocumented in this encounter Care Teams Community Health Representative Relationship Specialty Start Date End Date Fracisco Barnes DO [address] [place] [address] [place] [address] PCP - General Internal Medicine 07/07/24 documented as of this encounter
--- OUTSIDE RECORDS SUMMARY | 2025-02-06 14:25 | XMS_ITS | Encounter Summary ---
Author Organization [facility] Address [address] [place] [address] Care Team Providers Care Produce Sorter Name Role Phone Pcp, No Primary Care Provider Unavailabl e Encounter Details Date Type Department Care Team (Late st Contact Info) Description 07/17/2024 Ophth Exam [facility] [address] [place] [phone] Eh Tamez MD [address] [place] [id number] Social History Tobacco Use Types Packs/Day [...] on filedocumented in this encounter Care Teams Produce Sorter Relationship Specialty Start Date End Date Pcp, No [address] [place] [address] PCP - General Family Medicine 07/17/24 documented as of this encounter
[2025-02-07 09:13] LABS: Triiodothyronine (T3) Free 3.1 pg/mL (2.0-4.4)
== END 2025-02-05 23:59 | disposition home or self-care (01) ==
LOC: LAB.DROPOF 02-06 14:21
PROVIDERS: PCP Nurse Practitioner Family; Visit Provider Nurse Practitioner Family
DX: D64.9 Anemia, unspecified (principal); R68.83 Chills (without fever)
CPT/HCPCS: 82728; 84443; 84481; 85025

== ENCOUNTER 2025-02-20 11:39 | Outpatient (CLI) | payer MEDICARE, OTHER, SELFPAY ==
--- OUTSIDE RECORDS SUMMARY | 2017-06-17 09:00 | XMS_ITS | Encounter Summary ---
Author Organization [facility] Address [address] [place] [phone] Care Team Providers Care Telephone Worker Name Role Phone Pedrito Cruz MD Primary Care Provider + Reason for Visit * Diagnostic Imaging (Routine) - Closed Specialty Diagnoses / Procedures Referred By Contac t Referred To Contact Radiology Diagnoses Solitary thyroid nodule Procedures US Thyroid Gloria Smith MD [address] [place] [address] Phone: tel: fax: [facility] ENDOCRINOLOGY [address] [place] [phone] Phone: tel: fax: Referral ID Status Reason Start Date Expiration Date Visits Re quested Visits Authorized [id number] Closed 06/17/2017 06/17/2018 1 1 Encounter Details Date Type Department Care Team (Latest Contact Info) Description 06/17/2017 8:00 AM EST Hospital Encounter [facility] ENDOCRINOLOGY [address] [place] [phone] Solitary thyroid nodule Social History Tobacco [...] Description 06/27/2025 9:30 AM EST Office Visit [facility] NEUROLOGY [address] [facility] [address] [place] [phone] Марина Nichols, CHEMISTRY TECHNICAL OFFICER [address] [facility] [address] [place] [address] 03/15/2026 9:30 AM EST Office Visit [facility] CARDIOLOGY [address] [facility] [address] [place] [phone] Wing Sanabria MD [address] [facility] [address] [place] [address] documented as of this encounter Procedures Procedure [...] nodule documented in this encounter Care Teams Telephone Worker Relationship Specialty Start Date End Date Pedrito Cruz MD PCP - General 06/10/15 11/19/21 documented as of this encounter
--- OUTSIDE RECORDS SUMMARY | 2018-06-23 11:08 | XMS_ITS | Encounter Summary ---
Author Organization [facility] Address [address] [place] [phone] Care Team Providers Care Stone Setter Metal Optical Frames Name Role Phone Pedrito Cruz MD Primary Care Provider + Reason for Visit * Diagnostic Imaging (Routine) - Closed Specialty Diagnoses / Procedures Referred By Contac t Referred To Contact Radiology Diagnoses Solitary thyroid nodule Procedures US Thyroid Gloria Smith MD [address] [place] [address] Phone: tel: fax: [facility] ENDOCRINOLOG[facility] [address] [facility] [address] [place] [phone] Phone: tel: fax: Referral ID Status Reason Start Date Expiration Date Visits Re quested Visits Authorized [id number] Closed 06/23/2018 06/23/2019 1 1 Encounter Details Date Type Department Care Team (Late st Contact Info) Description 06/23/2018 10:08 AM EST Hospital Encounter [facility] ENDOCRINOLOGY [address] [place] [phone] Social History Tobacco Use Types Packs/Day [...] Description 06/27/2025 9:30 AM EST Office Visit [facility] NEUROLOGY [address] [facility] [address] [place] [phone] Марина Nichols, HENRIETTA [address]01 [facility] [address] [place] [address] 03/15/2026 9:30 AM EST Office Visit [facility] CARDIOLOGY [address] [facility] [address] [place] [phone] Wing Sanabria MD 1720 [facility] [address] [place] [address] documented as of this encounter Procedures Procedure [...] on filedocumented in this encounter Care Teams Stone Setter Metal Optical Frames Relationship Specialty Start Date End Date Pedrito Cruz MD PCP - General 06/10/15 11/19/21 documented as of this encounter
--- OUTSIDE RECORDS SUMMARY | 2019-06-28 10:02 | XMS_ITS | Encounter Summary ---
Author Organization [facility] Address [address] [place] [phone] Care Team Providers Care Stucco Laborer Name Role Phone Pedrito Cruz MD Primary Care Provider + Reason for Visit * Diagnostic Imaging (Routine) - Closed Specialty Diagnoses / Procedures Referred By Contac t Referred To Contact Radiology Diagnoses Solitary thyroid nodule Procedures US Thyroid Gloria Smith MD [address] [place] [address] Phone: tel: fax: [facility] [address] [facility] [address] [place] [phone] Phone: tel: fax: Referral ID Status Reason Start Date Expiration Date Visits Re quested Visits Authorized [id number] Closed 06/28/2019 06/27/2020 1 1 Encounter Details Date Type Department Care Team (Late st Contact Info) Description 06/28/2019 9:02 AM EST Hospital Encounter [facility] ENDOCR[facility] [address] [place] [phone] Social History Tobacco Use Types Packs/Day [...] Description 06/27/2025 9:30 AM EST Office Visit [facility] NEUROLOGY [address]01 [facility] [address] [place] [phone] Марина Nichols, SUGAR LABORATORY ASSISTANT 2101 [facility] [address] [place] [address] 03/15/2026 9:30 AM EST Office Visit [facility] CARDIOLOGY 1720 [facility] [address] [place] [phone] Wing Sanabria MD 1720 [facility] [address] [place] [address] documented as of this encounter Procedures Procedure [...] on filedocumented in this encounter Care Teams Stucco Laborer Relationship Specialty Start Date End Date Pedrito Cruz MD PCP - General 06/10/15 11/19/21 documented as of this encounter
--- OUTSIDE RECORDS SUMMARY | 2020-08-14 10:02 | XMS_ITS | Encounter Summary ---
Author Organization [facility] Address [address] [place] [phone] Care Team Providers Care Fundraising Coordinator Name Role Phone Pedrito Cruz MD Primary Care Provider + Reason for Visit * Diagnostic Imaging (Routine) - Closed Specialty Diagnoses / Procedures Referred By Contac t Referred To Contact Radiology Diagnoses Solitary thyroid nodule Procedures US Thyroid Gloria Smith MD [address] [place] [address] Phone: tel: fax: [facility] ENDOCRINOLOGY [address] [place] [phone] Phone: tel: fax: Referral ID Status Reason Start Date Expiration Date Visits Re quested Visits Authorized [id number] Closed 08/14/2020 08/14/2021 1 1 Encounter Details Date Type Department Care Team (Late st Contact Info) Description 08/14/2020 10:02 AM EDT Hospital Encounter [facility] [address] [facility] [address] [place] [phone] Social History Tobacco Use Types Packs/Day [...] Description 06/27/2025 9:30 AM EST Office Visit [facility] NEUROLOGY [address] [facility] [address] [place] [address] Марина Nichols, RUBBER TIRE CURER [address] [facility] [address] [place], [place] [phone] 03/15/2026 9:30 AM EST Office Visit [facility] CARDIOLOGY [address] [facility] [address] [place] [phone] Wing Sanabria MD [address] [facility] [address] [place], [place] [phone] documented as of this encounter Procedures Procedure [...] on filedocumented in this encounter Care Teams Fundraising Coordinator Relationship Specialty Start Date End Date Pedrito Cruz MD PCP - General 06/10/15 11/19/21 documented as of this encounter
--- OUTSIDE RECORDS SUMMARY | 2021-07-07 10:24 | XMS_ITS | Encounter Summary ---
Author Organization [facility] Address [address] [place] [address] Care Team Providers Care Merchandise Coordinator Name Role Phone Pedrito Cruz MD Primary Care Provider + Reason for Referral * Diagnostic Imaging (Routine) - Closed Specialty Diagnoses / Procedures Referred By Contact Referred To Contact Obstetrics and Gynecology Diagnoses Osteopenia after menopause Screening for osteoporosis Procedures DEXA Bone Density Axial Vinicius Lantigua MD [address] [facility] [address] [place] [address] Phone: tel: fax: [facility] OBGYN [address] [address] Phone: tel: fax: Referral ID Status Reason Start Date Expiration Date Visits Re quested Visits Authorized [id number] Closed 07/07/2021 07/07/2022 1 1 Reason for Visit * Diagnostic Imaging (Routine) - Closed Specialty Diagnoses / Procedures Referred By Contact Referred To Contact Obstetrics and Gynecology Diagnoses Osteopenia after menopause Screening for osteoporosis Procedures DEXA Bone Density Axial Vinicius Lantigua MD [address] [facility] [address] [place] [address] Phone: tel: fax: [facility] [address] [facility] [address] [place] [address] Phone: tel: fax: Referral ID Status Reason Start Date Expiration Date Visits Re quested Visits Authorized [id number] Closed 07/07/2021 07/07/2022 1 1 Encounter Details Date Type Department Care Team (Latest Contact Info) Description 07/07/2021 10:24 AM EDT Hospital Encounter [facility] [address] [facility] [address] [place] [address] Osteopenia after menopause; Screening for osteoporosis Social [...] Description 06/27/2025 9:30 AM EST Office Visit [facility] NEUROLOGY [address]01 [facility] [address] [place] [address] Марина Nichols, HENRIETTA 2101 [facility] [address] [place] [address] 03/15/2026 9:30 AM EST Office Visit [facility] CARDIOLOGY [address]20 [facility] [address] [place] [address] Wing Sanabria MD 1720 [facility] [address] [facility] [address] [place] [address] documented as of this encounter Procedures Procedure [...] osteoporosis documented in this encounter Care Teams Merchandise Coordinator Relationship Specialty Start Date End Date Pedrito Cruz MD PCP - General 06/10/15 11/19/21 documented as of this encounter
--- OUTSIDE RECORDS SUMMARY | 2021-07-08 09:07 | XMS_ITS | Encounter Summary ---
[facility] Address [address] [place] [address] Care Team Providers Care Bank And Savings Securities Trader Name Role Phone Pedrito Cruz MD Primary Care Provider + Encounter Details Date Type Department Care Team (Late Contact Info) Description 07/08/2021 9:07 AM EDT Hospital Encounter [facility] PULMONARY & CRITICAL CARE MEDICINE [address] [place] [address] Social History Tobacco Use Types [...] Description 06/27/2025 9:30 AM EST Office Visit [facility] NEUROLOGY [address] [facility] [place] [address] Марина Nichols, GRADUATE ENGINEER [address] [facility] [address] [place] [id number] 03/15/2026 9:30 AM EST Office Visit [facility] CARDIOLOGY [address] [place] [address] Wing Sanabria MD [address] [place] [address] documented as of this encounter Procedures Procedure [...] on filedocumented in this encounter Care Teams Bank And Savings Securities Trader Relationship Specialty Start Date End Date Pedrito Cruz MD PCP - General 06/10/15 11/19/21 documented as of this encounter
--- OUTSIDE RECORDS SUMMARY | 2021-09-12 11:17 | XMS_ITS | Encounter Summary ---
Author Organization [facility] Address [address] [place] [phone] Care Team Providers Care Shoe Turner Name Role Phone Pedrito Cruz MD Primary Care Provider + Reason for Visit * Diagnostic Imaging (Routine) - Closed Specialty Diagnoses / Procedures Referred By Contac t Referred To Contact Radiology Diagnoses Thyroid nodule Procedures US Thyroid Gloria Smith MD [address] [place] [address] Phone: tel: fax: [facility] ENDOCRINOLOGY [address] [facility] [address] [place] [phone] Phone: tel: fax: Referral ID Status Reason Start Date Expiration Date Visits Re quested Visits Authorized [id number] Closed 09/12/2021 09/12/2022 1 1 Encounter Details Date Type Department Care Team (Late st Contact Info) Description 09/12/2021 11:17 AM EDT Hospital Encounter [facility] ENDOCRINOLOGY [address] [facility] [address] [place] [phone] Social History Tobacco Use Types Packs/Day [...] Office Visit [facility] NEUROLOGY [address] [facility] [address] [place] [address] Марина Nichols, LONG WINDER TENDER 2101 [facility] [address] [place], [place] [address] 03/15/2026 9:30 AM EST Office Visit [facility] CARDIOLOGY [address] [facility] [address] [place] [phone] Wing Sanabria MD 1720 [facility] [address] [place] [address] documented as of this encounter Procedures Procedure [...] on filedocumented in this encounter Care Teams Shoe Turner Relationship Specialty Start Date End Date Pedrito Cruz MD PCP - General 06/10/15 11/19/21 documented as of this encounter
--- OUTSIDE RECORDS SUMMARY | 2022-12-31 10:05 | XMS_ITS | Encounter Summary ---
Author Organization [facility] Address [address] [place] [address] Care Team Providers Care Stone Mason Name Role Phone Jeane Hodge HENRIETTA Primary Care Provider + [phone] Reason for Visit * Diagnostic Imaging (Routine) - Closed Specialty Diagnoses / Procedures Referred By Contac t Referred To Contact Radiology Diagnoses Thyroid nodule Procedures US Thyroid Gloria Smith MD [address] [place] [address] Phone: tel: fax: [facility] [address] [facility] [address] [place] [phone] Phone: tel: fax: Referral ID Status Reason Start Date Expiration Date Visits Re quested Visits Authorized [id number] Closed 12/31/2022 12/31/2023 1 1 Encounter Details Date Type Department Care Team (Late st Contact Info) Description 12/31/2022 10:05 AM EDT Hospital Encounter [facility] [address] [facility] [address] [place] [phone] Social History Tobacco Use Types Packs/Day [...] Visit [facility] NEUROLOGY [address] [facility] [address] [place] [phone] Марина Nichols, HENRIETTA [address] [facility] [address] [place], [place] [phone] 03/15/2026 9:30 AM EST Office Visit [facility] CARDIOLOGY [address] [facility] [address] [place] [phone] Wing Sanabria MD [address] [facility] [address] [place] [address] documented as of this encounter Procedures Procedure [...] filedocumented in this encounter Care Teams Stone Mason Relationship Specialty Start Date End Date Jeane Hodge APRN PCP - General Internal Medicine 12/10/22 04/06/23 documented as of this encounter
--- OUTSIDE RECORDS SUMMARY | 2024-01-05 10:12 | XMS_ITS | Encounter Summary ---
Author Organization [facility] Address [address] [place] [address] Care Team Providers Care Treasurer Name Role Phone Jeane Hodge HENRIETTA Primary Care Provider [phone] Reason for Visit * Diagnostic Imaging (Routine) - Closed Specialty Diagnoses / Procedures Referred By Contac t Referred To Contact Radiology Diagnoses Thyroid nodule Procedures US Thyroid Gloria Smith MD [address] [employer] [facility] [address] [place] [address] Phone: tel: fax: Referral ID Status Reason Start Date Expiration Date Visits Re quested Visits Authorized [id number] Closed 01/05/2024 01/04/2025 1 1 Encounter Details Date Type Department Care Team (Late st Contact Info) Description 01/05/2024 10:12 AM EDT Hospital Encounter [facility] ENDOCRINOLOGY [address] [place] [phone] Social History Tobacco Use Types Packs/Day Years [...] Description 06/27/2025 9:30 AM EST Office Visit [facility] NEUROLOGY 2101 [facility] [address] [place] [address] Марина Nichols APRN [address]01 [facility] [address] [place] [address] 03/15/2026 9:30 AM EST Office Visit [facility] CARDIOLOGY 1720 [facility] [address] [place] [address] Wing Sanabria MD 1720 [facility] [address] [place], [place] [phone] documented as of this encounter Procedures Procedure [...] on filedocumented in this encounter Care Teams Treasurer Relationship Specialty Start Date End Date Jeane Hodge, HENRIETTA [address] [place] [address] PCP - General Internal Medicine 04/07/23 07/06/24 documented as of this encounter
--- OUTSIDE RECORDS SUMMARY | 2025-02-21 12:24 | XMS_ITS | Data Portability ---
Author Organization ILEANA ELLEN [facility] Address [address] [facility] [address] [place] [address] Care Team Providers Care Canvas Cutter Hand Name Role Phone EMILIANA BARROS Superintendent Mechanical KIM GARVIN Neurologist GISELA FERMIN Referring Provider [phone] RHODA TURK Primary Care Provider Assessment No assessment recorded. Plan of Treatment Reminders Order Date Submit Date Provider Last Modified By Organization Details Last Modified Time Details Appointments None recorded. Lab None recorded. Referral None recorded. Procedures None recorded. Surgeries None recorded. Imaging None recorded. Medication Orders Flonase Allergy Relief 50 mcg/actuati on nasal spray,suspe nsion 2024 025 mcecil3 Meds By Mail Walter [address] [place] [address], [place], [address], 5 09:08:45 ipratropium bromide 42 mcg (0.06 %) nasal spray 2023 024 [id number], [address] [facility] [address] [place], [id number], 4 16:26:51 levofloxaci n 500 mg tablet 2023 024 [facility] #57824, 203 [facility] 27 [address] I[place], [phone], 4 13:07:11 Patient TargetsNo targets recorded. Patient Instructions Encounter Date Encounter Id Patient Instructions Last Modified By Organization Details Last Modified Time 03/09/2023 [id number] 1. Audiogram obtained in office today. He [...] proceed. michael Not available 03/09/2023 17:41:53 04/06/2023 [id number] 1. Right myringotomy with tube (Paparella) placement [...] 2 view No observ ation record ed. [facility] (Med Record) [address], [place], [address], 06/11/2023 11:05:50 06/24/19 24 06/17/2023 CT, chest , w/o contr ast No observ ation record ed. [email or web address] [facility] [address], [place], [address], 06/25/2023 08:53:57 Result Notes None recorded. Problems Name Problem SNOMED Code Status Onset Date Resolution Date Notes Provider Name and Address Organization Details Recorded Time Neuropath y 887679060 Active 2014 From Automated Load;Provi brittany: Quinton Rey;Sta tus: Active Not Available [facility] 6 09:01:13 Pain of joint of elbow 120905721 Active 2014 From Automated Load;Provi brittany: Quinton Rey;Sta tus: Active Not Available [facility] 6 09:01:17 Lack of energy 508683207 Active 2014 From Automated Load;Provi brittany: Quinton Rey;Sta tus: Active Not Available [facility] 6 09:01:17 Pain of temporoma ndibular joint 86367144 Active 2015 From Automated Load;Provi brittany: Emiliana Barros; atus: Active Not Available [facility] 6 09:01:13 Xerostomi a 44634040 Active 2015 From Automated Load;Provi brittany: Emiliana Barros;St atus: Active Not Available [facility] 6 09:01:13 Sj gren's syndrome 70799901 Active 2015 From Automated Load;Provi brittany: Quinton Rey;Sta tus: Active Not Available [facility] 6 09:01:13 Problem Notes None recorded. Procedures Surgical History Date Name Laterality Status Provider Name and Address Organization Details Recorded Time 025 Angel completed Angelika Rice [facility] 11/13/2024 08:47:17 025 Nasolaryngoscopy completed EMILIANA BARROS MD [address] [place], [address], [facility] 11/13/2024 12:46:18 024 Airway Resistance completed Yoly Driscoll [facility] 08/20/2023 13:38:12 024 Diffusion Capacity completed Yoly TEJEDA [facility] 08/20/2023 13:38:08 024 Lung Volumes, Plethysmography completed Yoly Driscoll [facility] 08/20/2023 13:38:10 024 Spirometry completed Yoly Driscoll [facility] 08/20/2023 13:38:07 024 Pulmonary Function Testing completed AMMON Troy MD [address] [place], [address], [facility] 08/20/2023 13:45:28 024 Nasolaryngoscopy completed EMILIANA BARROS MD [address] [place], [address], [facility] 05/25/2023 16:26:40 023 Tympanostomy w/Tube, local completed Wendi Ferro [facility] 04/06/2023 10:01:22 023 Tympanogram completed PHILLIP WALLIS, CCA-A [address] [place], [address], [facility] 03/09/2023 15:34:03 023 Audiogram completed PHILLIP WALLIS, CCA-A [address] [place], [address], [facility] 03/09/2023 15:34:01 023 Nasolaryngoscopy completed EMILIANA BARROS MD [address] [place], [address], [facility] 05/05/2022 17:21:30 018 Electromyography (EMG) with Nerve Conduction Study (NCV) completed KIM GARVIN MD [address] [place] [address], [address], [facility] 03/28/2018 09:01:23 018 Laryngoscopy Flex completed EMILIANA BARROS MD [address] [place] [address], [phone] [place] [address] 06/28/2017 09:51:23 018 Tympanostomy w/Tube, local completed EMILIANA BARROS MD [address] [place] [address], [phone] [place] [address] 05/31/2017 11:34:03 018 Nasopharyngoscopy completed EMILIANA BARROS MD [address] [place] [address], [phone] [place] [address] 05/19/2017 11:05:05 017 Injection - Joint/Bursa, Major, w/o US completed ERIC REY MD [address] [place] [address], [phone] [place] [address] 10/06/2016 09:45:44 Hernia repair w/mesh completed Yelitza enyahaira [facility] 05/19/2017 10:51:40 Total hysterectomy completed Amira syed [facility] 05/19/2017 10:51:52 Cholecystectomy completed Precious Johnson [facility] 03/02/2019 14:05:47 Imaging Results None recorded. Procedure Notes None recorded. Medical Equipment None Reported. Allergies Allergen ID Allergen Name Allergen Category Reaction Reaction Severity Criticality Documentation Date Start Date Code Code System Note Provider Name and Address Organization Details Recorded Time prednison e medicatio n Not available Not available Not available 03/19/20162013 8640 RxNorm Comme nt: Marbella ed By: Adal Cano any;Juve walter Date: 2013 2:24: 15 PM; Not Available [facility] 6 12:12:25 739685 Substance with sulfonami de structure and antibacte rial mechanism of action (substanc e) medicatio n Not available Not available Not available 03/20/20162013 97112 8003 SNOMED Comme nt: Creat ed By: Adal Cano any;C reate d Date: 2013 2:23: 40 PM; Not Available [facility] 6 02:54:37 305738 morphine sulfate medicatio n Not available Not available Not available 03/20/20162013 04332 RxNorm Comme nt: Creat ed By: Adal Cano any;C reate d Date: 2013 2:24: 33 PM; Not Available [facility] 6 10:25:04 575449 doxycycli ne Not available Not available Not available Not available 03/02/2019 3640 RxNorm [facility] 14:03:57 476932 hydrocodo ne Not available Not available Not available Not available 03/02/2019 5489 RxNorm [facility] 9 14:04:12 115759 amoxicill in medicatio n Not available Not available Not available 03/02/2019 723 RxNorm [facility] 9 14:04:20 Medications Name Sig Start Date [...] pension 2 sprays each nostril once daily 2024 active Not Available Not Available Not Avai lable Vitals Date Recorded Systolic And Diastolic Provider Name and Address Organization Details Last Updated DateTime 05/25/2023 126/73 mm[Hg] Delores Riley [facility] 05/25/2023 14:47:08 Date Recorded Body height Body mass index (BMI) Body weight Provider Name and Address Organization Details Last Updated DateTime 05/25/2023 160.02 cm 24.1 kg/m2 20507.56 g [facility] 05/25/2023 14:41:13 Date Recorded Body height Body mass index (BMI) Body weight Oxygen saturation Oxygen saturation in Arterial blood by Pulse oximetry Heart rate Systolic And Diastolic Provider Name and Address Organization Details Last Updated DateTime 4 156.21 cm 25.1 kg/m2 55961.9 7 g 99 % 99 % 64 /min 126/79 mm[Hg] Yoly Driscoll [facility] 4 13:10:39 Date Recorded Body height Body mass index (BMI) Body weight Provider Name and Address Organization Details Last Updated DateTime 11/13/2024 156.21 cm 23.2 kg/m2 08227.05 g [facility] 11/13/2024 08:19:19 Date Recorded Body height Body mass index (BMI) Body weight Body temperature Heart rate Systolic And Diastolic Provider Name and Address Organization Details Last Updated DateTime 3 160.02 cm 24.5 kg/m2 63174.5 5 g 97 [degF] 60 /min 131/74 mm[Hg] Wendi Ferro [facility] 3 15:50:13 Date Recorded Body height Body mass index (BMI) Body weight Body temperature Heart rate Systolic And Diastolic Provider Name and Address Organization Details Last Updated DateTime 3 160.02 cm 24.2 kg/m2 87354.6 6 g 97 [degF] 65 /min 106/75 mm[Hg] Esperanza Bob [facility] 3 09:35:02 Social History Question Answer Notes LastModified by Organizat ion Details LastModified Time Tobacco Smoking Status Never Smoker Gloria [facility] 10/06/2016 09:28:54 Live Alone Or With Others? With Others Information not available 03/09/2018 Marital Status Informat ion not available 03/09/2018 What Was The Date Of Your Most Recent Tobacco Screening? 03/09/2018 [email or web address] Information n ot available 06/13/2019 Sex: Unknown Functional Status Question Answer Note LastModified by Organization D etails LastModified Time What is your level of alcohol consumption? None [email or web address] Information not available 02/28/2018 What is your occupation? Retired Information not available 03/09/2018 Mental Status None recorded. Family History Relationship Description Onset Age of this Age Resolved Age Notes LastModified by Organization Details LastModified Time Sister Diabetes mellitus cethington Not available 05/19 10:51:22 Sister Family history of malignant neoplasm awinefordner Not available 08:05:22 Sister Hypertensive disorder awinefordner Not available 08:05:38 Mother Alzheimer's disease awinefordner Not available 08:05:19 Mother Cerebrovascu lar accident awinefordner Not available 03/09/2018 08:05:44 Father Heart disease awinefordner Not available 08:05:32 Brother Heart disease awinefordner Not available 08:05:32 Brother Hypertensive disorder awinefordner Not available 08:05:38 Medical History Condition Response Kidney Stones Y Emphysema N COPD N Arthritis Y Acid Reflux (GERD) Y Rheumatoid Arthritis N Bleeding Disorder N Asthma N High Cholesterol Y Diabetes N Heart Disease Y Hypertension N Gynecological HistoryNo gynecological history recorded. Obstetrics History GPAL:G 0 P 0 0 0 0 Past Encounters Encounter ID Performer Location Encounter Start Date Encounter Closed Date Diagnosis/Indication Diagnosis SNOMED-CT Code Diagnosis ICD10 Code Diagnosis IMO Codes Diagnosis Note [id number] [facility] [address] 07/27/2016 22:29:03 07/27/2016 22:29:03 [id number] ERIC REY MD [address]HEUMATOL [address] [address] 10/06/2016 09:22:40 10/06/2016 10:02:20 Greater trochanteric pain syndrome 7197346 M70.62 very symptomati c , left hip .unable to sleep on her sides.loca l care has failed to help. I injected the bursa with 40 mg depomedrol w/o complicati ons.exerci ses reviewed. 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 She has a biopsy proven Positive focus score with h/o sicca symptoms, h/o puntal plugs in eyes. we are holding off on the Plaquenil , with h/o macular degenerati on. Obtain the labs , ESR /CBC . Other issues nodule, so far benign in the thyroid , lung , kidney and breast . Clinically , no lymphadeno surjit . [id number] ERIC REY MD RHEUMATOL OGY [place] [address] 04/05/2017 09:24:01 04/05/2017 10:07:52 Primary Sj gren's syndrome 717351743 M35.00 Primary sjogren's syndrome. She has a [...] Hip bursitis- post steroid injection and stable. [id number] EMILIANA BARROS MD ENT [address] [address] 05/19/2017 10:35:56 05/19/2017 11:59:40 Unilateral chronic serous otitis 864157819 H65.21 causing a conductive component to her hearing loss on that side. Nasopharyn goscopy performed to rule out a nasopharyn x neoplasm which was not present. I recommend an ear tube placement. She agrees. We'll schedule that next week. Mixed cond uctive and sensorineural hearing loss of right ear 6663528190 9105 H90.A31 audiogram reviewed Sensorineu ral hearing loss in left ear 2005004651 9109 H90.A22 [id number] DILAN PHILLIP BALL ENT [place] [address] 1 05/19/2017 11:17:25 05/19/2017 12:03:51 Mixed conductive AND sensorineural hearing loss 58738305 H90.A31 [id number] EMILIANA BARROS MD ENT [place] [address] 1 05/31/2017 10:40:44 05/31/2017 11:40:12 Unilateral chronic serous otitis 657943024 H65.21 right side. tube placed today. floxin otic. f/u 1 mo [id number] EMILIANA BARROS MD ENT SB [address] [place] [address] 1 06/28/2017 09:22:53 06/28/2017 11:19:19 Unilateral chronic serous otitis 133107569 H65.21 tube placed on the right side about a month ago. Hearing improved. Audiogram performed and reviewed. Improvemen t in the conductive component to the hearing loss on the right side. Follow-up 6 months Throat irritation 960400 007 R07.0 with cough likely secondary to postnasal drainage. Improving with prednisone . Continue. Laryngeal and hypopharyn geal exam is normal [id number] DILAN JJPHILLIP FLANAGAN ENT [place] [address] [place] [address] 1 06/28/2017 09:51:26 06/28/2017 10:39:26 Mixed conductive AND sensorineural hearing loss 74852618 H90.A31 [id number] ERIC REY MD RHEUMATOL OGY [place] [address] 1 10/22/2017 10:00:44 10/25/2017 09:39:58 Generalized osteoarthritis 205014810 M15.9 chronic diffuse. no synovitis. ROM is fair. strength is good. maintain symptomati c care. hold off on steroid injections . Greater tr ochanteric pain syndrome 3838557 M70.62 chronic. seems to be fair. once again, no indication s for repeat steroid injection. exercises reviewed. 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 She has a [...] continue to follow clinically . repeat labs. [id number] [place] [address] [place] [address] 12/31/2017 08:51:52 12/31/2017 10:06:00 Unilateral chronic serous otitis 638021590 H65.21 resolved with tube placement in May. Tube has now extruded and tympanic membrane looks normal. No fluid present. Follow-up as needed [id number] [place] [address] [place] [address] 02/28/2018 08:52:45 02/28/2018 09:56:05 Generalized osteoarthritis 523572175 M15.9 chronic diffuse process, but age appropriat e. No features of inflammato ry process. modest reduction in hips again normal for the age. maintain symptomati c care. No indication s for steroid injections . Greater tr ochanteric pain syndrome 2954904 M70.62 chronic and seems to be fair. once again, no indication s for repeat steroid injection. exercises reviewed. 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 She has a [...] her PCP to go over these concerns. [id number] KIM GARVIN MD NEUROLOGY [facility] [address] [facility] [address] [address] [place] [address] 03/09/2018 07:46:28 03/09/2018 08:51:47 Pain in right lower limb 183834972 M79.341 [id number] KIM GARVIN MD NEUROLOGY [facility] [address] [facility] [address] [address] [address] [place] [address] 03/28/2018 08:24:43 03/28/2018 09:58:50 Lumbar radiculopathy 881880511 M54.16 [id number] JESSE AMADO MD SURGERY SCHEDULE [address] [place] [address] 06/08/2018 08:35:48 06/08/2018 08:39:16 [id number] WYATT ADAMES MD UROLOGY [facility] [address] [place] [address] 03/02/2019 13:30:11 03/13/2019 13:35:34 Cystocele 216929610 N81.10 [id number] EMILIANA BARROS MD ENT SB [address] [place] [address] 05/05/2022 15:11:50 05/05/2022 17:22:08 Otalgia of right ear 1350689417 H92.01 Exam is normal. Has a history of needing tubes for fluid. May be having eustachian tube spasms. Nasolaryng oscopy performed, no abnormalit ies causing referred otalgia. Will try Flonase daily. F/u 1mo Pain in throat 724048761 R07.0 likely secondary to post-nasal drainage and right ETD Dysfunctio n of right eustachian tube 6024036997 716842 H69.91 [id number] EMILIANA BARROS MD ENT SB [address] [place] [address] 06/16/2022 10:05:56 06/16/2022 10:31:51 Otalgia of right ear 0382670086 H92.01 Has a history of needing tubes for fluid. Exam is normal with no fluid present. Did not use Flonase but resolved on its own. F/u prn Dysfunctio n of right eustachian tube 2858855310 810228 H69.91 [id number] MD ILEANA BULL III ENT [address] [place] [address] 03/09/2023 14:38:08 03/10/2023 07:43:13 Referred otalgia of right ear 8811397980 096346 H92.01 Pain in throat 187920541 R07.0 Chronic cough 31382266 R 05.3 Chronic ri ght mastoiditis 1229947099 124787 H70.11 Asymmetric al sensorineural hearing loss 398394528 H90.5 Retraction of tympanic membrane 79134685 H73.899 right [id number] FELICITY LINDA ER, AUD, CCA-[facility] [place] E[facility] [address] [employer] [address] 7 03/09/2023 15:28:20 03/09/2023 16:07:20 Otalgia of right ear 9762892314 H92.01 Dysfunctio n of bilateral eustachian tubes 5485165868 173488 H69.93 Bilateral tinnitus 90427 06378 102 H93.13 [id number] MD ILEANA BULL III [facility] [address] [place] [address] 04/06/2023 08:49:35 04/06/2023 10:27:00 Pain in throat 154493569 R07.0 Chronic cough 21203659 R 05.3 Chronic ri ght mastoiditis 6340191945 488468 H70.11 Asymmetric al sensorineural hearing loss 646138148 H90.5 Retraction of tympanic membrane 02849409 H73.891 Ear pressu re sensation 927979759 H93.8X9 Dysfunctio n of bilateral eustachian tubes 9690676072 158282 H69.93 04/06/2023 - RMT performed in office. Bilateral tinnitus 94635 00587 102 H93.13 Serous heron tis media of right ear 8458087565 309166 H65.91 04/06/2023 - RMT performed in office. Referred o talgia of right ear 0850825314 200897 H92.01 [id number] [place] [address] [place], [place] [address] 05/25/2023 14:10:32 05/26/2023 07:31:31 Serous otitis media of right ear 9377600699 542464 H65.91 Right myringotom y with tube (Paparella ) placement performed by Dr. Priest 04/06/23 for this. Tube is in good position. She had the impression that placing the tube was the source of her cough and drainage. Would have no connection to her cough and drainage although she noticed it worsened after tube was placed. Cough 00413841 R05.9 Nasolaryng oscopy performed, no obvious infection. May have a low-grade sinus infection or bronchitis . Will do Atrovent for drainage. Rx 1 week of levofloxac in. Recommend consulting w/ pulmonary if not improved. [id number] AMMON MARTIN MD PULMONARY [address] [facility] [place] [address] 08/20/2023 12:57:00 08/20/2023 14:14:30 Cough 80934281 R05.9 Chronic cough which is primarily nocturnal [...] see her back in reevaluati on in [facility] 3 to 4 months [id number] EMILIANA BARROS MD ENT [address] [place], [place] [address] 11/13/2024 08:13:04 11/13/2024 13:27:39 Dizziness 881070987 R42 10711 Uncertain etiology but no evidence that this is related to the ears. Negative Kirsten-Hallpi ke testing. May be cardiovasc ular since it occurred after her heart surgery in May. Would defer to her PCP Hoarse 24021860 R49.[address] sinus from May was normal. Nasolaryng oscopy performed, no nodules or polyps but has edema of the tvfs. Possible that this is a combinatio n of drainage and her coughing from asthma. Rx Flonase for the drainage. F/u prn Health Concerns Section Related Observation LastModified by Organization Detai ls LastModified Time None Recorded Concern Status LastModified by Organization Details LastModified Time None Recorded Advance Directives Directive None Recorded Payers Insurance Date Sequence Insurance Name Policy Number Policy Caballero Covered Member ID Caballero Member ID Guarantor Name 11/10/2024 1 [place] Clarissa P Gaunce [id number] Clarissa P Gaunce 04/21/2018 2 () [id number] Clarissa P Gaunce 06/23/2023 1 [place] Clarissa P Gaunce [id number] Clarissa P Gaunce 11/20/2024 2 () Clarissa P Gaunce [id number] Clarissa P Gaunce Notes Date Note Type Note Provider Name and Address Organization Details Recorded Time 03/09/2023 text/html Clarissa comes in today for consultation at the request of for [...] it was placed. HANG PRIEST III, MD [facility], [place], [address], [facility] 03/09/2023 17:41:57 04/06/2023 text/html Clarissa is a 72 year old female who visits us in office today to follow up on her right ear. Clarissa states that she continues to have pain and pressure in her right ear today. She is interested in having a tube placed in order to relieve her symptoms. HANG PRIEST III, MD [address] [place] [address], [address], [facility] 04/06/2023 10:16:45 05/25/2023 text/html Ref: Rhoda Turk MILANARachael Complaint: CoughTimin04/06/23D uration:Location:Katina rity:Quality: productiveContext: Right myringotomy with tube (Paparella) [...] a headache last night EMILIANA BARROS MD [address] [place] [address], [address], [facility] 05/25/2023 16:26:48 08/20/2023 text/html ROS as noted in the HPI Patient comes in for evaluation of chronic cough. She has been coughing for several years. She states that her cough is mostly occurring at night and after meals especially heavy meals. She does not drink alcoholic beverages or caffeinated beverages but she does admit that heavier meals tend to aggravate her cough. Her cough is generally productive of clear secretions especially in the linen folder hours. She denies any fever, chills, any [...] and/or a reflux diet AMMON TREJO MD [address] [place], [address], [facility] 08/20/2023 13:59:06 11/13/2024 text/html Chief Complaint: DizzinessTiming:2024Duration:Intermit tent episodes lasting about a minute, occurring 3-4 times per dayLocation:Severity: Quality:Sounds like vertigo says the room 1/2 spins, imbalanceContext: occurring after heart surgeryModifying Factors: Had a eye exam that was normalAssoc signs and symptoms:Most episodes are when moves to fast or when turning the car, no episodes when she lays down.Intermittent tinnitus, no change in hearing, no N&V. #2Chief Complaint: HoarsenessTimin wksDuration:Almost constantLocation:Katina rity:Mild to ModQuality:Context:Mo difying Factors: No TxAssoc signs and symptoms:Has PND, no known heartburn or reflux, no dysphagia, no hemoptysis, no sore throat now but did have at onset, has productive cough, has sob but has asthma also EMILIANA BARROS MD [facility] [place], [address], [facility] 11/13/2024 12:46:40 OBGyn Episode No OBEpisode recorded.
--- OUTSIDE RECORDS SUMMARY | 2025-02-21 12:24 | XMS_ITS | Clinical Summary ---
Author Organization [facility] Address [address] [place] [address] Care Team Providers Care Gas Check Pad Maker Name Role Phone Fracisco Barnes DO Primary [...] hypoechoic solid nodule. FNA 2016 - benign ([facility]) Prediabetes 03/23/2016 Renal cyst 03/12/2016 [...] Description 12/01/2024 10:30 AM EDT Office Visit [facility] [address] [facility] [address] [place] [address] Wing Sanabria MD Nonrheumatic mitral valve regurgitation [...] attack Maternal Grandfather Maternal Grandmother Mother dolly bass christina destin Alive Niece Alive Other [...] Description 06/27/2025 9:30 AM EST Office Visit [facility] [address] [facility] [address] [place] [address] Марина Nichols, LOG INSPECTOR [address] [facility] [address] [place] [address] 03/15/2026 9:30 AM EST Office Visit [facility] [address] [facility] [address] [place] [phone] Wing Sanabria MD [address] [facility] [address] [place] [address] Health Maintenance Due Date Last Done Comments [...] Hemoglobin A1C 5.5 4.5 - 5.7 % [facility] Lot Number [id number] [facility] Expiration Date 09/19/2025 [facility] Blood 01/05/2024 10:1 3 AM EDT Gloria Preston MD POINT OF CARE TEST ORDERABLES Final Result [facility]
[address] [place] [address], * DEXA Bone Density Axial (07/07/2021 11:11 [...] Relevant [place] [address] [facility] [address] MEDICARE A & B Care Teams Gas Check Pad Maker Relationship Specialty Start Date End Date Fracisco Barnes DO [address] [place] [address] PCP - General Internal Medicine 07/07/24
--- OUTSIDE RECORDS SUMMARY | 2025-02-21 12:24 | XMS_ITS | Clinical Summary ---
Author Organization [facility] Address [address] [place] [address] Care Team Providers Care Energy Conservation Director Name Role Phone Pcp, No Primary Care [...] or (1 - 1-dose 75+ series) 07/21/2023 [id number] Vaccine ( - season) 2024 05/19/2023, 01/28/2022, [...] Antibody Negative Negative 07/17/2024 7:52 PM EDT [facility] Blood Venous blood specimen / Unknown Venipuncture / Unknown 07/17/2024 6:53 PM EDT 07/17/2024 7:11 PM EDT us Yin Johnson LAB BLOOD ORDERABLES Final Resul t [facility] [address] [place] [address] from Last 3 Months or Most Recently Relevant [place] [address] MEDICARE [facility] Care Teams Energy Conservation Director Relationship Specialty Start Date End Date Pcp, [place] [address] PCP - General Family Medicine 07/17/24
--- OUTSIDE RECORDS SUMMARY | 2025-02-21 12:24 | XMS_ITS | Clinical Summary ---
Author Organization [facility] Address [address] [place] [address] Care Team Providers Care Evidence Technician Name Role Phone Wing Sanabria MD Unavailable [phone] Social History Tobacco Use Types Packs/Day Years [...] Screening 07/07/2026 07/07/2021, 2021 Insurance ILEANA DUNHAM [id number] MEDICARE Care Teams Evidence Technician Relationship Specialty Start Date End Date Wing Sanabria MD [address] [place] [address] Cardiology 04/13/24
--- OUTSIDE RECORDS SUMMARY | 2025-02-21 12:24 | XMS_ITS ---
Laboratory report Created on: February 09, 2025 REGIS SHELLEY : 1950 Sex: Female Author Organization Unknown PROBLEMS Problems List Code Description RESULTS Laboratory Orders Date Order Code Test 2025-02-05 948140 TRIIODOTHYRONINE (T3), FREE Laboratory Results Date LOINC Test Value Unit Reference Range Interpre tation 2025-02-05 3051-0 TRIIODOTHYRONINE (T3), FREE 3.1 PG/ML 2.0-4.4
--- OUTSIDE RECORDS SUMMARY | 2025-02-21 12:25 | XMS_ITS | Encounter Summary ---
Author Organization [facility] Address [address] [place] [address] Care Team Providers Care Gas Worker Name Role Phone Pcp, No Primary Care Provider Unavailabl e Encounter Details Date Type Department Care Team (Late st Contact Info) Description 07/17/2024 Ophth Exam [facility] [address] [place] [phone] Eh Tamez MD [address] [place] [address] Social History Tobacco Use Types Packs/Day [...] on filedocumented in this encounter Care Teams Gas Worker Relationship Specialty Start Date End Date Pcp, No [address] [place] [address] PCP - General Family Medicine 07/17/24 documented as of this encounter
--- OUTSIDE RECORDS SUMMARY | 2025-02-21 12:25 | XMS_ITS | Encounter Summary ---
Author Organization [facility] Address [address] [place] [address] Care Team Providers Care Cleaning Team Member Name Role Phone Fracisco Barnes Primary Care Provider + Encounter Details Date Type Department Care Team (Late st Contact Info) Description 03/02/2014 External CPT II RIBBON BLOCKMAKER - [facility] Social History Tobacco Use [...] Description 06/27/2025 9:30 AM EST Office Visit [facility] [address] [facility] [address] [place] [address] Марина Nichols, HENRIETTA [address] [facility] [address] [place] [address] 03/15/2026 9:30 AM EST Office Visit [facility] [address] [facility] [address] [place] [address] Wing Sanabria MD 1720 [facility] [address] [place] [address] documented as of this encounter Visit Diagnoses Not on filedocumented in this encounter Care Teams Cleaning Team Member Relationship Specialty Start Date End Date Fracisco Barnes DO [address] [place] [address] PCP - General Internal Medicine 07/07/24 documented as of this encounter
== END 2025-02-20 23:59 | disposition home or self-care (01) ==
LOC: LAB.DROPOF 02-21 12:22
PROVIDERS: PCP Internal Medicine; Visit Provider Internal Medicine
DX: R68.2 Dry mouth, unspecified (principal)
CPT/HCPCS: 86225; 86235

== ENCOUNTER 2025-03-14 15:49 | Outpatient (CLI) | payer MEDICARE, OTHER, SELFPAY ==
--- OUTSIDE RECORDS SUMMARY | 2017-06-17 08:00 | XMS_ITS | Encounter Summary ---
Author Organization [facility] Address [address] [place] [id number] Care Team Providers Care Sonar Technician Name Role Phone Pedrito Cruz MD Primary Care Provider + Reason for Visit * Diagnostic Imaging (Routine) - Closed Specialty Diagnoses / Procedures Referred By Contac t Referred To Contact Radiology Diagnoses Solitary thyroid nodule Procedures US Thyroid Gloria Smith MD [address] [place] [address] Phone: tel: fax: [facility] END[facility] [address] [place] [phone] Phone: tel: fax: Referral ID Status Reason Start Date Expiration Date Visits Re quested Visits Authorized [id number] Closed 06/17/2017 06/17/2018 1 1 Encounter Details Date Type Department Care Team (Latest Contact Info) Description 06/17/2017 8:00 AM EST Hospital Encounter [facility] [address] [place] [phone] Solitary thyroid nodule Social History Tobacco Use Types Packs/Day Years Used Date Smoking Tobacco: Never Passive Smoke Exposure: Never Smokeless Tobacco: Never Alcohol Use Standard Drinks/Week Comments No 0 (1 standard drink = 0.6 oz pur e alcohol) PHQ-2 Answer Date Recorded PHQ-2 Score 0 06/28/2019 Comments No Sex and Gender Information Value Date Recorded Sex Assigned at Not on file Legal Sex Female 10:26 AM EDT Gender Identity Not on file Sexual Orientation Not on file Occupation Industry Job Start Date Job End Date Retired Not on file Not on file Not on file [employer] Not on file Not on file Not on file documented as of this encounter Plan of Treatment Upcoming Encounters Date Type Department Care Team (Late st Contact Info) Description 03/20/2025 1:00 PM EST Office Visit [facility] PULMONARY & CRITICAL CARE MEDICINE [address] [place] [phone] Pedrito Hurtado, DO [address] [place] [address] 06/27/2025 9:30 AM EST Office Visit [facility] NEUROLOGY [address] [facility] [address] [place] [phone] Марина Nichols, AIRCRAFT PART ASSEMBLER [address] [facility] [address] [place] [address] 03/15/2026 9:30 AM EST Office Visit [facility] CARDIOLOGY [address] [facility] [address] [place] [phone] Wing Sanabria MD [address] [facility] [address] [place] [address] documented as of this encounter Procedures Procedure Name Priority Date/Time Associated Diagnosis Comments US THYROID Routine 06/17/2017 9:02 AM EST Solitary thyroid nodule documented in this encounter Results * US Thyroid (06/17/2017 9:02 AM EST) Narrative SYSTEMGENERATED, DOCUMENTATION - 06/17/2017 9:02 AM EST Please see performing physician's note for result. us Gloria Preston MD IMG US ORDERABLES Final Result documented in this encounter Visit Diagnoses Diagnosis Solitary thyroid nodule documented in this encounter Care Teams Sonar Technician Relationship Specialty Start Date End Date Pedrito Cruz MD PCP - General 06/10/15 11/19/21 documented as of this encounter
--- OUTSIDE RECORDS SUMMARY | 2018-06-23 10:08 | XMS_ITS | Encounter Summary ---
Author Organization [facility] Address [address] [place] [phone] Care Team Providers Care Quality Assurance Nurse Name Role Phone Pedrito Cruz MD Primary Care Provider + Reason for Visit * Diagnostic Imaging (Routine) - Closed Specialty Diagnoses / Procedures Referred By Contac t Referred To Contact Radiology Diagnoses Solitary thyroid nodule Procedures US Thyroid Gloria Smith MD [address] [place] [address] Phone: tel: fax: [facility] [address] [facility] [address] [place] [phone] Phone: tel: fax: Referral ID Status Reason Start Date Expiration Date Visits Re quested Visits Authorized [id number] Closed 06/23/2018 06/23/2019 1 1 Encounter Details Date Type Department Care Team (Late st Contact Info) Description 06/23/2018 10:08 AM EST Hospital Encounter [facility] ENDOCRINOLOGY [address] [place] [phone] Social History Tobacco Use Types Packs/Day Years [...] Description 03/20/2025 1:00 PM EST Office Visit [facility] PULMONARY & [facility]ITICAL CARE MEDICINE 2400 [place] [phone] Pedrito Hurtado DO [address]00 [place] [address] 06/27/2025 9:30 AM EST Office Visit [facility] NEUROLOGY [address] [facility] [address] [place] [phone] Марина Nichols, HENRIETTA [address] [facility] [address] [place] [address] 03/15/2026 9:30 AM EST Office Visit [facility] CARDIOLOGY [address] [facility] [address] [place] [phone] Wing Sanabria MD [address] [facility] [address] [place] [address] documented as of this encounter Procedures Procedure Name Priority Date/Time Associated Diagnosis Comments US THYROID Routine 06/23/2018 10:08 AM EST Solitary thyroid nodule documented in this encounter Results * US Thyroid (06/23/2018 10:08 AM EST) Narrative SYSTEMGENERATED, DOCUMENTATION - 06/23/2018 10:08 AM EST Please see performing physician's note for result. us Gloria Preston MD IMG US ORDERABLES Final Result documented in this encounter Visit Diagnoses Not on filedocumented in this encounter Care Teams Quality Assurance Nurse Relationship Specialty Start Date End Date Anthony, Pedrito Rhett, MD PCP - General 06/10/15 11/19/21 documented as of this encounter
--- OUTSIDE RECORDS SUMMARY | 2019-06-28 09:02 | XMS_ITS | Encounter Summary ---
Author Organization [facility] Address [address] [place] [phone] Care Team Providers Care Collection Systems Foreman Name Role Phone Pedrito Cruz MD Primary Care Provider + Reason for Visit * Diagnostic Imaging (Routine) - Closed Specialty Diagnoses / Procedures Referred By Contac t Referred To Contact Radiology Diagnoses Solitary thyroid nodule Procedures US Thyroid Gloria Smith MD [address] [place] [address] Phone: tel: fax: [facility]CR[facility] [address] [facility] [address] [place] [phone] Phone: tel: fax: Referral ID Status Reason Start Date Expiration Date Visits Re quested Visits Authorized [id number] Closed 06/28/2019 06/27/2020 1 1 Encounter Details Date Type Department Care Team (Late st Contact Info) Description 06/28/2019 9:02 AM EST Hospital Encounter [facility] ENDO[facility] [address] [place] [phone] Social History Tobacco Use Types Packs/Day [...] Description 03/20/2025 1:00 PM EST Office Visit [facility] PULMONARY & CRITICAL CARE MEDICINE 2400 [place] [phone] Pedrito Hurtado, DO [address]00 [place] [address] 06/27/2025 9:30 AM EST Office Visit [facility] NEUROLOGY [address] [facility] [place] [phone] Марина Nichols, CORRECTIONS COUNSELOR [address]01 [facility] [address] [place] [address] 03/15/2026 9:30 AM EST Office Visit [facility] CARDI[facility]Y [address] [facility] [address] [place] [phone] Wing Sanabria MD [address] [facility] [address] [place] [address] documented as of this encounter Procedures Procedure Name Priority Date/Time Associated Diagnosis Comments US THYROID Routine 06/28/2019 9:02 AM EST Solitary thyroid nodule documented in this encounter Results * US Thyroid (06/28/2019 9:02 AM EST) Narrative SYSTEMGENERATED, DOCUMENTATION - 06/28/2019 9:02 AM EST Please see performing physician's note for result. us Gloria Preston MD [facility] US ORDERABLES Final Result documented in this encounter Visit Diagnoses Not on filedocumented in this encounter Care Teams Collection Systems Foreman Relationship Specialty Start Date End Date Pedrito Cruz MD PCP - General 06/10/15 11/19/21 documented as of this encounter
--- OUTSIDE RECORDS SUMMARY | 2020-08-14 09:02 | XMS_ITS | Encounter Summary ---
Author Organization [facility] Address [address] [place] [phone] Care Team Providers Care Rfid Analyst Name Role Phone Pedrito Cruz MD Primary Care Provider + Reason for Visit * Diagnostic Imaging (Routine) - Closed Specialty Diagnoses / Procedures Referred By Contac t Referred To Contact Radiology Diagnoses Solitary thyroid nodule Procedures US Thyroid Gloria Smith MD [address] [place] [address] Phone: tel: fax: [facility] ENDOCRINOLOGY [address] [place] [phone] Phone: tel: fax: Referral ID Status Reason Start Date Expiration Date Visits Re quested Visits Authorized [id number] Closed 08/14/2020 08/14/2021 1 1 Encounter Details Date Type Department Care Team (Late st Contact Info) Description 08/14/2020 10:02 AM EDT Hospital Encounter [facility] [address] [facility] [address] [place] [phone] Social History Tobacco Use Types Packs/Day [...] Description 03/20/2025 1:00 PM EST Office Visit [facility] PULMONARY & CRITICAL CARE MEDICINE [address] [place] [phone] Pedrito Hurtado, DO [address] [place] [address] 06/27/2025 9:30 AM EST Office Visit [facility] NEUROLOGY [address] [facility] [address] [place] [phone] Марина Nichols, DIRECTOR BUSINESS DEVELOPMENT [address] [facility] [address] [place] [address] 03/15/2026 9:30 AM EST Office Visit [facility] CARDIOLOGY [address] [facility] [address] [place] [phone] Wing Saanbria MD [address] [facility] [address] [place] [address] documented as of this encounter Procedures Procedure [...] on filedocumented in this encounter Care Teams Rfid Analyst Relationship Specialty Start Date End Date Pedrito Cruz MD PCP - General 06/10/15 11/19/21 documented as of this encounter
--- OUTSIDE RECORDS SUMMARY | 2021-07-07 09:24 | XMS_ITS | Encounter Summary ---
Author Organization [facility] Address [address] [place] [address] Care Team Providers Care Warm In Name Role Phone Pedrito Cruz MD Primary Care Provider + Reason for Referral * Diagnostic Imaging (Routine) - Closed Specialty Diagnoses / Procedures Referred By Contact Referred To Contact Obstetrics and Gynecology Diagnoses Osteopenia after menopause Screening for osteoporosis Procedures DEXA Bone Density Axial Vinicius Lantigua MD [address] [facility] [address] [place] [address] Phone: tel: fax: [facility] OBGYN [address] [address] Phone: tel: fax: Referral ID Status Reason Start Date Expiration Date Visits Re quested Visits Authorized [id number] Closed 07/07/2021 07/07/2022 1 1 Reason for Visit * Diagnostic Imaging (Routine) - Closed Specialty Diagnoses / Procedures Referred By Contact Referred To Contact Obstetrics and Gynecology Diagnoses Osteopenia after menopause Screening for osteoporosis Procedures DEXA Bone Density Axial Vinicius Lantigua MD [address] [facility] [address] [place] [address] Phone: tel: fax: [facility]YN [address]00 [facility] [address] [place] [address] Phone: tel: fax: Referral ID Status Reason Start Date Expiration Date Visits Re quested Visits Authorized [id number] Closed 07/07/2021 07/07/2022 1 1 Encounter Details Date Type Department Care Team (Latest Contact Info) Description 07/07/2021 10:24 AM EDT Hospital Encounter [facility] OBGYN 17[address] [facility] [address] [place] [phone] Osteopenia after menopause; Screening for osteoporosis Social [...] Description 03/20/2025 1:00 PM EST Office Visit [facility] PULMONARY & CRITICAL CARE MEDICINE [address] [place] [address] Pedrito Hurtado, DO [address] [place] [phone] 06/27/2025 9:30 AM EST Office Visit [facility] NEUROLOGY [address] [facility] [address] [place] [address] Марина Nichols APRN 2101 [facility] [address] [place] [address] 03/15/2026 9:30 AM EST Office Visit [facility] CARDIOLOGY [address] [place] [address] Wing Sanabria MD [address] [place] [address] documented as of this encounter Procedures Procedure [...] Study in 2 Years Vinicius Lantigua MD us Vinicius Lantigua MD IMG DXA ORDERABLES Final R esult documented in this encounter Visit Diagnoses Diagnosis Osteopenia after menopause Screening for osteoporosis Special screening for osteoporosis documented in this encounter Care Teams Warm In Relationship Specialty Start Date End Date Pedrito Cruz MD PCP - General 06/10/15 11/19/21 documented as of this encounter
--- OUTSIDE RECORDS SUMMARY | 2021-07-08 08:07 | XMS_ITS | Encounter Summary ---
[facility] Organization [facility] Address [address] [place] [address] Care Team Providers Care Cardroom Attendant Name Role Phone Pedrito Cruz MD Primary Care Provider + Encounter Details Date Type Department Care Team (Late Contact Info) Description 07/08/2021 9:07 AM EDT Hospital Encounter [facility] PULMONARY & CRITICAL CARE MEDICINE [address] [place] [address] Social History Tobacco Use Types Packs/Day Years [...] Encounters Date Type Department Care Team (Late Contact Info) Description 03/20/2025 1:00 PM EST Office Visit [facility] PULMONARY & CRITICAL CARE MEDICINE [address] [place] [phone] Pedrito Hurtado, DO [address] [place] [address] 06/27/2025 9:30 AM EST Office Visit [facility] NEUROLOGY [address] [facility] [address] [place] [address] Марина Nichols APRN [address] [facility] [address] [place], [place] [id number] 03/15/2026 9:30 AM EST Office Visit [facility] CARDIOLOGY [address] [facility] [address] [place] [phone] Wing Sanabria MD [address] [facility] [address] [place], [place] [phone] documented as of this encounter Procedures Procedure Name Priority Date/Time Associated Diagnosis Comments XR CHEST PA AND LATERAL Routine 07/08/2021 9:17 AM EDT Cough documented in this encounter Results * XR Chest PA & Lateral (07/08/2021 9:17 AM EDT) Anatomical Region Laterality Modality Body, Chest N/A Radiographic Elaine ging Narrative 07/08/2021 9:35 AM EDT PA and lateral chest x-rays obtained Cardiac silhouette is within normal limits in size CT ratio is 12 x 27 No effusions, infiltrates, or consolidation Gage Muniz MD IMG DIAGNOSTIC IMAGING ORDERABLES Final Result documented in this encounter Visit Diagnoses Not on filedocumented in this encounter Care Teams Cardroom Attendant Relationship Specialty Start Date End Date Pedrito Cruz MD PCP - General 06/10/15 11/19/21 documented as of this encounter
--- OUTSIDE RECORDS SUMMARY | 2021-09-12 10:17 | XMS_ITS | Encounter Summary ---
Author Organization [facility] Address [address] [place] [phone] Care Team Providers Care Biostatistics Manager Name Role Phone Pedrito rCuz MD Primary Care Provider + Reason for Visit * Diagnostic Imaging (Routine) - Closed Specialty Diagnoses / Procedures Referred By Contac t Referred To Contact Radiology Diagnoses Thyroid nodule Procedures US Thyroid Gloria Smith MD [address] [place] [address] Phone: tel: fax: [facility] [address] [facility] [address] [place] [phone] Phone: tel: fax: Referral ID Status Reason Start Date Expiration Date Visits Re quested Visits Authorized [id number] Closed 09/12/2021 09/12/2022 1 1 Encounter Details Date Type Department Care Team (Late st Contact Info) Description 09/12/2021 11:17 AM EDT Hospital Encounter [facility] [address] [facility] [address] [place] [phone] Social History Tobacco Use Types Packs/Day [...] 03/20/2025 1:00 PM EST Office Visit [facility] PULMONARY & CRITICAL CARE MEDICINE [address]00 [place] [phone] Pedrito Hurtado, DO [address] [place] [address] 06/27/2025 9:30 AM EST Office Visit [facility] NEUR[facility] [address] [facility] [address] [place] [phone] Марина Nichols, GROUP BURNER MACHINE [address] [facility] [address] [place] [address] 03/15/2026 9:30 AM EST Office Visit [facility] [address] [facility] [address] [place] [phone] Wing Sanabrai MD [address] [facility] [address] [place] [address] documented as of this encounter Procedures Procedure [...] on filedocumented in this encounter Care Teams Biostatistics Manager Relationship Specialty Start Date End Date Pedrito Cruz MD PCP - General 06/10/15 11/19/21 documented as of this encounter
--- OUTSIDE RECORDS SUMMARY | 2022-12-31 09:05 | XMS_ITS | Encounter Summary ---
Author Organization [facility] Address [address] [place] [address] Care Team Providers Care Communication Equipment Mechanic Name Role Phone Jeane Hodge HENRIETTA Primary Care Provider [phone] Reason for Visit * Diagnostic Imaging (Routine) - Closed Specialty Diagnoses / Procedures Referred By Contac t Referred To Contact Radiology Diagnoses Thyroid nodule Procedures US Thyroid Gloria Smith MD [address] [place] [address] Phone: tel: fax: [facility] [address] [facility] [address] [place] [phone] Phone: tel: fax: Referral ID Status Reason Start Date Expiration Date Visits Re quested Visits Authorized [id number] Closed 12/31/2022 12/31/2023 1 1 Encounter Details Date Type Department Care Team (Late st Contact Info) Description 12/31/2022 10:05 AM EDT Hospital Encounter [facility] [address] [facility] [address] [place] [phone] Social History Tobacco Use Types Packs/Day [...] Description 03/20/2025 1:00 PM EST Office Visit [facility] PUL[facility]ARY [facility]ICAL [facility]ARE MEDICINE [address] [place] [phone] Pedrito Hurtado, DO [address] [place] [address] 06/27/2025 9:30 AM EST Office Visit [facility] NEUROLOGY [address] [facility] [address] [place] [phone] Марина Nichols, TRAFFIC CONTROL OFFICER [address] [facility] [address] [place] [address] 03/15/2026 9:30 AM EST Office Visit [facility] CARDIOLOGY [address] [facility] [address] [place] [phone] Wing Sanabria MD [address] [facility] [address] [place] [address] documented as of this encounter Procedures Procedure Name Priority Date/Time Associated Diagnosis Comments US THYROID Routine 12/31/2022 10:05 AM EDT Thyroid nodule documented in this encounter Results * US Thyroid (12/31/2022 10:05 AM EDT) Narrative SYSTEMGENERATED, DOCUMENTATION - 12/31/2022 10:05 AM EDT Please see performing physician's note for result. us Gloria Preston MD IMG US ORDERABLES Final Result documented in this encounter Visit Diagnoses Not on filedocumented in this encounter Care Teams Communication Equipment Mechanic Relationship Specialty Start Date End Date Jeane Hodge APRN PCP - General Internal Medicine 12/10/22 04/06/23 documented as of this encounter
--- OUTSIDE RECORDS SUMMARY | 2024-01-05 09:12 | XMS_ITS | Encounter Summary ---
Author Organization [facility] Address [address] [place] [address] Care Team Providers Care Green Chainer Name Role Phone Jeane Hodge HENRIETTA Primary Care Provider [phone] Reason for Visit * Diagnostic Imaging (Routine) - Closed Specialty Diagnoses / Procedures Referred By Contac t Referred To Contact Radiology Diagnoses Thyroid nodule Procedures US Thyroid Gloria Smith MD [address] [employer] [facility] [address] [place] [address] Phone: tel: fax: Referral ID Status Reason Start Date Expiration Date Visits Re quested Visits Authorized [id number] Closed 01/05/2024 01/04/2025 1 1 Encounter Details Date Type Department Care Team (Late st Contact Info) Description 01/05/2024 10:12 AM EDT Hospital Encounter [facility] ENDOCRINOLOGY [address] [employer] [employer] [address] [place] [phone] Social History Tobacco Use Types Packs/Day Years [...] Description 03/20/2025 1:00 PM EST Office Visit [facility] PUL[facility]ARY & [facility] MEDICINE [address] [facility] [place] [phone] Pedrito Hurtado DO [address] [place] [address] 06/27/2025 9:30 AM EST Office Visit [facility] NEUROLOGY [address]01 [facility] [address] [place] [phone] Марина Nichols APRN 2101 [facility] 204 [place] [address] 03/15/2026 9:30 AM EST Office Visit [facility] CARDIOLOGY [address] [facility] [address] [place] [phone] Wing Sanabria MD [address] [facility] [address] [place], [place] [phone] documented as of this encounter Procedures Procedure Name Priority Date/Time Associated Diagnosis Comments US THYROID Routine 01/05/2024 10:12 AM EDT Thyroid nodule documented in this encounter Results * US Thyroid (01/05/2024 10:12 AM EDT) Narrative SYSTEMGENERATED, DOCUMENTATION - 01/05/2024 10:12 AM EDT Please see performing physician's note for result. us Gloria Preston MD IMG US ORDERABLES Final Result documented in this encounter Visit Diagnoses Not on filedocumented in this encounter Care Teams Green Chainer Relationship Specialty Start Date End Date Jeane Hodge APRN [address] [place] [id number] PCP - General Internal Medicine 04/07/23 07/06/24 documented as of this encounter
--- NOTE | 2025-03-14 15:56 | XR_ITS ---
FINAL REPORT TECHNIQUE: Chest PA & Lateral CLINICAL HISTORY: Shortness of breath COMPARISON: 11/10/2024 FINDINGS: 2 views of the chest were performed. The heart size is normal. Sternotomy wires are present. There is no acute cardiopulmonary process. There are no pleural effusions. There is no pneumothorax. The bony thorax appears intact. IMPRESSION: No acute cardiopulmonary process. Reviewed, Interpreted and Dictated by Tavon Ibarra MD Transcribed by Dara Gaona Authenticated and [facility]
--- OUTSIDE RECORDS SUMMARY | 2025-03-14 16:30 | XMS_ITS | Encounter Summary ---
Author Organization [facility] Address [address] [place] [address] Care Team Providers Care Building Carpenter Helper Name Role Phone Jeane Hodge APRN Primary Care Provider + [phone] Reason for Visit * Reason Onset Date Comments - SCHEDULING REQUEST 02/27/2025 Encounter Details Date Type Department Care Team (Late st Contact Info) Description 02/27/[address] [facility] [address] [facility] [address] [place] [address] Wing Sanabria MD [address] [facility] [address] [place] [address] - SCHEDULING REQUEST Social History Tobacco Use Types Packs/Day Years [...] Miscellaneous Notes * Telephone Encounter - Mary Duarte RN - 02/27/2025 3:10 PM EST FYI: ECG COMPLETE Collected: 05/25/2024 8:41 AM (Final result) Impression: NORMAL SINUS RHYTHM LOW VOLTAGE QRS, CONSIDER PULMONARY DISEASE, PERICARDIAL EFFUSION, OR NORMAL VARIANT CANNOT EXCLUDE ANTERIOR MYOCARDIAL INFARCTION , AGE UNDETERMINED ABNORMAL ECG Discussed with pt the EKG she is referencing is from 05/25/24 of which was noted in her Nov follow up note from Dr Ramires . * Telephone Encounter - Renu Hagen RegSched Rep - 02/27/2025 2:08 PM EST Caller: Clarissa Clement Relationship to patient: Self Best call back number: [phone] Chief complaint: PATIENT HAD OPEN HEART MITRAL VALVE REPAIR BACK IN MAY. THEN SAW WITH [facility] IN JANUARY WHERE HE RAN TESTING. REPORTS SHE HAD A HEART ATTACK BACK ON 12.23.24 AROUND 2AM. WOULD LIKE A CALL BACK TO SCHEDULE A FOLLOW UP. Type of visit: FU Requested date: ANY documented in this encounter Plan of Treatment Upcoming Encounters Date Type Department Care Team (Late st Contact Info) Description 03/20/2025 1:00 PM EST Office Visit [facility]UL[facility] & [facility]ICAL CARE MEDICINE [address] [place] [address] Pedrito Hurtado, [address] [place] [address] 06/27/2025 9:30 AM EST Office Visit [facility] [address] [facility] [address] [place] [address] Марина Nichols APRN [address] [facility] [address] [place], [place] [id number] 03/15/2026 9:30 AM EST Office Visit [facility] [address] [facility] [address] [place] [address] Wing Sanabria MD [address] [facility] [address] [place] [phone] documented as of this encounter Visit Diagnoses Not on filedocumented in this encounter Care Teams Building Carpenter Helper Relationship Specialty Start Date End Date Jeane Hodge APRN [address] [place] [address] PCP - General Internal Medicine 02/23/25 documented as of this encounter
--- OUTSIDE RECORDS SUMMARY | 2025-03-14 16:30 | XMS_ITS | Encounter Summary ---
Author Organization [facility] Address [address] [place] [address] Care Team Providers Care Tomography Technologist Name Role Phone Jeane Hodge HENRIETTA Primary Care Provider + [phone] Encounter Details Date Type Department Care Team (Late st Contact Info) Description 03/02/2014 External CPT II CHECKER AND PACKER - [facility] Social History Tobacco Use [...] Description 03/20/2025 1:00 PM EST Office Visit [facility] PULMONARY & CRITICAL CARE MEDICINE [address] [place] [phone] Pedrito Hurtado, DO [address] [place] [address] 06/27/2025 9:30 AM EST Office Visit [facility]UR[facility] [address] [facility] [address] [place] [address] Марина Nichols APRN [address] [facility] [address] [place] [address] 03/15/2026 9:30 AM EST Office Visit [facility] [address] [place] [phone] Wing Sanabria MD [address] [place] [address] documented as of this encounter Visit Diagnoses Not on filedocumented in this encounter Care Teams Tomography Technologist Relationship Specialty Start Date End Date Jeane Hodge APRN [address] [place] [address] PCP - General Internal Medicine 02/23/25 documented as of this encounter
--- OUTSIDE RECORDS SUMMARY | 2025-03-14 16:30 | XMS_ITS | Clinical Summary ---
Author Organization [facility] Address [address] [place] [address] Care Team Providers Care Offal Worker Name Role Phone Wing Sanabria MD Unavailable [phone] Social History Tobacco Use Types Packs/Day Years [...] Depression Screening 04/26/2024 COVID-19 Vaccine ( - 2024- season) 2024 Influenza Vaccination (#1) 2024 Osteoporosis Screening 07/07/2026 07/07/2021, 2021 Insurance ILEANA DUNHAM [id number] MEDICARE Care Teams Offal Worker Relationship Specialty Start Date End Date Wing Sanabria MD [address] [place] [address] Cardiology 04/13/24
--- OUTSIDE RECORDS SUMMARY | 2025-03-14 16:30 | XMS_ITS | Clinical Summary ---
Author Organization [facility] Address [address] [place] [address] Care Team Providers Care Roasterman Name Role Phone Jeane Hodge HENRIETTA Primary Care Provider + [phone] Allergies Active Allergy Reactions Criticality Noted Date [...] hypoechoic solid nodule. FNA 2016 - benign ([facility]) Prediabetes 03/23/2016 Renal cyst 03/12/2016 Lung nodules [...] Encounters Date Type Department Care Team Description 02/27/2025 Telephone [facility] [address] [facility] [address] [place] [address]CRAGER - SCHEDULING REQUEST from Last 3 Months Immunizations Immunization Administration Dates Next Due FLUAD TRI 65YR+ 02/17/2020 Family History Medical History Relation Name Comments Heart attack Brother alin christina heart a ttack age 57, stint age 61 Heart disease Brother alin christina same a s above Hypertension Brother alin christina Heart attack Father zachary christina Alzheimer's disease Mother dolly bass christina tu cker Heart failure Mother dolly bass sanford dsetin Stroke Mother dolly christina destin Breast cancer Niece Colon cancer Other FAMILY HX Diabetes Other FAMILY HX Hypertension Other FAMILY HX Liver disease Other FAMILY HX Breast cancer Paternal Aunt Cancer Sister 3 briana christina [place] colon cancer Diabetes Sister 3 birana christina [place] Hyperlipidemia Sister 3 briana christina [place] pass ed away kidney failure age 69 Hypertension Sister 3 briana christina [place]ott Kidney disease Sister 3 briana christnia [place]ott kidn ey failure age 69 Obesity Sister 3 briana byrdon Ovarian cancer Neg Hx Relation Name Status Comments Brother alin christina Alive Father zachary christina Alive at a ge 56 of severe heart attack Maternal Grandfather Maternal Grandmother Mother dolly navarrocker Alive Niece Alive Other FAMILY HX Paternal Aunt Paternal Grandfather Paternal Grandmother Sister 1 Sister 2 Sister 3 briana sanofrd scott Social History Tobacco Use Types Packs/Day [...] Description 03/20/2025 1:00 PM EST Office Visit [facility] PULMONARY & CRITICAL CARE MEDICINE [address] [place] [address] Pedrito Hurtado, DO [address] [place] [address] 06/27/2025 9:30 AM EST Office Visit [facility]UR[facility] [address] [facility] [address] [place] [address] Марина Nichols, DISPATCHER ELECTRIC POWER [address] [facility] [address] [place], [place] [phone] 03/15/2026 9:30 AM EST Office Visit [facility] [address] [facility] [address] [place] [phone] Wing Sanabria MD [address] [place] [address] Health Maintenance Due Date Last Done Comments [...] 01/04/2025, 12/25, 02/03/2023, Additional history exists COLONOSCOPY 01/22/2032 01/21/2022, 12/26, 11/23/2019, Additional history exists COLORECTAL CANCER SCREENING 01/22/2032 HEMOGLOBIN A1C Discontinued 01/05/2024, 01/24, 12/31/2022, Additional history exists MAMMOGRAM Discontinued 03/21/2024, 02/25, 03/16/2023, Additional history exists HEPATITIS C SCREENING Completed 07/17/2024 , 01/01/2014, 12/05/2013 Procedures Procedure Name Priority Date/Time Associated Diagnosis Comments SCANNED - LABS 02/05/2025 SCANNED - LABS 02/05/2025 MAMMO SCREENING DIGITAL TOMOSYNTHESIS BILATERAL W CAD Routine 03/16/2024 10:58 AM EST Visit for screening mammogram POCT GLYCOSYLATED HEMOGLOBIN (HGB A1C) Routine 01/05/2024 10:13 AM EDT Prediabetes DEXA BONE DENSITY AXIAL Routine 07/07/2021 11:11 AM EDT Osteopenia after menopause Screening for osteoporosis from Last 3 Months or Most Recently Relevant to Health Maintenance Results * LABS SCANNED (02/05/2025) Only the most recent of2 resultswithin the time period is included. [facility] BLOOD ORDERABLES Final Re sult * Mammo Screening Digital Tomosynthesis Bilateral With [...] A1C 5.5 4.5 - 5.7 % [facility] Lot Number [id number] [facility] Expiration Date 09/19/2025 [facility] Blood 01/05/2024 10:1 3 AM EDT Gloria Preston MD POINT OF CARE TEST ORDERABLES Final Result [facility]
[address] [place] [id number], * DEXA Bone Density Axial (07/07/2021 11:11 [...] Recently Relevant to Health [place] [address] [facility] [place] [address] MEDICARE A & B Care Teams Roasterman Relationship Specialty Start Date End Date Jeane Hodge APRN [address] [place] [address] PCP - General Internal Medicine 02/23/25
[2025-03-14 17:28] LABS: Hematocrit 44.4 % (37.0-47.0); Hemoglobin 14.6 g/dL (12.2-16.2); Immature Granulocytes % 0.3 %; Mean Corpuscular HGB Conc 32.9 g/dL (31.8-35.4); Mean Corpuscular Hemoglobin 28.9 pg (27.0-31.2); Mean Corpuscular Volume 87.7 fl (81-99); Nucleated Red Blood Cells % 0 %; Platelet Count 185 K/mm3 (142-424); Red Blood Count 5.06 M/mm3 (4.20-5.40); Red Cell Distribution Width-SD 43.7 fL; White Blood Count 5.9 K/mm3 (4.8-10.8)
[2025-03-14 21:10] LABS: Coronavirus 19, PCR Not Detected (NotDetected); Influenza A, PCR Not Detected (NotDetected); Influenza B, PCR Not Detected (NotDetected)
== END 2025-03-14 23:59 | disposition home or self-care (01) ==
LOC: RAD 15:50
PROVIDERS: PCP Internal Medicine; Visit Provider Nurse Practitioner Family
DX: R06.02 Shortness of breath (principal); R53.83 Other fatigue
CPT/HCPCS: 71046; 85025; 87631

== ENCOUNTER 2025-03-26 08:10 | Emergency (ER) | payer MEDICARE, OTHER, SELFPAY ==
--- OUTSIDE RECORDS SUMMARY | 2017-06-17 08:00 | XMS_ITS | Encounter Summary ---
Author Organization [facility] Address [address] [place] [id number] Care Team Providers Care Meringuer Name Role Phone Pedrito Cruz MD Primary Care Provider + Reason for Visit * Diagnostic Imaging (Routine) - Closed Specialty Diagnoses / Procedures Referred By Contac t Referred To Contact Radiology Diagnoses Solitary thyroid nodule Procedures US Thyroid Gloria Smith MD [address] [place] [address] Phone: tel: fax: [facility] ENDOCRINOLOGY [address] [place] [phone] Phone: tel: fax: Referral ID Status Reason Start Date Expiration Date Visits Re quested Visits Authorized [id number] Closed 06/17/2017 06/17/2018 1 1 Encounter Details Date Type Department Care Team (Latest Contact Info) Description 06/17/2017 8:00 AM EST Hospital Encounter [facility] ENDOCRINOLOGY [address] [place] [phone] Solitary thyroid nodule Social History Tobacco [...] Care Team (Late st Contact Info) Description 05/02/2025 9:30 AM EST Office Visit [facility] PULMONARY & CRITICAL CARE MEDICINE [address] [place] [address] 05/16/2025 10:30 AM EST Office Visit [facility] PULMONARY & CRITICAL CARE MEDICINE [address] [place] [phone] Pedrito Hurtado DO [address] [place] [address] 06/27/2025 9:30 AM EST Office Visit [facility] NEUROLOGY [address] [facility] [address] [place] [phone] Марина Nichols, HENRIETTA [address] [facility] [address] [place], [place] [phone] 03/15/2026 9:30 AM EST Office Visit [facility] CARDIOLOGY [address] [facility] [address] [place] [phone] Wing Sanabria MD [address] [facility] [address] [place], [place] [phone] documented as of this encounter Procedures Procedure Name Priority Date/Time Associated Diagnosis Comments US THYROID Routine 06/17/2017 9:02 AM EST Solitary thyroid nodule documented in this encounter Results * US Thyroid (06/17/2017 9:02 AM EST) Narrative SYSTEMGENERATED, DOCUMENTATION - 06/17/2017 9:02 AM EST Please see performing physician's note for result. us Gloria Preston MD IM US ORDERABLES Final Result documented in this encounter Visit Diagnoses Diagnosis Solitary thyroid nodule documented in this encounter Care Teams Meringuer Relationship Specialty Start Date End Date Pedrito Cruz MD PCP - General 06/10/15 11/19/21 documented as of this encounter
--- OUTSIDE RECORDS SUMMARY | 2018-06-23 10:08 | XMS_ITS | Encounter Summary ---
Author Organization [facility] Address [address] [place] [address] Care Team Providers Care Supervisor Briar Shop Name Role Phone Pedrito Cruz MD Primary Care Provider + Reason for Visit * Diagnostic Imaging (Routine) - Closed Specialty Diagnoses / Procedures Referred By Contac t Referred To Contact Radiology Diagnoses Solitary thyroid nodule Procedures US Thyroid Gloria Smith MD [address] [place] [address] Phone: tel: fax: [facility]INOLOG[facility] [address] [facility] [address] [place] [phone] Phone: tel: fax: Referral ID Status Reason Start Date Expiration Date Visits Re quested Visits Authorized [id number] Closed 06/23/2018 06/23/2019 1 1 Encounter Details Date Type Department Care Team (Late st Contact Info) Description 06/23/2018 10:08 AM EST Hospital Encounter [facility] ENDOCRINOLOGY [address] [place] [phone] Social History Tobacco Use Types Packs/Day [...] Description 05/02/2025 9:30 AM EST Office Visit [facility] PULMONARY & CRITICAL CARE MEDICINE [address] [place] [phone] 05/16/2025 10:30 AM EST Office Visit [facility] PULMONARY & CRITICAL CARE MEDICINE [address] [place] [phone] Pedrito Hurtado DO [address]00 [place] [address] 06/27/2025 9:30 AM EST Office Visit [facility] NEUROLOGY [address] [facility] 204 [place] [phone] Марина Nichols, HENRIETTA 2101 [facility] [address] [place], [place] [address] 03/15/2026 9:30 AM EST Office Visit [facility] CARDIOLOGY [address] [facility] 400 [place] [phone] Wing Sanabria MD 1720 [facility] [address] [place] [address] documented as of this encounter Procedures Procedure [...] on filedocumented in this encounter Care Teams Supervisor Briar Shop Relationship Specialty Start Date End Date Pedrito Cruz MD PCP - General 06/10/15 11/19/21 documented as of this encounter
--- OUTSIDE RECORDS SUMMARY | 2019-06-28 09:02 | XMS_ITS | Encounter Summary ---
Author Organization [facility] Address [address] [place] [phone] Care Team Providers Care Youth Care Professional Name Role Phone Pedrito Cruz MD Primary Care Provider + Reason for Visit * Diagnostic Imaging (Routine) - Closed Specialty Diagnoses / Procedures Referred By Contac t Referred To Contact Radiology Diagnoses Solitary thyroid nodule Procedures US Thyroid Gloria Smith MD [address] [place] [address] Phone: tel: fax: [facility] [address] [facility] [address] [place] [phone] Phone: tel: fax: Referral ID Status Reason Start Date Expiration Date Visits Re quested Visits Authorized [id number] Closed 06/28/2019 06/27/2020 1 1 Encounter Details Date Type Department Care Team (Late st Contact Info) Description 06/28/2019 9:02 AM EST Hospital Encounter [facility] [address] [place] [phone] Social History Tobacco Use Types Packs/Day [...] Description 05/02/2025 9:30 AM EST Office Visit [facility] PUL[facility]ITICAL CARE MEDICINE [address] [place] [address] 05/16/2025 10:30 AM EST Office Visit [facility]UL[facility]ICAL [facility] MEDICINE [address] [place] [address] Pedrito Hurtado DO [address]00 [place] [address] 06/27/2025 9:30 AM EST Office Visit [facility] NEUR[facility] 2101 [facility] 204 [place] [phone] Марина Nichols, HENRIETTA 2101 [facility] [address] [place], [place] [address] 03/15/2026 9:30 AM EST Office Visit [facility] C[facility] [address] [facility] [address] [place] [phone] Wing Sanabria MD 1720 [facility] [address] [place], [place] [address] documented as of this encounter Procedures Procedure [...] on filedocumented in this encounter Care Teams Youth Care Professional Relationship Specialty Start Date End Date Pedrito Cruz MD PCP - General 06/10/15 11/19/21 documented as of this encounter
--- OUTSIDE RECORDS SUMMARY | 2020-08-14 09:02 | XMS_ITS | Encounter Summary ---
Author Organization [facility] Address [address] [place] [id number] Care Team Providers Care Curriculum Development Coordinator Name Role Phone Pedrito Cruz MD Primary Care Provider + Reason for Visit * Diagnostic Imaging (Routine) - Closed Specialty Diagnoses / Procedures Referred By Contac t Referred To Contact Radiology Diagnoses Solitary thyroid nodule Procedures US Thyroid Gloria Smith MD [address] [place] [address] Phone: tel: fax: [facility] ENDOCRINOLOGY [address] [place] [phone] Phone: tel: fax: Referral ID Status Reason Start Date Expiration Date Visits Re quested Visits Authorized [id number] Closed 08/14/2020 08/14/2021 1 1 Encounter Details Date Type Department Care Team (Late st Contact Info) Description 08/14/2020 10:02 AM EDT Hospital Encounter [facility] [address] [facility] [address] [place] [phone] Social History Tobacco Use Types Packs/Day [...] Description 05/02/2025 9:30 AM EST Office Visit [facility] PULMONARY & CRITICAL CARE MEDICINE [address] [place] [address] 05/16/2025 10:30 AM EST Office Visit [facility] PULMONARY & CRITICAL CARE MEDICINE [address] [place] [address] Pedrito Hurtado DO [address] [place] [address] 06/27/2025 9:30 AM EST Office Visit [facility] NEUROLOGY [address] [facility] [address] [place] [phone] Марина Nichols, HENRIETTA [address] [facility] [address] [place], [place] [phone] 03/15/2026 9:30 AM EST Office Visit [facility] CARDIOLOGY [address] [facility] [address] [place] [phone] Wing Sanabria MD [address] [facility] [address] [place], [place] [phone] documented as of this encounter Procedures Procedure Name Priority Date/Time Associated Diagnosis Comments US THYROID Routine 08/14/2020 10:02 AM EDT Solitary thyroid nodule documented in this encounter Results * US Thyroid (08/14/2020 10:02 AM EDT) Narrative SYSTEMGENERATED, DOCUMENTATION - 08/14/2020 10:02 AM EDT Please see performing physician's note for result. us Gloria Preston MD IM US ORDERABLES Final Result documented in this encounter Visit Diagnoses Not on filedocumented in this encounter Care Teams Curriculum Development Coordinator Relationship Specialty Start Date End Date Pedrito Cruz MD PCP - General 06/10/15 11/19/21 documented as of this encounter
--- OUTSIDE RECORDS SUMMARY | 2021-07-07 09:24 | XMS_ITS | Encounter Summary ---
Author Organization [facility] Address [address] [place] [address] Care Team Providers Care Oakes Machine Operator Name Role Phone Pedrito Cruz MD Primary Care Provider + Reason for Referral * Diagnostic Imaging (Routine) - Closed Specialty Diagnoses / Procedures Referred By Contact Referred To Contact Obstetrics and Gynecology Diagnoses Osteopenia after menopause Screening for osteoporosis Procedures DEXA Bone Density Axial Vinicius Lantigua MD [address] [facility] [address] [place] [address] Phone: tel: fax: [facility] OBGYN [address] [address] Phone: tel: fax: Referral ID Status Reason Start Date Expiration Date Visits Re quested Visits Authorized [id number] Closed 07/07/2021 07/07/2022 1 1 Reason for Visit * Diagnostic Imaging (Routine) - Closed Specialty Diagnoses / Procedures Referred By Contact Referred To Contact Obstetrics and Gynecology Diagnoses Osteopenia after menopause Screening for osteoporosis Procedures DEXA Bone Density Axial Vinicius Lantigua MD [address] [facility] [address] [place] [address] Phone: tel: fax: [facility] [address] [facility] [address] [place] [address] Phone: tel: fax: Referral ID Status Reason Start Date Expiration Date Visits Re quested Visits Authorized [id number] Closed 07/07/2021 07/07/2022 1 1 Encounter Details Date Type Department Care Team (Latest Contact Info) Description 07/07/2021 10:24 AM EDT Hospital Encounter [facility] OBGYN [address] [facility] [address] [place] [phone] Osteopenia after menopause; Screening for osteoporosis Social History Tobacco Use Types Packs/Day Years [...] [facility] [address] [address] 05/16/2025 10:30 AM EST Office Visit [facility] PULMONARY & [facility]ITICAL CARE MEDICINE [address] [address] Pedrito Hurtado, DO [address] [place] [phone] 06/27/2025 9:30 AM EST Office Visit [facility] NEUROLOGY [address] [facility] [address] [place] [phone] Марина Nichols, DRAFTER CIVIL (CAD) [address] [facility] [address] [place], [place] [phone] 03/15/2026 9:30 AM EST Office Visit [facility] CARDIOLOGY [address] [place] [phone] Wing Sanabria MD [address] [place], [place] [phone] documented as of this encounter Procedures Procedure Name Priority Date/Time Associated Diagnosis Comments DEXA BONE DENSITY AXIAL Routine 07/07/2021 11:11 AM EDT Osteopenia after menopause Screening for osteoporosis documented in this encounter Results * DEXA Bone Density Axial (07/07/2021 11:11 AM EDT) Anatomical Region Laterality Modality Wrist, Hip, L-spine N/A Bone Density Narrative 07/21/2021 10:48 AM EDT Bone Density Scan Findings Consistent with Osteopenia Would recommend Calcium , Vitamin D and Weight Bearing Exercises Follow Up Repeat Study in 2 Years Vinicius Lantigua MD Vinicius Lantigua MD IMG DXA ORDERABLES Final R esult documented in this encounter Visit Diagnoses Diagnosis Osteopenia after menopause Screening for osteoporosis Special screening for osteoporosis documented in this encounter Care Teams Oakes Machine Operator Relationship Specialty Start Date End Date Pedrito Cruz MD PCP - General 06/10/15 11/19/21 documented as of this encounter
--- OUTSIDE RECORDS SUMMARY | 2021-07-08 08:07 | XMS_ITS | Encounter Summary ---
Author Organization [facility] Address [address] [place] [address] Care Team Providers Care Interpretive Naturalist Name Role Phone Pedrito Cruz MD Primary Care Provider + Encounter Details Date Type Department Care Team (Late Contact Info) Description 07/08/2021 9:07 AM EDT Hospital Encounter [facility] PULMONARY & CRITICAL CARE MEDICINE [address] [facility] [place] [address] Social History Tobacco Use Types Packs/Day Years [...] Department Care Team (Late Contact Info) Description 05/02/2025 9:30 AM EST Office Visit [facility] PULMONARY & CRITICAL CARE MEDICINE [address] [place] [address] 05/16/2025 10:30 AM EST Office Visit [facility] PULMONARY & CRITICAL CARE MEDICINE [address] [facility] [place] [phone] Pedrito Hurtado, DO [address] [place] [address] 06/27/2025 9:30 AM EST Office Visit [facility] NEUROLOGY [address] [facility] [address] [place] [phone] Марина Nichols, AIR DISPATCHER [address] [facility] [address] [place] [address] 03/15/2026 9:30 AM EST Office Visit [facility] CARDIOLOGY [address] [facility] [address] [place] [phone] Wing Sanabria MD [address]20 [facility] [address] [place], [place] [phone] documented as of this encounter Procedures Procedure [...] x 27 No effusions, infiltrates, or consolidation us Gage Muniz MD IMG DIAGNOSTIC IMAGING ORDERABLES Final Result documented in this encounter Visit Diagnoses Not on filedocumented in this encounter Care Teams Interpretive Naturalist Relationship Specialty Start Date End Date Pedrito Cruz MD PCP - General 06/10/15 11/19/21 documented as of this encounter
--- OUTSIDE RECORDS SUMMARY | 2021-09-12 10:17 | XMS_ITS | Encounter Summary ---
Author Organization [facility] Address [address] [place] [phone] Care Team Providers Care Drapery Estimator Name Role Phone Pedrito Cruz MD Primary Care Provider + Reason for Visit * Diagnostic Imaging (Routine) - Closed Specialty Diagnoses / Procedures Referred By Contac t Referred To Contact Radiology Diagnoses Thyroid nodule Procedures US Thyroid Gloria Smith MD [address] [place] [address] Phone: tel: fax: [facility] [address] [facility] [address] [place] [phone] Phone: tel: fax: Referral ID Status Reason Start Date Expiration Date Visits Re quested Visits Authorized [id number] Closed 09/12/2021 09/12/2022 1 1 Encounter Details Date Type Department Care Team (Late st Contact Info) Description 09/12/2021 11:17 AM EDT Hospital Encounter [facility] [address] [facility] [address] [place] [phone] Social History Tobacco Use Types Packs/Day [...] Description 05/02/2025 9:30 AM EST Office Visit [facility] PULMONARY & CRITICAL CARE MEDICINE [address] [place] [address] 05/16/2025 10:30 AM EST Office Visit [facility] PULMONARY & CRITICAL CARE MEDICINE [address] [place] [address] Pedrito Hurtado DO [address] [place] [address] 06/27/2025 9:30 AM EST Office Visit [facility] NEUROLOGY [address] [facility] [address] [place] [phone] Марина Nichols, HENRIETTA [address]01 [facility] [address] [place], [place] [address] 03/15/2026 9:30 AM EST Office Visit [facility] CARDIOLOGY [address] [facility] [address] [place] [address] Wing Sanabria MD 1720 [facility] [address] [place], [place] [phone] documented as of this encounter Procedures Procedure Name Priority Date/Time Associated Diagnosis Comments US THYROID Routine 09/12/2021 11:17 AM EDT Thyroid nodule documented in this encounter Results * US Thyroid (09/12/2021 11:17 AM EDT) Narrative SYSTEMGENERATED, DOCUMENTATION - 09/12/2021 11:17 AM EDT Please see performing physician's note for result. us Gloria Preston MD IMG US ORDERABLES Final Result documented in this encounter Visit Diagnoses Not on filedocumented in this encounter Care Teams Drapery Estimator Relationship Specialty Start Date End Date Pedrito Cruz MD PCP - General 06/10/15 11/19/21 documented as of this encounter
--- OUTSIDE RECORDS SUMMARY | 2022-12-31 09:05 | XMS_ITS | Encounter Summary ---
Author Organization [facility] Address [address] [place] [address] Care Team Providers Care Forest Law And Policy Professor Name Role Phone Jeane Hodge HENRIETTA Primary Care Provider + [phone] Reason for Visit * Diagnostic Imaging (Routine) - Closed Specialty Diagnoses / Procedures Referred By Contac t Referred To Contact Radiology Diagnoses Thyroid nodule Procedures US Thyroid Gloria Smith MD [address] [place] [address] Phone: tel: fax: [facility] ENDOCRINOLOGY [address] [facility] [address] [place] [phone] Phone: tel: fax: Referral ID Status Reason Start Date Expiration Date Visits Re quested Visits Authorized [id number] Closed 12/31/2022 12/31/2023 1 1 Encounter Details Date Type Department Care Team (Late st Contact Info) Description 12/31/2022 10:05 AM EDT Hospital Encounter [facility] [address] [facility] [address] [place] [phone] Social History Tobacco Use Types Packs/Day [...] Description 05/02/2025 9:30 AM EST Office Visit [facility] PULMONARY & CRITICAL CARE MEDICINE [address] [place] [address] 05/16/2025 10:30 AM EST Office Visit [facility] PULMONARY & CRITICAL CARE MEDICINE [address] [place] [address] Pedrito Hurtado DO [address] [place] [address] 06/27/2025 9:30 AM EST Office Visit [facility] NEUROLOGY [address] [facility] [address] [place] [phone] Марина Nichols, HENRIETTA [address] [facility] [address] [place], [place] [id number] 03/15/2026 9:30 AM EST Office Visit [facility] CARDIOLOGY [address] [facility] [address] [place] [phone] Wing Sanabria MD [address] [facility] [address] [place], [place] [phone] documented as of this encounter Procedures Procedure [...] on filedocumented in this encounter Care Teams Forest Law And Policy Professor Relationship Specialty Start Date End Date Jeane Hodge APRN PCP - General Internal Medicine 12/10/22 04/06/23 documented as of this encounter
--- OUTSIDE RECORDS SUMMARY | 2024-01-05 09:12 | XMS_ITS | Encounter Summary ---
Author Organization [facility] Address [address] [place] [address] Care Team Providers Care Field Crop Harvest Contractor Name Role Phone Jeane Hodge HENRIETTA Primary Care Provider [phone] Reason for Visit * Diagnostic Imaging (Routine) - Closed Specialty Diagnoses / Procedures Referred By Contac t Referred To Contact Radiology Diagnoses Thyroid nodule Procedures US Thyroid Gloria Smith MD [address] [employer] [facility] [address] [place] [address] Phone: tel: fax: Referral ID Status Reason Start Date Expiration Date Visits Re quested Visits Authorized [id number] Closed 01/05/2024 01/04/2025 1 1 Encounter Details Date Type Department Care Team (Late st Contact Info) Description 01/05/2024 10:12 AM EDT Hospital Encounter [facility] [address] [facility] [address] [place] [phone] Social History Tobacco Use Types Packs/Day Years [...] Description 05/02/2025 9:30 AM EST Office Visit [facility] PULMONARY & CRITICAL CARE MEDICINE [address] [facility] [phone] 05/16/2025 10:30 AM EST Office Visit [facility] PULMONARY & CRITICAL CARE MEDICINE [address]00 [place] [phone] Pedrito Hurtado DO [address] [place] [address] 06/27/2025 9:30 AM EST Office Visit [facility] NEUROLOGY [address] [facility] 204 [place] [phone] Марина Nichols, EHR TRAINER [address] [facility] [address] [place] [address] 03/15/2026 9:30 AM EST Office Visit [facility] CARDIOLOGY [address] [facility] [address] [place] [phone] Wing Sanabria MD [address] [facility] [address] [place] [address] documented as of this encounter Procedures Procedure [...] on filedocumented in this encounter Care Teams Field Crop Harvest Contractor Relationship Specialty Start Date End Date Jeane Hodge APRN [address] [place] [address] [facility] [place] [address] PCP - General Internal Medicine 04/07/23 07/06/24 documented as of this encounter
--- OUTSIDE RECORDS SUMMARY | 2025-03-20 13:00 | XMS_ITS | Encounter Summary ---
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 Name Role Phone Jeane Hodge APRN Primary Care Provider [phone] Reason for Visit * Reason Comments Cough * Consultation (Routine) - Pending Review Specialty Diagnoses / Procedures Referred By Tamika bush Referred To Contact Pulmonology Diagnoses Other disorders of lung Acute cough Jeane Hodge APRN [address] [address] [place] [address] [facility] Phone: tel: fax: [facility] PULMONARY & CRITICAL CARE MEDICINE [address] [place] [address] Phone: tel: fax: Referral ID Status Reason Start Date Expiration Date V isits Requested Visits Authorized [id number] Pending Review 02/22/2025 05/24/2026 1 1 Encounter Details Date Type Department Care Team (Late st Contact Info) Description 03/20/2025 1:00 PM EST Office Visit [facility] PULMONARY & CRITICAL CARE MEDICINE [address] [place] [address] Pedrito Hurtado, DO [address] [place] [address] Chronic cough (Primary Dx); Shortness of breath; Hoarseness; GERD without esophagitis Social History Tobacco Use Types Packs/Day Years [...] on file documented as of this encounter Last Filed Vital Signs Vital Sign Reading Time Taken Comments Blood Pressure 102/62 03/20/2025 1:03 PM EST Pulse 76 03/20/2025 1:03 PM EST Temperature 36 C (96.8 F) 03/20/2025 1:03 PM EST Respiratory Rate - - Oxygen Saturation 98% 03/20/2025 1:0 3 PM EST Room air at rest Inhaled Oxygen Concentration - - Weight 58.1 kg (128 lb) 03/20/2025 1:03 PM EST Height - - Body Mass Index 146.29 12/01/2024 10:34 AM EDT documented in this encounter Progress Notes * Pedrito Hurtado DO - 03/20/2025 1:00 PM ESTAssociated Problem(s): Chronic cough The patient has been experiencing increased effort in breathing, occasional coughing, and wheezing,particularly at night. She has a history of using Symbicort but stopped 6 weeks ago. A methacholinechallenge test will be conducted to confirm the diagnosis of asthma. She will be provided with a rescue inhaler post-methacholine challenge test to manage any potential shortness of breath or cough symptoms. If the methacholine challenge test yields a negative result, the likelihood of asthma is significantly reduced, and no inhalers will be needed. If the test is positive, an alternative inhalerto Symbicort will be considered due to her history of palpitations and dizziness. 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 Per chart review, patient saw the [facility] on 01/03/2025 for a chronic productive cough occurring more frequently at night and when waking up sometimes triggered by coffee. Patient reports dyspnea on exertion while performing activities of daily living but has been stable. She was prescribedSymbicort nightly and is unsure if that is helped her symptoms. Patient unable to tolerate high-dose Symbicort due to palpitations. The plan was to follow-up with GI for GERD management and consider methylene choline challenge test after holding Symbicort. History of Present Illness: She has been referred to our clinic by Dr. Kumar from the [facility] for a methacholine challenge test to confirm an asthma diagnosis. A previous social worker psychiatric had conducted a positional test, which suggested asthma when she was in a supine position, as evidenced by significantly reducedcounts. She has discontinued the use of Symbicort for the past 6 weeks. She reports increased effort in breathing, with occasional coughing and phlegm production, predominantly in the late afternoon or night. Wheezing is infrequent but present. She recalls a severe episode of acid reflux on 12/23/2024, accompanied by intense wheezing for 20 minutes, which was suggestedto be a possible heart attack. She also experiences chest tightness, likely related to her history of open-heart surgery. She does not identify any specific triggers for her symptoms. She has discontinued her sinus medication and nasal spray due to recent dental procedures. She reports postnasal drip and occasional coughing after meals and when lying down. She has a rescue inhaler, which may be . She experiences shortness of breath and fatigue during immigration guard, a symptom that has persisted since her surgery. She has been exposed to secondhand smoke. She has been experiencing hoarseness since 06/2024, which was evaluated by an ENT specialist in 08/2024. She reports a different sound when breathing at night. She has been prescribed dexlansoprazole for reflux, to be taken for 8 weeks. She has been experiencing dizziness and imbalance since her surgery and has an appointment scheduled for 06/29/2025. She had a colonoscopy because of the blood thinner. PAST SURGICAL HISTORY: Open-heart surgery on 05/30/2024. SOCIAL HISTORY Tobacco: The patient has never smoked but has been around secondhand smoke. Review of Systems Constitutional: Positive for fatigue. Negative for fever. Respiratory: Positive for cough, shortness of breath and wheezing. Cardiovascular: Negative for chest pain, palpitations and leg swelling. Gastrointestinal: Positive for GERD. Negative for abdominal pain, nausea and vomiting. Neurological: Negative for dizziness and headache. Past Medical History: Diagnosis Date Abnormal ECG 01-22-17 Abnormal heart rhythm Anterior basement membrane dystrophy Arrhythmia 12-31-16 holter moniter, pvc,s Asthma Asymptomatic postmenopausal status NOT ON HRT Atelectasis Colon polyps Cystocele affecting , antepartum Female cystocele Frequent PVCs Gastritis Gastroparesis GERD (gastroesophageal reflux disease) Heart murmur 02-03-24 Helicobacter pylori (H. pylori) infection Hyperlipidemia Hypoglycemic disorder Kidney disorder Liver disorder Lung disorder Lung nodule Macular degeneration Mitral valve prolapse 02-22-24 Recurrent otitis media of right ear Screening for osteoporosis 07/07/2021 Sjogren's syndrome Thyroid disorder Thyroid nodule Vaginal dryness Past Surgical History: Procedure Laterality Date BREAST BIOPSY Left benign 1986 CHOLECYSTECTOMY COLONOSCOPY COLONOSCOPY 06/14/2024 ENDOSCOPY GALLBLADDER SURGERY HERNIA REPAIR HYSTERECTOMY LAPAROSCOPIC ASSISTED VAGINAL HYSTERECTOMY SALPINGO OOPHORECTOMY MITRAL VALVUL[facility]Y 05/30/[facility] Family History Problem Relation Name Age of Onset Heart failure Mother dolly contrerasanibal weir Stroke Mother dolly bass sanford weir Alzheimer's disease Mother dolly bass sanford weir Heart attack Father zachary christina Cancer Sister briana scott colon cancer Diabetes Sister briana scott Hypertension Sister briana scott Kidney disease Sister briana scott kidney failure age 69 Obesity Sister briana whiterison Hyperlipidemia Sister briana scott kidney failure age 69 Hypertension Brother alin christina Heart attack Brother alin christina heart attack age 57, stint age 61 Heart disease Brother alin christina same as above Breast cancer Paternal Aunt 80 Breast cancer Niece 37 Colon cancer Other FAMILY HX Diabetes Other FAMILY HX Hypertension Other FAMILY HX Liver disease Other FAMILY HX Ovarian cancer Neg Hx Social History Socioeconomic History Marital status: Tobacco Use Smoking status: Never Passive exposure: Never Smokeless tobacco: Never Vaping Use Vaping status: Never Used Substance and Sexual Activity Alcohol use: No Drug use: No Sexual activity: Defer Partners: Male Current Outpatient Medications: acetaminophen (TYLENOL) 325 MG tablet, Take 1-2 tablets by mouth Every 6 (Six) Hours As Needed., Disp: , Rfl: budesonide-formoterol (Symbicort) 160-4.5 MCG/ACT inhaler, Inhale 2 puffs., Disp: , Rfl: ezetimibe (ZETIA) 10 MG tablet, Take 1 tablet by mouth Daily., Disp: 90 tablet, Rfl: 3 fluticasone (Flonase Allergy Relief) 50 MCG/ACT nasal spray, 2 sprays by Each Nare route Daily., Disp: , Rfl: lansoprazole (PREVACID SOLUTAB) 30 MG disintegrating tablet, 2 (Two) Times a Day., Disp: , Rfl: multivitamin with minerals (OCUVITE-LUTEIN PO), , Disp: , Rfl: mupirocin (BACTROBAN) 2 % ointment, APPLY TOPICALLY TO THE AFFECTED AREA THREE TIMES DAILY FOR 7 DAYS, Disp: , Rfl: polyethylene glycol (MIRALAX) powder, Take 17 g by mouth Daily., Disp: , Rfl: sodium chloride (SETH 128) 2 % ophthalmic solution, Administer 1 drop to both eyes As Needed., Disp: , Rfl: Allergies Allergen Reactions Azithromycin Irritability and Mental Status Change Hyper Sulfa Antibiotics Hives Garlic Cough and Other (See Comments) anything with garlic Garlic Oil GI Intolerance anything with garlic Acetaminophen Irritability and Mental Status Change Amoxicillin Irritability Amoxicillin-Pot Clavulanate Nausea And Vomiting Vomiting Headache Continuous sneezing Clavulanic Acid Irritability and Mental Status Change Dexlansoprazole Other (See Comments) Worked but had side effects of leg pain Doxycycline Other (See Comments) Blood in stool Hydrocodone Other (See Comments) Hyper Hydrocodone-Acetaminophen Itching and Nausea And Vomiting Cephalexin Other (See Comments) UTI, Blood in stool Morphine Other (See Comments) Hypersensitivity Prednisone Palpitations Soap Rash Physical Exam: Vitals: 03/20/25 1303 BP: 102/62 Pulse: 76 Temp: 96.8 ??F (36 ??C) TempSrc: Temporal SpO2: 98% Comment: Room air at rest Weight: 58.1 kg (128 lb) Physical Exam General: The patient appears in no acute distress. Alert, cooperative and interactive. HEENT:NC/AT, PERRL, Normal nasal mucosa, MMM. Neck: No JVD Chest: Clear to auscultation bilaterally, No wheezing, rhonchi, or rales. No egophony, No end-expiratory wheeze. Normal work of breathing. Cardiac: Regular rhythm, normal rate, S1S2 auscultated. No murmurs Abdomen: Soft, non-tender, non-distended, positive bowel sounds Extremities: No lower extremity edema. No clubbing or cyanosis. Neuro: Alert and oriented x 3, Mood stable. Results Review: - I personally reviewed the pts labs from 01/04/2025 which showed absolute eosinophil count of 40 - I personally reviewed the patient's methacholine challenge test on 05/19/2017 which was borderlinenegative as her FEV1 only dropped 19% 120% as needed for a positive test. - I personally reviewed the patient's spirometry performed on 05/19/2017 which shows no obstructive ventilatory dysfunction with ratio 72% predicted and FEV1 at 180% predicted with no significant bronchodilator response. -I personally viewed the patient's CT chest on 11/14/2024 which shows no acute cardiopulmonary abnormality but evidence of air trapping. Assessment & Plan Chronic cough The patient has been experiencing increased effort in breathing, occasional coughing, and wheezing,particularly at night. She has a history of using Symbicort but stopped 6 weeks ago. A methacholinechallenge test will be conducted to confirm the diagnosis of asthma. She will be provided with a rescue inhaler post-methacholine challenge test to manage any potential shortness of breath or cough symptoms. If the methacholine challenge test yields a negative result, the likelihood of asthma is significantly reduced, and no inhalers will be needed. If the test is positive, an alternative inhalerto Symbicort will be considered due to her history of palpitations and dizziness. Orders: Bronchial Challenge With Methacholine; Future Shortness of breath Orders: Bronchial Challenge With Methacholine; Future Hoarseness The patient has been experiencing hoarseness since 06/2024. An ENT evaluation in 08/2024 confirmed swelling of the vocal cords. No specific treatment was provided, but it was noted that the conditionshould improve over time. GERD without esophagitis The patient reports severe acid reflux episodes, including one on 12/23/2024, which was accompaniedby wheezing. She is currently on dexlansoprazole, prescribed by the [facility], to be taken for 8 weeks. Follow Up: Return in about 5 weeks (around 04/24/2025). I spent 35 minutes caring for Clarissa on this date of service. This time includes time spent by me inthe following activities:preparing for the visit, reviewing tests, obtaining and/or reviewing a separately obtained history, performing a medically appropriate examination and/or evaluation , counseling and educating the patient/family/caregiver, ordering medications, tests, or procedures, referring and communicating with other health care associate , documenting information in the medical record, independently interpreting results and communicating that information with the patient/family/caregiver, and care coordination Pedrito Hurtado DO Pulmonary and Critical Care Medicine Note Electronically Signed 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 03/20/2025 22:34 EST Part of this note may be an electronic aquatic director/translation of spoken language to printed textusing the Extreme Wireless Communicationation System. documented in this encounter Plan of Treatment Upcoming Encounters Date Type Department Care Team (Late st Contact Info) Description 05/02/2025 9:30 AM EST Office Visit [facility] PULMONARY & CRITICAL CARE MEDICINE [address] [place] [address] 05/16/2025 10:30 AM EST Office Visit [facility] PULMONARY & CRITICAL CARE MEDICINE [address] [place] [address] Pedrito Hurtado DO [address] [place] [address] 06/27/2025 9:30 AM EST Office Visit [facility] NEUROLOGY [address] [facility] [address] [place] [address] Марина Nichols APRN [address] [facility] [address] [place], [place] [id number] 03/15/2026 9:30 AM EST Office Visit [facility] CARDIOLOGY [address] [facility] [address] [place] [address] Wing Sanabria MD [address] [facility] [address] [facility] [address] [place], [place] [id number] Scheduled Orders Name Type Priority Associated Diagnoses Orde r Schedule Bronchial Challenge With Methacholine PFT Routine Chronic cough Shortness of breath Expected: 04/03/2025, Expires: 06/20/2026 documented as of this encounter Visit Diagnoses Diagnosis Chronic cough- Primary Cough Shortness of breath Hoarseness Dysphonia GERD without esophagitis Esophageal reflux documented in this encounter Care Teams Dog Breeder Relationship Specialty Start Date End Date Jeane Hodge APRN Pending sale to [facility] [place] [address] PCP - General Internal Medicine 02/23/25 documented as of this encounter
[2025-03-26] VITALS (8 sets, daily range): BP systolic 115–134; BP diastolic 66–73; PULSE 62–85; RESP 16–19; TEMP 36.6; O2SAT 96–99; BMI 21.9
--- NOTE | 2025-03-26 08:20 | CT_ITS ---
FINAL REPORT TECHNIQUE: Thin section axial images are obtained through the abdomen and pelvis after intravenous contrast. Reconstruction images were obtained from the axial data. Exam was performed using dose reduction techniques. This study was performed with techniques to keep radiation doses as low as reasonably achievable (ALARA). Individualized dose reduction techniques using automated exposure control or adjustment of mA and/or kV according to the patient's size were employed. CLINICAL HISTORY: no bowel function for 5 days COMPARISON: CTA of the abdomen 06/11/2024 FINDINGS: LUNG BASES: Lung bases are clear. Heart size is normal. LIVER: There are several small hypodense liver lesions, that likely represent cysts. The liver is otherwise homogeneous. GALLBLADDER/BILIARY SYSTEM: The gallbladder is absent. No biliary dilatation. SPLEEN: Unremarkable. PANCREAS: Unremarkable. ADRENALS: Unremarkable. KIDNEYS/URETERS/BLADDER: A right renal cyst is again noted, unchanged from the prior CT of 06/11/2024. No mass or hydronephrosis is identified. The urinary bladder is distended but otherwise unremarkable. GI TRACT: No small bowel obstruction or dilatation. Normal appendix. There is a large amount of stool present in the rectum, with mild rectal wall thickening. The remainder of the colon is unremarkable other than diverticulosis without evidence of acute inflammatory change. PELVIC ORGANS: The uterus is absent. LYMPH NODES/RETROPERITONEUM/MESENTERY: No lymphadenopathy. No abdominal aortic aneurysm. ABDOMINAL WALL: The abdominal wall is intact. FREE FLUID: No ascites. BONES: No acute osseous abnormality. IMPRESSION: There is a large amount of stool present in the rectum, with mild rectal wall thickening. Stercoral proctitis is not excluded. Reviewed, Interpreted and Dictated by Bianca Mcdonough MD Transcribed by Vivi Molina Authenticated and [facility]
--- NOTE | 2025-03-26 08:22 | HMH.EDGENADL ---
Discharge Plan Disposition Patient Disposition: Home Health Service Condition: Good Prescriptions Prescriptions: No Action polyethylene glycol 3350 [Miralax] 17 gram/dose powder 17 g PO DAILY fluticasone propionate 50 mcg/actuation spray,suspension 1 spray intranasal DAILY Rx Instructions: administer into each nostril ezetimibe [Zetia] 10 mg tablet 10 mg PO DAILY rosuvastatin 20 mg tablet 20 mg PO DAILY oxycodone-acetaminophen 5-325 mg tablet 1 tab PO Q6H PRN lansoprazole 30 mg capsule,delayed release(DR/EC) 30 mg PO BID Qty: 180 2RF Referrals Follow up/Referrals: Fracisco Barnes DO [Primary Care Provider, Family Practice] - See instructions Activity Restrictions/Add. Instructions Additional Instructions/Restrictions: Please follow bowel cleanout instructions that are provided to you. Please follow the mag citrate and MiraLAX cleanout. Clinical Impressions Clinical Impression: Constipation Qualifiers: Constipation type: other constipation type Qualified Code(s): K59.09 - Other constipation Instructions Patient Instructions: Constipation Print Language Print Language: Mohawk Discharge ED Provider: Jorge Guerrero JR General Adult HPI General Chief complaint: PAIN Stated complaint: abd and back pain Time Seen by Provider: 03/26/25 08:12 History of Present Illness HPI narrative: 74-year-old female patient with history of mitral valve replacement, not currently on blood thinners, history of GI bleed, GERD, history of constipation, presents to the emergency department from home for evaluation of 5 days of constipation and not passing gas. No bowel movement for 5 days. No vomiting or severe abdominal pain. Patient arrives afebrile, hemodynamically stable, in no acute distress. Related Data Home Medications ?Medication ?Instructions ?Recorded ?Confirmed polyethylene glycol 3350 17 17 g PO DAILY 05/31/18 03/14/25 gram/dose oral powder (Miralax) ezetimibe 10 mg tablet (Zetia) 10 mg PO DAILY 02/05/25 03/14/25 fluticasone propionate 50 1 spray intranasal DAILY 02/05/25 03/14/25 mcg/actuation nasal spray,suspension rosuvastatin 20 mg tablet 20 mg PO DAILY 02/05/25 03/14/25 oxycodone-acetaminophen 5 mg-325 1 tab PO Q6H PRN 03/14/25 03/14/25 mg tablet Previous Rx's ?Medication ?Instructions ?Recorded lansoprazole 30 mg capsule,delayed 30 mg PO BID #180 caps 12/15/24 release Allergies Allergy/AdvReac Type Severity Reaction Status Date / Time Sulfa (Sulfonamide Allergy Severe I-HIVES Verified 03/14/25 15:01 Antibiotics) cephalexin Allergy Mild blood in Verified 03/14/25 15:01 stool and UTI morphine Allergy Mild HYPER Verified 03/14/25 15:01 soap Allergy Mild RASH WITH Verified 03/14/25 15:01 DIAL SOAP acetaminophen (From [place]) Allergy Hives Verified 03/14/25 15:01 amoxicillin (From Augmentin) Allergy Irritable Verified 03/14/25 15:01 clavulanic acid (From Allergy Irritable Verified 03/14/25 15:01 Augmentin) doxycycline Allergy blood in Verified 03/14/25 15:01 stool hydrocodone (From [place]) Allergy Hives Verified 03/14/25 15:01 azithromycin AdvReac Intermediate Irritable Verified 03/14/25 15:01 prednisone AdvReac Mild INCREASED Verified 03/14/25 15:01 [facility] Disclaimer: The information contained in this section may have been updated after the patient was seen, as this information can be updated by other users. Medical History Heart attack Osteoarthritis of right temporomandibular joint Debris in right ear canal Mastoiditis Chronic mastoiditis of right side UTI (urinary tract infection) Irritation of nose Otalgia, right ear Tinnitus Otalgia, bilateral Reactive airway disease Reactive airway disease with acute exacerbation Surgical History H/O mitral valve repair S/P colonoscopic polypectomy 2021 H/O breast biopsy left benign History of repair of hiatal hernia History of hysterectomy History of cholecystectomy Family History Mother Stroke Congestive heart failure Father Heart attack Social History Smoking Status: Never smoker alcohol intake: never substance use type: denies use current occupational status: retired Travel in the last 8 weeks?: Inside the [place] household members: none housing: house caffeine: Yes Have you lived/traveled outside US in past 30 days?: No Contact w/someone who lives/traveled outside US past 30 days?: No Exposure to someone with infectious disease in past 14 days?: No Do you have a fever (greater than 100.4 F or 38 C)?: No Have you tested positive for COVID-19?: No Exposed to someone with COVID-19 in past 14 days?: No Do you have a sore throat?: No Do you have a cough?: No Do you have any weakness?: No Do you have any diarrhea?: No Are you experiencing any unusual bleeding?: No Do you have any muscle aches/pain?: No Do you have any abdominal pain?: Yes Are you experiencing loss of taste or smell?: No Other Medical History Have you received the Flu Vaccine for this season: No Have you received the Pneumonia Vaccine: Yes ROS Obtained: Yes All systems reviewed & no additional complaints except as documented and Yes Systems reviewed as appropriate & no additional complaints except as documented Constitutional Constitutional: Reports system reviewed and no additional complaints, except as documented and Reports as per HPI Eyes Eyes: Reports system reviewed and no additional complaints, except as documented and Reports as per HPI ENT Ears, Nose, Mouth, and Throat: Reports system reviewed and no additional complaints, except as documented and Reports as per HPI Cardiovascular Cardiovascular: Reports system reviewed and no additional complaints, except as documented and Denies chest pain Respiratory Respiratory: Denies shortness of breath Gastrointestinal Gastrointestingal: Reports constipation; Denies abdominal pain, diarrhea or vomiting Genitourinary Female Genitourinary: Reports system reviewed and no additional complaints, except as documented Musculoskeletal Musculoskeletal: Reports system reviewed and no additional complaints, except as documented Neurologic Neurologic: Reports system reviewed and no additional complaints, except as documented Physical Exam General General appearance: alert and in no apparent distress Head Head exam: atraumatic Eye Eye exam: Present normal appearance ENT ENT exam: Present normal exam Chest Chest inspection: Present normal inspection Respiratory Respiratory exam: Present normal lung sounds bilaterally Cardiovascular Cardiovascular exam: Present regular rate Abdominal Exam Abdominal exam: Present soft; Absent distention, tenderness, guarding, rebound or rigidity 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 Large stool burden. Manual disimpaction completed. Normal rectal tone. Neurological Exam Neurological exam: Present alert and oriented X3 Skin Skin exam: Present warm and dry Medical Decision Making Medical Records Screening: Per USPSTF and CDC recommendations, given the prevalence of disease in our region, it is our hospital?s policy to screen for HIV and viral Hepatitis for all patients aged 18 and over and those with ongoing risk factors. Dawson Inquiry Pt receiving controlled substance: No Vital Signs: 03/26/25 08:23 03/26/25 08:30 03/26/25 09:00 Temperature 97.9 F Temperature Source Oral Pulse Rate 77 78 Pulse Rate [Right Radial] 85 Respiratory Rate 16 Blood Pressure 124/73 118/71 Blood Pressure [Right Arm] 134/73 Blood Pressure Mean 97 86 Blood Pressure Mean [Right Arm] 93 Blood Pressure Source [Right Arm] Automatic Cuff Blood Pressure Position [Right Arm] Sitting 02 Sat by Pulse Oximetry 98 96 98 Oxygen Delivery Method Room Air 03/26/25 09:30 03/26/25 10:15 03/26/25 10:20 Temperature Temperature Source Pulse Rate 70 67 72 Pulse Rate [Right Radial] Respiratory Rate Blood Pressure 115/67 120/66 120/66 Blood Pressure [Right Arm] Blood Pressure Mean 76 Blood Pressure Mean [Right Arm] Blood Pressure Source [Right Arm] Blood Pressure Position [Right Arm] 02 Sat by Pulse Oximetry 98 99 99 Oxygen Delivery Method 03/26/25 10:31 Temperature Temperature Source Pulse Rate 68 Pulse Rate [Right Radial] Respiratory Rate Blood Pressure 123/70 Blood Pressure [Right Arm] Blood Pressure Mean Blood Pressure Mean [Right Arm] Blood Pressure Source [Right Arm] Blood Pressure Position [Right Arm] 02 Sat by Pulse Oximetry 97 Oxygen Delivery Method Lab Data Lab Results 03/26/25 08:22: WBC 5.7, RBC 5.43 H, Hgb 15.6, Hct 47.0, MCV 86.6, MCH 28.7, MCHC 33.2, RDW 13.3, Plt Count 238, MPV 10.4, Neut % (Auto) 50.4, Lymph % (Auto) 37.1, Hamilton % (Auto) 9.9 H, Eos % (Auto) 1.1, Baso % (Auto) 1.1, Neut # (Auto) 2.9, Lymph # (Auto) 2.1, Hamilton # (Auto) 0.6, Eos # (Auto) 0.1, Baso # (Auto) 0.1, Sodium 139, Potassium 4.2, Chloride 98, Carbon Dioxide 29, Anion Gap 16.2 H, BUN 10, Creatinine 0.80, Estimated Creat Clear 42, Estimated GFR 70, Est GFR ( Amer) 84, Glucose 117 H, Lactate 1.1, Calcium 9.8, Total Bilirubin 0.7, AST 41 H, ALT 37, Alkaline Phosphatase 80, Total Protein 8.3 H, Albumin 4.8, Globulin 3.5 H, Albumin/Globulin Ratio 1.4, Lipase 231 03/26/25 09:10: Urine Color Yellow, Urine Appearance Clear, Urine pH 7.0, Ur Specific [place] <= 1.005, Urine Protein Negative, Urine Glucose (UA) Negative, Urine Ketones Negative, Urine Blood Trace-i, Urine Nitrate Negative, Urine Bilirubin Negative, Urine Urobilinogen 0.2, Ur Leukocyte Esterase 2+ A 03/26/25 08:22 03/26/25 08:22 Orders (Tests/Meds): ED MEDICATIONS Generic Name Dose Route Start Last Admin Trade Name Freq PRN Reason Stop Dose Admin Sodium Chloride 10 ml 03/26/25 09:10 03/26/25 09:11 Sodium Chloride 0.9% 10ml Syr (Rad Only) IV 04/25/25 09:09 10 ml NEEDED PRN Administration Maintain IV Site Discontinued Medications Generic Name Dose Route Start Last Admin Trade Name Freq PRN Reason Stop Dose Admin Ceftriaxone Sodium 500 mg 03/26/25 10:24 03/26/25 11:28 Ceftriaxone 500mg Vial IM 03/26/25 10:25 500 mg ONCE ONE Administration Lactated Ringer's 1,000 mls @ 999 mls/hr 03/26/25 08:20 03/26/25 09:50 Lactated Ringer's 1000 Ml Bag IV 03/26/25 09:20 Infused .Q1H1M ONE Infusion Iopamidol 75 ml 03/26/25 09:10 03/26/25 09:11 Iopamidol-370 (76%);100ml Bottle IV 03/26/25 09:11 75 ml ONCE ONE Administration Lactulose 20 gm 03/26/25 12:49 Lactulose 20gm/30ml Udc PO 03/26/25 12:50 ONCE ONE Lidocaine HCl 0 ml 03/26/25 10:24 03/26/25 11:29 Lidocaine 1% 5ml Pf Vial IM 03/26/25 10:25 1.8 ml ONCE ONE Administration Magnesium Citrate 296 ml 03/26/25 12:48 Magnesium Citrate 296ml Bottle PO 03/26/25 12:49 ONCE ONE Mineral Oil 133 ml 03/26/25 12:30 03/26/25 12:37 Mineral Oil Enema 133ml RC 03/26/25 12:31 133 ml ONCE ONE Administration ORDERS Category Date Time Status CT abdomen pelvis w con Stat Cat Scan 03/26/25 08:20 Completed Complete Blood Count Auto Diff Stat Lab 03/26/25 08:22 Completed Comprehensive Metabolic Panel Stat Lab 03/26/25 08:22 Completed Lactic Acid Stat Lab 03/26/25 08:22 Completed Lipase Stat Lab 03/26/25 08:22 Completed Urinalysis and Microscopic Stat Lab 03/26/25 09:10 Results Urine Culture Stat Micro 03/26/25 09:10 Received Medical Decision Narrative: 74-year-old female presenting with 5 days of lack of bowel function. Will obtain CT imaging to rule out bowel obstruction. Labs reviewed and independently interpreted, significant for no acute abnormalities. Slight elevation in anion gap. Giving fluids. CT imaging IMPRESSION: There is a large amount of stool present in the rectum, with mild rectal wall thickening. Stercoral proctitis is not excluded. Very low concern for proctitis as patient has no risk factors for gonorrhea or chlamydia. Does not engage in anal sex. White count also normal. Afebrile. Patient still would like to be treated with antibiotics. Due to multiple allergies, she is preferring one-time dose of IM ceftriaxone. Will try enema and MiraLAX for stool burden. Patient states she is allergic to doxycycline. Also allergic to azithromycin she says. No need for oral antibiotics as inflammation around colon likely due to stool burden. Patient agreeable. Manual disimpaction performed. Large amount of stool removed from rectum. Patient had bowel movement afterwards. Feels symptomatic relief. Will instruct patient to continue MiraLAX at home and follow-up with primary care provider. Return precautions given. Critical Care Critical Care Time Critical Care Time: No
[2025-03-26 08:31] LABS: Hematocrit 47.0 % (37.0-47.0); Hemoglobin 15.6 g/dL (12.2-16.2); Immature Granulocytes % 0.4 %; Mean Corpuscular HGB Conc 33.2 g/dL (31.8-35.4); Mean Corpuscular Hemoglobin 28.7 pg (27.0-31.2); Mean Corpuscular Volume 86.6 fl (81-99); Nucleated Red Blood Cells % 0 %; Platelet Count 238 K/mm3 (142-424); Red Blood Count 5.43 M/mm3 (4.20-5.40); Red Cell Distribution Width-SD 42.7 fL; White Blood Count 5.7 K/mm3 (4.8-10.8)
[2025-03-26] MEDS: LACTATED RINGERS 1000ML 1,000 ML 999 ML IV (08:42)
[2025-03-26 08:47] LABS: Albumin Level 4.8 g/dl (3.5-5.0); Chloride 98 mmol/L (98-107); Potassium 4.2 mmoL/L (3.5-5.1); Sodium 139 mmol/L (136-145)
[2025-03-26 08:50] LABS: Alanine Aminotransferase 37 U/L (12-78); Albumin/Globulin Ratio 1.4 (1.1-1.8); Alkaline Phosphatase 80 U/L (38-126); Anion Gap 16.2 mEq/L (5-15); Aspartate Amino Transferase 41 U/L (14-36); Bilirubin,Total 0.7 mg/dl (0.2-1.3); Blood Urea Nitrogen 10 mg/dl (7-17); Carbon Dioxide 29 mmol/L (22.0-30.0); Creatinine Clearance Estimated 42 mL/min (50-200); Creatinine,Serum 0.80 mg/dl (0.52-1.04); Estimated Glomerular Filt Rate 70 ml/min (>60); GFR (African American) 84 ML/MIN (>60); Globulin 3.5 g/dL (1.3-3.2); Lipase 231 U/L (23-300); Total Protein,Serum 8.3 g/dl (6.3-8.2)
--- OUTSIDE RECORDS SUMMARY | 2025-03-26 08:50 | XMS_ITS | Encounter Summary ---
Author Organization [facility] Address [address] [place] [address] Care Team Providers Care General Office Associate Name Role Phone Jeane Hodge APRN Primary Care Provider + [phone] Reason for Visit * Reason Onset Date Comments - SCHEDULING REQUEST 02/27/2025 Encounter Details Date Type Department Care Team (Late st Contact Info) Description 02/27/2025 Telephone [facility] CARDIOLOGY [address] [facility] [address] [place] [address] Wing Sanabria MD [address] [facility] [address] [place] [address] - SCHEDULING REQUEST Social History Tobacco Use [...] to patient: Self Best call back number: [phone] Chief complaint: PATIENT HAD OPEN HEART MITRAL VALVE REPAIR BACK IN MAY. THEN SAW WITH [facility] IN JANUARY WHERE HE RAN TESTING. REPORTS SHE HAD A HEART ATTACK BACK ON 12.23.24 AROUND 2AM. WOULD LIKE A CALL BACK TO SCHEDULE A FOLLOW UP. Type of visit: FU Requested date: ANY documented in this encounter Plan of Treatment Upcoming Encounters Date Type Department Care Team (Late st Contact Info) Description 05/02/2025 9:30 AM EST Office Visit [facility] PULMONARY & CRITICAL CARE MEDICINE [address] [place] [address] 05/16/2025 10:30 AM EST Office Visit [facility] PULMONARY & CRITICAL CARE MEDICINE [address] [place] [address] Pedrito Hurtado, [address] [place] [address] 06/27/2025 9:30 AM EST Office Visit [facility] NEUROLOGY [address] [facility] [address] [place] [phone] Марина Nichols, OFFICE ASST [address] [facility] [address] [place], [place] [id number] 03/15/2026 9:30 AM EST Office Visit [facility] [address] [place] [address] Wing Sanabria MD [address] [place] [address] documented as of this encounter Visit Diagnoses Not on filedocumented in this encounter Care Teams General Office Associate Relationship Specialty Start Date End Date Jeane Hodge APRN [address] [place] [address] PCP - General Internal Medicine 02/23/25 documented as of this encounter
--- OUTSIDE RECORDS SUMMARY | 2025-03-26 08:50 | XMS_ITS | Clinical Summary ---
Author Organization [facility] Address [address] [place] [address] Care Team Providers Care First Aid Nurse Name Role Phone Jeane Hodge HENRIETTA Primary Care Provider + [phone] Allergies Active Allergy Reactions Criticality Noted Date [...] 06/25/2023 Precordial pain 06/25/2023 Chronic cough 07/08/2021 Assessment & Plan (03/20/2025 10:34 PM EST): The patient has been experiencing increased effort in breathing, occasional coughing, and wheezing, particularly at night. She has a history of using Symbicort but stopped 6 weeks ago. A methacholine challenge test will be conducted to confirm the diagnosis of asthma. She will be provided with a rescue inhaler post-methacholine challenge test to manage any potential shortness of breath or cough symptoms. If the methacholine challenge test yields a negative result, the likelihood of asthma is significantly reduced, and no inhalers will be needed. If the test is positive, an alternative inhaler to Symbicort will be considered due to her history of palpitations and dizziness. 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 FNA 2016 - benign ([facility]) Prediabetes 03/23/2016 Renal cyst 03/12/2016 Lung [...] Encounters Date Type Department Care Team Description 03/20/2025 1:00 PM EST Office Visit [facility] PULMONARY & CRITICAL CARE MEDICINE [address] [facility] [address] Pedrito Hurtado, Chronic cough (Primary Dx); Shortness of breath; Hoarseness; GERD without esophagitis 03/20/2025 Travel 02/27/2025 Telephone [facility] CARDIOLOGY [address] [place] [address]CRAGER - SCHEDULING REQUEST from Last 3 Months Immunizations Immunization Administration Dates Next Due FLUAD TRI 65YR+ 02/17/2020 Fluzone High-Dose 65+YRS 03/20/2025(Deferred: Pa tient Refused) PCV21 (CAPVAXIVE) 03/20/2025(Deferred: Patient R efused) Td (TDVAX) 02/27/2004,06/27/1996 Family History Medical History Relation Name Comments Heart attack Brother alin christina heart a ttack age 57, stint age 61 Heart disease Brother alin christina same a s above Hypertension Brother alin christina Heart attack Father zachary christina Alzheimer's disease Mother dolly navarro cker Heart failure Mother dolly weir Stroke Mother dolly navarrocker Breast cancer Niece Colon cancer Other FAMILY HX Diabetes Other FAMILY HX Hypertension Other FAMILY HX Liver disease Other FAMILY HX Breast cancer Paternal Aunt Cancer Sister 3 briana christina scott colon cancer Diabetes Sister 3 briana christina scott Hyperlipidemia Sister 3 briana christina scott pass ed away kidney failure age 69 Hypertension Sister 3 briana christina scott Kidney disease Sister 3 briana christina scott kidn ey failure age 69 Obesity Sister 3 briana christina scott Ovarian cancer Neg Hx Relation Name [...] F) 03/20/2025 1:03 PM EST Respiratory Rate 13 04/20/2024 2:27 PM EST Oxygen Saturation 98% 03/20/2025 1:0 3 PM EST Room air at rest Inhaled Oxygen Concentration - - Weight 58.1 kg (128 lb) 03/20/2025 1:03 PM EST Height 63 cm (2' 0.8 ) 12/01/2024 10:34 AM EDT Body Mass Index 146.29 12/01/2024 10:34 AM EDT Plan of Treatment Upcoming Encounters Date Type Department Care Team (Late st Contact Info) Description 05/02/2025 9:30 AM EST Office Visit [facility] PULMONARY & CRITICAL CARE MEDICINE [address] [place] [address] 05/16/2025 10:30 AM EST Office Visit [facility] PULMONARY & CRITICAL CARE MEDICINE [address] [place] [phone] Pedrito Hurtado DO [address] [place] [address] 06/27/2025 9:30 AM EST Office Visit [facility] NEUROLOGY [address] [facility] [facility] [address] [place] [phone] Марина Nichols, HENRIETTA [address] [facility] [address] [place] [address] 03/15/2026 9:30 AM EST Office Visit [facility] CARDIOLOGY [address] [facility] [address] [place] [phone] Wing Sanabria MD [address] [facility] [address] [place], [place] [id number] Health Maintenance Due Date Last Done Comments COLOGUARD 1993 COLON CANCER SCREENING [address] COLONOGRAPHY 1993 FIT Testing (1 year) 1993 ZOSTER VACCINE (1 of 2) 1998 TDAP/TD VACCINES (1 - Tdap) 02/28/2004 02/27/2004, 0 06/27/1996 ANNUAL WELLNESS VISIT 01/22/2017 FECAL OCCULT BLOOD TEST 09/19/2019 09/18/2018 DXA SCAN 07/08/2023 07/07/2021, 07/05/2017 RSV Vaccine - Adults (1 - 1-dose 75+ series) 07/21/2023 COVID-19 Vaccine ( season) 2024 05/19/2023, 01/28/2022, 03/12/2021, Additional history exists INFLUENZA VACCINE 09/16/2025 02/17/2020, , 02/17/2020 Postponed from 11/24/2024 (Patient Refused) Pneumococcal Vaccine 50+ (1 of 2 - PCV) 09/16/2025 Postponed from 07/21/1967 (Patient Refused) LIPID PANEL 01/04/2026 01/04/2025, 12/25, 02/03/2023, Additional [...] the time period is included. [facility] BLOOD ORDERABLES Final Re sult * [...] breast postbiopsy changes are stable. 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
[address] [place] [phone], * DEXA Bone Density Axial (07/07/2021 11:11 [...] Relevant to [place] [id number] [facility] [place] [place] [address] MEDICARE A & B Care Teams First Aid Nurse Relationship Specialty Start Date End Date Jeane Hodge APRN [address] [place] [address] [place] [id number] PCP - General Internal Medicine 02/23/25
--- OUTSIDE RECORDS SUMMARY | 2025-03-26 08:50 | XMS_ITS | Clinical Summary ---
Author Organization [facility] Address [address] [place] [address] Care Team Providers Care Workday Financials Consultant Name Role Phone Wing Sanabria MD Unavailable [phone] Jeane Hodge APRN Primary Care Provider + [phone] Encounters Date Type Department Care Team Description 03/20/2025 Telephone [facility] Physicians - Heart & Vascular[address] Medical Office [facility] [address] [place] [phone] Hussein Aaron DO Records from Last 3 Months Social History Tobacco Use Types Packs/Day Years Used Date Smoking Tobacco: Never Assessed Comments Unknown Sex and Gender Information Value Date Recorded Sex Assigned at Not on file Legal Sex Female 8:48 AM EST Gender Identity Not on file Sexual Orientation Not on file Plan of Treatment Upcoming Encounters Date Type Department Care Team (Late st Contact Info) Description 04/16/2025 1:00 PM EST Appointment [facility]3] Heart & [facility] [address] [place] [address] Medical Office Building [address] [place] [address] Hussein Aaron DO [address] [facility], [address] [place], [place] [id number] Health Maintenance Due Date Last Done Comments Tetanus Vaccination (Every 10 Years) 1966 Pneumococcal Vaccine: 50+ Ye ars (1 of 1 - PCV) 1998 Zoster-RZV(Shingrix) (1 of 2) 1998 Fall Risk Assessment 2013 RSV Vaccines (1 - 1-dose 75+ series) 07/21/2023 Advance Care Planning 04/26/2024 Depression Screening 04/26/2024 COVID-19 Vaccine (1 - season) 2024 Influenza Vaccination (#1) 2024 Lipid Monitoring 01/04/2026 01/04/2025 Osteoporosis Screening 07/07/2026 07/07/2021, 2021 Hepatitis C Virus (HCV) Screening Completed 025, 07/17/2024 Lipid Screening Discontinued 01/04/2025 Insurance ILEANA DUNHAM [id number] MEDICARE Care Teams Workday Financials Consultant Relationship Specialty Start Date End Date Jeane Hodge APRN [address] [place] [address] [place] [address] PCP - General 03/16/25 Wing Sanabria MD [address] [facility] [address] [place] [address] Cardiology 04/13/24
--- OUTSIDE RECORDS SUMMARY | 2025-03-26 08:50 | XMS_ITS | Encounter Summary ---
[facility] Organization [facility] Address [address] [place] [address] Care Team Providers Care Computer Repair Technician Name Role Phone Jeane Hodge APRN Primary Care Provider + [phone] Encounter Details Date Type Department Care Team (Latest Contact Info) Description 03/20/2025 Travel Social History Tobacco Use Types Packs/Day Years [...] 05/02/2025 9:30 AM EST Office Visit [facility] [address] [place] [address] 05/16/2025 10:30 AM EST Office Visit [facility] [address] [place] [address] Pedrito Hurtado, DO [address] [place] [address] 06/27/2025 9:30 AM EST Office Visit [facility] NEUR[facility] [address] [facility] [address] [place] [address] Марина Nichols APRN [address] [facility] [address] [place] [address] 03/15/2026 9:30 AM EST Office Visit [facility] [address] [facility] [address] [place] [address] Wing Sanabria MD [address] [facility] [address] [facility] [address] [place] [id number] documented as of this encounter Visit Diagnoses Not on filedocumented in this encounter Care Teams Computer Repair Technician Relationship Specialty Start Date End Date Jeane Hodge APRN [address] [place] [address] PCP - General Internal Medicine 02/23/25 documented as of this encounter
--- OUTSIDE RECORDS SUMMARY | 2025-03-26 08:50 | XMS_ITS | Data Portability ---
Author Organization ILEANA ELLEN Walls [facility] Address [address] [facility] [address] [place] [address] Care Team Providers Care Workforce Investment Act Career Manager Name Role Phone EMILIANA BARROS Business Professor KIM GARVIN Neurologist [phone] GISELA FERMIN Referring Provider RHODA TURK Primary Care Provider Assessment No assessment recorded. Plan of Treatment Reminders Order Date Submit Date Provider Last Modified By Organization Details Last Modified Time Details Appointments None recorded. Lab None recorded. Referral None recorded. Procedures None recorded. Surgeries None recorded. Imaging None recorded. Medication Orders Flonase Allergy Relief 50 mcg/actuati on nasal spray,suspe nsion 2024 025 mcecil3 Meds By Mail Walter [address] [place] [address], [place], [address], 5 09:08:45 ipratropium bromide 42 mcg (0.06 %) nasal spray 2023 024 [id number], [address] [facility] [address] [place], [id number], 4 16:26:51 levofloxaci n 500 mg tablet 2023 024 [facility] #[id number], [address] [facility] [address] [place], [id number], 4 13:07:11 Patient TargetsNo targets recorded. Patient Instructions Encounter Date Encounter Id Patient Instructions Last Modified By Organization Details Last Modified Time 04/06/2023 [id number] 1. Right myringotomy with tube (Paparella) placement [...] view No observ ation record ed. [email or web address] [facility] (Med Record) [address], [place], [address], 06/11/2023 11:05:50 06/24/19 24 06/17/2023 CT, chest , w/o contr ast No observ ation record ed. [email or web address] [facility] [address], [place], [address], 06/25/2023 08:53:57 Result Notes None recorded. Problems Name Problem SNOMED Code Status Onset Date Resolution Date Notes Provider Name and Address Organization Details Recorded Time Neuropath y 570898796 Active 2014 From Automated Load;Provi brittany: Quinton Rey;Sta tus: Active Not Available [facility] 6 09:01:13 Pain of joint of elbow 816061054 Active 2014 From Automated Load;Provi brittany: Quinton Rey;Sta tus: Active Not Available [facility] 6 09:01:17 Lack of energy 047509497 Active 2014 From Automated Load;Provi brittany: Quinton Rey;Sta tus: Active Not Available [facility] 6 09:01:17 Pain of temporoma ndibular joint 49867346 Active 2015 From Automated Load;Provi brittany: Emiliana Barros;St atus: Active Not Available [facility] 6 09:01:13 Xerostomi a 54910560 Active 2015 From Automated Load;Provi brittany: Emiliana Barros;St atus: Active Not Available 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 6 09:01:13 Problem Notes None recorded. Procedures Surgical History Date Name Laterality Status Provider Name and Address Organization Details Recorded Time 025 Houston-Hallpike completed Angelika Rice [facility] 11/13/2024 08:47:17 025 Nasolaryngoscopy completed EMILIANA BARROS MD [address] [place] [address], [address], [facility] 11/13/2024 12:46:18 024 [facility]way [facility] 08/20/2023 13:38:12 024 Diffusion Capacity completed Yoly Americo [facility] 08/20/2023 13:38:08 024 Lung Volumes, Plethysmography [facility] 08/20/2023 13:38:10 024 Spirometry [facility] 08/20/2023 13:38:07 024 Pulmonary Function Testing completed AMMON Troy MD [address] [place] [address], [address], [facility] 08/20/2023 13:45:28 024 Nasolaryngoscopy completed EMILIANA BARROS MD [facility] [place], [address], [facility] 05/25/2023 16:26:40 023 Tympanostomy w/Tube, local completed Wendi Ferro [facility] 04/06/2023 10:01:22 023 Tympanogram completed PHILLIP WALLIS, CCA-A [facility] [place], [address], [facility] 03/09/2023 15:34:03 023 Audiogram completed PHILLIP WALLIS, CCA[facility] [place], [address], [facility] 03/09/2023 15:34:01 023 Nasolaryngoscopy completed EMILIANA BARROS MD [facility] [place], [address], [facility] 05/05/2022 17:21:30 018 Electromyography (EMG) with Nerve Conduction Study (NCV) completed KIM GARVIN MD [facility] [place], [address], [facility] 03/28/2018 09:01:23 018 Laryngoscopy Flex completed EMILIANA BARROS MD [facility] [place], [address], [facility] 06/28/2017 09:51:23 018 Tympanostomy w/Tube, local completed EMILIANA BARROS MD [facility] [place], [address], [facility] 05/31/2017 11:34:03 018 Nasopharyngoscopy completed EMILIANA BARROS MD [facility] [place], [address], [facility] 05/19/2017 11:05:05 017 Injection - Joint/Bursa, Major, w/o US completed ERIC REY MD [address] [place] [address], [address], [facility] 10/06/2016 09:45:44 Hernia repair w/mesh completed Yelitza enne [facility] 05/19/2017 10:51:40 Total hysterectomy completed Cheyechery syed [facility] 05/19/2017 10:51:52 Cholecystectomy completed Precious Johnson [facility] 03/02/2019 14:05:47 Imaging Results None recorded. [...] Date: 2013 2:24: 15 PM; Not Available [facility] 6 12:12:25 130265 Substance with sulfonami de structure and antibacte rial mechanism of action (substanc e) medicatio n Not available Not available Not available 03/20/20162013 15704 8003 SNOMED Comme nt: Creat ed By: Adal wooten;C reate d Date: 2013 2:23: 40 PM; Not Available [facility] 6 02:54:37 478821 morphine sulfate medicatio n Not available Not available Not available 03/20/20162013 08983 RxNorm Comme nt: Creat ed By: Adal Cano any;C reate d Date: 2013 2:24: 33 PM; Not Available [facility] 6 10:25:04 858747 doxycycli ne Not available Not available Not available Not available 03/02/2019 3640 RxNorm [facility] 9 14:03:57 437286 hydrocodo ne Not available Not available Not available Not available 03/02/2019 5489 RxNorm [facility] 9 14:04:12 607764 amoxicill in medicatio n Not available Not available Not available 03/02/2019 723 RxNorm [facility] 9 14:04:20 Medications Name Sig Start [...] Updated DateTime 05/25/2023 126/73 mm[Hg] Delores Riley [facility] 05/25/2023 14:47:08 Date Recorded Body height Body mass index (BMI) Body weight Provider Name and Address Organization Details Last Updated DateTime 05/25/2023 160.02 cm 24.1 kg/m2 27161.56 g Ifrah Hayes [facility] 05/25/2023 14:41:13 Date Recorded Body height Body mass index (BMI) Body weight Oxygen saturation Heart rate Systolic And Diastolic Provider Name and Address Organization Details Last Updated DateTime 156.21 cm 25.1 kg/m2 07809.9 7 g 99 % 64 /min 126/79 mm[Hg] Yoly Driscoll [facility] 4 13:10:39 Date Recorded Body height Body mass index (BMI) Body weight Provider Name and Address Organization Details Last Updated DateTime 11/13/2024 156.21 cm 23.2 kg/m2 25860.05 g Ifrah Hayes [facility] 11/13/2024 08:19:19 Date Recorded Body height Body mass index (BMI) Body weight Body temperature Heart rate Systolic And Diastolic Provider Name and Address Organization Details Last Updated DateTime 3 160.02 cm 24.5 kg/m2 98431.5 5 g 97 [degF] 60 /min 131/74 mm[Hg] Wendi Ferro [facility] 3 15:50:13 Date Recorded Body height Body mass index (BMI) Body weight Body temperature Heart rate Systolic And Diastolic Provider Name and Address Organization Details Last Updated DateTime 3 160.02 cm 24.2 kg/m2 39777.6 6 g 97 [degF] 65 /min 106/75 mm[Hg] Esperanza Bob [facility] 3 09:35:02 Social History Question Answer Notes LastModified by Organizat ion Details LastModified Time Tobacco Smoking Status Never [facility]oker [facility] 10/06/2016 09:28:54 Live Alone Or With Others? With Others Information not available 03/09/2018 Marital Status Informat ion not available 03/09/2018 What Was The Date Of Your Most Recent Tobacco Screening? 03/09/2018 Information n ot available 06/13/2019 Sex: Unknown Functional Status Question Answer Note LastModified by Organization D etails LastModified Time What is your level of alcohol consumption? None [email or web address] Information not available 02/28/2018 What is your [...] ICD10 Code Diagnosis IMO Codes Diagnosis Note [id number] QM[place] [address] 07/27/2016 22:29:03 07/27/2016 22:29:03 [id number] [place] [address] [place], [place] [address] 10/06/2016 09:22:40 10/06/2016 10:02:20 Greater trochanteric pain syndrome 2934767 M70.62 very symptomati c , left hip .unable to sleep on her sides.loca l care has failed to help. I injected the bursa with 40 mg depomedrol w/o complicati ons.exerci ses reviewed. 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 She has a biopsy proven Positive focus score with h/o sicca symptoms, h/o puntal plugs in eyes. we are holding off on the Plaquenil , with h/o macular degenerati on. Obtain the labs , ESR /CBC . Other issues nodule, so far benign in the thyroid , lung , kidney and breast . Clinically , no lymphadeno surjit . 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 She has a [...] Hip bursitis- post steroid injection and stable. [id number] EMILIANA BARROS MD ENT SB [address] [place] [address] 1 05/19/2017 10:35:56 05/19/2017 11:59:40 Unilateral chronic serous otitis 123384964 H65.21 causing a conductive component to her hearing loss on that side. Nasopharyn goscopy performed to rule out a nasopharyn x neoplasm which was not present. I recommend an ear tube placement. She agrees. We'll schedule that next week. Mixed cond uctive and sensorineural hearing loss of right ear 6597333242 9105 H90.A31 audiogram reviewed Sensorineu ral hearing loss in left ear 6653734311 9109 H90.A22 [id number] PHILLIP MARTI ENT SB [address] [place] [address] 1 05/19/2017 11:17:25 05/19/2017 12:03:51 Mixed conductive AND sensorineural hearing loss 38813764 H90.A31 [id number] EMILIANA BARROS MD ENT SB [address] [place] [address] 1 05/31/2017 10:40:44 05/31/2017 11:40:12 Unilateral chronic serous otitis 384907049 H65.21 right side. tube placed today. floxin otic. f/u 1 mo [id number] EMILIANA BARROS MD ENT SB [address] [place] [address] 1 06/28/2017 09:22:53 06/28/2017 11:19:19 Unilateral chronic serous otitis 968827767 H65.21 tube placed on the right side about a month ago. Hearing improved. Audiogram performed and reviewed. Improvemen t in the conductive component to the hearing loss on the right side. Follow-up 6 months Throat irritation 185468 007 R07.0 with cough likely secondary to postnasal drainage. Improving with prednisone . Continue. Laryngeal and hypopharyn geal exam is normal [id number] PHILLIP MARTI ENT SB [address] [place] [address] 1 06/28/2017 09:51:26 06/28/2017 10:39:26 Mixed conductive AND sensorineural hearing loss 55556610 H90.A31 [id number] ERIC REY MD [place] [address] 1 10/22/2017 10:00:44 10/25/2017 09:39:58 Generalized osteoarthritis 394375794 M15.9 chronic diffuse. no synovitis. ROM is fair. strength is good. maintain symptomati c care. hold off on steroid injections . Greater tr ochanteric pain syndrome 0777368 M70.62 chronic. seems to be fair. once again, no indication s for repeat steroid injection. exercises reviewed. Primary Sj gren's syndrome 820213849 M35.00 Primary sjogren's syndrome. She has a [...] continue to follow clinically . repeat labs. [id number] EMILIANA BARROS MD ENT SB [address] [place] [address] 12/31/2017 08:51:52 12/31/2017 10:06:00 Unilateral chronic serous otitis 011599124 H65.21 resolved with tube placement in May. Tube has now extruded and tympanic membrane looks normal. No fluid present. Follow-up as needed [id number] ERIC REY MD [address] 1 02/28/2018 08:52:45 02/28/2018 09:56:05 Generalized osteoarthritis 563848342 M15.9 chronic diffuse process, but age appropriat e. No features of inflammato ry process. modest reduction in hips again normal for the age. maintain symptomati c care. No indication s for steroid injections . Greater tr ochanteric pain syndrome 6008619 M70.62 chronic and seems to be fair. once again, no indication s for repeat steroid injection. exercises reviewed. 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 She has a [...] her PCP to go over these concerns. [id number] KIM GARVIN MD NEUROLOGY [facility] [address] [place] [address] 03/09/2018 07:46:28 03/09/2018 08:51:47 Pain in right lower limb 498386281 M79.598 [id number] KIM GARVIN MD NEUROLOGY [facility] [address] [place] [address] 03/28/2018 08:24:43 03/28/2018 09:58:50 Lumbar radiculopathy 716020816 M54.16 [id number] JESSE AMADO MD SURGERY SCHEDULE [address] [place] [address] 06/08/2018 08:35:48 06/08/2018 08:39:16 [id number] WYATT ADAMES MD UROLOGY [address] [place] [address] 03/02/2019 13:30:11 03/13/2019 13:35:34 Cystocele 547968803 N81.10 [id number] [place] [address] [place], [place] [address] 05/05/2022 15:11:50 05/05/2022 17:22:08 Otalgia of right ear 4905769834 H92.01 Exam is normal. Has a history of needing tubes for fluid. May be having eustachian tube spasms. Nasolaryng oscopy performed, no abnormalit ies causing referred otalgia. Will try Flonase daily. F/u 1mo Pain in throat 077230147 R07.0 likely secondary to post-nasal drainage and right ETD Dysfunctio n of right eustachian tube 8751881116 575882 H69.91 [id number] [place] [address] [place] [address] 1 06/16/2022 10:05:56 06/16/2022 10:31:51 Otalgia of right ear 3056971833 H92.01 Has a history of needing tubes for fluid. Exam is normal with no fluid present. Did not use Flonase but resolved on its own. F/u prn Dysfunctio n of right eustachian tube 6234675802 738158 H69.91 [id number] MD ILEANA BULL III ENT [address] [place] [address] 03/09/2023 14:38:08 03/10/2023 07:43:13 Referred otalgia of right ear 9138210030 826310 H92.01 Pain in throat 804451814 R07.0 Chronic cough 80930028 R 05.3 Chronic ri ght mastoiditis 5771496175 887326 H70.11 Asymmetric al sensorineural hearing loss 596191709 H90.5 Retraction of tympanic membrane 69287440 H73.899 right [id number] FELICITY LINDA ER, AUD, CCA-A [facility] ENT [address] [place] [address] 03/09/2023 15:28:20 03/09/2023 16:07:20 Otalgia of right ear 3114466915 H92.01 Dysfunctio n of bilateral eustachian tubes 8279821910 552480 H69.93 Bilateral tinnitus 96906 55551 102 H93.13 [id number] MD ILEANA BULL III ENT [address] [place] [address] 04/06/2023 08:49:35 04/06/2023 10:27:00 Pain in throat 975438149 R07.0 Chronic cough 47029224 R 05.3 Chronic ri ght mastoiditis 9960370315 692577 H70.11 Asymmetric al sensorineural hearing loss 648507111 H90.5 Retraction of tympanic membrane 25434515 H73.891 Ear pressu re sensation 670028212 H93.8X9 Dysfunctio n of bilateral eustachian tubes 0286042870 706885 H69.93 04/06/2023 - RMT performed in office. Bilateral tinnitus 03803 40586 102 H93.13 Serous heron tis media of right ear 8307754349 106339 H65.91 04/06/2023 - RMT performed in office. Referred o talgia of right ear 6578058021 978469 H92.01 [id number] EMILIANA BARROS MD ENT [address] [place] [address] 05/25/2023 14:10:32 05/26/2023 07:31:31 Serous otitis media of right ear 0098833664 546041 H65.91 Right myringotom y with tube (Paparella ) placement performed by Dr. Priest 04/06/23 for this. Tube is in good position. She had the impression that placing the tube was the source of her cough and drainage. Would have no connection to her cough and drainage although she noticed it worsened after tube was placed. Cough 84704380 R05.9 Nasolaryng oscopy performed, no obvious infection. May have a low-grade sinus infection or bronchitis . Will do Atrovent for drainage. Rx 1 week of levofloxac in. Recommend consulting w/ pulmonary if not improved. [id number] AMMON DELGADO-RUPAL MARTIN MD PULMONARY [address] [facility], [address] [place] [address] 08/20/2023 12:57:00 08/20/2023 14:14:30 Cough 13992769 R05.9 Chronic cough which is primarily nocturnal [...] see her back in reevaluati on in [facility] 3 to 4 months [id number] EMILIANA BARROS MD ENT [address] [place] [address] 11/13/2024 08:13:04 11/13/2024 13:27:39 Dizziness 434811307 R42 58666 Uncertain etiology but no evidence that this is related to the ears. Negative Houston-Hallpi ke testing. May be cardiovasc ular since it occurred after her heart surgery in May. Would defer to her PCP Hoarse 31765149 R49.[address] sinus from May was normal. Nasolaryng [...] 11/10/2024 1 [place] Clarissa P Gaunce [id number] Clarissa P Gaunce 04/21/2018 2 () [id number] Clarissa P Gaunce 06/23/2023 1 [place] Clarissa P Gaunce [id number] Clarissa P Gaunce 11/20/2024 2 (SANDI Clement [id number] Clarissa Clement Notes Date Note Type Note Provider Name [...] it was placed. HANG PRIEST III, MD [address] [place] [address] [place], [address], [facility] 03/09/2023 17:41:57 04/06/2023 text/html Clarissa is a 72 year old female who visits us in office today to follow up on her right ear. Clarissa states that she continues to have pain and pressure in her right ear today. She is interested in having a tube placed in order to relieve her symptoms. HANG PRIEST III, MD [address] [place] [address] [place], [address], [facility] 04/06/2023 10:16:45 05/25/2023 text/html Ref: Becky Harrington Complaint: CoughTimin04/06/23D uration:Location:[facility] rity:Quality: productiveContext: Right myringotomy with tube (Paparella) [...] a headache last night EMILIANA BARROS MD [address] [place] [address], [address], [facility] 05/25/2023 16:26:48 08/20/2023 text/html ROS as noted [...] productive of clear secretions especially in the control panel builder hours. She denies any fever, chills, any [...] and/or a reflux diet AMMON TREJO MD [address] [place] [address], [address], [facility] 08/20/2023 13:59:06 11/13/2024 text/html Chief Complaint: DizzinessTiming:2024Duration:Intermit [...] but has asthma also EMILIANA BARROS MD [address] [place] [address], [address], [facility] 11/13/2024 12:46:40 OBGyn Episode No OBEpisode recorded.
--- OUTSIDE RECORDS SUMMARY | 2025-03-26 08:50 | XMS_ITS | Clinical Summary ---
Author Organization [facility] Address [address] [place] [address] Care Team Providers Care Technical Program Manager Name Role Phone Pcp, No Primary Care [...] or (1 - 1-dose 75+ series) 07/21/2023 [id number] Vaccine ( - season) 2024 05/19/2023, 01/28/2022, [...] Antibody Negative Negative 07/17/2024 7:52 PM EDT [facility] Blood Venous blood specimen / Unknown Venipuncture / Unknown 07/17/2024 6:53 PM EDT 07/17/2024 7:11 PM EDT us Yin Johnson LAB BLOOD ORDERABLES Final Resul t [facility] [address] [place] [address] from Last 3 Months or Most Recently Relevant to [place] [address] [place] [address] MEDICARE [facility] Care Teams Technical Program Manager Relationship Specialty Start Date End Date P[place], [place] [address] PCP - General Family Medicine 07/17/24
--- OUTSIDE RECORDS SUMMARY | 2025-03-26 08:50 | XMS_ITS | Encounter Summary ---
Author Organization Healthcare Address [address] [place] [address] Care Team Providers Care Yard Caller Name Role Phone Pcp, No Primary Care Provider Unavailabl e Encounter Details Date Type Department Care Team (Late st Contact Info) Description 07/17/2024 Ophth Exam [facility] [address] [place] [address] Eh Tamez MD [address] [place] [address] Social History Tobacco Use Types Packs/Day [...] on filedocumented in this encounter Care Teams Yard Caller Relationship Specialty Start Date End Date Pcp, No [address] [place] [address] PCP - General Family Medicine 07/17/24 documented as of this encounter
--- OUTSIDE RECORDS SUMMARY | 2025-03-26 08:50 | XMS_ITS | Encounter Summary ---
Author Organization [facility] Address [address] [place] [address] Care Team Providers Care Internal Medicine Specialist Name Role Phone Wing Sanabria MD Unavailable [phone] Jeane Hodge APRN Primary Care Provider + [phone] Reason for Visit * Reason Onset Date Comments Records 03/20/2025 Encounter Details Date Type Department Care Team (Late st Contact Info) Description 03/20/2025 Telephone [facility] Physicians - Heart & Vascular, [address] Medical Office [facility] [address] [place] [phone] Hussein Aaron, DO [address] [place] [address], [address] [address] Records Social History Tobacco Use Types Packs/Day Years Used Date Smoking Tobacco: Never Assessed Comments Unknown Sex and Gender Information Value Date Recorded Sex Assigned at Not on file Legal Sex Female 8:48 AM EST Gender Identity Not on file Sexual Orientation Not on file documented as of this encounter Miscellaneous Notes * Telephone Encounter - Giana Alvarado, RN - 03/20/2025 3:13 PM EST [employer] sent written reports External Correspondence - EPATCH RESULTS 2024-09-07 7 DAYS (03/20/2025) Monitor summary pgs 2-15 CTA cardiac pgs 16-23 NM stress with rhythm strips pgs 24-49 * Telephone Encounter - Shira Camara MA - 03/20/2025 12:01 PM EST Sent Fax Request to [facility] @ [phone] for ECHO 01/04/25 and Cath 05/26/24. SentFax Request to [facility] @ [phone] for Holter Monitor 09/04/24, CTA 04/20/24, Stress 08/02/23 documented in this encounter Plan of Treatment Upcoming Encounters Date Type Department Care Team (Late st Contact Info) Description 04/16/2025 1:00 PM EST Appointment [facility] Physicians - Heart & Vascular, [address] [place], [place] [id number] Hussein Aaron DO [address] [place] [address] [place] [address] documented as of this encounter Visit Diagnoses Not on filedocumented in this encounter Care Teams Internal Medicine Specialist Relationship Specialty Start Date End Date Jeane Hodge APRN [facility] [address] [address] PCP - General 03/16/25 Wing Sanabria MD [address] [place] [address] Cardiology 04/13/24 documented as of this encounter
--- OUTSIDE RECORDS SUMMARY | 2025-03-26 08:50 | XMS_ITS | Encounter Summary ---
Author Organization [facility] Address [address] [place] [address] Care Team Providers Care Licensed Prosthetist Name Role Phone Jeane Hodge HENRIETTA Primary Care Provider + [phone] Encounter Details Date Type Department Care Team (Late st Contact Info) Description 03/02/2014 External CPT II [employer] Social History Tobacco Use [...] Description 05/02/2025 9:30 AM EST Office Visit [facility] PULMONARY & CRITICAL CARE MEDICINE [address] [place] [address] 05/16/2025 10:30 AM EST Office Visit [facility] PULMONARY & CRITICAL CARE MEDICINE [address] [place] [address] Pedrito Hurtado, DO [address] [place] [address] 06/27/2025 9:30 AM EST Office Visit [facility] NEUROLOGY [address] [facility] [address] [place] [phone] Марина Nichols APRN [address] [facility] [address] [place] [address] 03/15/2026 9:30 AM EST Office Visit [facility] CARDIOLOGY [address] [facility] [address] [place] [phone] Wing Sanabria MD [address] [facility] [address] [place] [address] documented as of this encounter Visit Diagnoses Not on filedocumented in this encounter Care Teams Licensed Prosthetist Relationship Specialty Start Date End Date Jeane Hodge, FREELANCE COPYWRITER [facility] [address] [address] PCP - General Internal Medicine 02/23/25 documented as of this encounter
[2025-03-26 08:51] LABS: Calcium 9.8 mg/dl (8.4-10.2); Glucose 117 mg/dl (74-100)
[2025-03-26] MEDS: IOPAMIDOL-370 (76%);100ML BOTTLE 75 ML IV (09:11)
[2025-03-26] MEDS: SODIUM CHLORIDE 0.9% 10ML SYR (RAD ONLY) 10 ML IV (09:11)
[2025-03-26 09:29] LABS: Microscopic, Urine URINE MICROSCOPIC (MICROSCOPIC)
[2025-03-26] MEDS: LIDOCAINE 1% 5ML PF VIAL IM (11:29)
[2025-03-26 11:30] LABS: Bilirubin,Urine Negative (Negative); Color,Urine YELLOW (Yellow); Glucose,Urine (UA) Negative (Negative); Ketones,Urine Negative (Negative); Leukocyte Esterase,Urine 2+ (Negative); PH,Urine 7.0 (5.0-8.5); Protein,Urine Negative (Negative); Specific Gravity, Urine <= 1.005 (1.005-1.030); Urobilinogen,Urine 0.2 EU/dl (0.2)
[2025-03-26] MEDS: MINERAL OIL ENEMA 133ML 133 ML RC (12:37)
--- NOTE | 2025-03-26 12:40 | PC.NURSE ---
Completed soap suds enema, pt tolerating well. and has kept most of the liquid in. Call light in hand to use when she needs to use the bathroom
--- NOTE | 2025-03-26 12:50 | PC.NURSE ---
Pt unable to keep BP cuff & pulse ox monitor in place d/t having to go back and forth to the restroom before and after enema.
[2025-03-26 13:32] LABS: Bacteria,Urine 1+ /lpf; RBC,Urine Occasional #/hpf (0-3)
[2025-03-26] MEDS: MAGNESIUM CITRATE 296ML BOTTLE 296 ML PO (13:47)
--- NOTE | 2025-03-26 13:47 | PC.NURSE ---
Educated on Miralax & Magnesium Citrate dosing and instructions.
== END 2025-03-26 14:00 | disposition home health service (06) ==
PROVIDERS: Emergency Provider Student in an Organized Health Care Education/Training Program; PCP Internal Medicine
DX: R10.9 Unspecified abdominal pain (principal); K59.00 Constipation, unspecified
CPT/HCPCS: 74177; 80053; 81001; 83605; 83690; 85025; 87086; 96360; 96372; 99285; J0696; J2003; J7120; Q9967

== ENCOUNTER 2025-04-04 16:34 | Outpatient (CLI) | payer MEDICARE, OTHER, SELFPAY ==
--- NOTE | 2025-04-04 16:43 | XR_ITS ---
PROCEDURE INFORMATION: Exam: XR Right Foot Exam date and time: 04/04/2025 4:44 PM Age: 74 years old Clinical indication: Pain; Foot; Right; Additional info: Right foot pain. C/O lateral right foot pain; R/O gout TECHNIQUE: Imaging protocol: Radiologic exam of the right foot. Views: 3 or more views. COMPARISON: US ARTERIAL LOWER EXT REST 11/10/2022 1:29 PM FINDINGS: Bones/joints: Hallux valgus deformity. Curvilinear calcification adjacent to the base of the 5th metatarsal on the frontal image. Soft tissues: Unremarkable. IMPRESSION: Curvilinear calcification adjacent to the base of the 5th metatarsal on the frontal image. This could be an acute fracture or a developmental variant. Please correlate with point tenderness.
[2025-04-04 22:03] LABS: Uric Acid 3.1 mg/dl (2.5-6.2)
== END 2025-04-04 23:59 | disposition home or self-care (01) ==
LOC: LAB 16:35
PROVIDERS: PCP Internal Medicine; Visit Provider Nurse Practitioner Family
DX: M79.671 Pain in right foot (principal); R93.6 Abnormal findings on diagnostic imaging of limbs
CPT/HCPCS: 36415; 73630; 84550